=== PATIENT | female | born 1960 | race Caucasian/White ===

== ENCOUNTER → 2020-01-16 14:12 | Outpatient (BNVA) | payer MEDICAID, SELFPAY | PROVIDERS: PCP Internal Medicine; Visit Provider Advanced Practice Midwife | DX: Z20.2 Contact with and (suspected) exposure to infections with a predominantly sexual mode of transmission (principal) | CPT/HCPCS: 99212 ==

== ENCOUNTER 2020-01-23 13:00 | Outpatient (RCR) | payer MEDICAID, SELFPAY ==
--- NOTE | 2020-01-23 15:19 | MHC.PT.DC ---
[facility] [place] Office [place] Office [place] Office [address] Carlos Mcdaniel [address] [phone] F: [phone] F: [phone] F: [phone] F: [phone] Physical Therapy Discharge Report Diagnosis: Date of Surgery: n/A Date of Evaluation: 12/22/19 Date of Discharge: 01/23/20 Treatments to Date: 8 Cancellations to Date: 0 No Shows to Date: 0 Discharge Status: Improved Function Independent with HEP Recommend MD Follow-up Discharge Summary: The patient overall has improved in her functional mobility and balance. She continues to have fluctuating pain that interferes with her daily activities. She reported a statistically significant improvement in her self-reported outcome measure, the Lower Extremity Functional Index. She is being discharged from this physical therapy plan of care to her home exercise program. It is recommended she follow-up with her primary care provider regarding her pain to discuss alternative treatment options. Electronically signed by: Liyah Rosales PT, DPT Please sign and return to therapist. Thank you for your referral.
== END 2020-01-23 15:19 | disposition other institution (70) ==
LOC: HO.PT 13:00
PROVIDERS: PCP Internal Medicine; Visit Provider Internal Medicine
DX: M25.373 Other instability, unspecified ankle (principal)
CPT/HCPCS: 97110; 97112; 97530

== ENCOUNTER 2020-02-19 13:22 | Emergency (ER) | payer MEDICAID, SELFPAY ==
--- NOTE | 2020-02-19 13:31 | XR_ITS ---
EXAMINATION: XR CHEST CLINICAL INFORMATION: Dyspnea COMPARISON: Prior chest April 2019 TECHNIQUE: Frontal view of the chest was obtained. FINDINGS: No significant abnormality is noted involving the heart, lungs, mediastinum, bony thorax or soft tissues. XR/XR chest 1V IMPRESSION: Unremarkable examination.
--- NOTE | 2020-02-19 13:31 | ECG_ITS ---
Test Reason : ASTHMA Blood Pressure : / mmHG Vent. Rate : 065 BPM Atrial Rate : 065 BPM P-R Int : 136 ms QRS Dur : 094 ms QT Int : 410 ms P-R-T Axes : 024 -17 018 degrees QTc Int : 426 ms Normal sinus rhythm Normal ECG No previous ECGs available Referred By: Tangela Jefferson Electronically Signed By:PAM MORIN MD
--- NOTE | 2020-02-19 13:31 | ED_ITS ---
HPI - Asthma General Chief Complaint: Asthma Stated Complaint: DIFF BREATHING Time Seen by Provider: 02/19/20 13:31 Source: patient Mode of arrival: ambulatory Limitations: no limitations History of Present Illness MD complaint: shortness of breath Onset (ago): day(s) (last night) Severity: moderate Context: none known Associated symptoms: dry cough and chest pain Asthma History: childhood onset Treatments Prior to Arrival: inhaled bronchodilator Related Data Home Medications Medication Instructions Recorded Confirmed albuterol sulfate 90 mcg/actuation 2 puff INHALATION Q6H PRN 01/05/20 01/16/20 aerosol inhaler atorvastatin 10 mg tablet 10 mg PO BEDTIME 01/05/20 01/16/20 levothyroxine 25 mcg tablet 25 mcg PO DAILY 01/05/20 01/16/20 metformin 500 mg tablet 500 mg PO BID 01/05/20 01/16/20 montelukast 10 mg tablet 10 mg PO BEDTIME 01/05/20 01/16/20 topiramate 50 mg tablet 50 mg PO ONCE tab 01/05/20 01/16/20 Previous Rx's Medication Instructions Recorded lorazepam [Ativan] 1 mg PO BID PRN #10 tab 02/19/20 Allergies Allergy/AdvReac Type Severity Reaction Status Date / Time gentamicin [From GARAMYCIN] Allergy Intermediate RASH Verified 02/19/20 13:34 Penicillins [PENICILLINS] Allergy Intermediate RASH Verified 02/19/20 13:34 Garamycin Allergy Unknown rash Verified 02/19/20 13:34 penicillin V Allergy Unknown rash Verified 02/19/20 13:34 vancomycin [VANCOMYCIN] Allergy Unknown sweeling/ra Verified 02/19/20 13:34 sh/hives Pt states no allergies to Allergy Unknown Unknown Uncoded 02/19/20 13:34 food Review of Systems Review of Systems: Constitutional : No Fever, No Chills ENT/Mouth : No sore throat, No Rhinorrhea, No Swallowing Difficulty Eyes: No Eye Pain, No Swelling, No Redness Cardiovascular : pos Chest Pain, positive SOB, No Orthopnea, no Edema Respiratory : pos Cough, No Sputum, No Wheezing, positive dyspnea Gastrointestinal : No Nausea, No Vomiting, No Diarrhea, No abdominal Pain, No Hematochezia, No Melena Genitourinary : No Dysuria, No Urinary Frequency, No Hematuria Musculoskeletal : No joint pain, No Myalgias Skin : No Skin Lesions, No rash Neuro : No Weakness, No Numbness, No Dizziness, No Headache Psych : No Anxiety/Panic, No Depression Heme/Lymph: No Bruising, No Lymphadenopathy Endocrine : No Polyuria, No Polydipsia All other systems reviewed and are negative [facility] Past Medical History Attestation statement: The following information was validated with the patient. Medical History Asthma Diabetes type 2, controlled GERD (gastroesophageal reflux disease) Hyperlipidemia Hypothalamic hypothyroidism Insomnia Lower back pain Migraine headache Osteopenia determined by x-ray Surgical History History of cervical cerclage Hx of hysterectomy Hx of left breast biopsy Hx of tubal ligation Family History Family History Father Diabetes Mother HTN (hypertension) Father Colon cancer Mother Colon cancer Skin cancer Mother Breast CA Social History Social History Alcohol intake: never Smoking Status: Never smoker Advance Directives: Yes Advance Directives on File: Yes Advance Directives Date on File: 01/09/20 Gender identity: female Physical Exam Vital Signs: Vital Signs: Last Vital Signs Temp 98.2 F 02/19/20 13:34 Pulse 68 02/19/20 13:34 Resp 18 02/19/20 13:34 BP 126/60 02/19/20 13:34 Pulse Ox 95 02/19/20 13:34 Body Mass Index 32.3 Appearance: Alert. Oriented X3. No acute distress. anxious Eyes: Pupils equal, round and reactive to light. ENT: Pharynx normal. Neck: Normal inspection. Neck supple. CVS: Normal heart rate and rhythm. Pulses normal. Respiratory: No respiratory distress. Breath sounds slightly diminished Abdomen: Soft and nontender. Skin: Skin warm and dry. Normal skin color. Normal skin turgor. Extremities: No lower extremity edema. No calf ttp Neuro: Oriented X 3. No motor deficit. No sensory deficit. Course Course Course Narrative: negative findings at this time, trop negative and ddimer negative > 6 hours of symptoms, stable for DC MDM - Asthma MDM Narrative Medical decision making narrative: 59 yo female with HTN, DM, asthma here with dyspnea x 1 day and substernal CP - states she is very anxious due to family stressors, will need labs, EKG, ddimer, troponin x 1, CXR, neb and ativan for anxiety, dispo per results and findings. Lab Data Result diagrams: 02/19/20 13:48 02/19/20 13:48 Labs: Lab Results 02/19/20 02/19/20 02/19/20 Range/Units 13:48 13:48 13:48 WBC 6.1 (4.8-10.8) X10*3/uL RBC 3.85 L (4.20-5.50) X10*6/uL Hgb 11.5 L (12.0-16.0) g/dl Hct 35.6 L (37-47) % MCV 92.5 (80-98) fL MCH 29.9 (27.0-33.0) pg MCHC 32.3 (31.0-35.0) g/dl RDW 13.1 (11.0-16.0) % Plt Count 251 (160-400) X10*3/uL MPV 11.0 (9.4-12.3) fL Immature Gran % (Auto) 0.2 (0.0-0.4) % Neut % (Auto) 64.1 (45-73) % Lymph % (Auto) 26.7 (20-40) % [place] % (Auto) 6.9 (2-11) % Eos % (Auto) 1.8 (0-4) % Baso % (Auto) 0.3 (0-2) % Lymph # (Auto) 1.6 (1.2-4.9) X10*3/uL [place] # (Auto) 0.4 (0.1-1.2) X10*3/uL Eos # (Auto) 0.1 (0.0-0.4) X10*3/uL Baso # (Auto) 0.0 (0.0-0.2) X10*3/uL Abs Immat Gran (auto) 0.01 (0.00-0.03) X10*3/uL Absolute Neuts (auto) 3.9 (2.0-8.3) X10*3/uL Absolute Nucleated RBC 0.000 (0.0-0.012) X10*3/uL Nucleated RBC % (auto) 0.0 (0.0-0.2) /100WBC D-Dimer < 200 NG/ML Sodium 141 (135-145) mmol/L Potassium 3.8 (3.3-5.1) mmol/l Chloride 104 (96-108) mmol/L Carbon Dioxide 29 (22-29) mmol/L Anion Gap 12 (12-20) BUN 12 (9-16) mg/dL Creatinine 0.80 (0.5-1.4) mg/dL Estim Creat Clear Calc 84.8 Estimated GFR > 60 Random Glucose 126 H (60-115) mg/dL Calcium 9.0 (8.4-10.2) mg/dL Magnesium 2.0 (1.6-2.6) mg/dL Total Bilirubin 0.4 (0.0-1.0) mg/dL Direct Bilirubin < 0.2 (0.0-0.5) mg/dL AST 16 (5-31) U/L ALT 15 (0-31) U/L Alkaline Phosphatase 92 (39-117) U/L Troponin I High Sens (<3.5-17.0) ng/L Total Protein 6.7 (6.5-8.0) g/dL Albumin 4.2 (3.5-5.0) g/dL 02/19/20 Range/Units 13:48 WBC (4.8-10.8) X10*3/uL RBC (4.20-5.50) X10*6/uL Hgb (12.0-16.0) g/dl Hct (37-47) % MCV (80-98) fL MCH (27.0-33.0) pg MCHC (31.0-35.0) g/dl RDW (11.0-16.0) % Plt Count (160-400) X10*3/uL MPV (9.4-12.3) fL Immature Gran % (Auto) (0.0-0.4) % Neut % (Auto) (45-73) % Lymph % (Auto) (20-40) % [place] % (Auto) (2-11) % Eos % (Auto) (0-4) % Baso % (Auto) (0-2) % Lymph # (Auto) (1.2-4.9) X10*3/uL [place] # (Auto) (0.1-1.2) X10*3/uL Eos # (Auto) (0.0-0.4) X10*3/uL Baso # (Auto) (0.0-0.2) X10*3/uL Abs Immat Gran (auto) (0.00-0.03) X10*3/uL Absolute Neuts (auto) (2.0-8.3) X10*3/uL Absolute Nucleated RBC (0.0-0.012) X10*3/uL Nucleated RBC % (auto) (0.0-0.2) /100WBC D-Dimer NG/ML Sodium (135-145) mmol/L Potassium (3.3-5.1) mmol/l Chloride (96-108) mmol/L Carbon Dioxide (22-29) mmol/L Anion Gap (12-20) BUN (9-16) mg/dL Creatinine (0.5-1.4) mg/dL Estim Creat Clear Calc Estimated GFR Random Glucose (60-115) mg/dL Calcium (8.4-10.2) mg/dL Magnesium (1.6-2.6) mg/dL Total Bilirubin (0.0-1.0) mg/dL Direct Bilirubin (0.0-0.5) mg/dL AST (5-31) U/L ALT (0-31) U/L Alkaline Phosphatase (39-117) U/L Troponin I High Sens < 3.5 (<3.5-17.0) ng/L Total Protein (6.5-8.0) g/dL Albumin (3.5-5.0) g/dL ECG Data Attestation: I personally reviewed and interpreted this ECG as follows: ECG interpretation date: 02/19/20 ECG interpretation time: 13:46 Interpretation: Rate: 65 Rhythm: NSR [place]: left Normal P waves. Normal SILVANO. Normal QRS complex. ST T wave :normal qTC: normal prior studies: no acute ischemia The study has been interpreted contemporaneously by me. . Discharge Plan Discharge Clinical Impression: Anxiety, Acute dyspnea Chest pain Qualifiers: Chest pain type: unspecified Qualified Code(s): R07.9 - Chest pain, unspecified Patient Disposition: Home, Self-Care Instructions: Chest Pain (ED), Anxiety (ED) Additional Instructions: return to ED for any worsening symptoms or concerns Prescriptions: New lorazepam [Ativan] 1 mg tablet 1 mg PO BID PRN (Reason: anxiety) Qty: 10 RF: 0 No Action metformin 500 mg tablet 500 mg PO BID RF: 0 albuterol sulfate 90 mcg/actuation HFA aerosol inhaler 2 puff inhalation Q6H PRNRF: 0 atorvastatin [Lipitor] 10 mg tablet 10 mg PO BEDTIME RF: 0 montelukast [Singulair] 10 mg tablet 10 mg PO BEDTIME RF: 0 topiramate 50 mg tablet 50 mg PO ONCE RF: 0 levothyroxine [Synthroid] 25 mcg tablet 25 mcg PO DAILY RF: 0 Referrals: Matilda Yo MD [Primary Care Provider] - 2 days (if not better) Print Language: [place]
[2020-02-19 13:34] VITALS: BP 126/60; PULSE 68; RESP 18; TEMP 36.8; O2SAT 95; BMI 32.3
[2020-02-19] MEDS: LORazepam 1 MG TABLET PO (13:41)
[2020-02-19 13:55] LABS: Basophils Percent Auto 0.3 % (0-2); Eosinophils Absolute Auto 0.1 X10*3/uL (0.0-0.4); Eosinophils Percent Auto 1.8 % (0-4); Hematocrit 35.6 % (37-47); Hemoglobin 11.5 g/dl (12.0-16.0); Imm Gran Abs Auto 0.01 X10*3/uL (0.00-0.03); Imm Gran Pct Auto 0.2 % (0.0-0.4); Lymphocytes Absolute Auto 1.6 X10*3/uL (1.2-4.9); Lymphocytes Percent Auto 26.7 % (20-40); MANUAL DIFF FLAG NO; Mean Corpuscular HGB Conc 32.3 g/dl (31.0-35.0); Mean Corpuscular Hemoglobin 29.9 pg (27.0-33.0); Mean Corpuscular Volume 92.5 fL (80-98); Monocytes Absolute Auto 0.4 X10*3/uL (0.1-1.2); Monocytes Percent Auto 6.9 % (2-11); Neutrophils Absolute Auto 3.9 X10*3/uL (2.0-8.3); Neutrophils Percent Auto 64.1 % (45-73); Platelet Count 251 X10*3/uL (160-400); Red Blood Count 3.85 X10*6/uL (4.20-5.50); Red Cell Distribution Width 13.1 % (11.0-16.0); White Blood Count 6.1 X10*3/uL (4.8-10.8)
--- NOTE | 2020-02-19 14:02 | PC.NURSE ---
SEEN BY PROVIDER. MEDICATED PER ORDERS. AWAITING UD BY RT
[2020-02-19] MEDS: Albuterol Sulfate (0.083%) 2.5 MG/3 ML VIAL.NEB INHALE (14:05)
[2020-02-19 14:07] LABS: D Dimer < 200 NG/ML
[2020-02-19 14:16] LABS: Alanine Aminotransferase 15 U/L (0-31); Albumin Level 4.2 g/dL (3.5-5.0); Alkaline Phosphatase 92 U/L (39-117); Anion Gap 12 (12-20); Aspartate Amino Transferase 16 U/L (5-31); Bilirubin Direct < 0.2 mg/dL (0.0-0.5); Bilirubin Total 0.4 mg/dL (0.0-1.0); Blood Urea Nitrogen 12 mg/dL (9-16); Carbon Dioxide 29 mmol/L (22-29); Chloride 104 mmol/L (96-108); Creatinine Clr Calc Pharmacy 84.8; Estimated Glomerular Filt Rate > 60; Glucose Random 126 mg/dL (60-115); Potassium 3.8 mmol/l (3.3-5.1); Sodium 141 mmol/L (135-145); Total Protein 6.7 g/dL (6.5-8.0)
[2020-02-19 14:23] LABS: Troponin-I High Sensitivity < 3.5 ng/L (<3.5-17.0)
== END 2020-02-19 15:13 | disposition home or self-care (01) ==
PROVIDERS: Emergency Provider Emergency Medicine; PCP Internal Medicine
DX: F41.1 Generalized anxiety disorder (principal); F43.0 Acute stress reaction; R07.9 Chest pain, unspecified; R06.02 Shortness of breath; Z79.899 Other long term (current) drug therapy
CPT/HCPCS: 36415; 71045; 80048; 80076; 83735; 84484; 85025; 85379; 93005; 94640; 99283; 99284

== ENCOUNTER 2020-03-11 09:18 | Outpatient (REF) | payer MEDICAID, SELFPAY ==
[2020-03-11 10:29] LABS: Estimated Average Glucose 131 mg/dL; Hemoglobin A1C 140.5619 umol/L; Hemoglobin A1c % 6.2 %
[2020-03-11 10:41] LABS: Alanine Aminotransferase 19 U/L (0-31); Albumin Level 4.2 g/dL (3.5-5.0); Alkaline Phosphatase 86 U/L (39-117); Anion Gap 10 (12-20); Aspartate Amino Transferase 18 U/L (5-31); Bilirubin Total 0.7 mg/dL (0.0-1.0); Blood Urea Nitrogen 14 mg/dL (9-16); Calcium 8.7 mg/dL (8.4-10.2); Carbon Dioxide 28 mmol/L (22-29); Chloride 107 mmol/L (96-108); Estimated Glomerular Filt Rate > 60; Glucose Random 111 mg/dL (60-115); Potassium 4.5 mmol/l (3.3-5.1); Sodium 140 mmol/L (135-145); Total Protein 6.6 g/dL (6.5-8.0)
== END 2020-03-11 09:19 | disposition home or self-care (01) ==
LOC: HO.LAB 09:18
PROVIDERS: PCP Internal Medicine; Visit Provider Internal Medicine
DX: E03.8 Other specified hypothyroidism (principal); E11.9 Type 2 diabetes mellitus without complications; G43.119 Migraine with aura, intractable, without status migrainosus; J45.31 Mild persistent asthma with (acute) exacerbation
CPT/HCPCS: 80053; 83036

== ENCOUNTER → 2020-04-22 09:52 | Outpatient (BNVA) | payer MEDICAID, SELFPAY | PROVIDERS: PCP Internal Medicine; Visit Provider Physician Assistant | DX: E66.9 Obesity, unspecified (principal); E11.9 Type 2 diabetes mellitus without complications; I10 Essential (primary) hypertension; Z68.35 Body mass index [BMI] 35.0-35.9, adult | CPT/HCPCS: 99202 ==

== ENCOUNTER 2020-04-23 12:33 | Outpatient (REF) | payer MEDICAID, SELFPAY | END 2020-04-23 12:34 | disposition home or self-care (01) | LOC: HO.LAB 12:33 | PROVIDERS: Visit Provider Internal Medicine | DX: Z20.822 Contact with and (suspected) exposure to COVID-19 (principal) | CPT/HCPCS: 36415; C9803; U0003 ==

== ENCOUNTER 2020-06-14 09:38 | Outpatient (REF) | payer MEDICAID, SELFPAY ==
[2020-06-14 10:40] LABS: MANUAL DIFF FLAG NO
[2020-06-14 10:57] LABS: Basophils Percent Auto 0.5 % (0-2); Eosinophils Absolute Auto 0.1 X10*3/uL (0.0-0.4); Eosinophils Percent Auto 2.4 % (0-4); Hematocrit 39.5 % (37-47); Hemoglobin 12.6 g/dl (12.0-16.0); Imm Gran Abs Auto 0.02 X10*3/uL (0.00-0.03); Imm Gran Pct Auto 0.3 % (0.0-0.4); Lymphocytes Absolute Auto 1.8 X10*3/uL (1.2-4.9); Lymphocytes Percent Auto 31.1 % (20-40); Mean Corpuscular HGB Conc 31.9 g/dl (31.0-35.0); Mean Corpuscular Hemoglobin 29.5 pg (27.0-33.0); Mean Corpuscular Volume 92.5 fL (80-98); Mean Platelet Volume 11.2 fL (9.4-12.3); Monocytes Absolute Auto 0.4 X10*3/uL (0.1-1.2); Monocytes Percent Auto 6.1 % (2-11); Neutrophils Absolute Auto 3.4 X10*3/uL (2.0-8.3); Neutrophils Percent Auto 59.6 % (45-73); Platelet Count 281 X10*3/uL (160-400); Red Blood Count 4.27 X10*6/uL (4.20-5.50); Red Cell Distribution Width 12.9 % (11.0-16.0); White Blood Count 5.7 X10*3/uL (4.8-10.8)
[2020-06-14 11:20] LABS: Microalbum/Creatinine Ratio Ur 4.7 ug/mg cr
[2020-06-14 11:22] LABS: Estimated Average Glucose 137 mg/dL; Hemoglobin A1c % 6.4 %
[2020-06-14 12:13] LABS: Alanine Aminotransferase 16 U/L (0-31); Albumin Level 4.4 g/dL (3.5-5.0); Alkaline Phosphatase 90 U/L (39-117); Anion Gap 13 (12-20); Aspartate Amino Transferase 16 U/L (5-31); Bilirubin Total 0.8 mg/dL (0.0-1.0); Blood Urea Nitrogen 12 mg/dL (9-16); Calcium 9.1 mg/dL (8.4-10.2); Carbon Dioxide 28 mmol/L (22-29); Chloride 104 mmol/L (96-108); Cholesterol 210 mg/dL; Estimated Glomerular Filt Rate > 60; Glucose Random 100 mg/dL (60-115); HDL Cholesterol 44 mg/dL; LDL Cholesterol Calculated 125 mg/dl; Potassium 4.4 mmol/L (3.3-5.1); Sodium 141 mmol/L (135-145); Total Protein 6.9 g/dL (6.5-8.0); Triglycerides 206 mg/dL
== END 2020-06-14 09:39 | disposition home or self-care (01) ==
LOC: HO.LAB 09:38
PROVIDERS: PCP Internal Medicine; Visit Provider Internal Medicine
DX: E03.9 Hypothyroidism, unspecified (principal); E11.9 Type 2 diabetes mellitus without complications; E78.00 Pure hypercholesterolemia, unspecified; I10 Essential (primary) hypertension
CPT/HCPCS: 36415; 80053; 80061; 82043; 83036; 85025

== ENCOUNTER 2020-06-28 10:54 | Outpatient (REF) | payer MEDICAID, SELFPAY ==
[2020-06-30 14:16] LABS: H Pylori Breath Test NOT DETECTED (NOT DETECTED)
== END 2020-06-28 10:55 | disposition home or self-care (01) ==
LOC: CF 10:54
PROVIDERS: PCP Internal Medicine; Visit Provider Nurse Practitioner
DX: R13.12 Dysphagia, oropharyngeal phase (principal); K59.04 Chronic idiopathic constipation; K21.9 Gastro-esophageal reflux disease without esophagitis
CPT/HCPCS: 83013; 99212

== ENCOUNTER 2020-07-05 10:48 | Outpatient (REF) | payer MEDICAID, SELFPAY ==
--- NOTE | ~2020-07-05 | MM_ITS ---
EXAMINATION: MM SCREENING DIGITAL BREAST TOMOSYNTHESIS, BILATERAL CLINICAL INFORMATION: Screening. Asymptomatic. The lifetime risk of breast cancer based on the Tyrer-Cuzick Model is 16.7%. COMPARISON: Mammography: April 25, 2019 and studies dating back to April 23, 2014 TECHNIQUE: Digital breast tomosynthesis is performed in both the craniocaudal and mediolateral oblique views along with computer-aided detection (CAD). Synthesized 2D images are generated from the tomosynthesis. FINDINGS: The breasts are heterogeneously dense, which may obscure small masses (ACR BI-RADS breast composition Category c). There are no significant masses, abnormal calcifications, or other abnormalities. 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 MM/MM tomosynthesis screening BI IMPRESSION: There are no significant changes from prior study. ASSESSMENT: BI-RADS 2: Benign RECOMMENDATION: Routine annual mammography screening. This patient's information was entered into a reminder system with a target due date for their next mammogram.
== END 2020-07-05 10:49 | disposition home or self-care (01) ==
LOC: HO.MAMMO 10:48
PROVIDERS: Visit Provider Advanced Practice Midwife
DX: Z12.31 Encounter for screening mammogram for malignant neoplasm of breast (principal)
CPT/HCPCS: 77063; 77067

== ENCOUNTER → 2020-07-06 10:08 | Outpatient (BNVA) | payer MEDICAID, SELFPAY | PROVIDERS: PCP Internal Medicine; Visit Provider Student in an Organized Health Care Education/Training Program | DX: M54.2 Cervicalgia (principal); M54.5 Low back pain | CPT/HCPCS: 99212 ==

== ENCOUNTER 2020-07-16 10:25 | Outpatient (REF) | payer MEDICAID, SELFPAY ==
--- NOTE | ~2020-07-16 | XR_ITS ---
EXAMINATION: XR CERVICAL SPINE CLINICAL INFORMATION: Cervicalgia COMPARISON: None TECHNIQUE: 3 views of the cervical spine were obtained. FINDINGS: There is no fracture or acute subluxation. Slight retrolisthesis of C5 on C6 appears degenerative. There is narrowing of the disc space at this level with endplate sclerosis and small osteophytes. Remaining disc spaces are maintained with small endplate osteophytes. The atlantoaxial joint is well aligned. The dens is intact. The prevertebral soft tissues are unremarkable. The lung apices are clear. XR/XR cervical spine 2V IMPRESSION: Moderate degenerative change of the C5-C6 level.
--- NOTE | ~2020-07-16 | XR_ITS ---
EXAMINATION: XR LUMBOSACRAL SPINE CLINICAL INFORMATION: Lower back pain COMPARISON: None TECHNIQUE: Three views of the lumbosacral spine. FINDINGS: There is no acute fracture or subluxation. Grade 1 anterolisthesis of L4 on L5 appearing degenerative. Mild disc space narrowing at this level with facet arthropathy. Mild disc space narrowing of the L2-L3 level. Vertebral body heights are maintained. The sacroiliac joints are symmetric. The visualized sacrum is intact. The bowel gas pattern is unremarkable. XR/XR lumbar spine 2-3V IMPRESSION: Mild degenerative changes of the spine.
== END 2020-07-16 10:26 | disposition home or self-care (01) ==
LOC: HO.XRAY 10:25
PROVIDERS: PCP Internal Medicine; Visit Provider Student in an Organized Health Care Education/Training Program
DX: M54.5 Low back pain (principal); M54.2 Cervicalgia
CPT/HCPCS: 72040; 72100

== ENCOUNTER 2020-07-16 11:52 | Outpatient (REF) | payer MEDICAID, SELFPAY ==
[2020-07-16 14:50] LABS: Syphilis Screen Nonreactive (Nonreactive)
[2020-07-16 16:35] LABS: CT PCR NOT DETECTED (Not Detect.); NG PCR NOT DETECTED (Not Detect.)
[2020-07-17 09:31] LABS: HIV AB/AG Nonreactive (Nonreactive); HIV Num 1 0.05 S/CO (0.00-0.99); ~HepC Num1 0.05 S/CO (0.00-0.79); ~Hepatitis C Antibody Nonreactive (Nonreactive)
[2020-07-17 09:42] LABS: HBsAGNum1 0.31 S/CO (0.00-0.99); Hepatitis B Surface Antigen Negative (Negative)
[2020-07-17 15:13] LABS: BV Int Neg Control Negative (Negative); BV Int Pos Control Positive (Positive)
[2020-07-21 14:22] LABS: HPV mRNA E6/E7 rflx Not Detected (Not Detected)
== END 2020-07-16 11:53 | disposition home or self-care (01) ==
LOC: HO.LAB 11:52
PROVIDERS: PCP Internal Medicine; Visit Provider Advanced Practice Midwife
DX: Z01.419 Encounter for gynecological examination (general) (routine) without abnormal findings (principal); M54.2 Cervicalgia; M54.5 Low back pain; Z20.2 Contact with and (suspected) exposure to infections with a predominantly sexual mode of transmission
CPT/HCPCS: 36415; 86780; 86803; 87340; 87389; 87480; 87491; 87510; 87591; 87624; 87660; 88142

== ENCOUNTER → 2020-07-20 09:54 | Outpatient (BNVA) | payer MEDICAID, SELFPAY | PROVIDERS: PCP Internal Medicine; Visit Provider Surgery | DX: Z80.3 Family history of malignant neoplasm of breast (principal) | CPT/HCPCS: 99212 ==

== ENCOUNTER → 2020-09-09 14:03 | Outpatient (BNVA) | payer MEDICAID, SELFPAY | PROVIDERS: PCP Internal Medicine; Visit Provider Surgery | DX: Z71.83 Encounter for nonprocreative genetic counseling (principal) | CPT/HCPCS: 99211 ==

== ENCOUNTER 2020-09-14 07:41 | Outpatient (REF) | payer MEDICAID, SELFPAY ==
[2020-09-14 08:33] LABS: Estimated Average Glucose 137 mg/dL; Hemoglobin A1C 151.3523 umol/L; Hemoglobin A1c % 6.4 %
[2020-09-14 08:53] LABS: Alanine Aminotransferase 14 U/L (0-31); Albumin Level 4.4 g/dL (3.5-5.0); Alkaline Phosphatase 93 U/L (39-117); Anion Gap 13 (12-20); Aspartate Amino Transferase 16 U/L (5-31); Bilirubin Total 0.8 mg/dL (0.0-1.0); Blood Urea Nitrogen 14 mg/dL (9-16); Calcium 9.6 mg/dL (8.4-10.2); Carbon Dioxide 27 mmol/L (22-29); Chloride 105 mmol/L (96-108); Cholesterol 209 mg/dL; Estimated Glomerular Filt Rate > 60; Glucose Random 122 mg/dL (60-115); HDL Cholesterol 48 mg/dL; LDL Cholesterol Calculated 131 mg/dl; Potassium 4.7 mmol/L (3.3-5.1); Sodium 140 mmol/L (135-145); Total Protein 6.8 g/dL (6.5-8.0); Triglycerides 154 mg/dL
[2020-09-14 08:57] LABS: Thyroid Stimulating Hormone 2.08 uIU/mL (0.32-4.0)
== END 2020-09-14 07:42 | disposition home or self-care (01) ==
LOC: HO.LAB 07:41
PROVIDERS: PCP Internal Medicine; Visit Provider Internal Medicine
DX: Z00.00 Encounter for general adult medical examination without abnormal findings (principal); E03.9 Hypothyroidism, unspecified; E11.9 Type 2 diabetes mellitus without complications; E78.00 Pure hypercholesterolemia, unspecified; I10 Essential (primary) hypertension
CPT/HCPCS: 36415; 80053; 80061; 83036; 84443

== ENCOUNTER 2020-09-21 13:00 | Outpatient (RCR) | payer MEDICAID, SELFPAY ==
--- NOTE | 2020-08-19 14:48 | MHC.PT.EP ---
[facility] [place] Office [place] Office [place] Office [address] Carlos Mcdaniel [address] [phone] F: [phone] F: [phone] F: [phone] F: [phone] Physical Therapy Plan of Care Date of Evaluation: Date of Surgery: NA Diagnosis: low back and neck pain, leg weakness Assessment: The patient arrived reporting neck and back pain. She felt pain with all functional movements. She has severely limited use of her bilateral UE ( left worse than right). She has reduced shoulder strength as well. Decreased LE strength noted in hips and knees which limits functional mobility. She has poor posture awareness and poor body mechanics awareness. She is a good candidate for skilled Physical Therapy. Frequency and Duration: The patient will be seen 2x/week x 4 Short Term Goals: 1.Pt to able to demonstrate proper sitting posture with the use of a lumbar roll to decrease aggravating factors. 2.Pt to be able to demonstrate proper posture for common leisure activities such as crocheting and phone/tablet use. 3.For the patient to demonstrate proper upright sitting posture with use of the lumbar roll to improve compliance and carryover. Penitentiary Goals: 1.The patient to demonstrate proper lifting mechanics for household chore activities to show improved functional mobility. 2.The patient to report no leg or hip pain in order to show centralization of pain and reduction of lumbar derangement 3. Pt to be able to demonstrate self management of lumbar pain by demonstration of HEP. 4 weeks ? The patient to be able to return to all functional reaching, self care ADL's without any limitation from pain or loss of ROM. Treatment Plan: Modalities to reduce pain, spasms and effusion. Manual therapy to restore motion and function. Therapeutic exercise to improve strength and flexibility. Neuromuscular re-education for posture and balance. Therapeutic activities to return to functional activities of daily living. Electronically signed by: Emelia Rosario PT DPT Please sign and return to therapist. Thank you for your referral.
--- NOTE | 2020-09-21 13:33 | MHC.PT.DC ---
[facility] [place] Office [place] Office [place] Office [address] Carlos Mcdaniel [address] [phone] F: [phone] F: [phone] F: [phone] F: [phone] Physical Therapy Discharge Report Diagnosis: low back and neck pain, leg weakness Date of Surgery: NA Date of Evaluation: 08/19/20 Date of Discharge: 09/21/20 Treatments to Date: 7 Cancellations to Date: No Shows to Date: Discharge Status: Independent with HEP Recommend MD Follow-up Discharge Summary: 09/18/20 cervical rotation 59 on left and 60 on right, shoulder flexion right 118, left 120 with reports of pain at end range. abduction left 140, left 130. MMT shoulder flexion 4+/5, abduction 4+/5, elbow flexion extension 5/5 bilaterally, shoulder IR/ER bilaterally 5/5. She reports N+T in both hands and both feet that is constant and present when first waking. Despite her ROM and strength improving her pain levels subjective report remains high. The patient feels no improvement and thus I feel it is best she returns to her MD for f/u evaluation. The patient has been given a HEP and exercise bands. She was issued a green tb. She has been attending pool classes and she reports this helps. Electronically signed by: Emelia Rosario PT DPT Please sign and return to therapist. Thank you for your referral.
== END 2020-09-22 08:00 | disposition home or self-care (01) ==
LOC: HO.PT 13:00
PROVIDERS: PCP Internal Medicine; Visit Provider Student in an Organized Health Care Education/Training Program
DX: M54.2 Cervicalgia (principal); M54.5 Low back pain
CPT/HCPCS: 97014; 97110; 97112; 97140; 97163

== ENCOUNTER → 2020-09-24 10:41 | Outpatient (BNVA) | payer MEDICAID, SELFPAY | PROVIDERS: PCP Internal Medicine; Visit Provider Nurse Practitioner | DX: R13.12 Dysphagia, oropharyngeal phase (principal); K21.9 Gastro-esophageal reflux disease without esophagitis; K59.04 Chronic idiopathic constipation; Z79.899 Other long term (current) drug therapy | CPT/HCPCS: 99212 ==

== ENCOUNTER 2020-10-08 14:23 | Outpatient (REF) | payer MEDICAID, SELFPAY ==
[2020-10-09 09:22] LABS: CT PCR NOT DETECTED (Not Detect.); NG PCR NOT DETECTED (Not Detect.)
[2020-10-09 12:01] LABS: BV Int Neg Control Negative (Negative); BV Int Pos Control Positive (Positive)
== END 2020-10-08 14:24 | disposition home or self-care (01) ==
LOC: HO.LAB 14:23
PROVIDERS: PCP Internal Medicine; Visit Provider Advanced Practice Midwife
DX: Z11.3 Encounter for screening for infections with a predominantly sexual mode of transmission (principal); N89.8 Other specified noninflammatory disorders of vagina; R19.7 Diarrhea, unspecified; R32 Unspecified urinary incontinence; Z20.2 Contact with and (suspected) exposure to infections with a predominantly sexual mode of transmission
CPT/HCPCS: 81003; 87480; 87491; 87510; 87591; 87660; 99212

== ENCOUNTER → 2020-10-13 13:31 | Outpatient (BNVA) | payer MEDICAID, SELFPAY | PROVIDERS: PCP Internal Medicine; Visit Provider Physician Assistant | DX: E66.9 Obesity, unspecified (principal); E11.9 Type 2 diabetes mellitus without complications; I10 Essential (primary) hypertension; Z68.35 Body mass index [BMI] 35.0-35.9, adult | CPT/HCPCS: 99212 ==

== ENCOUNTER → 2020-11-01 09:27 | Outpatient (REF) | payer MEDICAID, SELFPAY | LOC: HO.SL 09:27 | PROVIDERS: PCP Internal Medicine; Visit Provider Surgery | DX: G47.10 Hypersomnia, unspecified (principal) | CPT/HCPCS: 95806 ==

== ENCOUNTER → 2020-11-02 12:36 | Outpatient (BNVA) | payer MEDICAID, SELFPAY | PROVIDERS: PCP Internal Medicine; Referring Provider Internal Medicine; Visit Provider Surgery | DX: Z80.3 Family history of malignant neoplasm of breast (principal) | CPT/HCPCS: 99212 ==

== ENCOUNTER 2020-11-04 07:50 | Outpatient (REF) | payer MEDICAID, SELFPAY ==
--- NOTE | ~2020-11-04 | XR_ITS ---
EXAMINATION: XR CHEST CLINICAL INFORMATION: Obesity. COMPARISON: 02/19/2020 TECHNIQUE: Two views of the chest were obtained. FINDINGS: There is no evidence of acute parenchymal disease, pneumothorax, or pleural effusion. Heart normal size. No evidence of pulmonary edema. Calcified granuloma seen within the right upper lobe. XR/XR chest 2V IMPRESSION: No acute disease.
--- NOTE | ~2020-11-04 | US_ITS ---
EXAMINATION: US COMPLETE ABDOMEN WITH LIVER ELASTOGRAPHY CLINICAL INFORMATION: Bariatric service evaluation. GERD. COMPARISON: None. TECHNIQUE: Real-time imaging of the abdominal viscera. Noninvasive ultrasound liver fibrosis assessment is performed using Gabriella ElastPQ point quantification shear wave elastography (pSWE) with a C5-2 MHz transducer. Multiple elastography samples are obtained. FINDINGS: PANCREAS: The pancreas is normal in size and contour and echogenicity. No pancreatic ductal distention. ABDOMINAL AORTA: The proximal, middle, and distal aortic segments are normal in caliber. INFERIOR VENA CAVA: Visualized portions are normal. LIVER: The liver is within normal size and smooth in contour. There is mild increased hepatic parenchymal echogenicity suggesting mild hepatic steatosis. There is no focal hepatic parenchymal lesion or intrahepatic ductal dilatation. The right lobe measures 17.2 cm in length. The left lobe measures 8.2 cm in length. Portal flow is towards the liver (hepatopetal). Shear wave liver elastography median stiffness is 1.00 m/s (reference: normal median stiffness is 1.3 m/s or less). IQR/median stiffness to assess sampling precision is 0.54 (reference: good quality data set is IQR/median stiffness of 0.15 or less). GALLBLADDER: Gallbladder has a few small dependent calculi. No gallbladder wall thickening or pericholecystic fluid. COMMON BILE DUCT: Normal in caliber measuring 0.4 cm in diameter. RIGHT KIDNEY: No hydronephrosis. No renal calculi or focal parenchymal lesions. The kidney measures 12.3 cm in maximum dimension. There are 2 small parapelvic cysts lower pole, the larger 1.3 cm. LEFT KIDNEY: No hydronephrosis. No renal calculi or focal parenchymal lesions. The kidney measures 13.0 cm in maximum dimension. There is a parapelvic cyst lower pole approximately 1 cm. SPLEEN: Normal. The spleen measures 9.2 cm in maximum dimension. FREE FLUID: None. US/US abdomen comp w elastography IMPRESSION: 1. Mild hepatic steatosis. Although liver elastography measurements suggest a high probability of normal liver stiffness, there is statistical variability of the sampling which decreases accuracy. 2. Small dependent gallstones. No gallbladder wall thickening or ductal dilatation. 3. Small bilateral a pelvic cyst. No hydronephrosis or visible calculi. REFERENCE: Society of Radiologists in Ultrasound Liver Stiffness Thresholds (2020): LIVER STIFFNESS THRESHOLDS: *Liver Stiffness equal or less than 1.3 m/s: High probability of being normal. *Liver Stiffness less than 1.7 m/s: In the absence of other known clinical signs, rules out compensated advanced chronic liver disease. *Liver Stiffness 1.7-2.1 m/s: Suggestive of compensated advanced chronic liver disease but need further test for confirmation. *Liver Stiffness over 2.1 m/s: Rules in compensated advanced chronic liver disease. *Liver Stiffness over 2.4 m/s: Suggestive of clinically significant portal hypertension. QUALITY OF DATA SET: *IQR/Median value equal or less than 0.15 implies a quality data set. *IQR/Median value over 0.15 implies a poor quality data set. SIGNIFICANT CHANGE FROM PRIOR EXAM: Significant change if liver stiffness measurement is 10% or greater from prior exam. OTHER CONSIDERATIONS: The stage of liver fibrosis may be overestimated in the setting of acute hepatitis, liver inflammation, elevated liver function tests, hepatic vascular congestion, obstructive cholestasis, non-fasting state, and infiltrative diseases such as amyloidosis and lymphoma. In some patients with NAFLD, the liver stiffness thresholds for compensated advanced chronic liver disease may be lower. In causes other than viral hepatitis and NAFLD, liver stiffness thresholds are not well established.
--- NOTE | ~2020-11-04 | FL_ITS ---
EXAMINATION: XR GI SERIES CLINICAL INFORMATION: Snoring. COMPARISON: 05/08/2019 TECHNIQUE: Air-contrast upper GI examination. FINDINGS: There is normal apposition of the vocal cords while saying E. There is normal elevation of the soft palate while saying candy. No nasopharyngeal reflux or tracheal aspiration was identified. Patient was unable to swallow barium tablet, however, no abnormality within the oropharynx was identified. No Zenker's diverticulum. No cricopharyngeal hypertrophy. The esophagus appears unremarkable without evidence of ulceration or persistent narrowing. No hiatal hernia. No gastroesophageal reflux was elicited including with water siphon test. The stomach demonstrates normal distensibility without abnormal mass or ulceration. There was no delay in gastric emptying. The duodenal bulb and sweep appeared unremarkable. FLUOROSCOPY TIME: 2.3 minutes DOSE AREA PRODUCT: 18.746 Gy-cm2 (newton-centimeter squared) FL/FL upper GI series IMPRESSION: Patient unable to swallow barium tablet, however, no abnormality was identified. Normal air-contrast upper GI examination.
== END 2020-11-04 07:51 | disposition home or self-care (01) ==
LOC: HO.US 07:50
PROVIDERS: PCP Internal Medicine; Visit Provider Surgery
DX: Z01.818 Encounter for other preprocedural examination (principal); E66.01 Morbid (severe) obesity due to excess calories; Z68.35 Body mass index [BMI] 35.0-35.9, adult; K21.9 Gastro-esophageal reflux disease without esophagitis; E11.9 Type 2 diabetes mellitus without complications; E78.5 Hyperlipidemia, unspecified; G47.9 Sleep disorder, unspecified; I10 Essential (primary) hypertension; I34.1 Nonrheumatic mitral (valve) prolapse; R06.83 Snoring
CPT/HCPCS: 71046; 74240; 76705; 76981

== ENCOUNTER → 2020-11-09 08:14 | Outpatient (BNVA) | payer MEDICAID, SELFPAY | PROVIDERS: PCP Internal Medicine; Visit Provider Nurse Practitioner ==

== ENCOUNTER → 2020-11-10 08:13 | Outpatient (BNVA) | payer MEDICAID, SELFPAY | PROVIDERS: PCP Internal Medicine; Visit Provider Dietitian, Registered ==

== ENCOUNTER → 2020-12-02 12:19 | Outpatient (BNVA) | payer MEDICAID, SELFPAY | PROVIDERS: PCP Internal Medicine; Visit Provider Internal Medicine | DX: I49.3 Ventricular premature depolarization (principal); R00.2 Palpitations; R07.2 Precordial pain | CPT/HCPCS: 93005; 99202 ==

== ENCOUNTER → 2020-12-10 10:15 | Outpatient (BNVA) | payer MEDICAID, SELFPAY | PROVIDERS: PCP Internal Medicine; Visit Provider Surgery | DX: J45.909 Unspecified asthma, uncomplicated (principal); G47.33 Obstructive sleep apnea (adult) (pediatric) | CPT/HCPCS: 99202 ==

== ENCOUNTER 2020-12-16 10:56 | Outpatient (REF) | payer MEDICAID, SELFPAY ==
[2020-12-16 11:36] LABS: MANUAL DIFF FLAG NO
[2020-12-16 11:42] LABS: Basophils Percent Auto 0.4 % (0-2); Eosinophils Absolute Auto 0.2 X10*3/uL (0.0-0.4); Eosinophils Percent Auto 2.6 % (0-4); Hematocrit 37.6 % (37-47); Hemoglobin 12.3 g/dl (12.0-16.0); Imm Gran Abs Auto 0.02 X10*3/uL (0.00-0.03); Imm Gran Pct Auto 0.3 % (0.0-0.4); Lymphocytes Absolute Auto 1.8 X10*3/uL (1.2-4.9); Lymphocytes Percent Auto 25.7 % (20-40); Mean Corpuscular HGB Conc 32.7 g/dl (31.0-35.0); Mean Corpuscular Hemoglobin 29.8 pg (27.0-33.0); Mean Platelet Volume 11.3 fL (9.4-12.3); Monocytes Absolute Auto 0.5 X10*3/uL (0.1-1.2); Monocytes Percent Auto 6.7 % (2-11); Neutrophils Absolute Auto 4.4 X10*3/uL (2.0-8.3); Neutrophils Percent Auto 64.3 % (45-73); Platelet Count 287 X10*3/uL (160-400); Red Blood Count 4.13 X10*6/uL (4.20-5.50); Red Cell Distribution Width 13.2 % (11.0-16.0); White Blood Count 6.9 X10*3/uL (4.8-10.8)
[2020-12-16 12:24] LABS: Erythrocyte Sedimentation Rate 14 MM/HR (0-20)
[2020-12-20 13:20] LABS: IgA 219 mg/dL (47-310); IgG 861 mg/dL (600-1640); IgM 16 mg/dL (50-300)
== END 2020-12-16 10:57 | disposition home or self-care (01) ==
LOC: HO.LAB 10:56
PROVIDERS: PCP Internal Medicine; Visit Provider Hospitalist
DX: J45.909 Unspecified asthma, uncomplicated (principal); R06.83 Snoring; G47.9 Sleep disorder, unspecified; I34.1 Nonrheumatic mitral (valve) prolapse; I10 Essential (primary) hypertension; E11.9 Type 2 diabetes mellitus without complications; E78.5 Hyperlipidemia, unspecified; Z01.82 Encounter for allergy testing
CPT/HCPCS: 36415; 82784; 82785; 85025; 85652; 86003

== ENCOUNTER → 2021-01-05 08:57 | Outpatient (REF) | payer MEDICAID, SELFPAY ==
--- NOTE | 2021-01-05 09:01 | HM_ITS ---
Conclusion: Patient was monitored for total of 3 days and 17 hours Baseline rhythm is normal sinus rhythm with average heart rate of 80 beats per minute No significant pauses or bradycardia noted Seven supraventricular runs noted with longest SVT episode of 16 beats at 145 beats per minute Total of 2226 PACs noted with a total burden of 0.59% consistent with rare PACs No patient reported symptoms MTDD
--- NOTE | 2021-01-05 09:01 | CA_ITS ---
Transthoracic Echocardiogram Patient (Last, First, Middle): Stefany Huynh, Gender: Female Date of : 1960 Age: 60 Procedure Date: 01/05/2021 Procedure Type: Transthoracic Echocardiogram Location: OP Height: 160.02 cm Weight: 92.53 kg BSA: 1.95 m2 Heart Rate: bpm BP: 120 / 70 mmHg Adjunct Physical Education Instructor: JUDY Referring MD: Yevgeniy Lui MD Symptoms: R07.2 - Precordial pain Study Quality: Fair ECG Rhythm: Sinus Conclusions: - The left ventricular systolic function is normal. The calculated ejection fraction is 57% by biplane method. - No obvious valvular pathology seen on this study. Findings Left Ventricle Normal left ventricular cavity size. There is normal left ventricular wall thickness. The left ventricular systolic function is normal. The calculated ejection fraction is 57% by biplane method. There is no evidence of regional wall motion abnormalities. Diastolic function is normal for age. Right Ventricle Normal right ventricular cavity size and systolic function. Atria Both atria are normal in size. Aortic Valve There is a normal trileaflet aortic valve. There is no aortic valve stenosis. The mean gradient is 4 mmHg. There is no aortic valve regurgitation. Mitral Valve The mitral valve appears normal. There is trace mitral valve regurgitation. There is no mitral valve stenosis. Pulmonic Valve The pulmonic valve was not well visualized. Tricuspid Valve The tricuspid valve was not well visualized. There is trace tricuspid valve regurgitation. The pulmonary artery systolic pressure is normal. Great Vessels The aortic annulus, sinuses of valsalva, asc aorta, and aortic arch are normal in size. Venous The inferior vena cava is normal in size and collapses greater than 50% with inspiration. Pericardium/Pleural There is no evidence of pericardial effusion. Prior Study Comparison No prior study available for comparison. Recommendations, Care & Conclusions No obvious valvular pathology seen on this study. Measurements 2D Linear Measurements IVSd: 0.97 0.6-0.9/0.6-1.0 cm LVIDd: 4.95 3.9-5.3/4.2-5.9 cm LVIDd Index: 2.54 2.4-3.2/2.2-3.1 cm/m2 LVIDs: 3.47 2.0-3.6 cm LVPWd: 1.01 0.7-1.1 cm Ao Root: 2.80 2.1-3.5 cm LA Diam: 3.60 2.7-3.8/3.0-4.0 cm LAIDs Index: 1.85 1.5-2.3 cm/m2 LV Mass: 219.99 67-162/88-224 g LV Mass Index: 112.81 43-95/49-115 g/m2 LVOT Diam: 2.00 3.0+(-)1.3 cm 2D Systolic Function EF 4C: 59.20 >55% EF 2C: 58.70 >55% EF BiP: 57.20 >55% Mitral Valve MV Pk E: 0.57 MV PK A: 0.69 MV Decel Time: 289.00 E/A: 0.80 E'Lateral: 7.07 E'Medial: 5.11 E/E' Med: 11.20 E/E' Lat: 8.10 PHT: 85.00 MVA PHT: 2.59 Decel Bradley: 1.99 Aortic Valve AoV Pk Grabiel: 1.25 AoV Mn Grabiel: 0.93 AoV VTI: 0.29 AoV Pk Grad: 6.00 Aov Mn Grad: 4.00 ISAIAS Cont.VTI: 2.12 LVOT LVOT Pk Grabiel: 0.79 LVOT Mn Grabiel: 0.56 LVOT VTI: 0.20 LVOT Pk Grad: 2.00 LVOT Mn Grad: 1.00 LVOT Diam: 2.00 LVOT Area: 3.14 Diastolic Function MV Pk E: 0.57 MV Pk A: 0.69 E/A: 0.80 E'Medial: 5.11 E/E' Med: 11.20 E' Laterial: 7.07 E/E' Lat: 8.10 Right Ventricle TAPSE (mm): 1.88 TVS' Grabiel: 12.10 Tricuspid Valve TR Pk Grabiel: 2.16 TR Pk Grad: 19.00 RA Press: 3.00 RVSP: 22.00 Great Vessels Aorta Ao Root-2D: 2.80 2.0-3.7 cm Ao Asc: 3.50 2.1-3.4 cm Ao Arch: 2.90 Updated in Other Vendor System with Status of Final Yevgeniy Lui MD electronically signed on 01/05/2021 1:14:00 PM with status of Final
== END ==
LOC: HO.CARD 08:57
PROVIDERS: Visit Provider Internal Medicine
DX: R07.2 Precordial pain (principal); I49.3 Ventricular premature depolarization; R00.2 Palpitations
CPT/HCPCS: 93242; 93306

== ENCOUNTER 2021-01-12 08:30 | Outpatient (REF) | payer MEDICAID, SELFPAY ==
[2021-01-12 09:11] LABS: MANUAL DIFF FLAG NO
[2021-01-12 09:25] LABS: Basophils Percent Auto 0.3 % (0-2); Eosinophils Absolute Auto 0.2 X10*3/uL (0.0-0.4); Eosinophils Percent Auto 2.6 % (0-4); Hematocrit 38.7 % (37-47); Hemoglobin 12.9 g/dl (12.0-16.0); Imm Gran Abs Auto 0.02 X10*3/uL (0.00-0.03); Imm Gran Pct Auto 0.3 % (0.0-0.4); Lymphocytes Absolute Auto 1.8 X10*3/uL (1.2-4.9); Lymphocytes Percent Auto 24.1 % (20-40); Mean Corpuscular HGB Conc 33.3 g/dl (31.0-35.0); Mean Corpuscular Hemoglobin 30.3 pg (27.0-33.0); Mean Corpuscular Volume 90.8 fL (80-98); Mean Platelet Volume 10.9 fL (9.4-12.3); Monocytes Absolute Auto 0.5 X10*3/uL (0.1-1.2); Monocytes Percent Auto 6.5 % (2-11); Neutrophils Absolute Auto 4.8 X10*3/uL (2.0-8.3); Neutrophils Percent Auto 66.2 % (45-73); Platelet Count 277 X10*3/uL (160-400); Red Blood Count 4.26 X10*6/uL (4.20-5.50); Red Cell Distribution Width 13.2 % (11.0-16.0); White Blood Count 7.3 X10*3/uL (4.8-10.8)
[2021-01-12 09:42] LABS: Estimated Average Glucose 134 mg/dL; Hemoglobin A1c % 6.3 %
[2021-01-12 10:20] LABS: Alanine Aminotransferase 21 U/L (0-31); Albumin Level 4.4 g/dL (3.5-5.0); Alkaline Phosphatase 101 U/L (39-117); Anion Gap 12 (12-20); Aspartate Amino Transferase 17 U/L (5-31); Bilirubin Total 0.9 mg/dL (0.0-1.0); Blood Urea Nitrogen 16 mg/dL (9-16); C Reactive Protein 0.76 mg/dL (< or = 0.50); Calcium 9.8 mg/dL (8.4-10.2); Carbon Dioxide 29 mmol/L (22-29); Chloride 105 mmol/L (96-108); Cholesterol 156 mg/dL; Estimated Glomerular Filt Rate > 60; Glucose Fasting 132 mg/dL (60-99); HDL Cholesterol 40 mg/dL; Iron 78 mcg/dL (30-160); LDL Cholesterol Calculated 85 mg/dl; Percent Iron Saturation 25 % (15-50); Potassium 4.5 mmol/L (3.3-5.1); Sodium 141 mmol/L (135-145); Total Iron Binding Capacity 316 mcg/dL (228-428); Triglycerides 159 mg/dL; Unsaturated Iron Binding 238 ug/dL
[2021-01-12 10:42] LABS: Folate 17.7 ng/mL (> or = 4.0); Vitamin B12 370 pg/mL (200-900)
[2021-01-12 10:44] LABS: Ferritin 147 ng/mL (10-250); TSH reflex Free T4 2.55 uIU/mL (0.32-4.0)
[2021-01-14 12:50] LABS: Calcium (PTHI) 9.9 mg/dL (8.6-10.4); PTHI 66 pg/mL (14-64)
[2021-01-16 15:37] LABS: Zinc 83 mcg/dL (60-130)
[2021-01-17 10:42] LABS: Vitamin B1 12 nmol/L (8-30)
[2021-01-19 04:36] LABS: Vitamin A 40 mcg/dL (38-98)
== END 2021-01-12 08:31 | disposition home or self-care (01) ==
LOC: HO.LAB 08:30
PROVIDERS: Physician Assistant; PCP Internal Medicine; Visit Provider Internal Medicine
DX: E78.5 Hyperlipidemia, unspecified (principal); G47.9 Sleep disorder, unspecified; I10 Essential (primary) hypertension; I34.1 Nonrheumatic mitral (valve) prolapse; R06.83 Snoring; E66.01 Morbid (severe) obesity due to excess calories; Z68.35 Body mass index [BMI] 35.0-35.9, adult; E11.9 Type 2 diabetes mellitus without complications
CPT/HCPCS: 36415; 80053; 80061; 82306; 82607; 82728; 82746; 83036; 83540; 83970; 84425; 84443; 84590; 84630; 85025; 86140

== ENCOUNTER → 2021-01-18 10:53 | Outpatient (BNVA) | payer MEDICAID, SELFPAY | PROVIDERS: PCP Internal Medicine; Visit Provider Surgery | DX: Z80.3 Family history of malignant neoplasm of breast (principal) | CPT/HCPCS: 99212 ==

== ENCOUNTER → 2021-01-19 10:02 | Outpatient (REF) | payer MEDICAID, SELFPAY ==
--- NOTE | ~2021-01-19 | NM_ITS ---
Exercise Myocardial perfusion study Indication: Shortness of breath to evaluate for myocardial ischemia Technique: The patient was brought in for an exercise perfusion study on 01/19/2021. Patient performed exercise as per Seb protocol and was injected 30 mCi of sestamibi was given intravenously one target HR was achieved. Images were obtained using the SPECT gamma camera interlaced with the gating device. Images were obtained in supine position. Resting perfusion study was performed on 01/20/2021. Patient was administered 30 mCi of sestamibi intravenously at rest. Images were then obtained in supine position. Images obtained with and without CT attenuation. Total DLP 118 mGy-cm. Images were processed with the software and compared side to side in short axis, horizontal long axis and vertical long axis views. Findings: The stress perfusion study showed both attenuated and not attenuated images show normal uptake of radiotracer in all segments of LV myocardium. The gated study shows normal LV systolic function with calculated LVEF of 67%. LV cavity is normal in size. The gated study shows normal systolic wall thickening and contraction of all segments. There is no transient ischemic dilation. Resting study shows no change in perfusion pattern compared to stress perfusion study was. Gating at rest reveals normal systolic wall motion with ejection fraction at 60%. The findings are consistent with normal myocardial perfusion. NM/NM cardiolite stress test Impression: 1. Normal myocardial perfusion 2. Gated LVEF is 67% 3. Transient ischemic dilatation not present Stress EKG is negative for ischemia
--- NOTE | 2021-01-19 10:05 | CA_ITS ---
Acquisition Time: 2021-01-19 10:18:50 Total Exercise Time: 00:04:24 Test Indications: Dyspnea Medications: Protocol: ALBERTO Max HR: 164 BPM 110% of Pred: 149 BPM Max BP: 122/080 mmHG Max Work Load: 6.0 METS Exercise stress test with exercise 4 min 24 sec of Alberto protocol achieving 110% MPHR, with moderate shortness of breath, no chest discomfort, without arrythmia, with normotensive response to exercise, without EKG changes meeting criteria for ischemia. Nuclear images pending. Test reviewed with Dr Perkins. Referred By: Yevgeniy Lui Overread By: JAYCE ANGULO
== END ==
LOC: HO.CARD 10:02
PROVIDERS: PCP Internal Medicine; Visit Provider Internal Medicine
DX: R07.2 Precordial pain (principal); R06.02 Shortness of breath
CPT/HCPCS: 78452; 93017; A9500

== ENCOUNTER → 2021-01-27 13:26 | Outpatient (BNVA) | payer MEDICAID, SELFPAY | PROVIDERS: PCP Internal Medicine; Visit Provider Internal Medicine | DX: I49.1 Atrial premature depolarization (principal); I47.1 Supraventricular tachycardia; I10 Essential (primary) hypertension; G47.33 Obstructive sleep apnea (adult) (pediatric); E66.01 Morbid (severe) obesity due to excess calories; E78.5 Hyperlipidemia, unspecified; E11.8 Type 2 diabetes mellitus with unspecified complications | CPT/HCPCS: 99212 ==

== ENCOUNTER 2021-02-17 12:52 | Outpatient (REF) | payer MEDICAID, SELFPAY ==
--- NOTE | 2021-02-17 17:37 | PFT_ITS ---
INDICATION: Dyspnea. SPIROMETRY: The FEV1 to FVC 85% with an FEV1 of 2.17 L, which is 89% predicted and an FVC of 2.55 L, which is 82% predicted. No significant response to bronchodilators noted. Maximum voluntary ventilation 105% predicted. LUNG VOLUMES: Total lung capacity 92% predicted with a residual volume of 100% predicted, and an expiratory reserve volume of 14% predicted. DIFFUSION CAPACITY: DLCO 76% predicted. COMPARISONS: None. INTERPRETATION: No obstructive nor restrictive ventilatory defects identified. No significant response to bronchodilators noted. Normal maximum voluntary ventilation. Lung volumes are normal except for decrease in the expiratory reserve volume likely from an elevated BMI. The patient also has a mild diffusion impairment. Need to correct for hemoglobin. Clinical correlation warranted. Stephon Mosley MD MR/MODL / [id number]
== END 2021-02-17 12:53 | disposition home or self-care (01) ==
LOC: HO.RESP 12:52
PROVIDERS: PCP Internal Medicine; Visit Provider Internal Medicine
DX: J45.909 Unspecified asthma, uncomplicated (principal); G47.33 Obstructive sleep apnea (adult) (pediatric)
CPT/HCPCS: 94060; 94727; 94729; 99212

== ENCOUNTER 2021-02-23 09:03 | Day surgery (SDC) | payer MEDICAID, SELFPAY ==
[2021-02-17 13:55] VITALS: BMI 36.3
--- NOTE | 2021-02-22 09:57 | HO.ANESPROP2 ---
Documented by User: Yvette Dinero NP 02/22/21 10:02 HPI - Anesthesia Eval Consult details Narrative: 60yo F for Upper Endoscopy and Colonoscopy Cardiac cleared at low risk FOR[facility], LAT[facility] Active Problems Active Problems: All Active Problems (Updated 01/27/21 @ 14:42 by Yevgeniy Lui MD) Other and unspecified hyperlipidemia (Acute) Essential hypertension (Acute) Type 2 diabetes mellitus with unspecified complications (Acute) Morbid obesity (Acute) Atrial tachycardia (Acute) PAC (premature atrial contraction) (Acute) BMI 35.0-35.9,adult (Acute) Oropharyngeal dysphagia (Acute) GERD (gastroesophageal reflux disease) (Acute) Chronic idiopathic constipation (Acute) Neck pain (Acute) Low back pain (Acute) Well woman exam with routine gynecological exam (Acute) Potential exposure to STD (Acute) Family history of breast cancer (Acute) Cervical cancer screening (Acute) Urinary incontinence (Acute) Heart palpitations (Acute) Precordial chest pain (Acute) HELEN (obstructive sleep apnea) (Acute) Asthma (Acute) PVC (premature ventricular contraction) (Acute) Diabetes type 2, controlled (Acute) Hypertension (Acute) Snoring (Acute) Difficulty sleeping (Acute) Panic attack (Acute) PTSD (post-traumatic stress disorder) (Acute) Obesity (BMI 30-39.9) (Acute) Past Medical History Medical History Asthma Depression Diabetes type 2, controlled Difficulty sleeping GERD (gastroesophageal reflux disease) Hyperlipidemia Hypertension Hypothalamic hypothyroidism Insomnia Lower back pain Migraine headache Mitral valve prolapse Obesity (BMI 30-39.9) HELEN (obstructive sleep apnea) Osteopenia determined by x-ray Panic attack Peripheral neuropathy Potential exposure to STD PTSD (post-traumatic stress disorder) PVC (premature ventricular contraction) Restless leg syndrome Snoring Family History Family History Father Diabetes Paced cardiac rhythm Colon cancer Mother HTN (hypertension) High cholesterol Skin cancer Breast cancer Colon cancer Sister Obese abdomen Brother Infarction of lung due to iatrogenic pulmonary embolism Son HTN (hypertension) High cholesterol Son HTN (hypertension) High cholesterol Son No problems noted. Son No problems noted. Son No problems noted. Sister No problems noted. Sister No problems noted. Surgical History Surgical History History of cervical cerclage Hx of colonoscopy Hx of hysterectomy Hx of left breast biopsy Hx of tubal ligation Social History Social History (Updated 02/17/21 @ 13:58 by Leigh Albright RN) Patient Tobacco Use Status: Never used Tobacco Use of substances other than those prescribed or required for medical reasons: No Are you DNR?: No Advance Directives: No Advance Directives Information Provided: Yes (informational brochure mailed) Advance Directives on File: No Recently lost weight without trying: No Eating poorly because of decreased appetite: No Nutrition Risks: No Nutritional Risk Gender identity: Female Meds Allergies Allergy/AdvReac Type Severity Reaction Status Date / Time gentamicin [From GARAMYCIN] Allergy Intermediate RASH Verified 02/23/21 09:45 Penicillins [PENICILLINS] Allergy Intermediate RASH Verified 02/23/21 09:45 Seasonal Allergies Allergy Intermediate seasonal Verified 02/23/21 09:45 allergies vancomycin [VANCOMYCIN] Allergy Intermediate swelling/ra Verified 02/23/21 09:45 sh/hives Home Medications Medication Instructions Recorded Confirmed Last Taken Type albuterol sulfate 90 mcg/actuation 2 puff INHALATION Q6H PRN 01/05/20 02/17/21 Unknown History aerosol inhaler atorvastatin 10 mg tablet (Lipitor) 10 mg PO BEDTIME 01/05/20 02/17/21 Unknown History levothyroxine 25 mcg tablet 25 mcg PO DAILY 01/05/20 02/17/21 02/23/21 04:00 History (Synthroid) metformin 500 mg tablet 500 mg PO BID 01/05/20 02/17/21 Unknown History montelukast 10 mg tablet 10 mg PO BEDTIME 01/05/20 02/17/21 Unknown History (Singulair) bupropion HCl 150 mg 24 hr tablet, 150 mg PO QAM 04/22/20 02/17/21 Unknown History extended release sertraline 100 mg tablet (Zoloft) 100 mg PO DAILY 04/22/20 02/17/21 Unknown History trazodone 50 mg tablet 25 mg PO DAILY 04/22/20 02/17/21 Unknown History ropinirole 0.25 mg tablet 0.25 mg PO BEDTIME 09/24/20 02/17/21 Unknown History sumatriptan succinate 50 mg tablet 50 mg PO Q2-4H PRN 09/24/20 02/17/21 Unknown History losartan 100 1 tab PO DAILY 01/27/21 02/17/21 Unknown History mg-hydrochlorothiazide 25 mg tablet Exam Exam Date and Time: February 22, 2021 0957 Height,Weight and Vital Signs: Height 5 ft 3 in Weight 92.986 kg Pertinent Lab Results Pertinent Lab Results: Laboratory Tests 01/12/21 01/12/21 09:08 09:08 WBC 7.3 Hgb 12.9 Hct 38.7 Plt Count 277 Sodium 141 Potassium 4.5 Chloride 105 Carbon Dioxide 29 BUN 16 Creatinine 0.81 Narrative Narrative: EKG 11/2020 sinus rhythm, 78/Min; leftward axis; normal TX/QTc NM cardiolite stress test 01/2021 Impression: ? 1.? Normal myocardial perfusion 2.? Gated LVEF is 67% 3. Transient ischemic dilatation not present ? Stress EKG is negative for ischemia ECHO 12/2020 Conclusions: - The left ventricular systolic function is normal.? The ? calculated ejection fraction is 57% by biplane method. ? - No obvious valvular pathology seen on this study. 3 Day Holter 12/2020 Patient was monitored for total of 3 days and 17 hours Baseline rhythm is normal sinus rhythm with average heart rate of 80 beats per minute No significant pauses or bradycardia noted Seven supraventricular runs noted with longest SVT episode of 16 beats at 145 beats per minute Total of 2226 PACs noted with a total burden of 0.59% consistent with rare PACs No patient reported symptoms Assessment and Plan Assessment Anesthesia Assessment: Chart Reviewed Documented by User: Liyah Ramos MD 02/23/21 09:56 [facility] Past Medical History Medical History Asthma Depression Diabetes type 2, controlled Difficulty sleeping GERD (gastroesophageal reflux disease) Hyperlipidemia Hypertension Hypothalamic hypothyroidism Insomnia Lower back pain Migraine headache Mitral valve prolapse Obesity (BMI 30-39.9) HELEN (obstructive sleep apnea) Osteopenia determined by x-ray Panic attack Peripheral neuropathy Potential exposure to STD PTSD (post-traumatic stress disorder) PVC (premature ventricular contraction) Restless leg syndrome Snoring Family History Family History Father Diabetes Paced cardiac rhythm Colon cancer Mother HTN (hypertension) High cholesterol Skin cancer Breast cancer Colon cancer Sister Obese abdomen Brother Infarction of lung due to iatrogenic pulmonary embolism Son HTN (hypertension) High cholesterol Son HTN (hypertension) High cholesterol Son No problems noted. Son No problems noted. Son No problems noted. Sister No problems noted. Sister No problems noted. Family history of problems with anesthesia: No Surgical History Surgical History History of cervical cerclage Hx of colonoscopy Hx of hysterectomy Hx of left breast biopsy Hx of tubal ligation History of Problems with Anesthesia: Yes (Delayed emergence ) Social History Social History (Updated 02/17/21 @ 13:58 by Leigh Albright RN) Patient Tobacco Use Status: Never used Tobacco Use of substances other than those prescribed or required for medical reasons: No Are you DNR?: No Advance Directives: No Advance Directives Information Provided: Yes (informational brochure mailed) Advance Directives on File: No Recently lost weight without trying: No Eating poorly because of decreased appetite: No Nutrition Risks: No Nutritional Risk Gender identity: Female Meds Allergies Allergy/AdvReac Type Severity Reaction Status Date / Time gentamicin [From GARAMYCIN] Allergy Intermediate RASH Verified 02/23/21 09:45 Penicillins [PENICILLINS] Allergy Intermediate RASH Verified 02/23/21 09:45 Seasonal Allergies Allergy Intermediate seasonal Verified 02/23/21 09:45 allergies vancomycin [VANCOMYCIN] Allergy Intermediate swelling/ra Verified 02/23/21 09:45 sh/hives Home Medications Medication Instructions Recorded Confirmed Last Taken Type albuterol sulfate 90 mcg/actuation 2 puff INHALATION Q6H PRN 01/05/20 02/17/21 Unknown History aerosol inhaler atorvastatin 10 mg tablet (Lipitor) 10 mg PO BEDTIME 01/05/20 02/17/21 Unknown History levothyroxine 25 mcg tablet 25 mcg PO DAILY 01/05/20 02/17/21 02/23/21 04:00 History (Synthroid) metformin 500 mg tablet 500 mg PO BID 01/05/20 02/17/21 Unknown History montelukast 10 mg tablet 10 mg PO BEDTIME 01/05/20 02/17/21 Unknown History (Singulair) bupropion HCl 150 mg 24 hr tablet, 150 mg PO QAM 04/22/20 02/17/21 Unknown History extended release sertraline 100 mg tablet (Zoloft) 100 mg PO DAILY 04/22/20 02/17/21 Unknown History trazodone 50 mg tablet 25 mg PO DAILY 04/22/20 02/17/21 Unknown History ropinirole 0.25 mg tablet 0.25 mg PO BEDTIME 09/24/20 02/17/21 Unknown History sumatriptan succinate 50 mg tablet 50 mg PO Q2-4H PRN 09/24/20 02/17/21 Unknown History losartan 100 1 tab PO DAILY 01/27/21 02/17/21 Unknown History mg-hydrochlorothiazide 25 mg tablet Exam Airway Mallampati Class: II TM Dist: >3cm Neck ROM: Limited Loose/Missing/Broken Teeth: Yes Heart: rrr Lungs: bl breath sounds Assessment and Plan Assessment Anesthesia Assessment: Anesthesia Plan Discussed and Chart Reviewed Final Anesthetic Review Family History of Problems with Anesthesia: No History of Problems with Anesthesia: Yes (Delayed emergence ) NPO: Yes ASA Class: II and III Final Preanesthetic Review: Meds/Allgs Chart Reviewed and Anes Risks/Benef Reviewed Patient Risk: Intermediate Procedure Risk: Intermediate Anesthetic Plan Anesthetic Plan: MAC: Disposition: Standard PACU
--- NOTE | 2021-02-23 09:15 | P.HPSUR_ITS ---
Pre-Procedural Eval Section A Date of Service: 02/23/21 Section B Chief Complaint: chronic idiopathic constipation, GERD Relevant Family History (Specify if Yes): Yes Relevant Social History: None Present Medications: see Short Stay Collaborative assessment Medical History: Significant History (Asthma Depression Diabetes type 2, controlled Difficulty sleeping GERD (gastroesophageal reflux disease) Hype rlipidemia Hypertension Hypothalamic hypothyroidism Insomnia Lower back pain Migraine headache Mitral valve prolapse Obesity (BMI 30-39.9) HELEN (obstructive sleep apnea) Osteopenia determined ) History of Previous Operations: Relevant previous surgery/procedure and date(s) (History of cervical cerclage Hx of colonoscopy Hx of hysterectomy Hx of left breast biopsy Hx of tubal ligation) Allergies: Allergies Allergy/AdvReac Type Severity Reaction Status Date / Time gentamicin [From GARAMYCIN] Allergy Intermediate RASH Verified 02/17/21 14:02 Penicillins [PENICILLINS] Allergy Intermediate RASH Verified 02/17/21 14:02 Seasonal Allergies Allergy Intermediate seasonal Verified 02/17/21 14:02 allergies vancomycin [VANCOMYCIN] Allergy Intermediate swelling/ra Verified 02/17/21 14:02 sh/hives Review of Systems Sugical H&P ROS: Negative: Constitution, Cardiovascular, Respiratory, Neurological, Psychiatric, Hem-Onc, Allergic/Immunologic, Gastrointestinal, Genitourinary, Musculoskeletal, Integumentary, Endocrine and Eyes/Ears/Nose/Throat Exam Surgical H&P Exam: Normal: HEENT, Normal: Heart, Normal: Lungs, Normal: Extremities, Normal: Abdomen, Normal: Skin and Normal: Neurological Plan Diagnosis/Plan: Unchanged I have reviewed the history and physical and performed a pertinent physical examination on my patient. No changes have occurred unless specified.
[2021-02-23 09:42] VITALS: BP 125/75; PULSE 95; RESP 16; TEMP 36.3; O2SAT 98
[2021-02-23] MEDS: Lactated Ringers 1,000 ML 100 ML IVCONT (09:43)
[2021-02-23 09:50] LABS: Glucose, Whole Blood 112 mg/dL (60-115)
--- NOTE | 2021-02-23 10:20 | P.OP_ITS ---
Operative Note Operative Note Date of Service: 02/23/21 Narrative: Operative Information Procedure Description: EGD, Colonoscopy FLEXIBLE TRANSORAL UPPER GASTROINTESTINAL ENDOSCOPY AND COLONOSCOPY PROCEDURE NOTE UPPER ENDOSCOPY Consent: Indications for the procedure and potential complications of bleeding, perforation, reaction to medications and missed diagnosis were discussed with the patient and informed consent was obtained. Instrument: Olympus GIF H 190 J mid size upper endoscope Monitoring: Vital signs and clinical assessment, continuous EKG monitoring, Pulse oximetry, Carbon Dioxide monitoring and blood pressure monitoring were done throughout the procedure. Procedure: The patient was placed in the left lateral decubitis position and pre-procedure medications were administered and a bite block was placed. The endoscope was inserted into the mouth and advanced under direct vision to the third part of duodenum. A careful inspection was made as the upper endoscope was withdrawn including a retroflexed examination of the proximal stomach; Findings and interventions are described below. Findings: Larynx:normal Esophagus: GE junction at 40 cm, diaphragm hiatus at 40 cm, GEJ was inflammed with edema and granularity, bx taken, as well as from distal and proximal esophagus in separate jars. Balloon dilation at LES to 19 mm and UES to 20 mm, no tears seen. Stomach: Mild erythema. Biopsies were obtained. Grade 2 flap valve on retroflexed examination of the cardia. There was minimal gastric movement. Duodenum: Normal bulb and descending duodenum, Intervention: Biopsies as noted above COLONOSCOPY Instrument: Olympus variable stiffness pediatric scope 190L Colonoscopy Monitoring: Vital signs and clinical assessment, continuous EKG monitoring, Pulse oximetry, Carbon Dioxide monitoring and blood pressure monitoring were done throughout the procedure. Colon withdrawal time was 9 minutes. Procedure: The patient was placed in the left lateral decubitis position and pre-procedure medications were administered. After a digital rectal examination of the ano-rectum, the video colonoscope was inserted into the rectum and advanced through the colon to the cecum/TI. The colonoscope was slowly withdrawn in a retrograde panoramic fashion and the colon mucosa was carefully examined including a retroflexed view of the rectum. Findings and interventions are described below. Procedure Difficulty:moderate due to looping Findings: Terminal Ileum-normal Cecum:normal Ascending Colon: normal Transverse Colon -normal Descending Colon:normal Sigmoid Colon: normal Rectum: Retroflexion with small internal hemorrhoids, grade I Anorectum - normal Colon preparation: [place] Bowel Preparation Scale Right colon; 2 Transverse colon: 3 Left colon; 3 (0 = Unprepared colon segment with mucosa not seen due to solid stool that cannot be cleared. 1 = Portion of mucosa of the colon segment seen, but other areas of the colon segment not well seen due to staining, residual stool and/or opaque liquid. 2 = Minor amount of residual staining, small fragments of stool and/or opaque liquid, but mucosa of colon segment seen well. 3 = Entire mucosa of colon segment seen well with no residual staining, small fragments of stool or opaque liquid) Impression and Post Procedure Diagnosis: Endoscopy Findings: mild gastritis esophagitis Colonoscopy Findings: internal hemorrhoids Plan: Await Pathology results Repeat Colonoscopy in 5 years due to prior hx of polyps and pos FH or earlier if clinically indicated High fiber diet leaflet avoid straining at stool, epsom salts and sitz bath, anusol supps or cream PO diet as tolerated today, cont with scheduled PPI Above findings were reviewed with the patient and relevant handouts were provided if indicated.
--- NOTE | 2021-02-23 10:20 | P.BOP_ITS ---
Brief Operative Note Date of Service: 02/23/21 Pre-op diagnosis: dysphagia, colon screening Post-op diagnosis: same Procedure: see op note Surgeon: Maco Giron MD Anesthesia: MAC Was an Business Objects Developer used for this Procedure?: No Estimated blood loss (mL): 0 Condition: stable Disposition: PACU
[2021-02-23 10:44] VITALS: BP 90/48; PULSE 67; RESP 16; TEMP 36.2; O2SAT 98
[2021-02-23 11:00] VITALS: BP 108/76; PULSE 71; RESP 18; TEMP 36.2; O2SAT 98
== END 2021-02-23 11:25 | disposition home or self-care (01) ==
PROVIDERS: PCP Internal Medicine; Visit Provider Internal Medicine Gastroenterology
PROC: (CPT 45378; principal; 2021-02-23 10:20)
DX: K59.04 Chronic idiopathic constipation (principal); Z86.010 Personal history of colon polyps; Z80.0 Family history of malignant neoplasm of digestive organs; K64.0 First degree hemorrhoids; R13.12 Dysphagia, oropharyngeal phase; K21.00 Gastro-esophageal reflux disease with esophagitis, without bleeding; K21.9 Gastro-esophageal reflux disease without esophagitis; K22.0 Achalasia of cardia; K29.60 Other gastritis without bleeding; K44.9 Diaphragmatic hernia without obstruction or gangrene; Z88.0 Allergy status to penicillin; Z88.1 Allergy status to other antibiotic agents; J45.909 Unspecified asthma, uncomplicated; E11.9 Type 2 diabetes mellitus without complications; I10 Essential (primary) hypertension; Z79.899 Other long term (current) drug therapy; Z79.84 Long term (current) use of oral hypoglycemic drugs
CPT/HCPCS: 45378; 43249; 43239; 82947; 88305; 88342; C1726

== ENCOUNTER → 2021-03-07 13:15 | Outpatient (BNVA) | payer MEDICAID, SELFPAY | PROVIDERS: PCP Internal Medicine; Visit Provider Nurse Practitioner | DX: K59.04 Chronic idiopathic constipation (principal); K21.9 Gastro-esophageal reflux disease without esophagitis; E78.00 Pure hypercholesterolemia, unspecified; E11.9 Type 2 diabetes mellitus without complications; R13.12 Dysphagia, oropharyngeal phase | CPT/HCPCS: 99212 ==

== ENCOUNTER → 2021-03-11 11:47 | Outpatient (BNVA) | payer MEDICAID, SELFPAY | PROVIDERS: PCP Internal Medicine; Visit Provider Dietitian, Registered | DX: E11.8 Type 2 diabetes mellitus with unspecified complications (principal); E66.9 Obesity, unspecified; Z68.36 Body mass index [BMI] 36.0-36.9, adult | CPT/HCPCS: 97803 ==

== ENCOUNTER → 2021-03-21 13:55 | Outpatient (BNVA) | payer MEDICAID, SELFPAY | PROVIDERS: PCP Internal Medicine; Visit Provider Nurse Practitioner Family | DX: M54.59 Other low back pain (principal); M25.561 Pain in right knee | CPT/HCPCS: 99212 ==

== ENCOUNTER 2021-04-09 09:28 | Emergency (ER) | payer MEDICAID, SELFPAY ==
--- NOTE | ~2021-04-09 | CT_ITS ---
EXAMINATION: CT ANGIOGRAM OF THE CHEST WITH AND WITHOUT CONTRAST CT ABDOMEN PELVIS WITH CONTRAST CLINICAL INFORMATION: V/D, upper abdominal pain. epigastric pain radiates to back, r/o AAA COMPARISON: CT abdomen pelvis dated 06/26/2014 TECHNIQUE: Prior to contrast administration, noncontrast localization images were obtained. Subsequently, multidetector volumetric imaging was performed from the thoracic inlet to the pubic symphysis through the chest, abdomen, and pelvis following the administration of 85 mL Omnipaque 350 intravenous contrast. No contrast reaction reported Sagittal, coronal, and MIP oblique sagittal (through the chest only) reformatted images were obtained on the CT workstation, uploaded to PACS, and reviewed. Total exam dose-length product: 1068 mGy-cm This CT examination was performed using dose optimization techniques as appropriate, variously including the following: *Automated exposure control *Adjustment of mA and/or kV according to patient size (this includes techniques or standardized protocols for targeted exams where dose is matched to indication/reason for exam; i.e. extremities or head) *Use of iterative reconstruction technique FINDINGS: QUALITY OF STUDY/CONTRAST BOLUS: Satisfactory. THORACIC AORTA: No aneurysm or dissection. Descending thoracic aorta measures 3.5 cm in diameter. Descending thoracic aorta measures 2.6 cm in diameter. Normal 3 vessel branching pattern without acute abnormalities identified in the supraaortic arteries. PULMONARY ARTERIES: No central or segmental pulmonary emboli. LUNG: No focal consolidation or masses. There is a calcified pulmonary nodule in the right upper lobe. Multiple smaller solid noncalcified pulmonary nodules are identified, most notably in the perihilar region of the right lower lobe. These include a solid round 7 mm nodule on image 253/496 of series 7 adjacent to the right hilar vasculature. There is an adjacent solid round 4 mm nodule on image 226 of series 7 and a 3 mm nodule on image 239 of series 7. A few additional nodules are identified which measure 2 mm or smaller. Central airways are clear. PLEURA: No pleural effusion or pneumothorax. MEDIASTINUM: Normal heart size. No pericardial effusion. No hilar or mediastinal lymphadenopathy. No evidence of septal bowing or right heart strain. CHEST WALL/AXILLA: No axillary or internal mammary lymphadenopathy. ABDOMEN/PELVIS: LIVER, GALLBLADDER AND BILIARY TREE: The liver is normal in size, shape, and attenuation. No focal hepatic lesion or biliary ductal dilatation is present. The gallbladder is unremarkable with no evidence of radiopaque gallstones, gallbladder wall thickening, or obvious pericholecystic inflammatory changes. PANCREAS: Normal; no mass or surrounding fluid. SPLEEN: Normal size. No focal lesion. ADRENAL GLANDS: Normal; no mass. KIDNEYS AND URETERS: The kidneys are normal in size and attenuation. There is mild renal cortical thinning bilaterally. Numerous bilateral parapelvic cysts are identified. No follow-up imaging is necessary for these cysts. No hydronephrosis, hydroureter, or calculi. GASTROINTESTINAL TRACT: Stomach and small bowel non-dilated. No colonic wall thickening or pericolonic inflammatory changes. Normal appendix. ABDOMINAL WALL: No significant hernia is appreciated. LYMPHOVASCULAR STRUCTURES: Minimal atherosclerotic calcification is present in the abdominal aorta. No aneurysmal dilatation or dissection. Mesenteric vasculature is patent. No appreciable stenoses. BLADDER: No focal mass or wall thickening seen. No bladder calculi. PELVIC VISCERA: Unremarkable. OSSEOUS STRUCTURES: Degenerative spondylosis in the lower lumbar spine is most notable as facet arthropathy at L4-L5. Mild anterolisthesis of L4 on L5. There is mild degenerative arthritis in the hips and SI joints. CT/CT abdomen pelvis w con IMPRESSION: 1. No acute abnormalities are identified in the chest, abdomen, and pelvis. No acute vascular findings such as aortic aneurysm or dissection. 2. Multiple solid pulmonary nodules measuring up to 7 mm in diameter. According to the UPDATED 2017 Fleischner Society recommendations, the advised follow-up imaging for multiple solid nodules, the largest measuring 6 mm or greater, is: LOW RISK PATIENT: CT at 3-6 months, then consider CT at 18-24 months. HIGH RISK PATIENT: CT at 3-6 months, then at 18-24 months.
[2021-04-09 10:39] VITALS: BP 117/72; PULSE 113; RESP 18; TEMP 36.6; O2SAT 98; BMI 36.3
[2021-04-09 11:43] LABS: COVID-19 Test Negative (Negative)
[2021-04-09 12:28] LABS: Appearance Urine CLEAR; Color Urine YELLOW; Glucose Urine UA NEG (NEG); Leukocyte Esterase Urine NEG (NEG); Nitrite Urine NEG (NEG); Specific Gravity - Urine >= 1.030 (1.005-1.025); Urine Blood NEG (NEG); Urine Ketones NEG (NEG); Urine Protein NEG (NEG-TRACE)
--- NOTE | 2021-04-09 13:03 | ED_ITS ---
HPI - General Adult General Chief complaint: Nausea/Vomiting/Diarrhea Stated complaint: VOMITING DIARRHEA Time Seen by Provider: 04/09/21 13:02 Source: patient Mode of arrival: ambulatory Limitations: language barrier History of Present Illness HPI narrative: 60-year-old [place]an-speaking female with multiple comorbidities presents for severe abdominal pain that started in her belly at midnight last night. The pain was in her upper abdomen, and was a 9/10. The pain does radiate to her back. At 5:00 a.m. she started vomiting, states she vomited 8 times. Then later she said she had diarrhea 10 times. She has had chills but no fevers. No bloody stool, no blood in vomit. She also endorses dysuria, no hematuria. And patient did take Pepto-Bismol on it helped a little bit. States her stool has a bad odor and she feels bloated. She was with friends at [place], 1 of them was positive for COVID. She did eat out and had tacos last night. She has had a total hysterectomy, no abdominal surgeries. No alcohol use. She did have a dilatation for an esophageal stricture because she had pain with swallowing, this resolved it. Onset (ago): hour(s) (12) Location: abdomen Radiation: back Severity: severe Quality: aching Pain Consistency: constant Associated symptoms: fever/chills and nausea/vomiting Related Data Home Medications Medication Instructions Recorded Confirmed albuterol sulfate 90 mcg/actuation 2 puff INHALATION Q6H PRN 01/05/20 02/17/21 aerosol inhaler atorvastatin 10 mg tablet (Lipitor) 10 mg PO BEDTIME 01/05/20 02/17/21 levothyroxine 25 mcg tablet 25 mcg PO DAILY 01/05/20 02/17/21 (Synthroid) metformin 500 mg tablet 500 mg PO BID 01/05/20 02/17/21 montelukast 10 mg tablet 10 mg PO BEDTIME 01/05/20 02/17/21 (Singulair) bupropion HCl 150 mg 24 hr tablet, 150 mg PO QAM 04/22/20 02/17/21 extended release sertraline 100 mg tablet (Zoloft) 100 mg PO DAILY 04/22/20 02/17/21 trazodone 50 mg tablet 25 mg PO DAILY 04/22/20 02/17/21 ropinirole 0.25 mg tablet 0.25 mg PO BEDTIME 09/24/20 02/17/21 sumatriptan succinate 50 mg tablet 50 mg PO Q2-4H PRN 09/24/20 02/17/21 losartan 100 1 tab PO DAILY 01/27/21 02/17/21 mg-hydrochlorothiazide 25 mg tablet Previous Rx's Medication Instructions Recorded lorazepam 1 mg tablet (Ativan) 1 mg PO BID PRN #10 tab 02/19/20 budesonide-formoterol HFA 160 2 puff INHALATION BID 30 Days 12/13/20 mcg-4.5 mcg/actuation aerosol #10.2 g inhaler (Symbicort) bisacodyl 5 mg tablet,delayed 10 mg PO ONCE 1 Days #2 tab 12/30/20 release (Dulcolax (bisacodyl)) polyethylene glycol 3350 17 238 g PO ONCE 1 Days #238 g 12/30/20 gram/dose oral powder (Miralax) omeprazole 40 mg capsule,delayed 40 mg PO DAILY 30 Days #30 cap 03/07/21 release acetaminophen 650 mg 650 mg PO Q8H PRN #90 tab 03/21/21 tablet,extended release tizanidine 2 mg tablet 2 mg PO BEDTIME PRN #30 tab 03/21/21 ondansetron 4 mg disintegrating 4 mg PO Q8H PRN #6 tab 04/09/21 tablet Allergies Allergy/AdvReac Type Severity Reaction Status Date / Time gentamicin [From GARAMYCIN] Allergy Intermediate RASH Verified 04/09/21 10:39 Penicillins [PENICILLINS] Allergy Intermediate RASH Verified 04/09/21 10:39 Seasonal Allergies Allergy Intermediate seasonal Verified 04/09/21 10:39 allergies vancomycin [VANCOMYCIN] Allergy Intermediate swelling/ra Verified 04/09/21 10:39 sh/hives Review of Systems Constitutional: Constitutional: Denies body ache(s), Reports chills, Denies fatigue, Denies fever(s), Denies headache(s), Denies malaise and Denies weakness Eyes: Eyes: Denies diplopia ENT: Denies dysphagia, Denies vertigo, Denies dizziness, Denies otalgia, Denies headache(s), Denies mouth pain, Denies post nasal drip, Denies sinus pain, Denies sinus pressure, Denies sore throat and Denies throat swelling Cardiovascular: Cardiovascular: Denies chest pain, Denies syncope, Denies leg edema, Denies lightheadedness, Denies Loss of Consciousness, Denies palpitations and Denies dyspnea Respiratory: Respiratory: Denies chest congestion, Denies cough and Denies dyspnea Gastrointestinal: Gastrointestinal: Reports abdominal pain, Denies melena, Denies hematochezia, Denies coffee ground emesis, Denies constipation, Denies dysphagia, Reports diarrhea, Reports nausea, Reports vomiting and Denies hematemesis Genitourinary: Genitourinary: Denies abnormal vaginal bleeding, Reports dysuria, Denies pelvic pain, Denies urinary hesitancy, Denies urinary urgency, Denies vaginal discharge and Denies vaginal pruritus Musculoskeletal: Musculoskeletal: Reports back pain Integumentary/Breasts: Skin/Breast: Denies rash Neurologic: Denies confusion, Denies vertigo, Denies dizziness, Denies syncope, Denies headache(s) and Denies weakness Psychiatric: Psychiatric: Denies anxiety, Denies confusion and Denies depress ion Endocrine: Endocrine: Denies fatigue and Denies palpitations Allergic/Immunologic: Allergic/Immunologic: Denies throat swelling [facility] Past Medical History Medical History Asthma Depression Diabetes type 2, controlled Difficulty sleeping GERD (gastroesophageal reflux disease) Hyperlipidemia Hypertension Hypothalamic hypothyroidism Insomnia Lower back pain Migraine headache Mitral valve prolapse Obesity (BMI 30-39.9) HELEN (obstructive sleep apnea) Osteopenia determined by x-ray Panic attack Peripheral neuropathy Potential exposure to STD PTSD (post-traumatic stress disorder) PVC (premature ventricular contraction) Restless leg syndrome Snoring Surgical History History of cervical cerclage Hx of colonoscopy Hx of hysterectomy Hx of left breast biopsy Hx of tubal ligation Family History Family History Father Diabetes Paced cardiac rhythm Colon cancer Mother HTN (hypertension) High cholesterol Skin cancer Breast cancer Colon cancer Sister Obese abdomen Brother Infarction of lung due to iatrogenic pulmonary embolism Son HTN (hypertension) High cholesterol Son HTN (hypertension) High cholesterol Son No problems noted. Son No problems noted. Son No problems noted. Sister No problems noted. Sister No problems noted. Social History Social History Alcohol intake: never Patient Tobacco Use Status: Never used Tobacco Advance Directives: No Advance Directives Information Provided: Yes Gender identity: Female Physical Exam Vital Signs: Vital Signs: Last Vital Signs Temp 97.9 F 04/09/21 10:39 Pulse 113 H 04/09/21 10:39 Resp 18 04/09/21 10:39 BP 117/72 04/09/21 10:39 Pulse Ox 98 04/09/21 10:39 BMI result Body Mass Index 36.3 Const: General: no acute distress, alert and awake; No confusion Nutritional Appearance: obese morbidly obese Orientation/consciousness: patient oriented x3 and No confusion Limitations: no limitations HENMT: Head: Yes normal to inspection, Yes normocephalic and Yes atraumatic Ears: hearing grossly normal bilaterally, external ears normal, TM's normal bilaterally and EAC's normal General nose exam: Normal external nose present Face and sinus: Yes normal facial exam and Yes sinuses nontender Mouth: Normal oral and palatal mucosa present Throat: Yes posterior oropharynx normal Eyes: Conjunctivae: conjunctivae normal Pupils: Equal, round and reactive pupils present EOM: EOMs intact bilaterally Neck: Neck: Yes full ROM, Yes no lymphadenopathy and Yes supple Resp: Effort & Inspection: normal respiratory effort and able to speak in complete sentences Auscultation: clear to auscultation bilaterally, no cr ackles, no rales, no rhonchi and no wheezes Cardio: Rate: regular rate Rhythm: regular rhythm Heart sounds: S1 normal heart sound present and S2 normal heart sound present GI: Inspection: Yes distended and Yes obesity Palpation (GI): Soft to palpation, Tenderness to palpation present (GI) (LUQ>RUQ) in the epigastrum, in the LUQ and in the RUQ, Guarding due to palpation present (GI) in the LUQ and in the RUQ and not rigid Percussion: Yes normal to percussion Auscultation: normal bowel sounds : General: Yes no CVA tenderness Back/Spine/Pelvis: Back: no CVA tenderness Skin: General skin exam: no rashes or lesions noted Neuro: General: patient oriented x3 and No confusion Cranial nerves: Yes Equal, round and reactive pupils present Extrem: General: Yes normal to inspection and Yes full ROM Psych: Appearance: grossly normal Affect: normal affect Attitude: cooperative Thought process: Normal thought process present Course Course Course Narrative: 60-year-old female presents with severe abdominal pain radiating to her back that started last night with nausea and vomiting. On exam, patient is tender and guarding in her upper abdomen, no CVA tenderness. Patient's abdomen is mildly distended she is tachycardic in the 110s. We will get labs, urine, stool cultures, EKG, gave Zofran, fluids, morphine. Will get CT of abdomen and CTA to rule out aortic pathology Reevaluation(s) Reevaluation #1: Urine is negative, COVID is negative CBC, CMP, lipase, are all within normal limits. Patient has not produced stool here for any lab investigations yet. EKG shows nothing ischemic CT abdomen pelvis and CTA shows no acute pathology. Pulmonary nodules are seen. On reexamination, patient has had no more vomiting or diarrhea, and her abdominal pain is resolving. Counseled patient to call her primary care provider on Sunday for follow-up appointment and to discuss pulmonary nodules and cataract surgery that she has scheduled for this coming Sunday Patient given return precautions of worsening abdominal pain, vomiting, diarrhea. Discharged with Zofran, counseled Tylenol for pain Medical Decision Making Lab Data Result diagrams: 04/09/21 13:51 04/09/21 13:51 Labs: Lab Results 04/09/21 04/09/21 04/09/21 Range/Units 10:44 12:16 13:51 WBC 8.7 (4.8-10.8) X10*3/uL RBC 4.33 (4.20-5.50) X10*6/uL Hgb 12.9 (12.0-16.0) g/dl Hct 39.6 (37.0-47.0) % MCV 91.5 (80.0-98.0) fL MCH 29.8 (27.0-33.0) pg MCHC 32.6 (31.0-35.0) g/dl RDW 13.2 (11.0-16.0) % Plt Count 263 (160-400) X10*3/uL MPV 10.6 (9.4-12.3) fL Immature Gran % (Auto) 0.2 (0.0-0.4) % Neut % (Auto) 89.8 H (45-73) % Lymph % (Auto) 6.1 L (20-40) % [place] % (Auto) 3.6 (2-11) % Eos % (Auto) 0.1 (0-4) % Baso % (Auto) 0.2 (0-2) % Lymph # (Auto) 0.5 L (1.2-4.9) X10*3/uL [place]rack[place] # (Auto) 0.3 (0.1-1.2) X10*3/uL Eos # (Auto) 0.0 (0.0-0.4) X10*3/uL Baso # (Auto) 0.0 (0.0-0.2) X10*3/uL Abs Immat Gran (auto) 0.02 (0.00-0.03) X10*3/uL Absolute Neuts (auto) 7.8 (2.0-8.3) x10*3/uL Absolute Nucleated RBC 0.000 (0.0-0.012) X10*3/uL Nucleated RBC % (auto) 0.0 (0.0-0.2) /100WBC Sodium (135-145) mmol/L Potassium (3.3-5.1) mmol/L Chloride (96-108) mmol/L Carbon Dioxide (22-29) mmol/L Anion Gap (12-20) BUN (9-16) mg/dL Creatinine (0.5-1.4) mg/dL Estim Creat Clear Calc Estimated GFR Random Glucose (60-115) mg/dL Calcium (8.4-10.2) mg/dL Total Bilirubin (0.0-1.0) mg/dL AST (5-31) U/L ALT (0-31) U/L Alkaline Phosphatase (39-117) U/L Total Protein (6.5-8.0) g/dL Albumin (3.5-5.0) g/dL Lipase (8-78) U/L Urine Color YELLOW Urine Appearance CLEAR Urine pH 6.0 (5.0-8.0) Ur Specific [place] >= 1.030 H (1.005-1.025) Urine Protein NEG (NEG-TRACE) MG/DL Urine Glucose (UA) NEG (NEG) MG/DL Urine Ketones NEG (NEG) MG/DL Urine Blood NEG (NEG) Urine Nitrite NEG (NEG) Ur Leukocyte Esterase NEG (NEG) COVID-19 (EULOGIO) Negative (Negative) COVID-19 Clin Com See Note 04/09/21 Range/Units 13:51 WBC (4.8-10.8) X10*3/uL RBC (4.20-5.50) X10*6/uL Hgb (12.0-16.0) g/dl Hct (37.0-47.0) % MCV (80.0-98.0) fL MCH (27.0-33.0) pg MCHC (31.0-35.0) g/dl RDW (11.0-16.0) % Plt Count (160-400) X10*3/uL MPV (9.4-12.3) fL Immature Gran % (Auto) (0.0-0.4) % Neut % (Auto) (45-73) % Lymph % (Auto) (20-40) % [place]rack[place] % (Auto) (2-11) % Eos % (Auto) (0-4) % Baso % (Auto) (0-2) % Lymph # (Auto) (1.2-4.9) X10*3/uL [place] # (Auto) (0.1-1.2) X10*3/uL Eos # (Auto) (0.0-0.4) X10*3/uL Baso # (Auto) (0.0-0.2) X10*3/uL Abs Immat Gran (auto) (0.00-0.03) X10*3/uL Absolute Neuts (auto) (2.0-8.3) x10*3/uL Absolute Nucleated RBC (0.0-0.012) X10*3/uL Nucleated RBC % (auto) (0.0-0.2) /100WBC Sodium 140 (135-145) mmol/L Potassium 4.0 (3.3-5.1) mmol/L Chloride 104 (96-108) mmol/L Carbon Dioxide 29 (22-29) mmol/L Anion Gap 11 L (12-20) BUN 14 (9-16) mg/dL Creatinine 0.76 (0.5-1.4) mg/dL Estim Creat Clear Calc 84.2 Estimated GFR > 60 Random Glucose 138 H (60-115) mg/dL Calcium 9.3 (8.4-10.2) mg/dL Total Bilirubin 0.9 (0.0-1.0) mg/dL AST 23 (5-31) U/L ALT 30 (0-31) U/L Alkaline Phosphatase 99 (39-117) U/L Total Protein 7.1 (6.5-8.0) g/dL Albumin 4.4 (3.5-5.0) g/dL Lipase 16 (8-78) U/L Urine Color Urine Appearance Urine pH (5.0-8.0) Ur Specific [place] (1.005-1.025) Urine Protein (NEG-TRACE) MG/DL Urine Glucose (UA) (NEG) MG/DL Urine Ketones (NEG) MG/DL Urine Blood (NEG) Urine Nitrite (NEG) Ur Leukocyte Esterase (NEG) COVID-19 (EULOGIO) (Negative) COVID-19 Clin Com Discharge Plan Discharge Clinical Impression: Abdominal pain, vomiting, and diarrhea Patient Disposition: Home, Self-Care Instructions: Acute Nausea and Vomiting (ED), Abdominal Pain (ED) Additional Instructions: Please call your primary care provider on Sunday. The CT scan did show pulmonary nodules in your lungs. And this is something where you should have a repeat CT scan in the next few months that you could arrange as an outpatient. Please fill the prescription for ondansetron, take this for nausea as needed. Please go home, push fluids, take Tylenol. If you have worsening abdominal pain, if you continue to have vomiting or diarrhea, please come back to emergency room [place] proveedor de atenci?n primaria el . La tomograf?a computarizada mostr? n?dulos pulmonares en aleksandar pulmones. Y esto es algo en lo que deber?a tener kavitha tomograf?a computarizada repetida en los pr?ximos meses que podr?a organizar [place] paciente ambulatorio. Surta la receta de ondansetr?n, t?nix para las n?useas seg?n sea necesario. Vaya a casa, empuje l?quidos, tome Tylenol. Si tiene un dolor abdominal que empeora, si contin?a teniendo v?mitos o diarrea, regrese a la carmen de emergencias. Prescriptions: New ondansetron 4 mg tablet,disintegrating 4 mg PO Q8H PRN (Reason: nausea and vomiting) Qty: 6 RF: 0 No Action bisacodyl [Dulcolax (bisacodyl)] 5 mg tablet,delayed release (DR/EC) 10 mg PO ONCE 1 Days Qty: 2 RF: 0 polyethylene glycol 3350 [Miralax] 17 gram/dose powder 238 g PO ONCE 1 Days Qty: 238 RF: 0 lorazepam [Ativan] 1 mg tablet 1 mg PO BID PRN (Reason: anxiety) Qty: 10 RF: 0 metformin 500 mg tablet 500 mg PO BID RF: 0 albuterol sulfate 90 mcg/actuation HFA aerosol inhaler 2 puff inhalation Q6H PRN (Reason: Wheezing) RF: 0 atorvastatin [Lipitor] 10 mg tablet 10 mg PO BEDTIME RF: 0 montelukast [Singulair] 10 mg tablet 10 mg PO BEDTIME RF: 0 levothyroxine [Synthroid] 25 mcg tablet 25 mcg PO DAILY RF: 0 sertraline [Zoloft] 100 mg tablet 100 mg PO DAILY RF: 0 bupropion HCl 150 mg tablet extended release 24 hr 150 mg PO QAM RF: 0 trazodone 50 mg tablet 25 mg PO DAILY RF: 0 sumatriptan succinate 50 mg tablet 50 mg PO Q2-4H PRN (Reason: Migraine Headache) RF: 0 ropinirole 0.25 mg tablet 0.25 mg PO BEDTIME RF: 0 losartan-hydrochlorothiazide 100-25 mg tablet 1 tab PO DAILY RF: 0 tizanidine 2 mg tablet 2 mg PO BEDTIME PRN (Reason: muscle spasticity) Qty: 30 RF: 1 acetaminophen 650 mg tablet extended release 650 mg PO Q8H PRN (Reason: pain) Qty: 90 RF: 2 omeprazole 40 mg capsule,delayed release(DR/EC) 40 mg PO DAILY 30 Days Qty: 30 RF: 6 budesonide-formoterol [Symbicort] 160-4.5 mcg/actuation HFA aerosol inhaler 2 puff inhalation BID 30 Days Qty: 10.2 RF: 11 Print Language: [place]an
--- NOTE | 2021-04-09 13:29 | ECG_ITS ---
Test Reason : general medical Blood Pressure : / mmHG Vent. Rate : 090 BPM Atrial Rate : 090 BPM P-R Int : 150 ms QRS Dur : 092 ms QT Int : 390 ms P-R-T Axes : 005 -30 011 degrees QTc Int : 477 ms Normal sinus rhythm Left axis deviation Pulmonary disease pattern Abnormal ECG When compared with ECG of 19-FEB-2020 13:44, QT has lengthened Referred By: Delia Delgado Electronically Signed By:Rell Najera
[2021-04-09 13:55] LABS: MANUAL DIFF FLAG NO
[2021-04-09 13:56] LABS: Basophils Percent Auto 0.2 % (0-2); Eosinophils Percent Auto 0.1 % (0-4); Hematocrit 39.6 % (37.0-47.0); Hemoglobin 12.9 g/dl (12.0-16.0); Imm Gran Abs Auto 0.02 X10*3/uL (0.00-0.03); Imm Gran Pct Auto 0.2 % (0.0-0.4); Lymphocytes Absolute Auto 0.5 X10*3/uL (1.2-4.9); Lymphocytes Percent Auto 6.1 % (20-40); Mean Corpuscular HGB Conc 32.6 g/dl (31.0-35.0); Mean Corpuscular Hemoglobin 29.8 pg (27.0-33.0); Mean Corpuscular Volume 91.5 fL (80.0-98.0); Mean Platelet Volume 10.6 fL (9.4-12.3); Monocytes Absolute Auto 0.3 X10*3/uL (0.1-1.2); Monocytes Percent Auto 3.6 % (2-11); Neutrophils Absolute Auto 7.8 x10*3/uL (2.0-8.3); Neutrophils Percent Auto 89.8 % (45-73); Platelet Count 263 X10*3/uL (160-400); Red Blood Count 4.33 X10*6/uL (4.20-5.50); Red Cell Distribution Width 13.2 % (11.0-16.0); White Blood Count 8.7 X10*3/uL (4.8-10.8)
[2021-04-09] MEDS: 0.9 % Sodium Chloride 1,000 ML 999 ML IV (13:57)
[2021-04-09] MEDS: ondansetron HCL 4 MG/2 ML VIAL IVPUSH (13:57)
[2021-04-09 14:11] LABS: Alanine Aminotransferase 30 U/L (0-31); Albumin Level 4.4 g/dL (3.5-5.0); Alkaline Phosphatase 99 U/L (39-117); Anion Gap 11 (12-20); Aspartate Amino Transferase 23 U/L (5-31); Bilirubin Total 0.9 mg/dL (0.0-1.0); Blood Urea Nitrogen 14 mg/dL (9-16); Calcium 9.3 mg/dL (8.4-10.2); Carbon Dioxide 29 mmol/L (22-29); Chloride 104 mmol/L (96-108); Creatinine Clr Calc Pharmacy 84.2; Estimated Glomerular Filt Rate > 60; Glucose Random 138 mg/dL (60-115); Lipase 16 U/L (8-78); Sodium 140 mmol/L (135-145); Total Protein 7.1 g/dL (6.5-8.0)
[2021-04-09] MEDS: iohexoL 350 MG/ML 100 ML INFUS..BTL IV (14:45)
[2021-04-09 16:35] VITALS: BP 107/65; PULSE 101; RESP 16; O2SAT 97
== END 2021-04-09 16:37 | disposition home or self-care (01) ==
PROVIDERS: Physician Assistant; Emergency Provider Emergency Medicine; PCP Internal Medicine
DX: R11.2 Nausea with vomiting, unspecified (principal); R19.7 Diarrhea, unspecified; M54.50 Low back pain, unspecified; R50.9 Fever, unspecified; R10.9 Unspecified abdominal pain; Z20.822 Contact with and (suspected) exposure to COVID-19; Z79.899 Other long term (current) drug therapy
CPT/HCPCS: 36415; 71275; 74177; 80053; 81003; 83690; 85025; 87635; 93005; 96361; 96374; 96375; 99283; 99284; J2405; Q9967

== ENCOUNTER → 2021-04-15 10:42 | Outpatient (BNVA) | payer MEDICAID, SELFPAY | PROVIDERS: PCP Internal Medicine; Visit Provider Dietitian, Registered | DX: E11.8 Type 2 diabetes mellitus with unspecified complications (principal); E66.9 Obesity, unspecified | CPT/HCPCS: 97803 ==

== ENCOUNTER 2021-04-26 12:26 | Outpatient (REF) | payer MEDICAID, SELFPAY ==
--- NOTE | ~2021-04-26 | CT_ITS ---
EXAMINATION: CT CHEST WITHOUT CONTRAST CLINICAL INFORMATION: Follow-up lung nodules. COMPARISON: Previous chest CTA 04/09/2021. TECHNIQUE: Multidetector volumetric CT imaging of the chest was done. Axial MIP volume rendering provided. Sagittal and coronal reformatted images were obtained. This CT examination was performed using dose optimization techniques as appropriate, variously including the following: *Automated exposure control *Adjustment of mA and/or kV according to patient size (this includes techniques or standardized protocols for targeted exams where dose is matched to indication/reason for exam; i.e. extremities or head) *Use of iterative reconstruction technique DLP: 287 mGy-cm FINDINGS: LUNGS: Pulmonary nodules are stable compared to April 2021 exam. There is a 3 mm noncalcified right upper lobe nodule axial image 156 series 9. There is a 6 mm calcified right upper lobe nodule axial image 162 series 9. There is a 5 mm noncalcified right lower lobe nodule axial image 230 series 9. There is an adjacent 4 mm right lower lobe nodule axial image 239 series 9, probably representing bronchial soft tissue opacification. There is a 4 mm noncalcified right lower lobe nodule axial image 247 series 9. There is a 5 x 7 mm noncalcified right lower lobe nodule axial image 255 series 9. There is a 2 mm noncalcified right lower lobe nodule axial image 269 series 9. MEDIASTINUM: The mediastinum is normal. PLEURA: There is no pleural effusion. No pleural mass or thickening. AXILLA: There is a small nodular density in the left inferior breast measuring 6 mm axial image 33. Correlation with mammogram recommended. There are small axillary lymph nodes. No enlarged axillary lymph nodes are seen. UPPER ABDOMEN: There are peripelvic cysts. OSSEOUS STRUCTURES: Unremarkable. CT/CT chest wo con IMPRESSION: Stable small calcified and noncalcified pulmonary nodules from April [address] follow-up in one year recommended, particularly if the patient is high risk i.e. smoking history or known history of malignancy. Fleischner guidelines were followed.
== END 2021-04-26 12:27 | disposition home or self-care (01) ==
LOC: HO.CT 12:26
PROVIDERS: PCP Internal Medicine; Visit Provider Internal Medicine
DX: R91.1 Solitary pulmonary nodule (principal)
CPT/HCPCS: 71250

== ENCOUNTER → 2021-06-16 12:38 | Outpatient (BNVA) | payer MEDICAID, SELFPAY | PROVIDERS: PCP Internal Medicine; Visit Provider Hospitalist | DX: G47.33 Obstructive sleep apnea (adult) (pediatric) (principal); J45.909 Unspecified asthma, uncomplicated; R91.8 Other nonspecific abnormal finding of lung field | CPT/HCPCS: 99212 ==

== ENCOUNTER → 2021-06-17 10:12 | Outpatient (BNVA) | payer MEDICAID, SELFPAY | PROVIDERS: PCP Internal Medicine; Visit Provider Dietitian, Registered | DX: E11.8 Type 2 diabetes mellitus with unspecified complications (principal); E66.9 Obesity, unspecified; Z68.37 Body mass index [BMI] 37.0-37.9, adult | CPT/HCPCS: 97803 ==

== ENCOUNTER 2021-06-20 08:17 | Outpatient (REF) | payer MEDICAID, SELFPAY ==
[2021-06-20 09:14] LABS: Estimated Average Glucose 134 mg/dL; Hemoglobin A1c % 6.3 %
[2021-06-20 09:27] LABS: Alanine Aminotransferase 18 U/L (0-31); Albumin Level 4.1 g/dL (3.5-5.0); Alkaline Phosphatase 85 U/L (39-117); Anion Gap 11 (12-20); Aspartate Amino Transferase 17 U/L (5-31); Bilirubin Total 0.5 mg/dL (0.0-1.0); Blood Urea Nitrogen 12 mg/dL (9-16); Calcium 9.4 mg/dL (8.4-10.2); Carbon Dioxide 27 mmol/L (22-29); Chloride 107 mmol/L (96-108); Estimated Glomerular Filt Rate > 60; Glucose Random 119 mg/dL (60-115); Potassium 4.5 mmol/L (3.3-5.1); Sodium 140 mmol/L (135-145); Total Protein 6.9 g/dL (6.5-8.0)
[2021-06-21 14:31] LABS: Calcium (PTHI) 9.5 mg/dL (8.6-10.4); PTHI 93 pg/mL (16-77)
== END 2021-06-20 08:18 | disposition home or self-care (01) ==
LOC: HO.LAB 08:17
PROVIDERS: PCP Internal Medicine; Visit Provider Internal Medicine
DX: E03.9 Hypothyroidism, unspecified (principal); E11.9 Type 2 diabetes mellitus without complications; E78.00 Pure hypercholesterolemia, unspecified; K64.8 Other hemorrhoids
CPT/HCPCS: 36415; 80053; 83036; 83970

== ENCOUNTER 2021-07-07 11:43 | Outpatient (REF) | payer MEDICAID, SELFPAY ==
--- NOTE | ~2021-07-07 | MM_ITS ---
EXAMINATION: MM SCREENING DIGITAL BREAST TOMOSYNTHESIS, BILATERAL CLINICAL INFORMATION: Screening. Asymptomatic. The lifetime risk of breast cancer based on the Tyrer-Cuzick Model is 11.9%. COMPARISON: Mammography: July 05, 2020 and studies dating back to April 23, 2017 TECHNIQUE: Digital breast tomosynthesis is performed in both the craniocaudal and mediolateral oblique views along with computer-aided detection (CAD). Synthesized 2D images are generated from the tomosynthesis. FINDINGS: There are scattered areas of fibroglandular density (ACR BI-RADS breast composition Category b). There are no significant masses, abnormal calcifications, or other abnormalities. MM/MM tomosynthesis screening BI IMPRESSION: There are no significant changes from prior study. ASSESSMENT: BI-RADS 1: Negative RECOMMENDATION: Routine annual mammography screening. This patient's information was entered into a reminder system with a target due date for their next mammogram.
== END 2021-07-07 11:44 | disposition home or self-care (01) ==
LOC: HO.MAMMO 11:43
PROVIDERS: Visit Provider Internal Medicine
DX: Z12.31 Encounter for screening mammogram for malignant neoplasm of breast (principal)
CPT/HCPCS: 77063; 77067

== ENCOUNTER 2021-07-18 11:19 | Outpatient (REF) | payer MEDICAID, SELFPAY ==
[2021-07-19 05:54] LABS: CT PCR NOT DETECTED (Not Detect.); NG PCR NOT DETECTED (Not Detect.)
[2021-07-19 15:28] LABS: BV Int Neg Control Negative (Negative); BV Int Pos Control Positive (Positive)
== END 2021-07-18 11:20 | disposition home or self-care (01) ==
LOC: HO.LAB 11:19
PROVIDERS: PCP Internal Medicine; Visit Provider Advanced Practice Midwife
DX: Z01.419 Encounter for gynecological examination (general) (routine) without abnormal findings (principal); Z11.3 Encounter for screening for infections with a predominantly sexual mode of transmission; Z11.8 Encounter for screening for other infectious and parasitic diseases; N94.9 Unspecified condition associated with female genital organs and menstrual cycle; J30.2 Other seasonal allergic rhinitis; Z88.1 Allergy status to other antibiotic agents; Z88.3 Allergy status to other anti-infective agents; Z88.0 Allergy status to penicillin; Z79.84 Long term (current) use of oral hypoglycemic drugs; Z79.899 Other long term (current) drug therapy
CPT/HCPCS: 87480; 87491; 87510; 87591; 87660

== ENCOUNTER → 2021-08-03 09:45 | Outpatient (BNVA) | payer MEDICAID, SELFPAY | PROVIDERS: PCP Internal Medicine; Visit Provider Dietitian, Registered | DX: E11.9 Type 2 diabetes mellitus without complications (principal); E66.9 Obesity, unspecified; Z68.38 Body mass index [BMI] 38.0-38.9, adult; Z71.3 Dietary counseling and surveillance | CPT/HCPCS: 97803 ==

== ENCOUNTER → 2021-08-12 10:26 | Outpatient (BNVA) | payer MEDICAID, SELFPAY | PROVIDERS: PCP Internal Medicine; Referring Provider Internal Medicine; Visit Provider Surgery | DX: Z80.3 Family history of malignant neoplasm of breast (principal) | CPT/HCPCS: 99212 ==

== ENCOUNTER 2021-08-24 07:23 | Outpatient (REF) | payer MEDICAID, SELFPAY ==
[2021-08-24 08:12] LABS: Estimated Average Glucose 146 mg/dL; Hemoglobin A1c % 6.7 %
[2021-08-24 08:20] LABS: Creatinine Urine 94.49 mg/dL; Microalbumin Urine < 5.0 mg/L
[2021-08-24 08:28] LABS: Alanine Aminotransferase 19 U/L (0-31); Alkaline Phosphatase 95 U/L (39-117); Anion Gap 10 (12-20); Aspartate Amino Transferase 16 U/L (5-31); Bilirubin Total 0.5 mg/dL (0.0-1.0); Blood Urea Nitrogen 14 mg/dL (9-16); Calcium 9.8 mg/dL (8.4-10.2); Carbon Dioxide 27 mmol/L (22-29); Chloride 106 mmol/L (96-108); Cholesterol 202 mg/dL; Estimated Glomerular Filt Rate > 60; Glucose Random 140 mg/dL (60-115); HDL Cholesterol 41 mg/dL; LDL Cholesterol Calculated 116 mg/dl; Potassium 4.2 mmol/L (3.3-5.1); Sodium 139 mmol/L (135-145); Total Protein 6.5 g/dL (6.5-8.0); Triglycerides 229 mg/dL
[2021-08-24 08:53] LABS: Thyroid Stimulating Hormone 3.22 uIU/mL (0.32-4.0)
== END 2021-08-24 07:24 | disposition home or self-care (01) ==
LOC: HO.LAB 07:23
PROVIDERS: PCP Internal Medicine; Visit Provider Internal Medicine
DX: Z00.00 Encounter for general adult medical examination without abnormal findings (principal); E03.8 Other specified hypothyroidism; E11.9 Type 2 diabetes mellitus without complications; E78.00 Pure hypercholesterolemia, unspecified; M51.16 Intervertebral disc disorders with radiculopathy, lumbar region
CPT/HCPCS: 36415; 80053; 80061; 82043; 83036; 84443

== ENCOUNTER → 2021-09-13 07:14 | Outpatient (BNVA) | payer MEDICAID, SELFPAY | PROVIDERS: PCP Internal Medicine; Referring Provider Internal Medicine; Visit Provider Nurse Practitioner | DX: K59.04 Chronic idiopathic constipation (principal); K21.9 Gastro-esophageal reflux disease without esophagitis; R13.12 Dysphagia, oropharyngeal phase; Z79.899 Other long term (current) drug therapy | CPT/HCPCS: 99212 ==

== ENCOUNTER → 2021-09-15 12:42 | Outpatient (BNVA) | payer MEDICAID, SELFPAY | PROVIDERS: PCP Internal Medicine; Visit Provider Hospitalist | DX: G47.33 Obstructive sleep apnea (adult) (pediatric) (principal); J45.909 Unspecified asthma, uncomplicated; R91.8 Other nonspecific abnormal finding of lung field | CPT/HCPCS: 99212 ==

== ENCOUNTER → 2021-10-04 09:43 | Outpatient (BNVA) | payer MEDICAID, SELFPAY | PROVIDERS: PCP Internal Medicine; Visit Provider Dietitian, Registered | DX: E66.9 Obesity, unspecified (principal); Z68.38 Body mass index [BMI] 38.0-38.9, adult; E11.8 Type 2 diabetes mellitus with unspecified complications; Z71.3 Dietary counseling and surveillance | CPT/HCPCS: 97803 ==

== ENCOUNTER → 2021-10-14 09:35 | Outpatient (BNVA) | payer MEDICAID, SELFPAY | PROVIDERS: PCP Internal Medicine; Visit Provider Orthopaedic Surgery | DX: R20.0 Anesthesia of skin (principal); R20.2 Paresthesia of skin | CPT/HCPCS: 99202 ==

== ENCOUNTER 2022-01-04 08:02 | Outpatient (REF) | payer MEDICAID, SELFPAY ==
[2022-01-04 09:45] LABS: Estimated Average Glucose 143 mg/dL; Hemoglobin A1c % 6.6 %
[2022-01-04 09:47] LABS: Alanine Aminotransferase 18 U/L (0-31); Albumin Level 4.4 g/dL (3.5-5.0); Alkaline Phosphatase 92 U/L (39-117); Anion Gap 16 (12-20); Aspartate Amino Transferase 15 U/L (5-31); Bilirubin Total 0.7 mg/dL (0.0-1.0); Blood Urea Nitrogen 17 mg/dL (9-16); Carbon Dioxide 27 mmol/L (22-29); Chloride 103 mmol/L (96-108); Cholesterol 214 mg/dL; Estimated Glomerular Filt Rate > 60; Glucose Random 123 mg/dL (60-115); HDL Cholesterol 43 mg/dL; LDL Cholesterol Calculated 133 mg/dl; Potassium 4.5 mmol/L (3.3-5.1); Sodium 141 mmol/L (135-145); Total Protein 6.9 g/dL (6.5-8.0); Triglycerides 194 mg/dL
[2022-01-04 09:54] LABS: Creatinine Urine 108.47 mg/dL; Microalbumin Urine < 5.0 mg/L
[2022-01-04 09:56] LABS: Thyroid Stimulating Hormone 2.27 uIU/mL (0.32-4.0)
== END 2022-01-04 08:03 | disposition home or self-care (01) ==
LOC: HO.LAB 08:02
PROVIDERS: PCP Internal Medicine; Visit Provider Internal Medicine
DX: Z00.00 Encounter for general adult medical examination without abnormal findings (principal); M51.16 Intervertebral disc disorders with radiculopathy, lumbar region; E78.00 Pure hypercholesterolemia, unspecified; E11.9 Type 2 diabetes mellitus without complications; E03.8 Other specified hypothyroidism
CPT/HCPCS: 36415; 80053; 80061; 82043; 83036; 84443

== ENCOUNTER 2022-02-21 11:04 | Outpatient (REF) | payer MEDICAID, SELFPAY ==
--- NOTE | ~2022-02-21 | CT_ITS ---
EXAMINATION: CT CHEST WITHOUT CONTRAST CLINICAL INFORMATION: Other nonspecific abnormal finding of lung field. COMPARISON: None. TECHNIQUE: Multidetector volumetric CT imaging of the chest was done. Axial MIP volume rendering provided. Sagittal and coronal reformatted images were obtained. This CT examination was performed using dose optimization techniques as appropriate, variously including the following: *Automated exposure control *Adjustment of mA and/or kV according to patient size (this includes techniques or standardized protocols for targeted exams where dose is matched to indication/reason for exam; i.e. extremities or head) *Use of iterative reconstruction technique DLP: 184 mGy-cm. FINDINGS: SCREEN OPERATOR: Unremarkable chest exam. LUNGS: There are bilateral pulmonary nodules. A 3 mm noncalcified nodule axial image 163/7, a calcified 6 mm nodule right upper lobe axial image 165/7, a 2 mm noncalcified nodule right upper lobe axial image 274/7 which is slightly increased since the previous study, a 5 mm nodule right lower lobe axial image 242/7, a 4 mm nodule right lower lobe appears intrabronchial or axial image 255/7, a 4 mm nodule right lower lobe medially axial image 263/7, and a 5 x 7 mm largest nodule right lower lobe axial image 271/7, stable. A 5 mm nodule left lower lobe axial image 206/7 is better visualized on the present exam and unchanged. There are a few scattered micronodules in the left lower lobe which are stable. MEDIASTINUM: The thyroid lobes are symmetric and normal. The central trachea and the bronchi are widely patent. Heart size and the great vessels are normal caliber. No pericardial effusion seen. No abnormal-sized mediastinal or hilar lymph nodes seen. CORONARY ARTERY CALCIFICATION: None visualized on this study. PLEURA: There is no pleural effusion. No pleural mass or thickening. AXILLA: No lymphadenopathy. UPPER ABDOMEN: Visualized liver, spleen, pancreas and bilateral adrenal glands are unremarkable. OSSEOUS STRUCTURES: No lytic or sclerotic process seen. There is mild ventral spondylosis. CT/CT chest wo IV con IMPRESSION: Multiple bilateral pulmonary nodules are stable. One of the nodules may be minimally larger but overall unchanged. Recommend follow-up in 18 months as per Fleischner guidelines. No acute cardiopulmonary process. Fleischner guidelines were followed.
== END 2022-02-21 11:05 | disposition home or self-care (01) ==
LOC: HO.CT 11:04
PROVIDERS: PCP Internal Medicine; Visit Provider Hospitalist
DX: R91.8 Other nonspecific abnormal finding of lung field (principal)
CPT/HCPCS: 71250

== ENCOUNTER → 2022-02-23 09:59 | Outpatient (BNVA) | payer MEDICAID, SELFPAY | PROVIDERS: PCP Internal Medicine; Visit Provider Surgery | DX: Z80.3 Family history of malignant neoplasm of breast (principal) | CPT/HCPCS: 99212 ==

== ENCOUNTER 2022-04-28 08:23 | Outpatient (REF) | payer MEDICAID, SELFPAY ==
[2022-04-28 09:40] LABS: Alanine Aminotransferase 36 U/L (0-31); Albumin Level 4.2 g/dL (3.5-5.0); Alkaline Phosphatase 85 U/L (39-117); Anion Gap 11 (12-20); Aspartate Amino Transferase 21 U/L (5-31); Bilirubin Total 0.5 mg/dL (0.0-1.0); Blood Urea Nitrogen 15 mg/dL (9-16); Calcium 9.6 mg/dL (8.4-10.2); Carbon Dioxide 26 mmol/L (22-29); Chloride 106 mmol/L (96-108); Cholesterol 211 mg/dL; Estimated Glomerular Filt Rate > 60; Glucose Random 140 mg/dL (60-115); HDL Cholesterol 42 mg/dL; LDL Cholesterol Calculated 131 mg/dl; Potassium 4.5 mmol/L (3.3-5.1); Sodium 138 mmol/L (135-145); Total Protein 6.8 g/dL (6.5-8.0); Triglycerides 193 mg/dL
[2022-04-28 09:41] LABS: Estimated Average Glucose 148 mg/dL; Hemoglobin A1c % 6.8 %
== END 2022-04-28 08:24 | disposition home or self-care (01) ==
LOC: HO.LAB 08:23
PROVIDERS: PCP Internal Medicine; Visit Provider Internal Medicine
DX: E11.9 Type 2 diabetes mellitus without complications (principal); E78.00 Pure hypercholesterolemia, unspecified; I10 Essential (primary) hypertension; L81.8 Other specified disorders of pigmentation
CPT/HCPCS: 36415; 80053; 80061; 83036

== ENCOUNTER → 2022-05-02 10:34 | Outpatient (BNVA) | payer MEDICAID, SELFPAY | PROVIDERS: PCP Internal Medicine; Visit Provider Hospitalist | DX: G47.33 Obstructive sleep apnea (adult) (pediatric) (principal); J45.909 Unspecified asthma, uncomplicated; R91.8 Other nonspecific abnormal finding of lung field | CPT/HCPCS: 99212 ==

== ENCOUNTER → 2022-05-03 10:36 | Outpatient (BNVA) | payer MEDICAID, SELFPAY | PROVIDERS: PCP Internal Medicine; Referring Provider Internal Medicine; Visit Provider Nurse Practitioner | DX: K59.04 Chronic idiopathic constipation (principal); K21.9 Gastro-esophageal reflux disease without esophagitis; R13.12 Dysphagia, oropharyngeal phase | CPT/HCPCS: 99212 ==

== ENCOUNTER → 2022-05-09 11:48 | Outpatient (BNVA) | payer MEDICAID, SELFPAY | PROVIDERS: PCP Internal Medicine; Visit Provider Orthopaedic Surgery | DX: M65.4 Radial styloid tenosynovitis [de Quervain] (principal); G56.03 Carpal tunnel syndrome, bilateral upper limbs | CPT/HCPCS: 99202; J1100 ==

== ENCOUNTER → 2022-07-20 10:09 | Outpatient (BNVA) | payer MEDICAID, SELFPAY | PROVIDERS: PCP Internal Medicine Endocrinology, Diabetes & Metabolism; Visit Provider Advanced Practice Midwife ==

== ENCOUNTER 2022-07-26 07:32 | Outpatient (REF) | payer MEDICAID, SELFPAY ==
--- NOTE | ~2022-07-26 | MM_ITS ---
EXAMINATION: BONE DENSITOMETRY CLINICAL INDICATION: Osteopenia. COMPARISON: Baseline BD dated 08/04/2016. TECHNIQUE: Using a [employer] DXA System (software version: 13.1) manufactured by [employer], dual-energy x-ray absorptiometry was performed of the lumbar spine and left hip. The images are of good technical quality. Summary results are attached. FINDINGS: AP SPINE L1-L4: Current: BMD 1.067 g/cm2, Z-score 0.0, T-score -0.9, normal, 7.8% increase from baseline (<5% change is not significant). Baseline: BMD 0.990 g/cm2. LEFT FEMUR, NECK: Current: BMD 0.876 g/cm2, Z-score -0.1, T-score -1.2, osteopenia. Baseline: BMD 0.907 g/cm2. LEFT FEMUR, TOTAL: Current: BMD 1.026 g/cm2, Z-score 0.9, T-score 0.1, normal, 3.6% increase from baseline (<5% change is not significant). Baseline: BMD 0.990 g/cm2. IDENTIFIED RISK FACTORS: Menopause, hysterectomy, bilateral oophorectomy, height loss, low calcium intake, recurrent falls. HISTORY OF FRACTURE: None listed. MEDICATIONS: None listed. MM/XR DEXA axial skeleton IMPRESSION: 1. DIAGNOSIS: Osteopenia based on the lowest T-score value of -1.2 in the femoral neck applying World Health Organization criteria. 2. 10-YEAR FRACTURE RISK PREDICTION, FRAX: Major osteoporotic fracture (clinical spine, forearm, hip or shoulder) 4.2%. Hip fracture 0.3%. 3. Treatment Recommendations: NOF guidelines recommend consideration for treatment in postmenopausal women and men age 50 and older presenting with the following: -A hip or vertebral (clinical or morphometric) fracture. -T-score less than or equal to -2.5 at the femoral neck or spine after appropriate evaluation to exclude secondary causes. -Low bone mass at the hip or spine and a 10-year fracture probability by FRAX of greater than or equal to 3% for hip fracture or greater than or equal to 20% for major osteoporotic fracture based on the [place] adapted WHO algorithm. 4. Other Recommendations: All treatment decisions require clinical judgment and consideration of individual patient factors, including patient preferences, comorbidities, previous drug use, risk factors not captured in the FRAX model (e.g. frailty, falls, vitamin D deficiency, increased bone turnover, interval significant decline in bone density) and possible under or overestimation of fracture risk by FRAX. Additional medical evaluation for secondary cause of low bone mineral density may be appropriate. FUTURE SCAN RECOMMENDATION: People with diagnosed cases of osteoporosis or at high risk for fracture should have regular bone mineral density tests. For patients eligible for Medicare, routine testing is allowed once every 2 years. The testing frequency can be increased to one year for patients who have rapidly progressing disease, those who are receiving or discontinuing medical therapy to restore bone mass, or have additional risk factors.
--- NOTE | ~2022-07-26 | MM_ITS ---
EXAMINATION: MM SCREENING DIGITAL BREAST TOMOSYNTHESIS, BILATERAL CLINICAL INFORMATION: Screening. Asymptomatic. The lifetime risk of breast cancer based on the Tyrer-Cuzick Model is 11.9%. COMPARISON: Mammography: July 07, 2021 and studies dating back to June 09, 2015 TECHNIQUE: Digital breast tomosynthesis is performed in both the craniocaudal and mediolateral oblique views along with computer-aided detection (CAD). Synthesized 2D images are generated from the tomosynthesis. FINDINGS: There are scattered areas of fibroglandular density (ACR BI-RADS breast composition Category b). There are no new significant masses, abnormal calcifications, or other abnormalities. MM/MM tomosynthesis screening BI IMPRESSION: No significant changes from prior exam. ASSESSMENT: BI-RADS 1: Negative RECOMMENDATION: Routine annual mammography screening. This patient's information was entered into a reminder system with a target due date for their next mammogram.
[2022-07-26 08:51] LABS: MANUAL DIFF FLAG NO
[2022-07-26 09:19] LABS: Basophils Absolute Auto 0.1 X10*3/uL (0.0-0.2); Basophils Percent Auto 0.8 % (0-2); Eosinophils Absolute Auto 0.2 X10*3/uL (0.0-0.4); Eosinophils Percent Auto 3.1 % (0-4); Hematocrit 40.7 % (37.0-47.0); Imm Gran Abs Auto 0.01 X10*3/uL (0.00-0.03); Imm Gran Pct Auto 0.2 % (0.0-0.4); Lymphocytes Absolute Auto 1.7 X10*3/uL (1.2-4.9); Lymphocytes Percent Auto 27.3 % (20-40); Mean Corpuscular HGB Conc 31.9 g/dl (31.0-35.0); Mean Corpuscular Hemoglobin 29.3 pg (27.0-33.0); Mean Corpuscular Volume 91.7 fL (80.0-98.0); Mean Platelet Volume 11.1 fL (9.4-12.3); Monocytes Absolute Auto 0.4 X10*3/uL (0.1-1.2); Monocytes Percent Auto 6.3 % (2-11); Neutrophils Absolute Auto 3.8 x10*3/uL (2.0-8.3); Neutrophils Percent Auto 62.3 % (45-73); Platelet Count 279 X10*3/uL (160-400); Red Blood Count 4.44 X10*6/uL (4.20-5.50); Red Cell Distribution Width 13.4 % (11.0-16.0); White Blood Count 6.1 X10*3/uL (4.8-10.8)
[2022-07-26 09:27] LABS: Estimated Average Glucose 157 mg/dL; Hemoglobin A1c % 7.1 %
[2022-07-26 09:54] LABS: Alanine Aminotransferase 27 U/L (0-31); Albumin Level 4.4 g/dL (3.5-5.0); Alkaline Phosphatase 98 U/L (39-117); Anion Gap 12 (12-20); Aspartate Amino Transferase 21 U/L (5-31); Bilirubin Total 0.7 mg/dL (0.0-1.0); Blood Urea Nitrogen 17 mg/dL (9-16); Calcium 9.8 mg/dL (8.4-10.2); Carbon Dioxide 27 mmol/L (22-29); Chloride 105 mmol/L (96-108); Cholesterol 210 mg/dL; Estimated Glomerular Filt Rate > 60; Glucose Random 138 mg/dL (60-115); HDL Cholesterol 40 mg/dL; LDL Cholesterol Calculated 138 mg/dl; Potassium 4.7 mmol/L (3.3-5.1); Sodium 139 mmol/L (135-145); Total Protein 6.8 g/dL (6.5-8.0); Triglycerides 160 mg/dL
[2022-07-26 10:10] LABS: Thyroid Stimulating Hormone 2.69 uIU/mL (0.32-4.0)
[2022-07-26 11:24] LABS: Creatinine Urine 206.88 mg/dL; Microalbum/Creatinine Ratio Ur 6.7 ug/mg cr
== END 2022-07-26 07:33 | disposition home or self-care (01) ==
LOC: HO.MAMMO 07:32
PROVIDERS: PCP Internal Medicine; Visit Provider Internal Medicine
DX: M65.4 Radial styloid tenosynovitis [de Quervain] (principal); G56.03 Carpal tunnel syndrome, bilateral upper limbs; E11.9 Type 2 diabetes mellitus without complications; E78.00 Pure hypercholesterolemia, unspecified; I10 Essential (primary) hypertension; M54.50 Low back pain, unspecified; R20.0 Anesthesia of skin; Z12.31 Encounter for screening mammogram for malignant neoplasm of breast; Z13.820 Encounter for screening for osteoporosis; Z78.0 Asymptomatic menopausal state
CPT/HCPCS: 36415; 77063; 77067; 77080; 80053; 80061; 82043; 83036; 84443; 85025; 99212

== ENCOUNTER → 2022-08-07 09:14 | Outpatient (BNVA) | payer MEDICAID, SELFPAY | PROVIDERS: PCP Internal Medicine; Visit Provider Dietitian, Registered | DX: E11.9 Type 2 diabetes mellitus without complications (principal); E66.9 Obesity, unspecified; Z68.37 Body mass index [BMI] 37.0-37.9, adult; Z71.3 Dietary counseling and surveillance | CPT/HCPCS: 97803 ==

== ENCOUNTER → 2022-09-19 10:33 | Outpatient (BNVA) | payer MEDICAID, SELFPAY | PROVIDERS: PCP Internal Medicine; Visit Provider Surgery | DX: Z80.3 Family history of malignant neoplasm of breast (principal) | CPT/HCPCS: 99212 ==

== ENCOUNTER 2022-09-28 10:45 | Outpatient (REF) | payer MEDICAID, SELFPAY ==
--- NOTE | ~2022-09-28 | US_ITS ---
EXAMINATION: US PELVIS CLINICAL INFORMATION: Question residual cervix following hysterectomy and oophorectomies. COMPARISON: None available. TECHNIQUE: Ultrasound of the pelvis is performed using both transabdominal and transvaginal transducers along with Doppler. Transvaginal imaging is performed due to inadequate visualization transabdominally. FINDINGS: Uterus: Uterus is surgically absent. No residual cervix is noted. Adnexa: Both ovaries are surgically absent. No pelvic free fluid is seen. There is no adnexal mass noted. US/US pelvic and transvaginal IMPRESSION: Unremarkable ultrasound appearance status-post total hysterectomy and bilateral oophorectomies. No residual cervical tissue is noted.
== END 2022-09-28 10:46 | disposition home or self-care (01) ==
LOC: HO.US 10:45
PROVIDERS: PCP Internal Medicine; Visit Provider Advanced Practice Midwife
DX: N81.89 Other female genital prolapse (principal); R32 Unspecified urinary incontinence; Z87.42 Personal history of other diseases of the female genital tract
CPT/HCPCS: 76830; 76856

== ENCOUNTER → 2022-10-02 10:17 | Outpatient (BNVA) | payer MEDICAID, SELFPAY | PROVIDERS: PCP Internal Medicine; Visit Provider Hospitalist | DX: Z23 Encounter for immunization (principal); J45.40 Moderate persistent asthma, uncomplicated; R91.8 Other nonspecific abnormal finding of lung field; G47.33 Obstructive sleep apnea (adult) (pediatric) | CPT/HCPCS: 90471; 90677; 99212 ==

== ENCOUNTER 2022-10-23 08:57 | Outpatient (REF) | payer MEDICAID, SELFPAY ==
[2022-10-23 10:20] LABS: Estimated Average Glucose 140 mg/dL; Hemoglobin A1c % 6.5 %
[2022-10-23 10:45] LABS: Alanine Aminotransferase 19 U/L (0-31); Alkaline Phosphatase 84 U/L (39-117); Anion Gap 11 (12-20); Aspartate Amino Transferase 15 U/L (5-31); Bilirubin Total 0.4 mg/dL (0.0-1.0); Blood Urea Nitrogen 16 mg/dL (9-16); Calcium 9.2 mg/dL (8.4-10.2); Carbon Dioxide 27 mmol/L (22-29); Chloride 107 mmol/L (96-108); Cholesterol 201 mg/dL; Estimated Glomerular Filt Rate > 60; Glucose Random 132 mg/dL (60-115); HDL Cholesterol 40 mg/dL; LDL Cholesterol Calculated 135 mg/dl; Potassium 4.3 mmol/L (3.3-5.1); Sodium 141 mmol/L (135-145); Total Protein 6.8 g/dL (6.5-8.0); Triglycerides 133 mg/dL
[2022-10-23 10:51] LABS: Thyroid Stimulating Hormone 2.09 uIU/mL (0.32-4.0)
== END 2022-10-23 08:58 | disposition home or self-care (01) ==
LOC: HO.LAB 08:57
PROVIDERS: PCP Internal Medicine; Visit Provider Internal Medicine
DX: Z00.00 Encounter for general adult medical examination without abnormal findings (principal); I10 Essential (primary) hypertension; E78.00 Pure hypercholesterolemia, unspecified; E11.9 Type 2 diabetes mellitus without complications; E03.8 Other specified hypothyroidism
CPT/HCPCS: 36415; 80053; 80061; 83036; 84443

== ENCOUNTER 2022-11-01 09:56 | Outpatient (AMB) | payer MEDICAID, SELFPAY ==
--- NOTE | 2022-11-01 10:35 | MHC.OFFVIS ---
Intake Vital Signs 11/01/22 10:42 Height 5 ft 3 in Weight 203 lb BMI 36.0 BP 121/64 Blood Pressure Location Lt brachial Position Sitting Pulse 92 Intake Visit Reasons: 6 month follow up Intake Note: Patient 6 month follow for acid reflex. Patient cc: acid reflex and constipation. Patient denies any other GI issues. Stock Plan Administrator Required: No Accompanied by: Self / Same As Patient Allergies gentamicin [From GARAMYCIN] Allergy (Intermediate, Verified 11/01/22 10:41) RASH Penicillins [PENICILLINS] Allergy (Intermediate, Verified 11/01/22 10:41) RASH Seasonal Allergies Allergy (Intermediate, Verified 11/01/22 10:41) seasonal allergies vancomycin [VANCOMYCIN] Allergy (Intermediate, Verified 11/01/22 10:41) swelling/rash/hives HPI 6 month follow up HPI Details Assessment & Plan (1) Chronic idiopathic constipation: ?Code(s): K59.04 - Chronic idiopathic constipation ?Plan: [place] #Declined She tells me she had a great [place] because she was in [place]! She was visiting with family and she likes to go about 3 times a year because her mother, who is 80 years old, is becoming frail.? Her mother has suffered from colon and breast cancer and frequent pulmonary embolism set of damage her respiratory capacity.? The only problem she has had is that she ran out of her medications because she could not get them filled in [place] she returned home in restarted them however all of her symptoms resolved.? She continues on her omeprazole in the morning and famotidine in the evening with good control of her GERD.? She also uses the bisacodyl with good control of her constipation.? At this point she is quite satisfied with her GI regimen.? Return office visit in 6 months? (2) GERD (gastroesophageal reflux disease): ?Code(s): K21.9 - Gastro-esophageal reflux disease without esophagitis (3) Oropharyngeal dysphagia: ?Code(s): R13.12 - Dysphagia, oropharyngeal phase TODAY'S VISIT [place] #declines She is doing very well! She is losing weight by drinking protein shakes and exercise 1 hour every day! Her sugar is improved and BP is controlled - now she is working on the [employer]. .She continues on her omeprazole in the morning and famotidine in the evening with good control of her GERD.? She also uses the bisacodyl with good control of her constipation.? This despite the fact that she finds her protein shakes somewhat constipating. ROV 6 mos. . [facility] Medical History Asthma Depression Diabetes type 2, controlled Difficulty sleeping GERD (gastroesophageal reflux disease) Hyperlipidemia Hypertension Hypothalamic hypothyroidism Insomnia Lower back pain Migraine headache Mitral valve prolapse Obesity (BMI 30-39.9) HELEN (obstructive sleep apnea) Osteopenia determined by x-ray Panic attack Peripheral neuropathy Potential exposure to STD PTSD (post-traumatic stress disorder) Pulmonary nodules PVC (premature ventricular contraction) Restless leg syndrome Snoring Surgical History History of cervical cerclage Hx of colonoscopy Hx of hysterectomy Hx of left breast biopsy Hx of tubal ligation Family History Father Diabetes Paced cardiac rhythm Colon cancer Mother HTN (hypertension) High cholesterol Skin cancer Breast cancer Colon cancer Sister Obese abdomen Brother Infarction of lung due to iatrogenic pulmonary embolism Son HTN (hypertension) High cholesterol Son HTN (hypertension) High cholesterol Son No problems noted. Son No problems noted. Son No problems noted. Sister No problems noted. Sister No problems noted. 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 Gender identity: Female Female Reproductive History Menstrual Age of Menarche: 10 Date of menopause: 06/20/13 Review of Systems Const Denies fatigue, Denies fever(s), Denies night sweats, Denies poor appetite and Reports weight loss (Intentional dieting) Eyes Details: glasses Reports requires corrective lenses ENT Reports Normal hearing present, Denies dental pain, Denies dysphagia, Denies hearing loss, Denies mouth pain, Denies odynophagia, Denies throat swelling, Denies tongue swelling and Reports other (Dentition adequate) Card Reports no additional complaints Resp Reports no additional complaints GI Denies abdominal pain, Denies melena, Denies bloating, Denies hematochezia, Reports constipation, Denies GI cramping, Denies dysphagia, Denies excessive flatus, Denies early satiety, Reports heartburn, Denies diarrhea, Denies nausea, Denies odynophagia, Denies vomiting and Denies hematemesis Skin/Breast Denies pruritus, Denies lesions, Denies rash and Denies jaundice Neuro Reports Normal hearing present and Denies Abnormal speech present Endo Denies fatigue Aller/Immun Denies throat swelling and Denies tongue swelling Physical Exam Vital Signs: Last Vital Signs Pulse 92 11/01/22 10:42 BP 121/64 11/01/22 10:42 BMI result Body Mass Index 36.0 Const General: cooperative, no acute distress, well developed and well groomed Nutritional Appearance: well nourished and obese Orientation/consciousness: oriented to person, oriented to place and oriented to time Limitations: No language barrier HEENT Head: Yes normocephalic and Yes atraumatic Eyes General: appearance normal, both eyes and all related structures Pupils: Equal, round and reactive pupils present Neck Neck: Yes normal visual inspection and Yes no lymphadenopathy Thyroid: Thyroid normal Resp Effort & Inspection: normal respiratory effort and able to speak in complete sentences Auscultation: clear to auscultation bilaterally Cardio Rate: regular rate Rhythm: regular rhythm Heart sounds: Normal, physiologic split S2 sound present Peripheral pulses: radial pulses present and posterior tibial pulses present GI Inspection: No distended, Yes Abdominal panniculus present and Yes obesity Palpation (GI): Soft to palpation, nontender, no guarding, not rigid and No hepatosplenomegaly present Percussion: Yes normal to percussion Auscultation: normal bowel sounds Rectal Exam - Female: deferred Skin General skin exam: no rashes or lesions noted, turgor normal, skin not dry, no jaundice, No spider nevi and no striae Rashes: no rashes Nails: normal Neuro General: oriented to person, oriented to place and oriented to time Cranial nerves: Yes Equal, round and reactive pupils present and Yes Normal hearing present Speech: No Abnormal speech present Extrem General: Yes normal to inspection, No clubbing, No cyanosis and No edema Psych Appearance: grossly normal and well kempt Mental Status: mental status grossly normal Speech and movement: Normal speech and movement present Affect: normal affect Attitude: cooperative Thought process: Normal thought process present and not confabulating Thought content: Normal thought content present Insight: Limited insight present (Psych) Judgement: Limited judgement present (Psych) Assessment & Plan Assessment & Plan (1) GERD (gastroesophageal reflux disease): Code(s): K21.9 - Gastro-esophageal reflux disease without esophagitis Plan: [place] #declines She is doing very well! She is losing weight by drinking protein shakes and exercise 1 hour every day! Her sugar is improved and BP is controlled - now she is working on the cholesterol. .She continues on her omeprazole in the morning and famotidine in the evening with good control of her GERD.? She also uses the bisacodyl with good control of her constipation.? This despite the fact that she finds her protein shakes somewhat constipating. She has had no further trouble with her swallowing. ROV 6 mos. . (2) Oropharyngeal dysphagia: Code(s): R13.12 - Dysphagia, oropharyngeal phase (3) Chronic idiopathic constipation: Code(s): K59.04 - Chronic idiopathic constipation Medications: Changed From bisacodyl (Dulcolax (bisacodyl)) take orally as directed prior to colonoscopy 10 mg (2 x 5 mg) PO ONCE 30 days 60 tabs 6RF K59.04 - Chronic idiopathic constipation To bisacodyl (Dulcolax (bisacodyl)) take orally as directed prior to colonoscopy 10 mg (2 x 5 mg) PO BEDTIME 30 days 60 tabs 6RF K59.04 - Chronic idiopathic constipation Refilled famotidine (Pepcid) 20 mg PO BEDTIME 30 tabs 6RF K21.9 - Gastro-esophageal reflux disease without esophagitis omeprazole 40 mg PO DAILY 30 days 30 caps 6RF K21.9 - Gastro-esophageal reflux disease without esophagitis Coding Level of Care Code Est Pt Level 3 (14213) Diagnoses GERD (gastroesophageal reflux disease) K21.9 Oropharyngeal dysphagia R13.12 Chronic idiopathic constipation K59.04
[2022-11-01 10:42] VITALS: BP 121/64; PULSE 92; BMI 36.0
== END 2022-11-01 10:49 | disposition home or self-care (01) ==
PROVIDERS: Visit Provider Nurse Practitioner
DX: K21.9 Gastro-esophageal reflux disease without esophagitis (principal); R13.12 Dysphagia, oropharyngeal phase; K59.04 Chronic idiopathic constipation
CPT/HCPCS: 99213

== ENCOUNTER → 2022-11-01 09:56 | Outpatient (BNVA) | payer MEDICAID, SELFPAY | PROVIDERS: Visit Provider Nurse Practitioner | DX: K21.9 Gastro-esophageal reflux disease without esophagitis (principal); K59.04 Chronic idiopathic constipation; R13.12 Dysphagia, oropharyngeal phase | CPT/HCPCS: 99213 ==

== ENCOUNTER 2023-01-10 09:38 | Outpatient (AMB) | payer MEDICAID, SELFPAY ==
--- NOTE | 2023-01-10 09:59 | A.OFFVIS_ITS ---
Intake Vital Signs 01/10/23 10:00 Height 5 ft 3 in BP 114/66 Blood Pressure Location Lt brachial Intake Visit Reasons: Ultrasound follow up Allergies gentamicin [From GARAMYCIN] Allergy (Intermediate, Verified 11/01/22 10:41) RASH Penicillins [PENICILLINS] Allergy (Intermediate, Verified 11/01/22 10:41) RASH Seasonal Allergies Allergy (Intermediate, Verified 11/01/22 10:41) seasonal allergies vancomycin [VANCOMYCIN] Allergy (Intermediate, Verified 11/01/22 10:41) swelling/rash/hives HPI Ultrasound follow up HPI Details Patient is here to review her ultrasound that was done to ensure that her hysterectomy that she had done in 2013 was in fact complete. The question arose because her vaginal cuff had the appearance of being very much like a cervix when I did her annual exam this past spring. She never went through any med menopausal symptoms when she had the hysterectomy nor before either she was still getting her periods when she had the hysterectomy hysterectomy was done because she had prolapse. [facility] Medical History Pulmonary nodules HELEN (obstructive sleep apnea) Asthma Snoring Difficulty sleeping Panic attack PTSD (post-traumatic stress disorder) Depression Restless leg syndrome Peripheral neuropathy PVC (premature ventricular contraction) Mitral valve prolapse Hypertension Obesity (BMI 30-39.9) Potential exposure to STD Diabetes type 2, controlled Osteopenia determined by x-ray Hyperlipidemia Lower back pain Hypothalamic hypothyroidism Insomnia GERD (gastroesophageal reflux disease) Migraine headache Surgical History Hx of colonoscopy Hx of left breast biopsy History of cervical cerclage Hx of hysterectomy Hx of tubal ligation Family History Father Diabetes Paced cardiac rhythm Colon cancer Mother HTN (hypertension) High cholesterol Skin cancer Breast cancer Colon cancer Sister Obese abdomen Brother Infarction of lung due to iatrogenic pulmonary embolism Son HTN (hypertension) High cholesterol Son HTN (hypertension) High cholesterol Son No problems noted. Son No problems noted. Son No problems noted. Sister No problems noted. Sister No problems noted. 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 Gender identity: Female Female Reproductive History Menstrual Age of Menarche: 10 Date of menopause: 06/20/13 Date of Mammogram: 07/26/22 Date of last Bone Density Screenin07/26/22 Physical Exam Vital Signs: Last Vital Signs BP 114/66 01/10/23 10:00 Results Reviewed Results Reviewed: Patient: Stefany Huynh MR#: [id number] : 1960 Acct:[id number] Age/Sex: 61 / F ADM Date: 09/28/22 Loc: .US Attending Dr: Alicia Jeffery CNM Ordering Physician: Alicia Jeffery CNM Date of Service: 09/28/22 Procedure(s): US pelvic and transvaginal Accession Number(s): [id number] cc: Alicia Jeffery CNM~ EXAMINATION: US PELVIS CLINICAL INFORMATION: Question residual cervix following hysterectomy and oophorectomies. COMPARISON: None available. TECHNIQUE: Ultrasound of the pelvis is performed using both transabdominal and transvaginal transducers along with Doppler. Transvaginal imaging is performed due to inadequate visualization transabdominally. FINDINGS: Uterus: Uterus is surgically absent. No residual cervix is noted. Adnexa: Both ovaries are surgically absent. No pelvic free fluid is seen. There is no adnexal mass noted. US/US pelvic and transvaginal IMPRESSION: Unremarkable ultrasound appearance status-post total hysterectomy and bilateral oophorectomies. No residual cervical tissue is noted. Dictated By: Dereje Kirby MD Signed By: <Electronically signed by Dereje Kirby MD in OV> 10/03/22 1525 DD/ 1123 TD/TT: Manager Critical Care Unit: [facility] Assessment & Plan Assessment & Plan (1) Hx of abnormal cervical Pap smear: Comment: class 2 pap 2011, cells removed, had hysterectomy 2014 2' prolapse AND abnormal cells( new history 07/29) pap 07/28= neg, neg hpv. rec repeat pap 3 yrs at age 63. Code(s): Z87.42 - Personal history of other diseases of the female genital tract (2) Yeast infection: Comment: Well-controlled diabetes with metformin occasionally has yeast infection and requests p.r.n. Diflucan and miconazole. Code(s): B37.9 - Candidiasis, unspecified Plan Reviewed patient's mammogram and her ultrasound which showed that she indeed had had a complete hysterectomy and oophorectomy as well there was no residual cervical tissue noted. This was in keeping with what the patient remembered herself. 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 She also has had her bone density checked and it is normal and her mammogram was normal as well. She also had the bracket testing because of her family history of breast cancer and everything is fine and she has been checked and there was no cancer anywhere. She is dealing with some stresses and difficulties in that her daughter lives in [place] with her grand children and her son is moving to [place] tomorrow and she will be alone for a period of time and she is making efforts to plan for a moved back to [place] herself so that she can be with family. In the meantime she has her scientology nat which sustained her. She also requested a p.r.n. prescription to be renewed for Diflucan and miconazole in case she needs it for yeast. Prescription sent to her [facility] on [facility] [address] with a recommendation that she fill it before she goes to [place]. If she still here next year we will see her for her annual. Medications: Refilled fluconazole may repeat second dose 72 hrs after first dose if symptoms persist 150 mg PO Q3D 2 doses 2 tabs 2RF miconazole nitrate 2% (Miconazole-7) 1 appful vaginal BEDTIME 7 days 45 grams 3RF Coding Level of Care Code Est Pt Level 3 (69670) Diagnoses Hx of abnormal cervical Pap smear Z87.42 Yeast infection B37.9
[2023-01-10 10:00] VITALS: BP 114/66
== END 2023-01-10 10:53 | disposition home or self-care (01) ==
LOC: HO.HWS 09:38
PROVIDERS: PCP Internal Medicine; Visit Provider Advanced Practice Midwife
DX: Z87.42 Personal history of other diseases of the female genital tract (principal); B37.9 Candidiasis, unspecified
CPT/HCPCS: 99213

== ENCOUNTER → 2023-01-10 09:38 | Outpatient (BNVA) | payer MEDICAID, SELFPAY | PROVIDERS: PCP Internal Medicine; Visit Provider Advanced Practice Midwife | DX: B37.9 Candidiasis, unspecified (principal); Z90.710 Acquired absence of both cervix and uterus; Z90.722 Acquired absence of ovaries, bilateral | CPT/HCPCS: 99212 ==

== ENCOUNTER 2023-01-11 10:01 | Outpatient (AMB) | payer MEDICAID, SELFPAY ==
[2023-01-11 10:20] VITALS: BMI 35.0
--- NOTE | 2023-01-11 10:20 | A.OFFVIS_ITS ---
Intake VS Expanded 01/11/23 10:20 01/22/23 10:32 Height 5 ft 3 in 5 ft 3 in Weight 197 lb 12.074 oz 198 lb BMI 35.0 35.1 Intake Visit Reasons: DM-CONFIRMED Allergies gentamicin [From GARAMYCIN] Allergy (Intermediate, Verified 11/01/22 10:41) RASH Penicillins [PENICILLINS] Allergy (Intermediate, Verified 11/01/22 10:41) RASH Seasonal Allergies Allergy (Intermediate, Verified 11/01/22 10:41) seasonal allergies vancomycin [VANCOMYCIN] Allergy (Intermediate, Verified 11/01/22 10:41) swelling/rash/hives HPI Nutrition Presentation Details Pt presents for MNT for T2DM Pt reports most recent A1c at 6.5% (10/2022) Typical meal coffee breakfast : eggs scrambled with mixed vegetables, tea or water or no sugar beverages or yogurt 2 good Alternates lunch protein shake ( alternates 1 scoop of whey protein with almond milk or 1% milk or water and adds fruits 1 cup of 1 cup of vegetables or sometimes plain) dinner: 4 oz chicken and vegetables or tuna with mixed vegetable and 1 cup rice , water snack : fruit Reports drinking 64 oz of fluids fruits per day 1-2 vegetables : 4 serving/d dairy: 3 serving/d fish: including twice/day protein 60-90 g /d reports preparing meals in airfryer physical activity:daily life activities NOC-Gfhrkhr-Xk.Jeor Equation Height 5 ft 3 in Weight 198 lb Resting Metabolic Rate 1426.38 Calculated Activity Level Sedentary Calories Needed to Maintain Weight 1711.66 Most Recent Diabetes Results: Cholesterol 201 mg/dL 10/23/22 HDL Cholesterol 40 mg/dL 10/23/22 Triglycerides 133 mg/dL 10/23/22 Creatinine 0.75 mg/dL (0.5-1.4) 10/23/22 Blood Urea Nitrogen 16 mg/dL (9-16) 10/23/22 Sodium 141 mmol/L (135-145) 10/23/22 Potassium 4.3 mmol/L (3.3-5.1) 10/23/22 Chloride 107 mmol/L (96-108) 10/23/22 Carbon Dioxide 27 mmol/L (22-29) 10/23/22 Calcium 9.2 mg/dL (8.4-10.2) 10/23/22 AST 15 U/L (5-31) 10/23/22 ALT 19 U/L (0-31) 10/23/22 Total Protein 6.8 g/dL (6.5-8.0) 10/23/22 Albumin 4.0 g/dL (3.5-5.0) 10/23/22 [facility] Medical History Pulmonary nodules HELEN (obstructive sleep apnea) Asthma Snoring Difficulty sleeping Panic attack PTSD (post-traumatic stress disorder) Depression Restless leg syndrome Peripheral neuropathy PVC (premature ventricular contraction) Mitral valve prolapse Hypertension Obesity (BMI 30-39.9) Potential exposure to STD Diabetes type 2, controlled Osteopenia determined by x-ray Hyperlipidemia Lower back pain Hypothalamic hypothyroidism Insomnia GERD (gastroesophageal reflux disease) Migraine headache Surgical History Hx of colonoscopy Hx of left breast biopsy History of cervical cerclage Hx of hysterectomy Hx of tubal ligation Family History Father Diabetes Paced cardiac rhythm Colon cancer Mother HTN (hypertension) High cholesterol Skin cancer Breast cancer Colon cancer Sister Obese abdomen Brother Infarction of lung due to iatrogenic pulmonary embolism Son HTN (hypertension) High cholesterol Son HTN (hypertension) High cholesterol Son No problems noted. Son No problems noted. Son No problems noted. Sister No problems noted. Sister No problems noted. 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 Used wt : 90 kg (01/2023) Est kcal as per MSJ: 1711 (40% carb, 30% fat/prot) Est fluid needs: 9852-3048 ml/d (25-30 ml/kg bw) Rec fiber: increase to 8-10 g per day and gradually increase to 25 g/d or as tolerated Rec Na: < 2000 mg /d Educate patient on: (R= Reviewed, V = verbalizes understanding N/R= Needs review N/A= not applicable) * Food sources of carbohydrates and serving adequate serving sizes : R V * Difference between complex carbohydrates and simple carbohydrates, role of fiber: R V * Differences between fats (MUFA/PUFA/saturated fats, trans fats) and food sources of various fats: R * Food sources of sodium and salt and healthy modifications for heart health and kidney health: R,V * Vitamins and minerals: R * How to interpret food labels: R * Healthy Plate method concept: R V * Physical activity: benefits and precaution: R V Patient Instructions: Work on having 3 meals per day Include fiber in your breakfast and lunch meal aim at adding fiber gradually increase to 4-6 g of fiber per day , goal 10-12 g fiber as tolerated ( add vegetables, flaxseed, oats,) Engagein physical activity goal 150 min per week or as tolerated Coding Level of Care Code Nutr Indiv Subseq (14271) Diagnoses Type 2 diabetes mellitus with unspecified complications E11.8 Time Spent (min) 20
[2023-01-22 10:32] VITALS: BMI 35.1
== END 2023-01-11 10:58 | disposition home or self-care (01) ==
PROVIDERS: PCP Internal Medicine; Visit Provider Dietitian, Registered
DX: E11.8 Type 2 diabetes mellitus with unspecified complications (principal)

== ENCOUNTER → 2023-01-11 10:01 | Outpatient (BNVA) | payer MEDICAID, SELFPAY | PROVIDERS: Visit Provider Dietitian, Registered | DX: E11.8 Type 2 diabetes mellitus with unspecified complications (principal); Z71.3 Dietary counseling and surveillance | CPT/HCPCS: 97803 ==

== ENCOUNTER 2023-01-23 08:50 | Outpatient (REF) | payer MEDICAID, SELFPAY ==
[2023-01-23 11:06] LABS: MANUAL DIFF FLAG NO
[2023-01-23 11:10] LABS: Appearance Urine Clear; Color Urine Yellow; Glucose Urine UA Negative (Negative); Leukocyte Esterase Urine Negative (Negative); Nitrite Urine Negative (Negative); PH 5.5 (5.0-9.0); Specific Gravity - Urine 1.025 (1.005-1.025); Urine Blood Negative (Negative); Urine Ketones Negative (Negative); Urine Protein Negative (Neg-Trace)
[2023-01-23 11:14] LABS: Basophils Percent Auto 0.6 % (0-2); Eosinophils Absolute Auto 0.1 X10*3/uL (0.0-0.4); Eosinophils Percent Auto 1.6 % (0-4); Hematocrit 39.9 % (37.0-47.0); Hemoglobin 12.7 g/dl (12.0-16.0); Imm Gran Abs Auto 0.02 X10*3/uL (0.00-0.03); Imm Gran Pct Auto 0.3 % (0.0-0.4); Lymphocytes Absolute Auto 1.6 X10*3/uL (1.2-4.9); Lymphocytes Percent Auto 23.1 % (20-40); Mean Corpuscular HGB Conc 31.8 g/dl (31.0-35.0); Mean Corpuscular Hemoglobin 29.3 pg (27.0-33.0); Mean Corpuscular Volume 91.9 fL (80.0-98.0); Mean Platelet Volume 11.2 fL (9.4-12.3); Monocytes Absolute Auto 0.4 X10*3/uL (0.1-1.2); Monocytes Percent Auto 5.6 % (2-11); Neutrophils Absolute Auto 4.8 x10*3/uL (2.0-8.3); Neutrophils Percent Auto 68.8 % (45-73); Platelet Count 288 X10*3/uL (160-400); Red Blood Count 4.34 X10*6/uL (4.20-5.50); Red Cell Distribution Width 13.2 % (11.0-16.0)
[2023-01-23 11:17] LABS: Estimated Average Glucose 134 mg/dL; Hemoglobin A1c % 6.3 % (<6.0)
[2023-01-23 11:25] LABS: Alanine Aminotransferase 21 U/L (0-31); Albumin Level 4.4 g/dL (3.5-5.0); Alkaline Phosphatase 104 U/L (39-117); Anion Gap 14 (12-20); Aspartate Amino Transferase 18 U/L (5-31); Bilirubin Total 0.9 mg/dL (0.0-1.0); Blood Urea Nitrogen 16 mg/dL (9-16); Calcium 9.9 mg/dL (8.4-10.2); Carbon Dioxide 25 mmol/L (22-29); Chloride 106 mmol/L (96-108); Cholesterol 104 mg/dL (<200); Estimated Glomerular Filt Rate > 60; Glucose Random 136 mg/dL (60-115); HDL Cholesterol 31 mg/dL (>40); LDL Cholesterol Calculated 55 mg/dL (<100); Potassium 4.3 mmol/L (3.3-5.1); Sodium 141 mmol/L (135-145); Total Protein 7.3 g/dL (6.5-8.0); Triglycerides 93 mg/dL (<150)
[2023-01-23 11:41] LABS: Thyroid Stimulating Hormone 1.91 uIU/mL (0.32-4.0)
== END 2023-01-23 08:51 | disposition home or self-care (01) ==
LOC: HO.10HDL 08:50
PROVIDERS: Visit Provider Internal Medicine
DX: E03.8 Other specified hypothyroidism (principal); E11.9 Type 2 diabetes mellitus without complications; E78.00 Pure hypercholesterolemia, unspecified; R13.10 Dysphagia, unspecified
CPT/HCPCS: 36415; 80053; 80061; 81003; 83036; 84443; 85025; 87086

== ENCOUNTER 2023-01-31 13:00 | Outpatient (REF) | payer MEDICAID, SELFPAY ==
[2023-02-01 13:39] LABS: BV Int Neg Control Negative (Negative); BV Int Pos Control Positive (Positive)
[2023-02-01 16:36] LABS: CT PCR NOT DETECTED (Not Detect.); NG PCR NOT DETECTED (Not Detect.)
== END 2023-01-31 13:01 | disposition home or self-care (01) ==
LOC: HO.LNP 13:00
PROVIDERS: PCP Internal Medicine; Visit Provider Advanced Practice Midwife
DX: B37.9 Candidiasis, unspecified (principal); N81.89 Other female genital prolapse; Z20.2 Contact with and (suspected) exposure to infections with a predominantly sexual mode of transmission
CPT/HCPCS: 0353U; 87480; 87510; 87660; 99212

== ENCOUNTER 2023-01-31 13:00 | Outpatient (AMB) | payer MEDICAID, SELFPAY ==
--- NOTE | 2023-01-31 13:06 | A.OFFVIS_ITS ---
Intake Vital Signs 01/31/23 13:16 Height 5 ft 3 in Weight 196 lb 3.382 oz BMI 34.8 BP 118/74 Intake Visit Reasons: vaginal irritation Intake Note: c/o of vaginal burning x 3 weeks . Finished diflucan treatment ,still bother her . Optical Engineer Required: Yes Optical Engineer Language: Crm Marketing Analyst Name: Gi BERNAL Information Interpreted: non-clinical & clinical Blintze Roller: Blintze Roller Present (Gi BERNAL) Accompanied by: Self / Same As Patient Allergies gentamicin [From GARAMYCIN] Allergy (Intermediate, Verified 01/31/23 13:18) RASH Penicillins [PENICILLINS] Allergy (Intermediate, Verified 01/31/23 13:18) RASH Seasonal Allergies Allergy (Intermediate, Verified 01/31/23 13:18) seasonal allergies vancomycin [VANCOMYCIN] Allergy (Intermediate, Verified 01/31/23 13:18) swelling/rash/hives Medication List - Last Reconciled 01/31/23 by Alicia Jeffery CNM acetaminophen ER 650 mg PO Q8H PRN albuterol sulfate 90 mcg/actuation 2 puffs inhalation Q6H PRN 30 days albuterol sulfate 2.5 mg (3 mL) inhalation Q6H PRN 30 days bisacodyl (Dulcolax (bisacodyl)) 10 mg (2 x 5 mg) PO BEDTIME 30 days blood sugar diagnostic (FreeStyle Lite Strips) As directed budesonide-formoterol 160-4.5 mcg/actuation (Symbicort) 2 puffs inhalation BID 30 days bupropion HCl 150 mg PO QAM famotidine (Pepcid) 20 mg PO BEDTIME fluticasone propionate 50 mcg/actuation 2 sprays intranasal DAILY 30 days lancets (FreeStyle Lancets) As directed levothyroxine (Synthroid) 25 mcg PO DAILY loratadine (Claritin) 10 mg PO DAILY 30 days lorazepam 0.5 mg PO DAILY PRN losartan-hydrochlorothiazide 100-25 mg 1 tab PO DAILY melatonin 10 mg PO BEDTIME metformin 500 mg PO BID miconazole nitrate 2% (Miconazole-7) 1 appful vaginal BEDTIME 7 days montelukast (Singulair) 10 mg PO BEDTIME 90 days omeprazole 40 mg PO DAILY 30 days polyethylene glycol 3350 (Miralax) 238 grams PO ONCE 1 day ropinirole 0.25 mg PO BEDTIME rosuvastatin 40 mg PO DAILY sertraline (Zoloft) 100 mg PO DAILY tizanidine 2 mg PO BEDTIME PRN trazodone 50 mg PO DAILY Post menopausal: Yes HPI vaginal irritation HPI Details Patient is here because she has some vaginal irritation and she wants to get checked. She used Diflucan for the 2 doses and did not notice a difference she feels some burning but it is mostly between the vagina and the rectum. She does have some stress incontinence after having her 7 babies so she does wear panty liners. At previous visits I have discussed Todd's with her. In her previous relationship she used to go dancing and she misses that but she broke up with that partner of 12 years because he was not faithful so she does want to get checked. Her children are all now in [place] and she is going it [place] and she will be deciding whether to stay here or go after that [facility], [facility] Medical History Pulmonary nodules HELEN (obstructive sleep apnea) Asthma Snoring Difficulty sleeping Panic attack PTSD (post-traumatic stress disorder) Depression Restless leg syndrome Peripheral neuropathy PVC (premature ventricular contraction) Mitral valve prolapse Hypertension Obesity (BMI 30-39.9) Potential exposure to STD Diabetes type 2, controlled Osteopenia determined by x-ray Hyperlipidemia Lower back pain Hypothalamic hypothyroidism Insomnia GERD (gastroesophageal reflux disease) Migraine headache Surgical History Hx of colonoscopy Hx of left breast biopsy History of cervical cerclage Hx of hysterectomy Hx of tubal ligation Family History Father Diabetes Paced cardiac rhythm Colon cancer Mother HTN (hypertension) High cholesterol Skin cancer Breast cancer Colon cancer Sister Obese abdomen Brother Infarction of lung due to iatrogenic pulmonary embolism Son HTN (hypertension) High cholesterol Son HTN (hypertension) High cholesterol Son No problems noted. Son No problems noted. Son No problems noted. Sister No problems noted. Sister No problems noted. 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 There is some vaginal wall descensus though no up right prolapse as there is no cervix it is surgically absent. Patient was able to sustain a Kegel and she was encouraged to do many more of these at home as previously discussed and instructed I strongly encourage stopping use of the panty liners though I understand why she needs to use them at times but limiting them as much as possible is necessary she says her sugars are under good control stable at 130 which is good for her and her hemoglobin A1c is 6.3. I am not seeing anything to treat today though we did testing for gonorrhea chlamydia trichomoniasis Gardnerella and Siria. If anything does show up she will be offered more prescriptions as appropriate. For now she has refills on the Diflucan and miconazole and since she has experience and a lot of self knowledge she may use either as she sees fit but I do not believe she needs either right now I do believe that stopping the panty liner use or minimize it a s much as possible is the best way to go. External Female Exam: normal external appearance Speculum Exam - Vagina: normal appearance of the vagina and normal vaginal discharge Assessment & Plan Assessment & Plan (1) Pelvic floor weakness: Code(s): N81.89 - Other female genital prolapse (2) Potential exposure to STD: Code(s): Z20.2 - Contact with and (suspected) exposure to infections with a predominantly sexual mode of transmission (3) Yeast infection: Comment: Well-controlled diabetes with metformin occasionally has yeast infection and requests p.r.n. Diflucan and miconazole. Code(s): B37.9 - Candidiasis, unspecified Plan Perineal skin and mucosa and labial mucosa and vaginal mucosa all very healthy appearing and within normal limits with no redness or irritation and there is suitable moisture. There is some vaginal wall descensus though no up right prol apse as there is no cervix it is surgically absent. Patient was able to sustain a Kegel and she was encouraged to do many more of these at home as previously discussed and instructed I strongly encourage stopping use of the panty liners though I understand why she needs to use them at times but limiting them as much as possible is necessary she says her sugars are under good control stable at 130 which is good for her and her hemoglobin A1c is 6.3. I am not seeing anything to treat today though we did testing for gonorrhea chlamydia trichomoniasis Gardnerella and Siria. If anything does show up she will be offered more prescriptions as appropriate. For now she has refills on the Diflucan and miconazole and since she has experience and a lot of self knowledge she may use either as she sees fit but I do not believe she needs either right now I do believe that stopping the panty liner use or minimize it as much as possible is the best way to go. Coding Level of Care Code Est Pt Level 3 (41389) Diagnoses Pelvic floor weakness N81.89 Potential exposure to STD Z20.2 Yeast infection B37.9
[2023-01-31 13:16] VITALS: BP 118/74; BMI 34.8
== END 2023-01-31 14:01 | disposition home or self-care (01) ==
PROVIDERS: PCP Internal Medicine; Visit Provider Advanced Practice Midwife
DX: N81.89 Other female genital prolapse (principal); Z20.2 Contact with and (suspected) exposure to infections with a predominantly sexual mode of transmission; B37.9 Candidiasis, unspecified
CPT/HCPCS: 99213

== ENCOUNTER 2023-02-27 10:55 | Outpatient (REF) | payer MEDICAID, SELFPAY ==
[2023-02-28 13:20] LABS: BV Int Neg Control Negative (Negative); BV Int Pos Control Positive (Positive)
== END 2023-02-27 10:56 | disposition home or self-care (01) ==
LOC: HO.LNP 10:55
PROVIDERS: PCP Internal Medicine; Visit Provider Advanced Practice Midwife
DX: N94.9 Unspecified condition associated with female genital organs and menstrual cycle (principal); N89.8 Other specified noninflammatory disorders of vagina; B37.9 Candidiasis, unspecified; Z20.2 Contact with and (suspected) exposure to infections with a predominantly sexual mode of transmission; Z87.42 Personal history of other diseases of the female genital tract; Z79.899 Other long term (current) drug therapy; Z80.3 Family history of malignant neoplasm of breast
CPT/HCPCS: 0353U; 86780; 86803; 87340; 87389; 87480; 87510; 87660; 99212

== ENCOUNTER 2023-02-27 10:55 | Outpatient (AMB) | payer MEDICAID, SELFPAY ==
[2023-02-27 10:58] VITALS: BP 120/70; BMI 33.8
--- NOTE | 2023-02-27 10:58 | MHC.OFFVIS ---
Intake Vital Signs 02/27/23 10:58 Height 5 ft 3 in Weight 191 lb BMI 33.8 BP 120/70 Intake Visit Reasons: recurrent BV Intake Note: has been feeling burning sensation and has been having discharge, Mixer Whipped Topping Required: Yes Mixer Whipped Topping Language: Swazi Information Interpreted: non-clinical & clinical Waiter/Waitress Room Service: Waiter/Waitress Room Service Present (Chloeyn) Allergies gentamicin [From GARAMYCIN] Allergy (Intermediate, Verified 02/27/23 11:01) RASH Penicillins [PENICILLINS] Allergy (Intermediate, Verified 02/27/23 11:01) RASH Seasonal Allergies Allergy (Intermediate, Verified 02/27/23 11:01) seasonal allergies vancomycin [VANCOMYCIN] Allergy (Intermediate, Verified 02/27/23 11:01) swelling/rash/hives Medication List - Last Reconciled 02/27/23 by Alicia Jeffery CNM acetaminophen ER 650 mg PO Q8H PRN albuterol sulfate 90 mcg/actuation 2 puffs inhalation Q6H PRN 30 days albuterol sulfate 2.5 mg (3 mL) inhalation Q6H PRN 30 days bisacodyl (Dulcolax (bisacodyl)) 10 mg (2 x 5 mg) PO BEDTIME 30 days blood sugar diagnostic (FreeStyle Lite Strips) As directed budesonide-formoterol 160-4.5 mcg/actuation (Symbicort) 2 puffs inhalation BID 30 days bupropion HCl 150 mg PO QAM famotidine (Pepcid) 20 mg PO BEDTIME fluticasone propionate 50 mcg/actuation 2 sprays intranasal DAILY 30 days lancets (FreeStyle Lancets) As directed levothyroxine (Synthroid) 25 mcg PO DAILY loratadine (Claritin) 10 mg PO DAILY 30 days lorazepam 0.5 mg PO DAILY PRN losartan-hydrochlorothiazide 100-25 mg 1 tab PO DAILY melatonin 10 mg PO BEDTIME metformin 500 mg PO BID metronidazole 500 mg PO BID 7 days miconazole nitrate 2% (Miconazole-7) 1 appful vaginal BEDTIME 7 days montelukast (Singulair) 10 mg PO BEDTIME 90 days omeprazole 40 mg PO DAILY 30 days polyethylene glycol 3350 (Miralax) 238 grams PO ONCE 1 day ropinirole 0.25 mg PO BEDTIME rosuvastatin 40 mg PO DAILY sertraline (Zoloft) 100 mg PO DAILY tizanidine 2 mg PO BEDTIME PRN trazodone 50 mg PO DAILY Is last menstrual period known: No Post menopausal: Yes Patient : No HPI recurrent BV HPI Details Patient is here because she still has recurrent burning. She also has a little discharge she is not using panty liners anymore she use the metronidazole it tasted terrible she is not l, and looking for another prescription but she is concerned and worried and in addition she is very concerned about STDs that she could have contracted from her previous partner of 12 years who cheated on her. The last time she had sex was last spring. She says she has not yet been tested for HIV and hepatitis B and C and syphilis and wants to be tested for everything today. She wants re testing for STIs as she is worried and still getting over the betrayal. She will be going to [place] to visit her family week march and staying for as long she wants to. She will be rescheduling her visit with Dr. Escalona she says that the only cancer question was that of her mother who had breast cancer and she has personally been very diligent in checking for health but she has no personal history of cancer and all of her checking and scans and genetic testing has proven to be negative. She still has this vaginal burning which is uncomfortable she says her blood sugars are good and she says the fasting blood sugar in the morning is about 130 and she does not always check the post prandials but they are not too high she is on metformin. She says her primary doctor just checked her urine today because of urinary urgency and frequency and is sending an antibiotic to the pharmacy to treat a UTI that she will be starting today as well. She says as far she knows she did not have any cancer as part of the reason for her hysterectomy and oophorectomy she said that when she had her tubal ligation 1 of her ovaries was damaged and when she had her hysterectomy she is not sure why the doctor took out the other ovary but said that the ovary that was damaged from the tubal was just tissue, though she is not sure why he took out the good 1 as well as the 1. She says she did not have any cancer. [facility] Medical History Pulmonary nodules HELEN (obstructive sleep apnea) Asthma Snoring Difficulty sleeping Panic attack PTSD (post-traumatic stress disorder) Depression Restless leg syndrome Peripheral neuropathy PVC (premature ventricular contraction) Mitral valve prolapse Hypertension Obesity (BMI 30-39.9) Potential exposure to STD Diabetes type 2, controlled Osteopenia determined by x-ray Hyperlipidemia Lower back pain Hypothalamic hypothyroidism Insomnia GERD (gastroesophageal reflux disease) Migraine headache Surgical History Hx of colonoscopy Hx of left breast biopsy History of cervical cerclage Hx of hysterectomy Hx of tubal ligation Family History Father Diabetes Paced cardiac rhythm Colon cancer Mother HTN (hypertension) High cholesterol Skin cancer Breast cancer Colon cancer Sister Obese abdomen Brother Infarction of lung due to iatrogenic pulmonary embolism Son HTN (hypertension) High cholesterol Son HTN (hypertension) High cholesterol Son No problems noted. Son No problems noted. Son No problems noted. Sister No problems noted. Sister No problems noted. 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 Escalona; currently getting Q 6 month breast exams with him Code(s): Z80.3 - Family history of malignant neoplasm of breast (3) Hx of abnormal cervical Pap smear: Comment: class 2 pap 2011, cells removed, had hysterectomy 2013 2' prolapse AND abnormal cells( new history 07/29) pap 07/28= neg, neg hpv. rec repeat pap 3 yrs at age 63. Code(s): Z87.42 - Personal history of other diseases of the female genital tract (4) Yeast infection: Comment: Well-controlled diabetes with metformin occasionally has yeast infection and requests p.r.n. Diflucan and miconazole. Code(s): B37.9 - Candidiasis, unspecified (5) Vaginal burning: Code(s): N94.9 - Unspecified condition associated with female genital organs and menstrual cycle Plan Patient is here because she still has recurrent burning. She also has a little discharge she is not using panty liners anymore she use the metronidazole it tasted terrible she is not l, and looking for another prescription but she is concerned and worried and in addition she is very concerned about STDs that she could have contracted from her previous partner of 12 years who cheated on her. The last time she had sex was last spring. She says she has not yet been tested for HIV and hepatitis B and C and syphilis and wants to be tested for everything today. She wants re testing for STIs as she is worried and still getting over the betrayal. She will be going to [place] to visit her family March and staying for as long she wants to. She will be rescheduling her visit with Dr. Escalona she says that the only cancer question was that of her mother who had breast cancer and she has personally been very diligent in checking for health but she has no personal history of cancer and all of her checking and scans and genetic testing has proven to be negative. She still has this vaginal burning which is uncomfortable she says her blood sugars are good and she says the fasting blood sugar in the morning is about 130 and she does not always check the post prandials but they are not too high she is on metformin. She says her primary doctor just checked her urine today because of urinary urgency and frequency and is sending an antibiotic to the pharmacy to treat a UTI that she will be starting today as well. She says as far she knows she did not have any cancer as part of the reason for her hysterectomy and oophorectomy she said that when she had her tubal ligation 1 of her ovaries was damaged and when she had her hysterectomy she is not sure why the doctor took out the other ovary but said that the ovary that was damaged from the tubal was just tissue, though she is not sure why he took out the good 1 as well as the 1. She says she did not have any cancer.. In light of all this discussed the following 1 reviewed again that Gardnerella and Siria are normal variants in the vaginal naty and they thrive under certain conditions, and the only need to be treated when they are symptomatic and causing problems. Elevated blood sugars can provide a breeding ground for yeast to flourish, and so per her request IM sending refills for the Diflucan and Monistat 7 cream that she can use when she feels she has yeast. In addition Gardnerella can be a common bacteria in our vagina as and only needs to be treated if it is symptomatic there of the things that can contribute to vaginal burning. She did not particularly notice an improvement after taking the metronidazole. This is not necessarily surprising. In addition to this since she will be starting a none known antibiotic today for urinary tract infection this will be bound to change the naty of her vagina going forward and she may end up with of over growth of yeast with more profound yeast symptoms. Additionally I discussed the option of consideration of a small amount of vaginal Estrace cream to be used since she is certain that she does not have and has not had any cancer . She would be interested in trying this but I recommend that she do not is start it until she is through dealing with what ever is the antibiotic and its side effects so that there is no mix up and confusion about effects and side effects. she may bring it to [place] with her. She also has not had any appointments with pelvic floor therapy yet but I recommend she try to do the Kegel's which she it does tell me she has not been doing. Next appointment is in July for her annual exam and Pap smear. Orders: Orders Hepatitis B Surface Antigen Today Z20.2 - Contact with and (suspected) exposure to infections with a predominantly sexual mode of transmission, Z80.3 - Family history of malignant neoplasm of breast, Z87.42 - Personal history of other diseases of the female genital tract Hepatitis C Antibody Today Z20.2 - Contact with and (suspected) exposure to infections with a predominantly sexual mode of transmission, Z80.3 - Family history of malignant neoplasm of breast, Z87.42 - Personal history of other diseases of the female genital tract HIV Ab/Ag Today Z20.2 - Contact with and (suspected) exposure to infections with a predominantly sexual mode of transmission, Z80.3 - Family history of malignant neoplasm of breast, Z87.42 - Personal history of other diseases of the female genital tract Syphilis Screen Today Z20.2 - Contact with and (suspected) exposure to infections with a predominantly sexual mode of transmission, Z80.3 - Family history of malignant neoplasm of breast, Z87.42 - Personal history of other diseases of the female genital tract Bacterial Vaginosis Panel Today N94.9 - Unspecified condition associated with female genital organs and menstrual cycle CT NG by PCR Today N94.9 - Unspecified condition associated with female genital organs and menstrual cycle Medications: New fluconazole may repeat second dose 72 hrs after first dose if symptoms persist 150 mg PO Q3D 2 doses 2 tabs 3RF estradiol 0.01%(0.1mg/gram) (Estrace) 1 g vaginal 2XW 42.5 grams 0RF Refilled miconazole nitrate 2% (Miconazole-7) 1 appful vaginal BEDTIME 7 days 45 grams 3RF Coding Level of Care Code Est Pt Level 3 (79563) Diagnoses Potential exposure to STD Z20.2 Family history of breast cancer Z80.3 Hx of abnormal cervical Pap smear Z87.42 Yeast infection B37.9 Vaginal burning N94.9
== END 2023-02-27 11:36 | disposition home or self-care (01) ==
LOC: HO.HWS 10:55
PROVIDERS: PCP Internal Medicine; Visit Provider Advanced Practice Midwife
DX: Z20.2 Contact with and (suspected) exposure to infections with a predominantly sexual mode of transmission (principal); Z80.3 Family history of malignant neoplasm of breast; Z87.42 Personal history of other diseases of the female genital tract; B37.9 Candidiasis, unspecified; N94.9 Unspecified condition associated with female genital organs and menstrual cycle
CPT/HCPCS: 99213

== ENCOUNTER 2023-02-27 11:42 | Outpatient (REF) | payer MEDICAID, SELFPAY ==
[2023-02-27 13:00] LABS: Syphilis Screen Nonreactive (Nonreactive)
[2023-02-27 15:45] LABS: CT PCR NOT DETECTED (Not Detect.); NG PCR NOT DETECTED (Not Detect.)
[2023-02-28 04:30] LABS: HBsAGNum1 0.44 S/CO (0.00-0.99); HIV AB/AG Nonreactive (Nonreactive); HIV Num 1 0.06 S/CO (0.00-0.99); Hepatitis B Surface Antigen Negative (Negative); ~HepC Num1 0.11 S/CO (0.00-0.79); ~Hepatitis C Antibody Nonreactive (Nonreactive)
== END 2023-02-27 11:43 | disposition home or self-care (01) ==
LOC: HO.LAB 11:42
PROVIDERS: PCP Internal Medicine; Visit Provider Advanced Practice Midwife
DX: N94.9 Unspecified condition associated with female genital organs and menstrual cycle (principal); Z20.2 Contact with and (suspected) exposure to infections with a predominantly sexual mode of transmission; Z80.3 Family history of malignant neoplasm of breast; Z87.42 Personal history of other diseases of the female genital tract
CPT/HCPCS: 0353U; 86780; 86803; 87340; 87389

== ENCOUNTER 2023-03-06 09:34 | Outpatient (AMB) | payer MEDICAID, SELFPAY ==
[2023-03-06 09:55] VITALS: BP 126/78; PULSE 96; RESP 12; O2SAT 97; BMI 33.1
--- NOTE | 2023-03-06 09:55 | MHC.OFFVIS ---
Intake Vital Signs 03/06/23 09:55 Height 5 ft 3 in Weight 187 lb BMI 33.1 BP 126/78 Blood Pressure Location Lt brachial Position Sitting Respiration 12 Pulse 96 Pulse Source Pulse Oximeter Pulse Oximetry (%) 97 Oxygen Delivery Method Room Air Intake Visit Reasons: helen Allergies gentamicin [From GARAMYCIN] Allergy (Intermediate, Verified 03/06/23 09:57) RASH Penicillins [PENICILLINS] Allergy (Intermediate, Verified 03/06/23 09:57) RASH Seasonal Allergies Allergy (Intermediate, Verified 03/06/23 09:57) seasonal allergies vancomycin [VANCOMYCIN] Allergy (Intermediate, Verified 03/06/23 09:57) swelling/rash/hives Medication List - Last Reconciled 03/06/23 by Marylu Anderson LPN acetaminophen ER 650 mg PO Q8H PRN albuterol sulfate 90 mcg/actuation 2 puffs inhalation Q6H PRN 30 days albuterol sulfate 2.5 mg (3 mL) inhalation Q6H PRN 30 days bisacodyl (Dulcolax (bisacodyl)) 10 mg (2 x 5 mg) PO BEDTIME 30 days blood sugar diagnostic (FreeStyle Lite Strips) As directed budesonide-formoterol 160-4.5 mcg/actuation (Symbicort) 2 puffs inhalation BID 30 days bupropion HCl 150 mg PO QAM estradiol 0.01%(0.1mg/gram) (Estrace) 1 g vaginal 2XW famotidine 20 mg PO BEDTIME fluconazole 150 mg PO Q3D 2 doses fluticasone propionate 50 mcg/actuation 2 sprays intranasal DAILY 30 days lancets (FreeStyle Lancets) As directed levothyroxine (Synthroid) 25 mcg PO DAILY loratadine (Claritin) 10 mg PO DAILY 30 days lorazepam 0.5 mg PO DAILY PRN losartan-hydrochlorothiazide 100-25 mg 1 tab PO DAILY melatonin 10 mg PO BEDTIME metformin 500 mg PO BID metronidazole 500 mg PO BID 7 days miconazole nitrate 2% (Miconazole-7) 1 appful vaginal BEDTIME 7 days montelukast (Singulair) 10 mg PO BEDTIME 90 days omeprazole 40 mg PO DAILY 30 days polyethylene glycol 3350 (Miralax) 238 grams PO ONCE 1 day ropinirole 0.25 mg PO BEDTIME rosuvastatin 40 mg PO DAILY sertraline (Zoloft) 100 mg PO DAILY tizanidine 2 mg PO BEDTIME PRN trazodone 50 mg PO DAILY HPI HPI Comments History of Present Illness Details In The patient is a 62year-old woman with a known history of asthma in addition to allergic rhinitis. The patient has been having increasing shortness of breath symptoms and chest tightness. she noticed that her symptoms were worse specially when she was living in [place] in an apartment that she felt had significant allergens and does. Once she left that environment her symptoms have been improving somewhat. She continues to have chest tightness. She also has shortness of breath and cough. She tends to use her rescue inhaler but a couple times a week. She is also inhaled budesonide. The patient was started to be evaluated at the bariatric program. There she did complaint of daytime drowsiness with an elevated Beaver score of 10/24. The patient underwent a home sleep study demonstrating positive sleep apnea. Patient does benefit from starting PAP therapy in view of her increased cardiovascular risk factors And her ongoing daytime drowsiness. The patient is agreeable to start CPAP therapy at this time. I will make arrangements with local [employer] company for her to do so. In the meantime will optimize her respiratory therapy switching her from budesonide to Symbicort twice a day. The patient also will undergo allergy testing. 05/02/2022 the patient is here for a pulmonary follow-up visit. The patient has been doing better from a respiratory status. Unfortunately she still has elevated dyspnea with activity. She also has an elevated Beaver score because of daytime drowsiness. Her Beaver score is still 10/24. She did get her CPAP machine. She has had at home now for several months and she has not started using it as of yet. She has been having difficulty sitting up. I did covid the initial set up in the machine so therefore she can start using at home once she is able to started. The patient is aware that if he does not use the machine the [employer] company will take it away. As far as her asthma symptoms she continues with respiratory therapy. She has not had to use her rescue inhaler. She has not had to use any prednisone for any flare-ups. Otherwise the patient is in good control. We did review her last CT scan of the chest back in February 2022 demonstrating stable pulmonary nodules which is reassuring. Will plan to repeat the CT scan in a year's time. 10/02/2022 the patient is here for a pulmonary follow-up visit. The patient having hard time with the CPAP. She did not tolerate the nasal pillows. The wrong comfortable for her. She had restart to the office and we did send a new prescription to the [employer] for fullface mask. However, she has not gotten 1 as of yet. Therefore she has been able to use the machine. I did have an F20 available in the office size medium and hopefully now she can start using it more regularly. When she starts using it the patient will be able to bring the machine and we can download the machine in order to see the efficacy of the machine. Right now he does not have any data to review. The patient also has been using her inhalers. No significant wheezing or chest tightness. She seems to be well controlled on current regimen. Regarding her CT scan the last CT scan was back in February 2022 and was recommended getting a CT scan in 18 months after so therefore will plan to follow-up sometime in the spring with a CT scan of the chest. For now although will follow-up sooner if just to make sure that she is compliant with her CPAP and she is tolerating the therapy. 03/06/2023 the patient is here for a pulmonary follow-up visit. She is doing well from an asthma standpoint. She has been using the Symbicort and also has a rescue inhaler which she has not required. She continues on the singular at nighttime that is also helping. She denies any recent exacerbations. The patient did return the CPAP as she could not tolerated. She is doing well without it. She will continue with positional therapy. If her symptoms were to worsen or she develops any increased cardiovascular risk factors then will consider repeating the sleep study at that point. We also following pulmonary nodules. Her last CT scan was back in February 2022. She is scheduled for the CT scan although she is going to go on a trip and she is going to have to postpone that to the winter time. Therefore I will change the date to May to make sure she has enough time to be able to get that done. At which point she will follow-up with me and will review the CT scan together. [facility] Medical History Pulmonary nodules HELEN (obstructive sleep apnea) Asthma Snoring Difficulty sleeping Panic attack PTSD (post-traumatic stress disorder) Depression Restless leg syndrome Peripheral neuropathy PVC (premature ventricular contraction) Mitral valve prolapse Hypertension Obesity (BMI 30-39.9) Potential exposure to STD Diabetes type 2, controlled Osteopenia determined by x-ray Hyperlipidemia Lower back pain Hypothalamic hypothyroidism Insomnia GERD (gastroesophageal reflux disease) Migraine headache Surgical History Hx of colonoscopy Hx of left breast biopsy History of cervical cerclage Hx of hysterectomy Hx of tubal ligation Family History Father Diabetes Paced cardiac rhythm Colon cancer Mother HTN (hypertension) High cholesterol Skin cancer Breast cancer Colon cancer Sister Obese abdomen Brother Infarction of lung due to iatrogenic pulmonary embolism Son HTN (hypertension) High cholesterol Son HTN (hypertension) High cholesterol Son No problems noted. Son No problems noted. Son No problems noted. Sister No problems noted. Sister No problems noted. 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 Gender identity: Female Female Reproductive History Menstrual Age of Menarche: 10 Date of menopause: 06/20/13 Review of Systems Const Reports daytime sleepiness, Reports difficulty sleeping, Denies night sweats and Reports snoring ENT Denies change in voice, Denies lip swelling, Denies mouth pain, Reports nasal congestion, Reports nasal discharge and Denies tongue swelling Card Denies chest pain Resp Reports cough, Reports snoring and Denies wheezing GI Denies abdominal pain Musc Denies no additional complaints Neuro Denies Neuro-related abnormal movements Psych Denies no additional complaints Sundar/Lymph Denies easy bleeding and Denies lymphadenopathy Aller/Immun Denies lip swelling, Denies tongue swelling and Denies wheezing Physical Exam Vital Signs: Last Vital Signs Pulse 96 03/06/23 09:55 Resp 12 03/06/23 09:55 BP 126/78 03/06/23 09:55 Pulse Ox 97 03/06/23 09:55 Oxygen Delivery Method Room Air 03/06/23 09:55 BMI result Body Mass Index 33.1 Const General: alert Eyes General: appearance normal, both eyes and all related structures Neck Neck: Yes normal visual inspection, Yes full ROM and Yes no lymphadenopathy Chest Chest palpation & inspection: normal inspection of the chest Resp Auscultation: clear to auscultation bilaterally, no rales, no rhonchi and no wheezes Cardio Rate: regular rate Rhythm: regular rhythm Heart sounds: S1 normal heart sound present and S2 normal heart sound present GI Palpation (GI): Soft to palpation and nontender Auscultation: normal bowel sounds Skin General skin exam: rashes and/or lesions noted Assessment & Plan Assessment & Plan (1) Asthma: Code(s): J45.909 - Unspecified asthma, uncomplicated Qualifiers: Asthma complication type: uncomplicated Asthma persistence: persistent Asthma severity: moderate Qualified Code(s): J45.40 - Moderate persistent asthma, uncomplicated (2) HELEN (obstructive sleep apnea): Code(s): G47.33 - Obstructive sleep apnea (adult) (pediatric) (3) Pulmonary nodules: Code(s): R91.8 - Other nonspecific abnormal finding of lung field Plan conitnue Symbicort short-acting beta agonist as needed Continue Singulair and claritin Fluticasone stopped APAP continue positional sleep therapy Repeat CT chest May 2023 follow-up in May [address] chest Medications: Changed From albuterol sulfate 90 mcg/actuation 2 puffs inhalation Q6H 30 days PRN 8.5 grams 12RF Wheezing To albuterol sulfate 90 mcg/actuation 2 puffs inhalation Q6H 90 days PRN 3 ea 3RF Wheezing From budesonide-formoterol 160-4.5 mcg/actuation (Symbicort) 2 puffs inhalation BID 30 days 10.2 grams 11RF J44.9 - Chronic obstructive pulmonary disease, unspecified To budesonide-formoterol 160-4.5 mcg/actuation (Symbicort) 2 puffs inhalation BID 90 days 3 ea 3RF J44.9 - Chronic obstructive pulmonary disease, unspecified From loratadine (Claritin) 10 mg PO DAILY 30 days 30 tabs 11RF J30.2 - Other seasonal allergic rhinitis, J45.909 - Unspecified asthma, uncomplicated To loratadine (Claritin) 10 mg PO DAILY 90 days 90 tabs 3RF J30.2 - Other seasonal allergic rhinitis, J45.909 - Unspecified asthma, uncomplicated Refilled montelukast (Singulair) 10 mg PO BEDTIME 90 days 90 tabs 3RF Coding Level of Care Code Est Pt Level 4 (01446) Diagnoses Moderate persistent asthma without complication J45.40 Asthma complication type: uncomplicated Asthma persistence: persistent Asthma severity: moderate HELEN (obstructive sleep apnea) G47.33 Pulmonary nodules R91.8 Time Spent (min) 16
== END 2023-03-06 10:09 | disposition home or self-care (01) ==
PROVIDERS: PCP Internal Medicine; Visit Provider Hospitalist
DX: J45.40 Moderate persistent asthma, uncomplicated (principal); G47.33 Obstructive sleep apnea (adult) (pediatric); R91.8 Other nonspecific abnormal finding of lung field
CPT/HCPCS: 99214

== ENCOUNTER → 2023-03-06 09:34 | Outpatient (BNVA) | payer MEDICAID, SELFPAY | PROVIDERS: PCP Internal Medicine; Visit Provider Hospitalist | DX: J45.40 Moderate persistent asthma, uncomplicated (principal); G47.33 Obstructive sleep apnea (adult) (pediatric); R91.8 Other nonspecific abnormal finding of lung field | CPT/HCPCS: 99212 ==

== ENCOUNTER 2023-05-14 08:27 | Outpatient (REF) | payer MEDICAID, SELFPAY ==
[2023-05-14 09:27] LABS: Estimated Average Glucose 134 mg/dL; Hemoglobin A1c % 6.3 % (<6.0)
[2023-05-14 09:52] LABS: Alanine Aminotransferase 14 U/L (0-31); Albumin Level 4.2 g/dL (3.5-5.0); Alkaline Phosphatase 77 U/L (39-117); Anion Gap 11 (12-20); Aspartate Amino Transferase 14 U/L (5-31); Bilirubin Total 0.7 mg/dL (0.0-1.0); Blood Urea Nitrogen 13 mg/dL (9-16); Calcium 9.2 mg/dL (8.4-10.2); Carbon Dioxide 29 mmol/L (22-29); Chloride 107 mmol/L (96-108); Estimated Glomerular Filt Rate > 60; Glucose Random 109 mg/dL (60-115); Sodium 143 mmol/L (135-145); Total Protein 6.7 g/dL (6.5-8.0)
[2023-05-14 10:07] LABS: Thyroid Stimulating Hormone 1.36 uIU/mL (0.32-4.0)
== END 2023-05-14 08:28 | disposition home or self-care (01) ==
LOC: HO.LAB 08:27
PROVIDERS: PCP Internal Medicine; Visit Provider Internal Medicine
DX: E03.8 Other specified hypothyroidism (principal); E11.9 Type 2 diabetes mellitus without complications; I10 Essential (primary) hypertension
CPT/HCPCS: 36415; 80053; 83036; 84443

== ENCOUNTER 2023-05-21 14:41 | Outpatient (AMB) | payer MEDICAID, SELFPAY ==
--- NOTE | 2023-05-21 15:15 | A.OFFVIS_ITS ---
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 The patient has been having increasing shortness of breath symptoms and chest tightness. she noticed that her symptoms were worse specially when she was living in [place] in an apartment that she felt had significant allergens and does. Once she left that environment her symptoms have been improving somewhat. She continues to have chest tightness. She also has shortness of breath and cough. She tends to use her rescue inhaler but a couple times a week. She is also inhaled budesonide. The patient was started to be evaluated at the bariatric program. There she did complaint of daytime drowsiness with an elevated Longview score of 10/24. The patient underwent a home sleep study demonstrating positive sleep apnea. Patient does benefit from starting PAP therapy in view of her increased cardiovascular risk factors And her ongoing daytime drowsiness. The patient is agreeable to start CPAP therapy at this time. I will make arrangements with local [employer] for her to do so. In the meantime will optimize her respiratory therapy switching her from budesonide to Symbicort twice a day. The patient also will undergo allergy testing. 05/02/2022 the patient is here for a pulm onary follow-up visit. The patient has been doing better from a respiratory status. Unfortunately she still has elevated dyspnea with activity. She also has an elevated Longview score because of daytime drowsiness. Her Longview score is still 10/24. She did get her CPAP machine. She has had at home now for several months and she has not started using it as of yet. She has been having difficulty sitting up. I did covid the initial set up in the machine so therefore she can start using at home once she is able to started. The patient is aware that if he does not use the machine the [employer] company will take it away. As far as her asthma symptoms she continues with respiratory therapy. She has not had to use her rescue inhaler. She has not had to use any prednisone for any flare-ups. Otherwise the patient is in good control. We did review her last CT scan of the chest back in February 2022 demonstrating stable pulmonary nodules which is reassuring. Will plan to repeat the CT scan in a year's time. 10/02/2022 the patient is here for a pul onary follow-up visit. The patient having hard time with the CPAP. She did not tolerate the nasal pillows. The wrong comfortable for her. She had restart to the office and we did send a new prescription to the [employer] for fullface mask. However, she has not gotten 1 as of yet. Therefore she has been able to use the machine. I did have an F20 available in the office size medium and hopefully now she can start using it more regularly. When she starts using it the patient will be able to bring the machine and we can download the machine in order to see the efficacy of the machine. Right now he does not have any data to review. The patient also has been using her inhalers. No significant wheezing or chest tightness. She seems to be well controlled on current regimen. Regarding her CT scan the last CT scan was back in February 2022 and was recommended getting a CT scan in 18 months after so therefore will plan to follow-up sometime in the spring with a CT scan of the chest. For now although will follow-up sooner if just to make sure that she is compliant with her CPAP and she is tolerating the therapy. 03/06/2023 [facility] She is doing well from an asthma standpoint. She has been using the Symbicort and also has a rescue inhaler which she has not required. She continues on the singular at nighttime that is also helping. She denies any recent exacerbations. The patient did return the CPAP as she could not tolerated. She is doing well without it. She will continue with positional therapy. If her symptoms were to worsen or she develops any increased cardiovascular risk factors then will consider repeating the sleep study at that point. We also following pulmonary nodules. Her last CT scan was back in February 2022. She is scheduled for the CT scan although she is going to go on a trip and she is going to have to postpone that to the winter time. Therefore I will change the date to May to make sure she has enough time to be able to get that done. At which point she will follow-up with me and will review the CT scan together. 05/21/2023 the patient is here for a pulm onary follow-up visit. She is got back from [place]. While she was there the patient underwent evaluation in the ER because of severe right-sided abdominal discomfort. She also had significant nausea and felt that she was having a gallbladder attack. She does have an appointment with GI coming up. The meantime she will need an abdominal ultrasound to further address the possibility of cholecystitis. If her symptoms worsen she needs to go to the ER for further evaluation. She does continue to use respiratory inhalers with good effect. As far as sleep the patient is no longer using the CPAP. She is trying positional therapy. She would like not to go back on CPAP at this time. The patient also has underlying pulmonary nodules. The last time she had a CT scan was back in 2021. She does have a scheduled CT scan coming up that I will review once available. Otherwise patient is doing well she will follow-up in 6 months. [facility] Medical History (Updated 05/21/23 @ 21:40 by Stephon Mosley MD) Abdominal pain Pulmonary nodules HELEN (obstructive sleep apnea) Snoring Difficulty sleeping Panic attack PTSD (post-traumatic stress disorder) Depression Restless leg syndrome Peripheral neuropathy PVC (premature ventricular contraction) Mitral valve prolapse Hypertension Obesity (BMI 30-39.9) Potential exposure to STD Diabetes type 2, controlled Osteopenia determined by x-ray Hyperlipidemia Lower back pain Hypothalamic hypothyroidism Insomnia GERD (gastroesophageal reflux disease) Migraine headache Surgical History (Updated 03/06/23 @ 09:59 by Stephon Mosley MD) Asthma Hx of colonoscopy Hx of left breast biopsy History of cervical cerclage Hx of hysterectomy Hx of tubal ligation Family History Father Diabetes Paced cardiac rhythm Colon cancer Mother HTN (hypertension) High cholesterol Skin cancer Breast cancer Colon cancer Sister Obese abdomen Brother Infarction of lung due to iatrogenic pulmonary embolism Son HTN (hypertension) High cholesterol Son HTN (hypertension) High cholesterol Son No problems noted. Son No problems noted. Son No problems noted. Sister No problems noted. Sister No problems noted. 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 Gender identity: Female Female Reproductive History Menstrual Age of Menarche: 10 Date of menopause: 06/20/13 Review of Systems Const Reports daytime sleepiness, Reports difficulty sleeping, Denies night sweats and Reports snoring ENT Denies change in voice, Denies lip swelling, Denies mouth pain, Reports nasal congestion, Reports nasal discharge and Denies tongue swelling Card Denies chest pain Resp Reports cough, Reports snoring and Denies wheezing GI Reports abdominal pain Musc Denies no additional complaints Neuro Denies Neuro-related abnormal movements Psych Denies no additional complaints Sundar/Lymph Denies easy bleeding and Denies lymphadenopathy Aller/Immun Denies lip swelling, Denies tongue swelling and Denies wheezing Physical Exam Vital Signs: Last Vital Signs Pulse 89 05/21/23 15:17 Pulse Ox 96 05/21/23 15:17 Oxygen Delivery Method Room Air 05/21/23 15:17 BMI result Body Mass Index 31.9 Const General: alert Eyes General: appearance normal, both eyes and all related structures Neck Neck: Yes normal visual inspection, Yes full ROM and Yes no lymphadenopathy Chest Chest palpation & inspection: normal inspection of the chest Resp Effort & Inspection: normal respiratory effort Auscultation: clear to auscultation bilaterally, no rales, no rhonchi and no wheezes Cardio Rate: regular rate Rhythm: regular rhythm Heart sounds: S1 normal heart sound present and S2 normal heart sound present GI Palpation (GI): Soft to palpation and nontender Auscultation: normal bowel sounds Skin General skin exam: rashes and/or lesions noted Assessment & Plan Assessment & Plan (1) Asthma: Code(s): J45.909 - Unspecified asthma, uncomplicated Qualifiers: Asthma complication type: uncomplicated Asthma persistence: persistent Asthma severity: moderate Qualified Code(s): J45.40 - Moderate persistent asthma, uncomplicated (2) HELEN (obstructive sleep apnea): Code(s): G47.33 - Obstructive sleep apnea (adult) (pediatric) (3) Pulmonary nodules: Code(s): R91.8 - Other nonspecific abnormal finding of lung field (4) Abdominal pain: Code(s): R10.9 - Unspecified abdominal pain Qualifiers: Abdominal location: right upper quadrant Qualified Code(s): R10.11 - Right upper quadrant pain Plan conitnue Symbicort short-acting beta agonist as needed Continue Singulair and claritin Fluticasone stopped APAP continue positional sleep therapy Repeat CT chest May 2023 ABD US to assess RUQ ?cholecystitis with gallstones noted on previous CT abd from [facility] follow-up in 6 months Orders: Orders US abdomen complete Today R10.9 - Unspecified abdominal pain Medications: Changed From fluticasone propionate 50 mcg/actuation 2 sprays intranasal DAILY 30 days 16 grams 11RF J31.0 - Chronic rhinitis To fluticasone propionate 50 mcg/actuation 2 sprays intranasal DAILY 90 days 3 ea 3RF J31.0 - Chronic rhinitis Refilled albuterol sulfate 2.5 mg (3 mL) inhalation Q6H 30 days PRN 180 mL 11RF shortness of breath or wheezing budesonide-formoterol 160-4.5 mcg/actuation (Symbicort) 2 puffs inhalation BID 90 days 3 ea 3RF J44.9 - Chronic obstructive pulmonary disease, unspecified albuterol sulfate 90 mcg/actuation 2 puffs inhalation Q6H 90 days PRN 3 ea 3RF Wheezing loratadine (Claritin) 10 mg PO DAILY 90 days 90 tabs 3RF J30.2 - Other seasonal allergic rhinitis, J45.909 - Unspecified asthma, uncomplicated montelukast (Singulair) 10 mg PO BEDTIME 90 days 90 tabs 3RF Coding Level of Care Code Est Pt Level 4 (06083) Diagnoses Moderate persistent asthma without complication J45.40 Asthma complication type: uncomplicated Asthma persistence: persistent Asthma severity: moderate HELEN (obstructive sleep apnea) G47.33 Pulmonary nodules R91.8 Right upper quadrant abdominal pain R10.11 Abdominal location: right upper quadrant Time Spent (min) 17
[2023-05-21 15:17] VITALS: PULSE 89; O2SAT 96; BMI 31.9
== END 2023-05-21 15:46 | disposition home or self-care (01) ==
PROVIDERS: PCP Internal Medicine; Referring Provider Internal Medicine; Visit Provider Hospitalist
DX: J45.40 Moderate persistent asthma, uncomplicated (principal); G47.33 Obstructive sleep apnea (adult) (pediatric); R91.8 Other nonspecific abnormal finding of lung field; R10.11 Right upper quadrant pain
CPT/HCPCS: 99214

== ENCOUNTER → 2023-05-21 14:41 | Outpatient (BNVA) | payer MEDICAID, SELFPAY | PROVIDERS: PCP Internal Medicine; Visit Provider Hospitalist | DX: J45.40 Moderate persistent asthma, uncomplicated (principal); G47.33 Obstructive sleep apnea (adult) (pediatric); R91.8 Other nonspecific abnormal finding of lung field; R10.11 Right upper quadrant pain | CPT/HCPCS: 99212 ==

== ENCOUNTER 2023-05-24 14:27 | Outpatient (REF) | payer MEDICAID, SELFPAY ==
--- NOTE | ~2023-05-24 | CT_ITS ---
EXAMINATION: CT CHEST WITHOUT CONTRAST CLINICAL INFORMATION: Pulmonary nodules. COMPARISON: CT chest 02/21/2022: Multiple bilateral pulmonary nodules are stable. Ultrasound abdomen 11/04/2020. TECHNIQUE: Multidetector volumetric CT imaging of the chest was done. Axial MIP volume rendering provided. Sagittal and coronal reformatted images were obtained. This CT examination was performed using dose optimization techniques as appropriate, variously including the following: *Automated exposure control *Adjustment of mA and/or kV according to patient size (this includes techniques or standardized protocols for targeted exams where dose is matched to indication/reason for exam; i.e. extremities or head) *Use of iterative reconstruction technique DLP: 169.41 mGy-cm FINDINGS: LUNGS: Multiple small pulmonary micronodules are seen the largest in the right lower lobe measuring 6 mm (5:261 compare prior 7:241). [place] images of all have been saved. All are without significant change when compared to the prior exam The lungs are clear with no evidence of inflammation or new/worrisome nodules. MEDIASTINUM: The mediastinum is normal. CORONARY ARTERY CALCIFICATION: None visualized on this study. PLEURA: There is no pleural effusion. No pleural mass or thickening. AXILLA: No lymphadenopathy. UPPER ABDOMEN: Some small layering gallstones are present in the gallbladder also seen on prior gallbladder ultrasound studies. OSSEOUS STRUCTURES: Unremarkable. CT/CT chest wo IV con IMPRESSION: 1. Multiple small pulmonary nodules are seen the largest measuring 6 mm. These are unchanged when compared to the prior exam. 2. Incidental note made of cholelithiasis. Fleischner guidelines were followed.
== END 2023-05-24 14:28 | disposition home or self-care (01) ==
LOC: HO.CT 14:27
PROVIDERS: PCP Internal Medicine; Visit Provider Hospitalist
DX: R91.8 Other nonspecific abnormal finding of lung field (principal)
CPT/HCPCS: 71250

== ENCOUNTER 2023-05-25 10:34 | Outpatient (AMB) | payer MEDICAID, SELFPAY ==
[2023-05-25 10:57] VITALS: BP 122/67; PULSE 67; BMI 32.4
--- NOTE | 2023-05-25 10:57 | A.OFFVIS_ITS ---
Intake Vital Signs 05/25/23 10:57 Height 5 ft 3 in Weight 183 lb BMI 32.4 BP 122/67 Blood Pressure Location Lt brachial Position Sitting Pulse 67 Intake Visit Reasons: 6 month follow up Intake Note: Patient returns to office today in 6 months follow up of GERD. CC: Patient states that the 1st week of May she was vomiting a green liquid, soft stools, headache, nausea, epigastric pain, RUQ extremity, and right chest pain. Patient states that she had a CT scan done and it showed gallstones. She states that she continues to have an upset stomach, right arm pain, and epigastric pain but symptoms are milder now. After the first week of May she reports stools were very pale and light color , this happens twice. 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 Accompanied by: Self / Same As Patient Allergies gentamicin [From GARAMYCIN] Allergy (Intermediate, Verified 05/31/23 08:41) RASH Penicillins [PENICILLINS] Allergy (Intermediate, Verified 05/31/23 08:41) RASH Seasonal Allergies Allergy (Intermediate, Verified 05/31/23 08:41) seasonal allergies vancomycin [VANCOMYCIN] Allergy (Intermediate, Verified 05/31/23 08:41) swelling/rash/hives HPI 6 month follow up HPI Details Assessment & Plan (1) GERD (gastroesophageal reflux diseas e): Code(s): K21.9 - Gastro-esophageal reflux disease without esophagitis Plan: [place] #declines She is doing very well! She is losing weight by drinking protein shakes and exercise 1 hour every day! Her sugar is improved and BP is controlled - now she is working on the cholesterol. .She continues on her omeprazole in the morning and famotidine in the evening with good control of her GERD.? She also uses the bisacodyl with good control of her constipation.? This despite the fact that she finds her protein shakes somewhat constipating. She has had no further trouble with her swallowing. ROV 6 mos. . (2) Oropharyngeal dysphagia: Code(s): R13.12 - Dysphagia, oropharyngeal phase (3) Chronic idiopathic constipation: Code(s): K59.04 - Chronic idiopathic constipation Medications: Changed From bisacodyl (Dulcola x (bisacodyl)) take orally as dir ected prior to col onoscopy 10 mg (2 x 5 mg) P O ONCE 30 days 60 tabs 6RF K59.04 - Chronic i diopathic constipa tion To bisacodyl (Dulcola x (bisacodyl)) take orally as dir ected prior to col onoscopy 10 mg (2 x 5 mg) P O BEDTIME 30 days 60 tabs 6RF K59.04 - Chronic i diopathic constipa tion Refilled famotidine (Pepcid ) 20 mg PO BEDTIME 30 tabs 6RF K21.9 - Gastro-eso phageal reflux dis ease without esoph agitis omeprazole 40 mg PO DAILY 30 days 30 caps 6RF K21.9 - Gastro-eso phageal reflux dis ease without esoph agitis TODAYS VISIT She was doing well but then she traveled to [place] and had sudden onset of abdominal pain that started in the right upper quadrant but spread across the top accompanied by 1 episode of nausea and vomiting and 3 soft stools. After that she felt ill for the entire week but did not have any more stooling or vomiting. The pain is less than it was before now but she still experiences it. Because she was sick she stopped her bisacodyl which was appropriate but has not moved her bowels all week. I think she needs to restart it. With review of her diet she does a lot of protein shakes. This can be quite constipating so I encouraged her to either by a fiber pill, or add she or flaxseed to her protein shakes to help increase her fiber. She says she will do this as she has both of these at home. She continues on her omeprazole for her GERD along with famotidine. Return office visit in 3 weeks to see how she is progressing and if it has not improving then will consider if additional studies are needed, but I think she either had a GI virus or some food-borne illness causing some lingering bowel irritability superimposed on her constipation. [facility] Medical History Abdominal pain Pulmonary nodules HELEN (obstructive sleep apnea) Snoring Difficulty sleeping Panic attack PTSD (post-traumatic stress disorder) Depression Restless leg syndrome Peripheral neuropathy PVC (premature ventricular contraction) Mitral valve prolapse Hypertension Obesity (BMI 30-39.9) Potential exposure to STD Diabetes type 2, controlled Osteopenia determined by x-ray Hyperlipidemia Lower back pain Hypothalamic hypothyroidism Insomnia GERD (gastroesophageal reflux disease) Migraine headache Surgical History Asthma Hx of colonoscopy Hx of left breast biopsy History of cervical cerclage Hx of hysterectomy Hx of tubal ligation Family History Father Diabetes Paced cardiac rhythm Colon cancer Mother HTN (hypertension) High cholesterol Skin cancer Breast cancer Colon cancer Sister Obese abdomen Brother Infarction of lung due to iatrogenic pulmonary embolism Son HTN (hypertension) High cholesterol Son HTN (hypertension) High cholesterol Son No problems noted. Son No problems noted. Son No problems noted. Sister No problems noted. Sister No problems noted. 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 Gender identity: Female Female Reproductive History Menstrual Age of Menarche: 10 Date of menopause: 06/20/13 Review of Systems Const Denies fatigue, Denies fever(s), Denies night sweats, Denies poor appetite and Denies weight loss Eyes Details: glasses Reports requires corrective lenses ENT Reports Normal hearing present, Denies dental pain, Denies dysphagia, Denies hearing loss, Denies mouth pain, Denies odynophagia, Denies throat swelling, Denies tongue swelling and Reports other (Dentition adequate) Card Reports no additional complaints Resp Reports no additional complaints GI Details: Reports abdominal pain, Denies melena, Reports bloating, Denies hematochezia, Reports constipation, Reports GI cramping, Denies dysphagia, Denies excessive flatus, Denies early satiety, Reports heartburn, Denies diarrhea, Reports nausea, Denies odynophagia, Reports vomiting and Denies hematemesis Skin/Breast Denies pruritus, Denies lesions, Denies rash and Denies jaundice Neuro Reports Normal hearing present and Denies Abnormal speech present Endo Denies fatigue Aller/Immun Denies throat swelling and Denies tongue swelling Physical Exam Vital Signs: Last Vital Signs Pulse 67 05/25/23 10:57 BP 122/67 05/25/23 10:57 BMI result Body Mass Index 32.4 Const General: cooperative, no acute distress, well developed and well groomed Nutritional Appearance: well nourished and overweight Orientation/consciousness: oriented to person, oriented to place and oriented to time Limitations: language barrier HEENT Head: Yes normocephalic and Yes atraumatic Eyes General: appearance normal, both eyes and all related structures Pupils: Equal, round and reactive pupils present Neck Neck: Yes normal visual inspection and Yes no lymphadenopathy Thyroid: Thyroid normal Resp Effort & Inspection: normal respiratory effort and able to speak in complete sentences Auscultation: clear to auscultation bilaterally Cardio Rate: regular rate Rhythm: regular rhythm Heart sounds: Normal, physiologic split S2 sound present Peripheral pulses: radial pulses present and posterior tibial pulses present GI Inspection: No distended, No Abdominal panniculus present and Yes obesity Palpation (GI): Soft to palpation, Tenderness to palpation present (GI), no guarding, not rigid and No hepatosplenomegaly present Percussion: Yes normal to percussion Auscultation: normal bowel sounds Rectal Exam - Female: deferred Skin General skin exam: no rashes or lesions noted, turgor normal, skin not dry, no jaundice, No spider nevi and no striae Rashes: no rashes Nails: normal Neuro General: oriented to person, oriented to place and oriented to time Cranial nerves: Yes Equal, round and reactive pupils present and Yes Normal hearing present Speech: No Abnormal speech present Extrem General: Yes normal to inspection, No clubbing, No cyanosis and No edema Psych Appearance: grossly normal and well kempt Mental Status: mental status grossly normal Speech and movement: Normal speech and movement present Affect: normal affect Attitude: cooperative Thought process: Normal thought process present and not confabulating Thought content: Normal thought content present Insight: Fair insight present (Psych) and Limited insight present (Psych) Judgement: Fair judgement present (Psych) and Limited judgement present (Psych) Assessment & Plan Assessment & Plan (1) Abdominal pain: Code(s): R10.9 - Unspecified abdominal pain Qualifiers: Abdominal location: right upper quadrant Qualified Code(s): R10.11 - Right upper quadrant pain (2) GERD (gastroesophageal reflux disease): Code(s): K21.9 - Gastro-esophageal reflux disease without esophagitis (3) Chronic idiopathic constipation: Code(s): K59.04 - Chronic idiopathic constipation Plan She was doing well but then she traveled to [place] and had sudden onset of abdominal pain that started in the right upper quadrant but spread across the top accompanied by 1 episode of nausea and vomiting and 3 soft stools. After that she felt ill for the entire week but did not have any more stooling or vomiting. The pain is less than it was before now but she still experiences it. Because she was sick she stopped her bisacodyl which was appropriate but has not moved her bowels all week. I think she needs to restart it. With review of her diet she does a lot of protein shakes. This can be quite constipating so I encouraged her to either by a fiber pill, or add she or flaxseed to her protein shakes to help increase her fiber. She says she will do this as she has both of these at home. She continues on her omeprazole for her GERD along with famotidine. Return office visit in 3 weeks to see how she is progressing and if it has not improving then will consider if additional studies are needed, but I think she either had a GI virus or some food-borne illness causing some lingering bowel irritability superimposed on her constipation. Coding Level of Care Code Est Pt Level 3 (17601) Diagnoses Right upper quadrant abdominal pain R10.11 Abdominal location: right upper quadrant GERD (gastroesophageal reflux disease) K21.9 Chronic idiopathic constipation K59.04
== END 2023-05-25 11:43 | disposition home or self-care (01) ==
PROVIDERS: PCP Internal Medicine; Visit Provider Nurse Practitioner
DX: R10.11 Right upper quadrant pain (principal); K21.9 Gastro-esophageal reflux disease without esophagitis; K59.04 Chronic idiopathic constipation
CPT/HCPCS: 99213

== ENCOUNTER → 2023-05-25 10:34 | Outpatient (BNVA) | payer MEDICAID, SELFPAY | PROVIDERS: PCP Internal Medicine; Visit Provider Nurse Practitioner | DX: K21.9 Gastro-esophageal reflux disease without esophagitis (principal); K59.04 Chronic idiopathic constipation; R10.11 Right upper quadrant pain | CPT/HCPCS: 99212 ==

== ENCOUNTER 2023-05-31 08:32 | Outpatient (AMB) | payer MEDICAID, SELFPAY ==
--- NOTE | 2023-05-31 08:39 | A.OFFVIS_ITS ---
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 Certified medical staff assistant present. The patient states that she had symptoms of burning with urination. She states that she was treated with antibiotics Which improved her symptoms. Review of chart the patient had a urine culture in January, which came back no growth She states she had imaging, CAT scan done I have discussed follow up cystoscopy [facility] Medical History Abdominal pain Pulmonary nodules HELEN (obstructive sleep apnea) Snoring Difficulty sleeping Panic attack PTSD (post-traumatic stress disorder) Depression Restless leg syndrome Peripheral neuropathy PVC (premature ventricular contraction) Mitral valve prolapse Hypertension Obesity (BMI 30-39.9) Potential exposure to STD Diabetes type 2, controlled Osteopenia determined by x-ray Hyperlipidemia Lower back pain Hypothalamic hypothyroidism Insomnia GERD (gastroesophageal reflux disease) Migraine headache Surgical History Asthma Hx of colonoscopy Hx of left breast biopsy History of cervical cerclage Hx of hysterectomy Hx of tubal ligation Family History Father Diabetes Paced cardiac rhythm Colon cancer Mother HTN (hypertension) High cholesterol Skin cancer Breast cancer Colon cancer Sister Obese abdomen Brother Infarction of lung due to iatrogenic pulmonary embolism Son HTN (hypertension) High cholesterol Son HTN (hypertension) High cholesterol Son No problems noted. Son No problems noted. Son No problems noted. Sister No problems noted. Sister No problems noted. 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 Gender identity: Female Female Reproductive History Menstrual Age of Menarche: 10 Date of menopause: 06/20/13 Review of Systems Const All systems reviewed & are unremarkable except as noted in HPI and below Reports no additional complaints Eyes Reports no additional complaints ENT Reports no additional complaints Card Denies dyspnea Resp Denies cough and Denies dyspnea GI Reports no additional complaints Reports no additional complaints Musc Reports no additional complaints Skin/Breast Denies rash and Denies unusual bruising Neuro Reports no additional complaints Psych Reports no additional complaints Endo Reports no additional complaints Sundar/Lymph Reports no additional complaints Aller/Immun Reports no additional complaints Physical Exam Const General: cooperative, healthy appearing and no acute distress Orientation/consciousness: patient oriented x3 HEENT Head: Yes normal to inspection, Yes normocephalic and Yes atraumatic Eyes Conjunctivae: conjunctivae normal Neck Neck: Yes normal visual inspection and Yes trachea midline Chest Chest palpation & inspection: normal inspection of the chest Resp Effort & Inspection: normal respiratory effort Cardio Rate: regular rate GI Inspection: Yes normal to inspection Skin General skin exam: no rashes or lesions noted Neuro General: patient oriented x3 Extrem General: No edema Psych Appearance: grossly normal Results AMB Urinalysis, Automated UA Leukoctes 0 Shama/uL Last Edit by GABE Adams on 05/31/23 09:07 UA Nitrite Negative Last Edit by GABE Adams on 05/31/23 09:07 UA Urobilinogen 0.2 mg/dL Last Edit by GBAE Adams on 05/31/23 09:0 7 UA Protein 15 mg/dL Last Edit by GABE Adams on 05/31/23 09:07 UA pH 6.0 Last Edit by GABE Adams on 05/31/23 09:07 UA Blood 0 Mauri/uL Last Edit by GABE Adams on 05/31/23 09:07 UA Specific Orla 1.025 Last Edit by Oleksandr Barrios RMA on 05/31/23 09: 07 UA Ketone Negative Last Edit by Oleksandr Barrios RMA on 05/31/23 09:07 UA Bilirubin 0 mg/dL Last Edit by Oleksandr Barrios RMA on 05/31/23 09:07 UA Glucose 0 mg/dL Last Edit by GABE Adams on 05/31/23 09:07 Results Reviewed Results Reviewed: Laboratory Last Values Urine pH (Auto) 6.0 05/31/23 09:06 Specific Orla (Auto) 1.025 05/31/23 09:06 Urine Protein (Auto) 15 mg/dL 05/31/23 09:06 Glucose (UA)(Auto) 0 mg/dL 05/31/23 09:06 Urine Ketones (Auto) Negative 05/31/23 09:06 Urine Blood (Auto) 0 Mauri/uL 05/31/23 09:06 Urine Nitrite (Auto) Negative 05/31/23 09:06 Urine Bilirubin (Auto) 0 mg/dL 05/31/23 09:06 Urine Urobilinogen (Auto) 0.2 mg/dL 05/31/23 09:06 Leukocyte Esterase (Auto) 0 Shama/uL 05/31/23 09:06 Collected: 01/23/23 Status: COMP Req#: [id number] Received: 01/23/23 Source: [facility] Sp Desc: Clean Cat Subm Dr: Matilda Yo MD Ordered: Urine Culture Procedure Result Verified Urine Culture Final 01/24/23 No growth. Assessment & Plan Assessment & Plan (1) Dysuria: Code(s): R30.0 - Dysuria Plan fu OFFICE CYSTOSCOPY Orders: Orders AMB Urinalysis Automated 05/31/23 Z13.9 - Encounter for screening, unspecified Coding Level of Care Code New Pt Level 3 (80498) Diagnoses Dysuria R30.0
== END 2023-05-31 09:34 | disposition home or self-care (01) ==
PROVIDERS: PCP Internal Medicine; Visit Provider Urology
DX: R30.0 Dysuria (principal)
CPT/HCPCS: 99203

== ENCOUNTER → 2023-05-31 08:32 | Outpatient (BNVA) | payer MEDICAID, SELFPAY | PROVIDERS: PCP Internal Medicine; Visit Provider Urology | DX: R30.0 Dysuria (principal) | CPT/HCPCS: 81003; 99202 ==

== ENCOUNTER 2023-06-04 09:49 | Outpatient (REF) | payer MEDICAID, SELFPAY ==
--- NOTE | ~2023-06-04 | US_ITS ---
EXAMINATION: US ABDOMEN COMPLETE CLINICAL INFORMATION: Unspecified abdominal pain. COMPARISON: CT abdomen and pelvis 04/09/2021. Ultrasound abdomen complete 11/04/2020. TECHNIQUE: Real-time imaging of the abdominal viscera. Technically limited study secondary to bowel gas and body habitus. FINDINGS: PANCREAS: Limited visualization of pancreatic tail and head. Imaged portion of pancreatic body is unremarkable. ABDOMINAL AORTA: Atherosclerosis. INFERIOR VENA CAVA: Visualized portions are normal. LIVER: Increased hepatic parenchymal heterogeneity and echogenicity could be associated with hepatocellular disease/hepatic steatosis and substantially limits visualization. Correlation with liver function tests and clinical exam recommended to determine further management. GALLBLADDER: Multiple small gallstones. No gallbladder wall thickening. COMMON BILE DUCT: Normal in caliber measuring 0.59 cm in diameter. RIGHT KIDNEY: No hydronephrosis. No renal calculi. Limited visualization. Diffuse renal cortical thinning. Anechoic peripelvic structures, largest measured mid pole 1.[address] scan demonstrated multiple peripelvic cysts on April 09, 2021. There is no specific indication for follow-up imaging at this time. The kidney measures 12.2 cm in maximum dimension. LEFT KIDNEY: Diffuse renal cortical thinning. Multiple peripelvic cysts, largest lower pole 1.[address] scan demonstrated multiple peripelvic cysts. There is no specific indication for follow-up imaging at this time. No hydronephrosis. No renal calculi. Limited visualization. The kidney measures 13.0 cm in maximum dimension. SPLEEN: Normal. The spleen measures 9.0 cm in maximum dimension. FREE FLUID: None. US/US abdomen complete IMPRESSION: 1. Increased hepatic parenchymal heterogeneity and echogenicity could be associated with hepatocellular disease/hepatic steatosis and substantially limits visualization. Correlation with liver function tests and clinical exam recommended to determine further management. 2. Cholelithiasis. 3. Bilateral renal cortical thinning. 4. Atherosclerosis in the abdominal aorta.
== END 2023-06-04 09:50 | disposition home or self-care (01) ==
LOC: HO.HMGCX 09:49
PROVIDERS: PCP Internal Medicine; Visit Provider Hospitalist
DX: R10.9 Unspecified abdominal pain (principal); K80.20 Calculus of gallbladder without cholecystitis without obstruction; I70.0 Atherosclerosis of aorta
CPT/HCPCS: 76700

== ENCOUNTER 2023-06-12 10:47 | Outpatient (AMB) | payer MEDICAID, SELFPAY ==
[2023-06-12 10:50] VITALS: BMI 32.9
--- NOTE | 2023-06-12 10:50 | MHC.AMNUTRGE ---
Intake VS Expanded 06/12/23 10:50 Height 5 ft 3 in Weight 185 lb 13.595 oz BMI 32.9 Intake Visit Reasons: t2dm Allergies gentamicin [From GARAMYCIN] Allergy (Intermediate, Verified 05/31/23 08:41) RASH Penicillins [PENICILLINS] Allergy (Intermediate, Verified 05/31/23 08:41) RASH Seasonal Allergies Allergy (Intermediate, Verified 05/31/23 08:41) seasonal allergies vancomycin [VANCOMYCIN] Allergy (Intermediate, Verified 05/31/23 08:41) swelling/rash/hives HPI Nutrition Presentation Details Pt presents for MNT f/u for T2DM, hypercholesterolemia Pt reports feeling well, motivated Participate in [facility] from 8:30-12:30, tries to keep active, walks 10-30 minutes 3 times /wk meal replacements : stopped but has at home fish includes 3 x/wk (non breaded/fried) red meats: once a week (in soups with veg sodas: denies fruits: 2 servings/d at least Most Recent Diabetes Results: Creatinine 0.82 mg/dL (0.5-1.4) 05/14/23 Blood Urea Nitrogen 13 mg/dL (9-16) 05/14/23 Sodium 143 mmol/L (135-145) 05/14/23 Potassium 4.0 mmol/L (3.3-5.1) 05/14/23 Chloride 107 mmol/L (96-108) 05/14/23 Carbon Dioxide 29 mmol/L (22-29) 05/14/23 Calcium 9.2 mg/dL (8.4-10.2) 05/14/23 AST 14 U/L (5-31) 05/14/23 ALT 14 U/L (0-31) 05/14/23 Total Protein 6.7 g/dL (6.5-8.0) 05/14/23 Albumin 4.2 g/dL (3.5-5.0) 05/14/23 [facility] Medical History Abdominal pain Pulmonary nodules HELEN (obstructive sleep apnea) Snoring Difficulty sleeping Panic attack PTSD (post-traumatic stress disorder) Depression Restless leg syndrome Peripheral neuropathy PVC (premature ventricular contraction) Mitral valve prolapse Hypertension Obesity (BMI 30-39.9) Potential exposure to STD Diabetes type 2, controlled Osteopenia determined by x-ray Hyperlipidemia Lower back pain Hypothalamic hypothyroidism Insomnia GERD (gastroesophageal reflux disease) Migraine headache Surgical History Asthma Hx of colonoscopy Hx of left breast biopsy History of cervical cerclage Hx of hysterectomy Hx of tubal ligation Family History Father Diabetes Paced cardiac rhythm Colon cancer Mother HTN (hypertension) High cholesterol Skin cancer Breast cancer Colon cancer Sister Obese abdomen Brother Infarction of lung due to iatrogenic pulmonary embolism Son HTN (hypertension) High cholesterol Son HTN (hypertension) High cholesterol Son No problems noted. Son No problems noted. Son No problems noted. Sister No problems noted. Sister No problems noted. 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 Used wt : 90 kg (01/2023), 84.5 kg (06/2023) Est kcal as per MSJ: < 1711 (40% carb, 30% fat/prot) Est fluid needs: 2742-9623 ml/d (25-30 ml/kg bw) Rec fiber: increase to 8-10 g per day and gradually increase to 25 g/d or as tolerated Rec Na: < 2000 mg /d Educate patient on: (R= Reviewed, V = verbalizes understanding N/R= Needs review N/A= not applicable) Food sources of carbohydrates and serving adequate serving sizes : R V Difference between complex carbohydrates and simple carbohydrates, role of fiber: R V Differences between fats (MUFA/PUFA/saturated fats, trans fats) and food sources of various fats: R Food sources of sodium and salt and healthy modifications for heart health and kidney health: R,V Vitamins and minerals: R How to interpret food labels: R Healthy Plate method concept: R V Physical activity: benefits and precaution: R V Patient Instructions: Reduce sat'd fats (sausages/salami, cheese) Include MUFA source sof foods : fish/nuts/seeds Choose low fat vegetarian meals keep physically active, goal 150 minutes per week or as tolerated keep hydrated by having water with meals/snack s Coding Level of Care Code Nutr Indiv Subseq (32928) Diagnoses Type 2 diabetes mellitus with unspecified complications E11.8 Time Spent (min) 20
== END 2023-06-12 11:12 | disposition home or self-care (01) ==
PROVIDERS: PCP Internal Medicine; Visit Provider Dietitian, Registered
DX: E11.8 Type 2 diabetes mellitus with unspecified complications (principal)

== ENCOUNTER → 2023-06-12 10:47 | Outpatient (BNVA) | payer MEDICAID, SELFPAY | PROVIDERS: PCP Internal Medicine; Visit Provider Dietitian, Registered | DX: E11.8 Type 2 diabetes mellitus with unspecified complications (principal) | CPT/HCPCS: 97803 ==

== ENCOUNTER 2023-06-15 11:13 | Outpatient (AMB) | payer MEDICAID, SELFPAY ==
--- NOTE | 2023-06-15 11:28 | A.OFFVIS_ITS ---
Intake Vital Signs 06/15/23 11:34 Height 5 ft 3 in Weight 186 lb 1.122 oz BMI 33.0 Intake Visit Reasons: 3 week follow up Intake Note: Patient returns to office today in 6 months follow up of GERD. CC: Patient c/o very strong constant epigastric pain and back pain. She also c/o, a lot of gas, nausea, and dysphagia. Patient states she underwent EGD with dilation in the past. Patient also reports having palpitations. Sound Recordist Required: No Accompanied by: Self / Same As Patient Allergies gentamicin [From GARAMYCIN] Allergy (Intermediate, Verified 06/15/23 11:43) RASH Penicillins [PENICILLINS] Allergy (Intermediate, Verified 06/15/23 11:43) RASH Seasonal Allergies Allergy (Intermediate, Verified 06/15/23 11:43) seasonal allergies vancomycin [VANCOMYCIN] Allergy (Intermediate, Verified 06/15/23 11:43) swelling/rash/hives HPI 3 week follow up HPI Details Assessment & Plan (1) Abdominal pain: Code(s): R10.9 - Unspecified abdominal pain Qualifiers: Abdominal location: right upper quadrant Qualified Code(s): R10.11 - Right upper quadrant pain (2) GERD (gastroesophageal reflux diseas e): Code(s): K21.9 - Gastro-esophageal reflux disease without esophagitis (3) Chronic idiopathic constipation: Code(s): K59.04 - Chronic idiopathic constipation Plan She was doing well but then she traveled to [place] and had sudden onset of abdominal pain that started in the right upper quadrant but spread across the top accompanied by 1 episode of nausea and vomiting and 3 soft stools. After that she felt ill for the entire week but did not have any more stooling or vomiting. The pain is less than it was before now but she still experiences it. Because she was sick she stopped her bisacodyl which was appropriate but has not moved her bowels all week. I think she needs to restart it. With review of her diet she does a lot of protein shakes. This can be quite constipating so I encouraged her to either by a fiber pill, or add she or flaxseed to her protein shakes to help increase her fiber. She says she will do this as she has both of these at home. She continues on her omeprazole for her GERD along with famotidine. Return office visit in 3 weeks to see how she is progressing and if it has not improving then will consider if additional studies are needed, but I think she either had a GI virus or some food-borne illness causing some lingering bowel irritability superimposed on her constipation. US OF ABD 06/12/23 FINDINGS: PANCREAS: Limited visualization of pancreatic tail and head. Imaged portion of pancreatic body is unremarkable. ABDOMINAL AORTA: Atherosclerosis. INFERIOR VENA CAVA: Visualized portions are normal. LIVER: Increased hepatic parenchymal heterogeneity and echogenicity could be associated with hepatocellular disease/hepatic steatosis and substantially limits visualization. Correlation with liver function tests and clinical exam recommended to determine further management. GALLBLADDER: Multiple small gallstones. No gallbladder wall thickening. COMMON BILE DUCT: Normal in caliber measuring 0.59 cm in diameter. RIGHT KIDNEY: No hydronephrosis. No renal calculi. Limited visualization. Diffuse renal cortical thinning. Anechoic peripelvic structures, largest measured mid pole 1.[address] scan demonstrated multiple peripelvic cysts on April 09, 2021. There is no specific indication for follow-up imaging at this time. The kidney measures 12.2 cm in maximum dimension. LEFT KIDNEY: Diffuse renal cortical thinning. Multiple peripelvic cysts, largest lower pole 1.[address] scan demonstrated multiple peripelvic cysts. There is no specific indication for follow-up imaging at this time. No hydronephrosis. No renal calculi. Limited visualization. The kidney measures 13.0 cm in maximum dimension. SPLEEN: Normal. The spleen measures 9.0 cm in maximum dimension. FREE FLUID: None. US/US abdomen complete IMPRESSION: 1. Increased hepatic parenchymal heterog eneity and echogenicity could be associated with hepatocellular disease/hepatic steatosis and substantially limits visualization. Correlation with liver function tests and clinical exam recommended to determine further management. 2. Cholelithiasis. 3. Bilateral renal cortical thinning. 4. Atherosclerosis in the abdominal aort a. TODAY'S VISIT Serbian #declines She still has epigastric pain and it is keeping her up at night. She has been taking the o2o and the famotidine. The pain radiates to her back now as well and she describes it as pushing. The pain is 7/10 and is all day w/o any ex acerbating or remitting factors and it is not effected by eating or BM's. She also has associated nausea. She is also having dysphagia. In 2020 she had the same problem that resolved with dilation. We likely need to repeat this. Her Pulm discovered gallstones on chest CT, and then an US. It is possible that eating a fattier diet while on vacation in [place] set this off, but we also needs to exclude her past erosive esophagitis, pancreatic or even colon pathology in the ddx. Will start her on carafate to see how thie effects the sx. Getting HIDA scan and EGD for dilation. She had not been taking adam bisacodyl every night, but I encourage her to do this so that we can offset the carafate. ROV 2 weeks. [facility] Medical History (Updated 06/15/23 @ 12:02 by LEANDER Bedolla) Yeast infection Left hand pain Numbness and tingling in both hands Vaginal burning Well woman exam with routine gynecological exam Other and unspecified hyperlipidemia Essential hypertension Heart palpitations Snoring Difficulty sleeping Cervical cancer screening Family history of breast cancer Potential exposure to STD Well woman exam with routine gynecological exam Obesity (BMI 30-39.9) Diabetes type 2, controlled Abdominal pain Pulmonary nodules HELEN (obstructive sleep apnea) Panic attack PTSD (post-traumatic stress disorder) Depression Restless leg syndrome Peripheral neuropathy PVC (premature ventricular contraction) Mitral valve prolapse Hypertension Potential exposure to STD Osteopenia determined by x-ray Hyperlipidemia Lower back pain Hypothalamic hypothyroidism Insomnia GERD (gastroesophageal reflux disease) Migraine headache Surgical History Asthma Hx of colonoscopy Hx of left breast biopsy History of cervical cerclage Hx of hysterectomy Hx of tubal ligation Family History Father Diabetes Paced cardiac rhythm Colon cancer Mother HTN (hypertension) High cholesterol Skin cancer Breast cancer Colon cancer Sister Obese abdomen Brother Infarction of lung due to iatrogenic pulmonary embolism Son HTN (hypertension) High cholesterol Son HTN (hypertension) High cholesterol Son No problems noted. Son No problems noted. Son No problems noted. Sister No problems noted. Sister No problems noted. 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 Gender identity: Female Female Reproductive History Menstrual Age of Menarche: 10 Date of menopause: 06/20/13 Review of Systems Const Denies fatigue, Denies fever(s), Denies night sweats, Denies poor appetite and Denies weight loss Eyes Details: glasses Reports requires corrective lenses ENT Reports Normal hearing present, Denies dental pain, Reports dysphagia, Denies hearing loss, Denies mouth pain, Denies odynophagia, Denies throat swelling, Denies tongue swelling and Reports other (Dentition adequate) Card Reports no additional complaints Resp Reports no additional complaints GI Details: Reports abdominal pain, Denies melena, Denies bloating, Denies hematochezia, Denies constipation, Denies GI cramping, Reports dysphagia, Denies excessive flatus, Denies early satiety, Reports heartburn, Denies diarrhea, Denies nausea, Denies odynophagia, Denies vomiting and Denies hematemesis Skin/Breast Denies pruritus, Denies lesions, Denies rash and Denies jaundice Neuro Reports Normal hearing present and Denies Abnormal speech present Endo Denies fatigue Aller/Immun Denies throat swelling and Denies tongue swelling Physical Exam Vital Signs: BMI result Body Mass Index 33.0 Const General: cooperative, no acute distress, well developed and well groomed Nutritional Appearance: well nourished and obese Orientation/consciousness: oriented to person, oriented to place and oriented to time Limitations: No language barrier HEENT Head: Yes normocephalic and Yes atraumatic Eyes General: appearance normal, both eyes and all related structures Pupils: Equal, round and reactive pupils present Neck Neck: Yes normal visual inspection and Yes no lymphadenopathy Thyroid: Thyroid normal Resp Effort & Inspection: normal respiratory effort and able to speak in complete sentences Auscultation: clear to auscultation bilaterally Cardio Rate: regular rate Rhythm: regular rhythm Heart sounds: Normal, physiologic split S2 sound present Peripheral pulses: radial pulses present and posterior tibial pulses present GI Inspection: No distended, No Abdominal panniculus present and Yes obesity Palpation (GI): Soft to palpation, nontender, no guarding, not rigid and No hepatosplenomegaly present Percussion: Yes normal to percussion Auscultation: normal bowel sounds Rectal Exam - Female: deferred Skin General skin exam: no rashes or lesions noted, turgor normal, skin not dry, no jaundice, No spider nevi and no striae Rashes: no rashes Nails: normal Neuro General: oriented to person, oriented to place and oriented to time Cranial nerves: Yes Equal, round and reactive pupils present and Yes Normal hearing present Speech: No Abnormal speech present Extrem General: Yes normal to inspection, No clubbing, No cyanosis and No edema Psych Appearance: grossly normal and well kempt Mental Status: mental status grossly normal Speech and movement: Normal speech and movement present Affect: normal affect Attitude: cooperative Thought process: Normal thought process present and not confabulating Thought content: Normal thought content present Insight: Fair insight present (Psych) Judgement: Fair judgement present (Psych) Results Reviewed Results Reviewed: US OF ABD 06/12/23 FINDINGS: PANCREAS: Limited visualization of pancreatic tail and head. Imaged portion of pancreatic body is unremarkable. ABDOMINAL AORTA: Atherosclerosis. INFERIOR VENA CAVA: Visualized portions are normal. LIVER: Increased hepatic parenchymal heterogeneity and echogenicity could be associated with hepatocellular disease/hepatic steatosis and substantially limits visualization. Correlation with liver function tests and clinical exam recommended to determine further management. GALLBLADDER: Multiple small gallstones. No gallbladder wall thickening. COMMON BILE DUCT: Normal in caliber measuring 0.59 cm in diameter. RIGHT KIDNEY: No hydronephrosis. No renal calculi. Limited visualization. Diffuse renal cortical thinning. Anechoic peripelvic structures, largest measured mid pole 1.[address] scan demonstrated multiple peripelvic cysts on April 09, 2021. There is no specific indication for follow-up imaging at this time. The kidney measures 12.2 cm in maximum dimension. LEFT KIDNEY: Diffuse renal cortical thinning. Multiple peripelvic cysts, largest lower pole 1.[address] scan demonstrated multiple peripelvic cysts. There is no specific indication for follow-up imaging at this time. No hydronephrosis. No renal calculi. Limited visualization. The kidney measures 13.0 cm in maximum dimension. SPLEEN: Normal. The spleen measures 9.0 cm in maximum dimension. FREE FLUID: None. US/US abdomen complete IMPRESSION: 1. Increased hepatic parenchymal heterogeneity and echogenicity could be associated with hepatocellular disease/hepatic steatosis and substantially limits visualization. Correlation with liver function tests and clinical exam recommended to determine further management. 2. Cholelithiasis. 3. Bilateral renal cortical thinning. 4. Atherosclerosis in the abdominal aorta. Assessment & Plan Assessment & Plan (1) Abdominal pain: Code(s): R10.9 - Unspecified abdominal pain Qualifiers: Abdominal location: right upper quadrant Qualified Code(s): R10.11 - Right upper quadrant pain (2) GERD (gastroesophageal reflux disease): Code(s): K21.9 - Gastro-esophageal reflux disease without esophagitis (3) Chronic idiopathic constipation: Code(s): K59.04 - Chronic idiopathic constipation (4) Gallstones: Code(s): K80.20 - Calculus of gallbladder without cholecystitis without obstruction Plan Serbian #declines She still has epigastric pain and it is keeping her up at night. She has been taking the o2o and the famotidine. The pain radiates to her back now as well and she describes it as pushing. The pain is 7/10 and is all day w/o any exacerbating or remitting factors and it is not effected by eating or BM's. She also has associated nausea. She is also having dysphagia. In 2020 she had the same problem that resolved with dilation. We likely need to repeat this. Her Pulm discovered gallstones on chest CT, and then an US. It is possible that eating a fattier diet while on vacation in [place] set this off, but we also needs to exclude her past erosive esophagitis, pancreatic or even colon pathology in the ddx. Will start her on carafate to see how thie effects the sx. Getting HIDA scan and EGD for dilation. She had not been taking adam bisacodyl every night, but I encourage her to do this so that we can offset the carafate. ROV 2 weeks. Orders: Orders NM hepatobiliary w pharm 06/15/23 K80.20 - Calculus of gallbladder without cholecystitis without obstruction EGD with Anand - GI Use Only 06/15/23 K80.20 - Calculus of gallbladder without cholecystitis without obstruction Comprehensive Met. Panel 06/18/23 K80.20 - Calculus of gallbladder without cholecystitis without obstruction, R10.9 - Unspecified abdominal pain Amylase 06/18/23 K80.20 - Calculus of gallbladder without cholecystitis without obstruction, R10.9 - Unspecified abdominal pain Lipase 06/18/23 K80.20 - Calculus of gallbladder without cholecystitis without obstruction, R10.9 - Unspecified abdominal pain Medications: New sucralfate (Carafate) 20 mL PO QNOON 1,000 mL 3RF K80.20 - Calculus of gallbladder without cholecystitis without obstruction, R10.9 - Unspecified abdominal pain Changed From bisacodyl (Dulcolax (bisacodyl)) take orally as directed prior to colonoscopy 10 mg (2 x 5 mg) PO BEDTIME 30 days 60 tabs 6RF K59.04 - Chronic idiopathic constipation To bisacodyl (Dulcolax (bisacodyl)) take orally as directed prior to colonoscopy 15 mg (3 x 5 mg) PO BEDTIME 30 days 90 tabs 6RF K59.04 - Chronic idiopathic constipation Refilled omeprazole 40 mg PO DAILY 30 days 30 caps 6RF K21.9 - Gastro-esophageal reflux disease without esophagitis Coding Level of Care Code Est Pt Level 4 (56013) Diagnoses Right upper quadrant abdominal pain R10.11 Abdominal location: right upper quadrant GERD (gastroesophageal reflux disease) K21.9 Chronic idiopathic constipation K59.04 Gallstones K80.20
[2023-06-15 11:34] VITALS: BMI 33.0
== END 2023-06-15 12:41 | disposition home or self-care (01) ==
PROVIDERS: PCP Internal Medicine; Visit Provider Nurse Practitioner
DX: R10.11 Right upper quadrant pain (principal); K21.9 Gastro-esophageal reflux disease without esophagitis; K59.04 Chronic idiopathic constipation; K80.20 Calculus of gallbladder without cholecystitis without obstruction
CPT/HCPCS: 99214

== ENCOUNTER → 2023-06-15 11:13 | Outpatient (BNVA) | payer MEDICAID, SELFPAY | PROVIDERS: PCP Internal Medicine; Visit Provider Nurse Practitioner | DX: K21.9 Gastro-esophageal reflux disease without esophagitis (principal); K59.04 Chronic idiopathic constipation; K80.20 Calculus of gallbladder without cholecystitis without obstruction; R10.11 Right upper quadrant pain | CPT/HCPCS: 99212 ==

== ENCOUNTER 2023-06-18 10:51 | Outpatient (REF) | payer MEDICAID, SELFPAY ==
[2023-06-18 12:48] LABS: Alanine Aminotransferase 17 U/L (0-31); Albumin Level 4.3 g/dL (3.5-5.0); Alkaline Phosphatase 88 U/L (39-117); Anion Gap 11 (12-20); Aspartate Amino Transferase 14 U/L (5-31); Bilirubin Total 0.5 mg/dL (0.0-1.0); Blood Urea Nitrogen 15 mg/dL (9-16); Calcium 9.5 mg/dL (8.4-10.2); Carbon Dioxide 30 mmol/L (22-29); Chloride 107 mmol/L (96-108); Estimated Glomerular Filt Rate > 60; Glucose Random 111 mg/dL (60-115); Lipase 17 U/L (8-78); Potassium 4.1 mmol/L (3.3-5.1); Sodium 144 mmol/L (135-145); Total Protein 7.1 g/dL (6.5-8.0)
[2023-06-18 13:06] LABS: Amylase 44 U/L (28-100)
== END 2023-06-18 10:52 | disposition home or self-care (01) ==
LOC: HO.LAB 10:51
PROVIDERS: PCP Internal Medicine; Visit Provider Nurse Practitioner
DX: K80.20 Calculus of gallbladder without cholecystitis without obstruction (principal); R10.9 Unspecified abdominal pain
CPT/HCPCS: 36415; 80053; 82150; 83690

== ENCOUNTER 2023-07-05 13:06 | Outpatient (REF) | payer MEDICAID, SELFPAY ==
[2023-07-05 19:19] LABS: Urine Cytology See Pathology rpt
== END 2023-07-05 13:07 | disposition home or self-care (01) ==
LOC: HO.LAB 13:06
PROVIDERS: PCP Internal Medicine; Visit Provider Urology
DX: Z13.9 Encounter for screening, unspecified (principal); R30.0 Dysuria; R32 Unspecified urinary incontinence; N95.2 Postmenopausal atrophic vaginitis
CPT/HCPCS: 52000; 81003; 88112

== ENCOUNTER 2023-07-05 13:06 | Outpatient (AMB) | payer MEDICAID, SELFPAY ==
--- NOTE | 2023-07-05 13:10 | MHC.OFFVIS ---
Intake Intake Visit Reasons: cysto Intake Note: Patient presents today for a CYSTOSCOPY Procedure: Meds: Estrace Allergies to Antibiotic: Gentamicin, Penicillin, & Vancomycin Blood Thinner: None Urinalysis test clear for Cysto? 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: No Wind Farm Operations Manager Name: Oleksandr Barrios, GABE/JERALD SPANDiana Information Interpreted: non-clinical & clinical Accompanied by: Self / Same As Patient Allergies gentamicin [From GARAMYCIN] Allergy (Intermediate, Verified 07/05/23 13:11) RASH Penicillins [PENICILLINS] Allergy (Intermediate, Verified 07/05/23 13:11) RASH Seasonal Allergies Allergy (Intermediate, Verified 07/05/23 13:11) seasonal allergies vancomycin [VANCOMYCIN] Allergy (Intermediate, Verified 07/05/23 13:11) swelling/rash/hives Medication List - Last Reconciled 07/05/23 by Lavelle Verde MD acetaminophen ER 650 mg PO Q8H PRN albuterol sulfate 2.5 mg (3 mL) inhalation Q6H PRN 30 days albuterol sulfate 90 mcg/actuation 2 puffs inhalation Q6H PRN 90 days bisacodyl (Dulcolax (bisacodyl)) 15 mg (3 x 5 mg) PO BEDTIME 30 days blood sugar diagnostic (FreeStyle Lite Strips) As directed budesonide-formoterol 160-4.5 mcg/actuation (Symbicort) 2 puffs inhalation BID 90 days bupropion HCl 150 mg PO QAM divalproex ER 250 mg PO BEDTIME estradiol 0.01%(0.1mg/gram) (Estrace) 1 g vaginal 2XW ezetimibe 10 mg PO DAILY famotidine 20 mg PO BEDTIME fluticasone propionate 50 mcg/actuation 2 sprays intranasal DAILY PRN lancets (FreeStyle Lancets) As directed levothyroxine (Synthroid) 25 mcg PO DAILY loratadine (Claritin) 10 mg PO DAILY PRN lorazepam 0.5 mg PO DAILY PRN losartan-hydrochlorothiazide 100-25 mg 1 tab PO DAILY melatonin 10 mg PO BEDTIME metformin 1,000 mg PO BID montelukast (Singulair) 10 mg PO BEDTIME 90 days omeprazole 40 mg PO DAILY 30 days ropinirole 0.25 mg PO BEDTIME rosuvastatin 40 mg PO DAILY sertraline 50 mg PO DAILY sucralfate (Carafate) 20 mL PO QNOON sumatriptan succinate 50 mg PO trazodone 50 mg PO DAILY HPI HPI Comments History of Present Illness Details 07/05/2023--Stefany is here in follow-up due to irritative voiding symptoms, dysuria. She is here for office cystoscopy. I reviewed abdominal ultrasound performed 06/04/2023 kidneys mild cortical thinning no masses or stones noted. Pelvic exam [id number] cystocele and rectocele. The patient is prescribed vaginal estradiol by another healthcare provider. Cystoscopy findings: Bladder mucosa mild trabeculations, no suspicious bladder lesions visualized. Plan discussed will send urine for cytology and have her follow-up in 4 months to re-evaluate symptoms and check urinalysis. 05/31/23--Stefany is a 62-year-old female who is Iraqi-speaking. 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 The patient states that she had symptoms of burning with urination. She states that she was treated with antibiotics Which improved her symptoms. Review of chart the patient had a urine culture in January, which came back no growth She states she had imaging, CAT scan done. I have discussed follow up cystoscopy 07/05/2023--PLAN: Plan discussed will send urine for cytology and have her follow-up in 4 months to re-evaluate symptoms and check urinalysis. [facility] Medical History Yeast infection Left hand pain Numbness and tingling in both hands Vaginal burning Well woman exam with routine gynecological exam Other and unspecified hyperlipidemia Essential hypertension Heart palpitations Snoring Difficulty sleeping Cervical cancer screening Family history of breast cancer Potential exposure to STD Well woman exam with routine gynecological exam Obesity (BMI 30-39.9) Diabetes type 2, controlled Abdominal pain Pulmonary nodules HELEN (obstructive sleep apnea) Panic attack PTSD (post-traumatic stress disorder) Depression Restless leg syndrome Peripheral neuropathy PVC (premature ventricular contraction) Mitral valve prolapse Hypertension Potential exposure to STD Osteopenia determined by x-ray Hyperlipidemia Lower back pain Hypothalamic hypothyroidism Insomnia GERD (gastroesophageal reflux disease) Migraine headache Surgical History Asthma Hx of colonoscopy Hx of left breast biopsy History of cervical cerclage Hx of hysterectomy Hx of tubal ligation Family History Father Diabetes Paced cardiac rhythm Colon cancer Mother HTN (hypertension) High cholesterol Skin cancer Breast cancer Colon cancer Sister Obese abdomen Brother Infarction of lung due to iatrogenic pulmonary embolism Son HTN (hypertension) High cholesterol Son HTN (hypertension) High cholesterol Son No problems noted. Son No problems noted. Son No problems noted. Sister No problems noted. Sister No problems noted. 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 Gender identity: Female Female Reproductive History Menstrual Age of Menarche: 10 Date of menopause: 06/20/13 Review of Systems Const All systems reviewed & are unremarkable except as noted in HPI and below Reports no additional complaints Eyes Reports no additional complaints ENT Reports no additional complaints Card Reports no additional complaints Resp Reports no additional complaints GI Reports no additional complaints Reports as per HPI Musc Reports no additional complaints Skin/Breast Reports system reviewed and no additional complaints, except as documented Neuro Reports no additional complaints Psych Reports no additional complaints Endo Reports no additional complaints Sundar/Lymph Reports no additional complaints Aller/Immun Reports no additional complaints Office Procedures Cystoscopy Consent Discussed risk and benefit or proposed procedure with the patient. Information consent for procedure given to the patient. Discussed technical aspects, risks, benefits and alternatives in full. Addressed all of the patient's questions and concerns regarding the procedure. The patient demonstrated knowledge and understanding. They wish to proceed with this procedure. Preparation The patient was prepped in the usual manner. A pulp maker was present and in the room. Genitalia was prepped with betadine solution in a sterile manner. Lidocaine Jelly 2% was placed into the urethra and 16Fr flexible Olympus cystoscope was inserted into the meatus after adequate lubrication. Procedure Time out per protocol performed. Bladder Inspection Bladder Inspection: The bladder was inspected in its entirety with utilization retroflexion displaying: Tumor(s): Nonvisualized Trabeculation: Present-mild Mucosal Erthema: Not applicable Orifices: normal shape and position Urethra: normal Cystoscopy findings: no suspicious bladder lesions visualized [id number] DISPOSABLE SCOPE URO-G FLEXIBLE SCOPE Procedure code (CPT) selection complete Office Meds lidocaine HCl 2 % mucosal jelly in applicator Performing Provider: Lavelle Verde MD [place] [facility] [facility] Administered by: Oscar Franco LPN on 07/05/23 13:30 Dose Route Admin Location Dispensed Lot Number Expiration Date ND Acid Conditioning Worker 10 mL intra-urethral 20 mL naproxen 500 mg tablet Performing Provider: Lavelle Verde MD [place] [facility] [place] [facility] Administered by: Oscar Franco LPN on 07/05/23 13:30 Dose Route Admin Location Dispensed Lot Number Expiration Date NDC Acid Conditioning Worker 500 mg PO 1 tab ciprofloxacin HCl 500 mg tablet Performing Provider: Lavelle Verde MD [place] [facility] [place] [facility] Administered by: Oscar Franco LPN on 07/05/23 13:30 Dose Route Admin Location Dispensed Lot Number Expiration Date NDC Acid Conditioning Worker 500 mg PO 1 tab Results AMB Urinalysis, Automated UA Leukoctes 0 Shama/uL Last Edit by GABE Adams on 07/05/23 13:21 UA Nitrite Negative Last Edit by GABE Adams on 07/05/23 13:21 UA Urobilinogen 0.2 mg/dL Last Edit by GABE Adams on 07/05/23 13:21 UA Protein 0 mg/dL Last Edit by GABE Adams on 07/05/23 13:21 UA pH 6.0 Last Edit by GABE Adams on 07/05/23 13:21 UA Blood 0 Mauri/uL Last Edit by GABE Adams on 07/05/23 13:21 UA Specific [place] 1.010 Last Edit by GABE Adams on 07/05/23 13:21 UA Ketone Negative Last Edit by GABE Adams on 07/05/23 13:21 UA Bilirubin 0 mg/dL Last Edit by GABE Adams on 07/05/23 13:21 UA Glucose 0 mg/dL Last Edit by GABE Adams on 07/05/23 13:21 Results Reviewed Results Reviewed: Laboratory Last Values Urine pH (Auto) 6.0 07/05/23 13:14 Specific [place] (Auto) 1.010 07/05/23 13:14 Urine Protein (Auto) 0 mg/dL 07/05/23 13:14 Glucose (UA)(Auto) 0 mg/dL 07/05/23 13:14 Urine Ketones (Auto) Negative 07/05/23 13:14 Urine Blood (Auto) 0 Mauri/uL 07/05/23 13:14 Urine Nitrite (Auto) Negative 07/05/23 13:14 Urine Bilirubin (Auto) 0 mg/dL 07/05/23 13:14 Urine Urobilinogen (Auto) 0.2 mg/dL 07/05/23 13:14 Leukocyte Esterase (Auto) 0 Shama/uL 07/05/23 13:14 Date of Service: 06/04/23 EXAMINATION: US ABDOMEN COMPLETE CLINICAL INFORMATION: Unspecified abdominal pain. COMPARISON: CT abdomen and pelvis 04/09/2021. Ultrasound abdomen complete 11/04/2020. TECHNIQUE: Real-time imaging of the abdominal viscera. Technically limited study secondary to bowel gas and body habitus. FINDINGS: PANCREAS: Limited visualization of pancreatic tail and head. Imaged portion of pancreatic body is unremarkable. ABDOMINAL AORTA: Atherosclerosis. INFERIOR VENA CAVA: Visualized portions are normal. LIVER: Increased hepatic parenchymal heterogeneity and echogenicity could be associated with hepatocellular disease/hepatic steatosis and substantially limits visualization. Correlation with liver function tests and clinical exam recommended to determine further management. GALLBLADDER: Multiple small gallstones. No gallbladder wall thickening. COMMON BILE DUCT: Normal in caliber measuring 0.59 cm in diameter. RIGHT KIDNEY: No hydronephrosis. No renal calculi. Limited visualization. Diffuse renal cortical thinning. Anechoic peripelvic structures, largest measured mid pole 1.[address] scan demonstrated multiple peripelvic cysts on April 09, 2021. There is no specific indication for follow-up imaging at this time. The kidney measures 12.2 cm in maximum dimension. LEFT KIDNEY: Diffuse renal cortical thinning. Multiple peripelvic cysts, largest lower pole 1.[address] scan demonstrated multiple peripelvic cysts. There is no specific indication for follow-up imaging at this time. No hydronephrosis. No renal calculi. Limited visualization. The kidney measures 13.0 cm in maximum dimension. SPLEEN: Normal. The spleen measures 9.0 cm in maximum dimension. FREE FLUID: None. IMPRESSION: 1. Increased hepatic parenchymal heterogeneity and echogenicity could be associated with hepatocellular disease/hepatic steatosis and substantially limits visualization. Correlation with liver function tests and clinical exam recommended to determine further management. 2. Cholelithiasis. 3. Bilateral renal cortical thinning. 4. Atherosclerosis in the abdominal aorta. Assessment & Plan Assessment & Plan (1) Dysuria: Code(s): R30.0 - Dysuria (2) Vaginal atrophy: Code(s): N95.2 - Postmenopausal atrophic vaginitis Plan urine for cytology and have her follow-up in 4 months to re-evaluate symptoms and check urinalysis. Orders: Orders AMB Urinalysis Automated Today Z13.9 - Encounter for screening, unspecified AMB Cystoscopy Today R30.0 - Dysuria, R32 - Unspecified urinary incontinence Patient Instructions: The patient had an opportunity to ask questions regarding treatment plan. All questions were answered. Imaging, Laboratory studies and physical exam results were discussed and reviewed in detail. No major barriers to understanding were identified. The patient expressed understanding and agreement with the above treatment plan. The patient is aware they should contact our office by phone for worsening of their current condition or the appearance of new symptoms. Compliance is encouraged with any medications and followup testing that is ordered. It is a privilege to be allowed the opportunity to participate in the urologic care of your patient. If you have any questions or concerns regarding treatment for the above conditions please do not hesitate to contact me. The office telephone contact is [phone]. This note is constructed in part using voice recognition software. While every effort has been made to ensure accuracy exhibit display representative errors may have been included. Yours sincerely, Lavelle Verde MD Coding Level of Care Code Procedure Only Diagnoses Dysuria R30.0 Vaginal atrophy N95.2 CPT Codes Cystoscopy - CPT: 02974-[id number] ([id number])
== END 2023-07-05 13:59 | disposition home or self-care (01) ==
PROVIDERS: PCP Internal Medicine; Referring Provider Internal Medicine; Visit Provider Urology
DX: R30.0 Dysuria (principal); R32 Unspecified urinary incontinence; N95.2 Postmenopausal atrophic vaginitis; Z13.9 Encounter for screening, unspecified
CPT/HCPCS: 52000

== ENCOUNTER → 2023-07-16 10:25 | Outpatient (REF) | payer MEDICAID, SELFPAY | LOC: HO.NUCMED 10:25 | PROVIDERS: PCP Internal Medicine; Visit Provider Nurse Practitioner | DX: Z13.89 Encounter for screening for other disorder (principal) ==

== ENCOUNTER 2023-07-31 07:42 | Outpatient (REF) | payer MEDICAID, SELFPAY ==
--- NOTE | ~2023-07-31 | MM_ITS ---
EXAMINATION: MM SCREENING DIGITAL BREAST TOMOSYNTHESIS, BILATERAL CLINICAL INFORMATION: Screening. Asymptomatic. COMPARISON: Mammography: 07/26/2022, 07/07/2021, 07/05/2020, 04/25/2019, and dating back to 2014. TECHNIQUE: Digital breast tomosynthesis is performed in both the craniocaudal and mediolateral oblique views along with computer-aided detection (CAD). Synthesized 2D images are generated from the tomosynthesis. FINDINGS: There are scattered areas of fibroglandular density (ACR BI-RADS breast composition Category b). Fibronodular parenchymal pattern similar to prior studies. A few parenchymal asymmetries are unchanged bilaterally. There are no suspicious masses, suspicious grouped calcifications, or areas of architectural distortion in either breast. There are no skin or axillary abnormalities. MM/MM tomosynthesis screening BI IMPRESSION: No mammographic evidence of malignancy. No interval change. ASSESSMENT: BI-RADS BI-RADS 2 - Benign Findings RECOMMENDATION: Routine annual mammography screening. 1 year F/U This examination should not preclude the clinical evaluation of a suspicious palpable abnormality. This patient's information was entered into a reminder system with a target due date for their next mammogram.
== END 2023-07-31 07:43 | disposition home or self-care (01) ==
LOC: HO.MAMMO 07:42
PROVIDERS: PCP Internal Medicine; Visit Provider Internal Medicine
DX: Z12.31 Encounter for screening mammogram for malignant neoplasm of breast (principal)
CPT/HCPCS: 77063; 77067

== ENCOUNTER → 2023-07-31 08:00 | Outpatient (BNV) | payer MEDICAID, SELFPAY | PROVIDERS: PCP Internal Medicine; Visit Provider Radiology Diagnostic Radiology | DX: Z12.31 Encounter for screening mammogram for malignant neoplasm of breast (principal) | CPT/HCPCS: 77063; 77067 ==

== ENCOUNTER → 2023-08-10 07:38 | Outpatient (REF) | payer MEDICAID, SELFPAY ==
--- NOTE | ~2023-08-10 | NM_ITS ---
EXAMINATION: BILIARY TRACT IMAGING STUDY WITH CCK CLINICAL INFORMATION: Epigastric pain and nausea. Calculus of gallbladder without cholecystitis.. COMPARISON: Abdominal ultrasound done on 06/04/2023.. TECHNIQUE: Serial gamma scintillation camera images were obtained over the abdomen for a total observation period of 60 minutes following the intravenous administration of 5.0 mCi Tc-99m mebrofenin. FINDINGS: There is good concentration of activity in the liver by 5 minutes post injection. Biliary activity is visualized by 10 minutes. The gallbladder is well visualized by 30 minutes. Small bowel is well visualized by 25 minutes. At 60 minutes post radiopharmaceutical injection, a 30-minute infusion of 1.6 micrograms Sincalide was then begun and an additional 40 minutes of images were obtained. There is rapid emptying of the gallbladder. By the end of the study there is good clearance of activity from the liver and visualization of diffuse small bowel activity. The calculated gallbladder ejection fraction is 83% (Normal range of gallbladder ejection fraction is between 35-80%; GBEF <35% is considered biliary hypokinesia and >80% is considered biliary hyperkinesia; Ref. #1-Clinical Journal of Gastroenterology (2020) 14:1308?1317; Ref.#2-[email or web address]). NM/NM hepatobiliary w pharm IMPRESSION: Visualization of the gallbladder is evidence of a patent cystic duct and strong evidence against the diagnosis of acute cholecystitis. The common bile duct is patent. Gallbladder emptying and ejection fraction are abnormal. Liver function appears normal.
== END ==
LOC: HO.NUCMED 07:38
PROVIDERS: PCP Internal Medicine; Visit Provider Nurse Practitioner
DX: K80.20 Calculus of gallbladder without cholecystitis without obstruction (principal)
CPT/HCPCS: 78227; A9537; J2805

== ENCOUNTER 2023-10-23 07:25 | Outpatient (REF) | payer MEDICAID, SELFPAY ==
[2023-10-23 07:35] LABS: MANUAL DIFF FLAG NO
[2023-10-23 07:58] LABS: Basophils Percent Auto 0.6 % (0-2); Eosinophils Absolute Auto 0.1 X10*3/uL (0.0-0.4); Eosinophils Percent Auto 2.2 % (0-4); Hematocrit 39.1 % (37.0-47.0); Hemoglobin 12.9 g/dl (12.0-16.0); Imm Gran Abs Auto 0.01 X10*3/uL (0.00-0.03); Imm Gran Pct Auto 0.2 % (0.0-0.4); Lymphocytes Absolute Auto 1.9 X10*3/uL (1.2-4.9); Lymphocytes Percent Auto 34.5 % (20-40); Mean Corpuscular Hemoglobin 30.3 pg (27.0-33.0); Mean Corpuscular Volume 91.8 fL (80.0-98.0); Mean Platelet Volume 11.2 fL (9.4-12.3); Monocytes Absolute Auto 0.4 X10*3/uL (0.1-1.2); Monocytes Percent Auto 7.8 % (2-11); Neutrophils Absolute Auto 2.9 x10*3/uL (2.0-8.3); Neutrophils Percent Auto 54.7 % (45-73); Platelet Count 262 X10*3/uL (160-400); Red Blood Count 4.26 X10*6/uL (4.20-5.50); Red Cell Distribution Width 13.1 % (11.0-16.0); White Blood Count 5.4 X10*3/uL (4.8-10.8)
[2023-10-23 08:10] LABS: Estimated Average Glucose 128 mg/dL; Hemoglobin A1c % 6.1 % (<6.0)
[2023-10-23 08:26] LABS: Creatinine Urine 118.86 mg/dL; Microalbum/Creatinine Ratio Ur 5.8 ug/mg cr (<30)
[2023-10-23 08:30] LABS: Alanine Aminotransferase 16 U/L (0-31); Albumin Level 4.4 g/dL (3.5-5.0); Alkaline Phosphatase 85 U/L (39-117); Anion Gap 11 (12-20); Aspartate Amino Transferase 15 U/L (5-31); Bilirubin Total 0.6 mg/dL (0.0-1.0); Blood Urea Nitrogen 19 mg/dL (9-16); Calcium 9.7 mg/dL (8.4-10.2); Carbon Dioxide 27 mmol/L (22-29); Chloride 107 mmol/L (96-108); Cholesterol 223 mg/dL (<200); Estimated Glomerular Filt Rate > 60; Glucose Random 126 mg/dL (60-115); HDL Cholesterol 52 mg/dL (>40); LDL Cholesterol Calculated 144 mg/dL (<100); Potassium 4.3 mmol/L (3.3-5.1); Sodium 141 mmol/L (135-145); Triglycerides 138 mg/dL (<150)
== END 2023-10-23 07:26 | disposition home or self-care (01) ==
LOC: HO.LAB 07:25
PROVIDERS: PCP Internal Medicine; Visit Provider Internal Medicine
DX: E03.9 Hypothyroidism, unspecified (principal); E11.9 Type 2 diabetes mellitus without complications; J45.909 Unspecified asthma, uncomplicated; R10.9 Unspecified abdominal pain
CPT/HCPCS: 36415; 80053; 80061; 82043; 82570; 83036; 85025

== ENCOUNTER 2023-10-26 10:42 | Outpatient (AMB) | payer MEDICAID, SELFPAY ==
--- NOTE | 2023-10-26 10:44 | A.OFFVIS_ITS ---
Vital Signs 10/26/23 10:45 Height 5 ft 3 in Weight 188 lb 11.451 oz BMI 33.4 BP 125/72 Blood Pressure Location Lt brachial Position Sitting Pulse 67 Intake Visit Reasons: Labs and HIDA scan follow up Intake Note: Stefany returns to in office visit today in follow up of labs and HIDA scan. CC: Open Tenter Operator Required: No Accompanied by: Self / Same As Patient Allergies gentamicin [From GARAMYCIN] Allergy (Intermediate, Verified 11/06/23 10:56) RASH Penicillins [PENICILLINS] Allergy (Intermediate, Verified 11/06/23 10:56) RASH Seasonal Allergies Allergy (Intermediate, Verified 11/06/23 10:56) seasonal allergies vancomycin [VANCOMYCIN] Allergy (Intermediate, Verified 11/06/23 10:56) swelling/rash/hives HPI HPI Labs and HIDA scan follow up: Details: Assessment & Plan (1) Abdominal pain: Code(s): R10.9 - Unspecified abdominal pain Qualifiers: Abdominal location: right upper quadrant Qualified Code(s): R10.11 - Right upper quadrant pain (2) GERD (gastroesophageal reflux disease): Code(s): K21.9 - Gastro-esophageal reflux disease without esophagitis (3) Chronic idiopathic constipation: Code(s): K59.04 - Chronic idiopathic constipation (4) Gallstones: Code(s): K80.20 - Calculus of gallbladder without cholecystitis without obstruction Plan Mauritian #declines She still has epigastric pain and it is keeping her up at night. She has been taking the o2o and the famotidine. The pain radiates to her back now as well and she describes it as pushing. The pain is 7/10 and is all day w/o any exacerbating or remitting factors and it is not effected by eating or BM's. She also has associated nausea. She is also having dysphagia. In 2020 she had the same problem that resolved with dilation. We likely need to repeat this. Her Pulm discovered gallstones on chest CT, and then an US. It is possible that eating a fattier diet while on vacation in [place] set this off, but we also needs to exclude her past erosive esophagitis, pancreatic or even colon pathology in the ddx. Will start her on carafate to see how thie effects the sx. Getting HIDA scan and EGD for dilation. She had not been taking adam bisacodyl every night, but I encourage her to do this so that we can offset the carafate. ROV 2 weeks. Orders: Orders NM hepatobiliary w pharm 06/15/23 K80.20 - Calculus of gallbladder without cholecystitis without obstruction EGD with Anand - GI Use Only 06/15/23 K80.20 - Calculus of gallbladder without cholecystitis without obstruction Comprehensive Met. Panel 06/18/23 K80.20 - Calculus of gallbladder without ch olecystitis without obstruction, R10.9 - Unspecified abdominal pain Amylase 06/18/23 K80.20 - Calculus of gallbladder without cholecystitis without obstruction, R10.9 - Unspecified abdominal pain Lipase 06/18/23 K80.20 - Calculus of gallbladder without cholecystitis without obstruction, R10.9 - Unspecified abdominal pain Medications: New sucralfate (Carafate) 20 mL PO QNOON 1,000 mL 3RF K80.20 - Calculus of gallbladder without cholecystitis without obstruction, R10.9 - Unspecified abdominal pain Changed From bisacodyl (Dulcolax (bisacodyl)) take orally as directed prior to colonoscopy 10 mg (2 x 5 mg) PO BEDTIME 30 days 60 tabs 6RF K59.04 - Chronic idiopathic constipation To bisacodyl (Dulcolax (bisacodyl)) take orally as directed prior to colonoscopy 15 mg (3 x 5 mg) PO BEDTIME 30 days 90 tabs 6RF K59.04 - Chronic idiopathic constipation Refilled omeprazole 40 mg PO DAILY 30 days 30 caps 6RF K21.9 - Gastro-esophageal reflux disease without esophagitis LABS: Laboratory Tests 06/18/23 10/23/23 11:09 07:34 Estimated GFR > 60 Hemoglobin A1c % 6.1 H Total Bilirubin 0.6 AST 15 ALT 16 Alkaline Phosphatase 85 Amylase 44 Lipase 17 HIDA SCAN 08/10/23 IMPRESSION: Visualization of the gallbladder is evidence of a patent cystic duct and strong evidence against the diagnosis of acute cholecystitis. The common bile duct is patent. Gallbladder emptying and ejection fraction are abnormal. Liver function appears normal. EGD 11/01/2023 BIOPSY TODAY'S VISIT Mauritian #declines She is aware of the upcoming EGD. So far, labs and HIDA do not uncover a reason for her pain. (She still has epigastric pain and it is keeping her up at night. She has been taking the o2o and the famotidine. The pain radiates to her back now as well and she describes it as pushing. The pain is 7/10 and is all day w/o any e xacerbating or remitting factors and it is not effected by eating or BM's. She also has associated nausea. She is also having dysphagia. In 2020 she had the same problem that resolved with dilation.) She never received the carafate, calling pharmacy. ROV after EGD 10/31 [facility] Medical History BMI 35.0-35.9,adult Morbid obesity PVC (premature ventricular contraction) Precordial chest pain Low back pain Neck pain Right knee pain Potential exposure to STD Yeast infection Left hand pain Numbness and tingling in both hands Vaginal burning Well woman exam with routine gynecological exam Other and unspecified hyperlipidemia Essential hypertension Heart palpitations Snoring Difficulty sleeping Cervical cancer screening Family history of breast cancer Potential exposure to STD Well woman exam with routine gynecological exam Obesity (BMI 30-39.9) Diabetes type 2, controlled Abdominal pain Pulmonary nodules HELEN (obstructive sleep apnea) Panic attack PTSD (post-traumatic stress disorder) Depression Restless leg syndrome Peripheral neuropathy Mitral valve prolapse Hypertension Potential exposure to STD Osteopenia determined by x-ray Hyperlipidemia Lower back pain Hypothalamic hypothyroidism Insomnia GERD (gastroesophageal reflux disease) Migraine headache Surgical History Asthma Hx of colonoscopy Hx of left breast biopsy History of cervical cerclage Hx of hysterectomy Hx of tubal ligation Family History Father Diabetes Paced cardiac rhythm Colon cancer Mother HTN (hypertension) High cholesterol Skin cancer Breast cancer Colon cancer Sister Obese abdomen Brother Infarction of lung due to iatrogenic pulmonary embolism Son HTN (hypertension) High cholesterol Son HTN (hypertension) High cholesterol Son No problems noted. Son No problems noted. Son No problems noted. Sister No problems noted. Sister No problems noted. 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 Gender identity: Female Female Reproductive History Menstrual Age of Menarche: 10 Date of menopause: 06/20/13 Review of Systems Const Denies fatigue, Denies fever(s), Denies night sweats, Denies poor appetite and Denies weight loss Eyes Details: glasses Reports requires corrective lenses ENT Reports Normal hearing present, Denies dental pain, Denies dysphagia, Denies hearing loss, Denies mouth pain, Denies odynophagia, Denies throat swelling, Denies tongue swelling and Reports other (Dentition adequate) Card Reports no additional complaints Resp Reports no additional complaints GI Details: Reports abdominal pain, Denies melena, Denies bloating, Denies hematochezia, Denies constipation, Denies GI cramping, Denies dysphagia, Denies excessive flatus, Denies early satiety, Reports heartburn, Denies diarrhea, Denies nausea, Denies odynophagia, Denies vomiting and Denies hematemesis Skin/Breast Denies pruritus, Denies lesions, Denies rash and Denies jaundice Neuro Reports Normal hearing present and Denies Abnormal speech present Endo Denies fatigue Aller/Immun Denies throat swelling and Denies tongue swelling Physical Exam Vital Signs: Last Vital Signs Pulse 67 10/26/23 10:45 BP 125/72 10/26/23 10:45 BMI result Body Mass Index 33.4 Const General: cooperative, no acute distress, well developed and well groomed Nutritional Appearance: well nourished and obese Orientation/consciousness: oriented to person, oriented to place and oriented to time Limitations: No language barrier HEENT Head: Yes normocephalic and Yes atraumatic Eyes General: appearance normal, both eyes and all related structures Pupils: Equal, round and reactive pupils present Neck Neck: Yes normal visual inspection and Yes no lymphadenopathy Thyroid: Thyroid normal Resp Effort & Inspection: normal respiratory effort and able to speak in complete sentences Auscultation: clear to auscultation bilaterally Cardio Rate: regular rate Rhythm: regular rhythm Heart sounds: Normal, physiologic split S2 sound present Peripheral pulses: radial pulses present and posterior tibial pulses present GI Inspection: No distended, Yes Abdominal panniculus present and Yes obesity Palpation (GI): Soft to palpation, Tenderness to palpation present (GI) periumbilically, no guarding, not rigid and No hepatosplenomegaly present Percussion: Yes normal to percussion Auscultation: normal bowel sounds Rectal Exam - Female: deferred Skin General skin exam: no rashes or lesions noted, turgor normal, skin not dry, no jaundice, No spider nevi and no striae Rashes: no rashes Nails: normal Neuro General: oriented to person, oriented to place and oriented to time Cranial nerves: Yes Equal, round and reactive pupils present and Yes Normal hearing present Speech: No Abnormal speech present Extrem General: Yes normal to inspection, No clubbing, No cyanosis and No edema Psych Appearance: grossly normal and well kempt Mental Status: mental status grossly normal Speech and movement: Normal speech and movement present Affect: normal affect Attitude: cooperative Thought process: Normal thought process present and not confabulating Thought content: Normal thought content present Insight: Limited insight present (Psych) Judgement: Limited judgement present (Psych) Results Reviewed Results Reviewed: Laboratory Tests 06/18/23 10/23/23 11:09 07:34 Estimated GFR > 60 Hemoglobin A1c % 6.1 H Total Bilirubin 0.6 AST 15 ALT 16 Alkaline Phosphatase 85 Amylase 44 Lipase 17 HIDA SCAN 08/10/23 IMPRESSION: Visualization of the gallbladder is evidence of a patent cystic duct and strong evidence against the diagnosis of acute cholecystitis. The common bile duct is patent. Gallbladder emptying and ejection fraction are abnormal. Liver function appears normal. Assessment & Plan Assessment & Plan (1) Gallstones: Comment: 10/2019 3-HIDA scan Code(s): K80.20 - Calculus of gallbladder without cholecystitis without obstruction Category: Medical (2) Abdominal pain: Code(s): R10.9 - Unspecified abdominal pain Category: Medical Qualifiers: Abdominal location: right upper quadrant Qualified Code(s): R10.11 - Right upper quadrant pain (3) GERD (gastroesophageal reflux disease): Code(s): K21.9 - Gastro-esophageal reflux disease without esophagitis Category: Medical (4) Chronic idiopathic constipation: Code(s): K59.04 - Chronic idiopathic constipation Category: Medical (5) Oropharyngeal dysphagia: Code(s): R13.12 - Dysphagia, oropharyngeal phase Category: Medical (6) Obesity (BMI 30.0-34.9): Code(s): E66.9 - Obesity, unspecified Category: Medical Plan Mauritian #declines She is aware of the upcoming EGD. So far, labs and HIDA do not uncover a reason for her pain. (She still has epigastric pain and it is keeping her up at night. She has been taking the o2o and the famotidine. The pain radiates to her back now as well and she describes it as pushing. The pain is 7/10 and is all day w/o any exacerbating or remitting factors and it is not effected by eating or BM's. She also has associated nausea. She is also having dysphagia. In 2020 she had the same problem that resolved with dilation.) She never received the carafate, calling pharmacy. ROV after EGD 10/31 Medications: Refilled sucralfate (Carafate) 20 mL PO QNOON 1,000 mL 3RF R10.9 - Unspecified abdominal pain, K80.20 - Calculus of gallbladder without cholecystitis without obstruction Coding Level of Care Code Est Pt Level 3 (56807) Diagnoses Gallstones K80.20 Right upper quadrant abdominal pain R10.11 Abdominal location: right upper quadrant GERD (gastroesophageal reflux disease) K21.9 Chronic idiopathic constipation K59.04 Oropharyngeal dysphagia R13.12 Obesity (BMI 30.0-34.9) E66.9
[2023-10-26 10:45] VITALS: BP 125/72; PULSE 67; BMI 33.4
== END 2023-10-26 11:13 | disposition home or self-care (01) ==
PROVIDERS: PCP Internal Medicine; Visit Provider Nurse Practitioner
DX: K80.20 Calculus of gallbladder without cholecystitis without obstruction (principal); R10.11 Right upper quadrant pain; K21.9 Gastro-esophageal reflux disease without esophagitis; K59.04 Chronic idiopathic constipation; R13.12 Dysphagia, oropharyngeal phase; E66.9 Obesity, unspecified
CPT/HCPCS: 99213

== ENCOUNTER → 2023-10-26 10:42 | Outpatient (BNVA) | payer MEDICAID, SELFPAY | PROVIDERS: PCP Internal Medicine; Visit Provider Nurse Practitioner | DX: R10.11 Right upper quadrant pain (principal); K21.9 Gastro-esophageal reflux disease without esophagitis; K59.04 Chronic idiopathic constipation; K80.20 Calculus of gallbladder without cholecystitis without obstruction; R13.12 Dysphagia, oropharyngeal phase; E66.9 Obesity, unspecified; Z68.33 Body mass index [BMI] 33.0-33.9, adult | CPT/HCPCS: 99212 ==

== ENCOUNTER 2023-11-05 09:08 | Outpatient (AMB) | payer MEDICAID, SELFPAY ==
--- NOTE | 2023-11-05 09:05 | A.OFFVIS_ITS ---
Intake Visit Reasons: 4 month follow up Intake Note: Patient presents today for 4m f/u Meds:none Allergies to Antibiotic: Gentamicin, Penicillin, & Vancomycin Blood Thinner: None Rehabilitation Liaison Required: No Rehabilitation Liaison Name: GABE Adams/JERALD PENNINGTON Information Interpreted: non-clinical & clinical Accompanied by: Self / Same As Patient Allergies gentamicin [From GARAMYCIN] Allergy (Intermediate, Verified 11/05/23 09:06) RASH Penicillins [PENICILLINS] Allergy (Intermediate, Verified 11/05/23 09:06) RASH Seasonal Allergies Allergy (Intermediate, Verified 11/05/23 09:06) seasonal allergies vancomycin [VANCOMYCIN] Allergy (Intermediate, Verified 11/05/23 09:06) swelling/rash/hives Medication List - Last Reconciled 11/05/23 by Lavelle Verde MD acetaminophen ER 650 mg PO Q8H PRN albuterol sulfate 2.5 mg (3 mL) inhalation Q6H PRN 30 days albuterol sulfate 90 mcg/actuation 2 puffs inhalation Q6H PRN 90 days azithromycin 500 mg PO DAILY 5 days bisacodyl (Dulcolax (bisacodyl)) 15 mg (3 x 5 mg) PO BEDTIME 30 days blood sugar diagnostic (FreeStyle Lite Strips) As directed budesonide-formoterol 160-4.5 mcg/actuation (Symbicort) 2 puffs inhalation BID 90 days bupropion HCl XL 150 mg PO QAM divalproex ER 250 mg PO BEDTIME estradiol 0.01%(0.1mg/gram) (Estrace) 1 g vaginal 2XW ezetimibe 10 mg PO DAILY famotidine 20 mg PO BEDTIME fluticasone propionate 50 mcg/actuation 2 sprays intranasal DAILY PRN lancets (FreeStyle Lancets) As directed levothyroxine (Synthroid) 25 mcg PO DAILY loratadine (Claritin) 10 mg PO DAILY PRN lorazepam 0.5 mg PO DAILY PRN losartan-hydrochlorothiazide 100-25 mg 1 tab PO DAILY melatonin 10 mg PO BEDTIME metformin 1,000 mg PO BID montelukast (Singulair) 10 mg PO BEDTIME 90 days omeprazole 40 mg PO DAILY 30 days prednisone PO daily; Take 2 tabs daily x 5 days, then 1 tablet daily x 5 days 10 days ropinirole 0.25 mg PO BEDTIME rosuvastatin 40 mg PO DAILY sertraline 50 mg PO DAILY sucralfate (Carafate) 20 mL PO QNOON sumatriptan succinate 50 mg PO trazodone 50 mg PO DAILY HPI Comments Details: 11/05/23--Stefany is a 62-year-old female who has been followed due to irritative voiding symptoms. Past medical history significant for diabetes and asthma. She was last seen on 07/05/2023. The patient had office cystoscopy and urine sent for cytology at that time I have discussed results came back negative for malignant cells. The patient was prescribed vaginal estradiol by another healthcare provider which she states she has not using. She states that her asthma has been bothersome over the last several weeks and she is leaking a lot with coughing. I have discussed referring her to pelvic floor physical therapy as well as further evaluation of her bladder symptoms with urodynamics. The patient is agreeable to plan. Review of chart: 07/05/2023--Stefany is here in follow-up due to irritative voiding symptoms, dysuria. She is here for office cystoscopy. I reviewed abdominal ultrasound performed 06/04/2023 kidneys mild cortical thinning no masses or stones noted. Pelvic exam [id number] cystocele and rectocele. The patient is prescribed vaginal estradiol by another healthcare provider. Cystoscopy findings: Bladder mucosa mild trabeculations, no suspicious bladder lesions visualized. Plan discussed will send urine for cytology and have her follow-up in 4 months to re-evaluate symptoms and check urinalysis. 05/31/23-The patient states that she had symptoms of burning with urination. She states that she was treated with antibiotics Which improved her symptoms. Review of chart the patient had a urine culture in January, which came back no growth She states she had imaging, CAT scan done. I have discussed follow up cystoscopy [facility] Medical History BMI 35.0-35.9,adult Morbid obesity PVC (premature ventricular contraction) Precordial chest pain Low back pain Neck pain Right knee pain Potential exposure to STD Yeast infection Left hand pain Numbness and tingling in both hands Vaginal burning Well woman exam with routine gynecological exam Other and unspecified hyperlipidemia Essential hypertension Heart palpitations Snoring Difficulty sleeping Cervical cancer screening Family history of breast cancer Potential exposure to STD Well woman exam with routine gynecological exam Obesity (BMI 30-39.9) Diabetes type 2, controlled Abdominal pain Pulmonary nodules HELEN (obstructive sleep apnea) Panic attack PTSD (post-traumatic stress disorder) Depression Restless leg syndrome Peripheral neuropathy Mitral valve prolapse Hypertension Potential exposure to STD Osteopenia determined by x-ray Hyperlipidemia Lower back pain Hypothalamic hypothyroidism Insomnia GERD (gastroesophageal reflux disease) Migraine headache Surgical History Asthma Hx of colonoscopy Hx of left breast biopsy History of cervical cerclage Hx of hysterectomy Hx of tubal ligation Family History Father Diabetes Paced cardiac rhythm Colon cancer Mother HTN (hypertension) High cholesterol Skin cancer Breast cancer Colon cancer Sister Obese abdomen Brother Infarction of lung due to iatrogenic pulmonary embolism Son HTN (hypertension) High cholesterol Son HTN (hypertension) High cholesterol Son No problems noted. Son No problems noted. Son No problems noted. Sister No problems noted. Sister No problems noted. 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 Gender identity: Female Female Reproductive History Menstrual Age of Menarche: 10 Date of menopause: 06/20/13 Review of Systems Const All systems reviewed & are unremarkable except as noted in HPI and below Reports no additional complaints Eyes Reports no additional complaints ENT Reports no additional complaints Card Reports no additional complaints Resp Reports no additional complaints GI Reports no additional complaints Reports as per HPI Musc Reports no additional complaints Skin/Breast Reports system reviewed and no additional complaints, except as documented Neuro Reports no additional complaints Psych Reports no additional complaints Endo Reports no additional complaints Sundar/Lymph Reports no additional complaints Aller/Immun Reports no additional complaints Telehealth Telehealth Telehealth Platform: Dubb Location of provider rendering services: practice address Location of patient: address on file Patient Identification confirmed using: Name, : Yes Telehealth method: voice only Patient verbally consented to treatment: Yes Patient verbally consented to billing insurance company: Yes Patient informed of any privacy concerns related to visit: Yes Minutes spent on Phone/Video with Pt.: 15 Results Reviewed Results Reviewed: Collected: 07/05/23 Location: .LAB Received: 07/06/23 Diagnosis Urine: Negative for high-grade urothelial carcinoma. COMMENT: Examination of a monolayer preparation slide shows many benign squamous cells, occasional benign urothelial cells, and few inflammatory cells. Clinical History Encounter for screening Material Received Urine Gross Description Received are 30 cc of clear yellow fluid from which a ThinPrep slide is prepared. Date of Service: 06/04/23 EXAMINATION: US ABDOMEN COMPLETE CLINICAL INFORMATION: Unspecified abdominal pain. COMPARISON: CT abdomen and pelvis 04/09/2021. Ultrasound abdomen complete 11/04/2020. TECHNIQUE: Real-time imaging of the abdominal viscera. Technically limited study secondary to bowel gas and body habitus. FINDINGS: PANCREAS: Limited visualization of pancreatic tail and head. Imaged portion of pancreatic body is unremarkable. ABDOMINAL AORTA: Atherosclerosis. INFERIOR VENA CAVA: Visualized portions are normal. LIVER: Increased hepatic parenchymal heterogeneity and echogenicity could be associated with hepatocellular disease/hepatic steatosis and substantially limits visualization. Correlation with liver function tests and clinical exam recommended to determine further management. GALLBLADDER: Multiple small gallstones. No gallbladder wall thickening. COMMON BILE DUCT: Normal in caliber measuring 0.59 cm in diameter. RIGHT KIDNEY: No hydronephrosis. No renal calculi. Limited visualization. Diffuse renal cortical thinning. Anechoic peripelvic structures, largest measured mid pole 1.[address] scan demonstrated multiple peripelvic cysts on April 09, 2021. There is no specific indication for follow-up imaging at this time. The kidney measures 12.2 cm in maximum dimension. LEFT KIDNEY: Diffuse renal cortical thinning. Multiple peripelvic cysts, largest lower pole 1.[address] scan demonstrated multiple peripelvic cysts. There is no specific indication for follow-up imaging at this time. No hydronephrosis. No renal calculi. Limited visualization. The kidney measures 13.0 cm in maximum dimension. SPLEEN: Normal. The spleen measures 9.0 cm in maximum dimension. FREE FLUID: None. IMPRESSION: 1. Increased hepatic parenchymal heterogeneity and echogenicity could be associated with hepatocellular disease/hepatic steatosis and substantially limits visualization. Correlation with liver function tests and clinical exam recommended to determine further management. 2. Cholelithiasis. 3. Bilateral renal cortical thinning. 4. Atherosclerosis in the abdominal aorta. Assessment & Plan Assessment & Plan (1) Dysuria: Code(s): R30.0 - Dysuria Category: Medical (2) Vaginal atrophy: Code(s): N95.2 - Postmenopausal atrophic vaginitis Category: Medical (3) Pelvic floor weakness: Code(s): N81.89 - Other female genital prolapse Category: Medical (4) Urinary incontinence: Code(s): R32 - Unspecified urinary incontinence Category: Medical Plan I have discussed referring her to pelvic floor physical therapy as well as further evaluation of her bladder symptoms with urodynamics. Orders: Referrals Pelvic Gas Turbine Mechanic Referral N39.3 - Stress incontinence (female) (male), N81.89 - Other female genital prolapse Patient Instructions: The patient had an opportunity to ask questions regarding treatment plan. The patient expressed understanding and agreement with the above treatment plan. The patient is aware they should contact our office by phone for worsening of their current condition or the appearance of new symptoms. Compliance is encouraged with any medications and followup testing that is ordered. It is a privilege to be allowed the opportunity to participate in the urologic care of your patient. If you have any questions or concerns regarding treatment for the above conditions please do not hesitate to contact me. The office telephone contact is [phone]. This note is constructed in part using voice recognition software. While every effort has been made to ensure accuracy keg header errors may have been included. Yours sincerely, Lavelle Verde MD Coding Level of Care Code Tele Est Pt Level 3 (98018) Diagnoses Dysuria R30.0 Vaginal atrophy N95.2 Pelvic floor weakness N81.89 Urinary incontinence R32
== END 2023-11-05 11:48 | disposition home or self-care (01) ==
LOC: HO.HUSH 09:08
PROVIDERS: PCP Internal Medicine; Visit Provider Urology
DX: R30.0 Dysuria (principal); N95.2 Postmenopausal atrophic vaginitis; N81.89 Other female genital prolapse; R32 Unspecified urinary incontinence
CPT/HCPCS: 99213

== ENCOUNTER → 2023-11-05 09:08 | Outpatient (BNVA) | payer MEDICAID, SELFPAY | PROVIDERS: PCP Internal Medicine; Visit Provider Urology ==

== ENCOUNTER 2023-11-06 10:33 | Outpatient (AMB) | payer MEDICAID, SELFPAY ==
--- NOTE | 2023-11-06 10:55 | MHC.OFFVIS ---
Vital Signs 11/06/23 11:01 Height 5 ft 3 in Weight 192 lb 4 oz BMI 34.1 BP 115/57 L Blood Pressure Location Lt brachial Position Sitting Pulse 80 Intake Visit Reasons: 6m br exam Intake Note: Patient is seen in office for 6 month follow up visit, breast exam. Pt c/o: notice this morning under the left breast some redness, rash its itchy, denies any prior concerns mm:07/31/23 Car Body Designer Required: Yes Car Body Designer Language: Credit Administration Specialist Services: Car Body Designer Present Car Body Designer Name: Nazia BERNAL Information Interpreted: non-clinical & clinical Lens Grinder Rough: Lens Grinder Rough Present Accompanied by: Self / Same As Patient Allergies gentamicin [From GARAMYCIN] Allergy (Intermediate, Verified 11/06/23 10:56) RASH Penicillins [PENICILLINS] Allergy (Intermediate, Verified 11/06/23 10:56) RASH Seasonal Allergies Allergy (Intermediate, Verified 11/06/23 10:56) seasonal allergies vancomycin [VANCOMYCIN] Allergy (Intermediate, Verified 11/06/23 10:56) swelling/rash/hives Medication List - Last Reconciled 11/06/23 by Dereje Escalona MD acetaminophen ER 650 mg PO Q8H PRN albuterol sulfate 2.5 mg (3 mL) inhalation Q6H PRN 30 days albuterol sulfate 90 mcg/actuation 2 puffs inhalation Q6H PRN 90 days azithromycin 500 mg PO DAILY 5 days bisacodyl (Dulcolax (bisacodyl)) 15 mg (3 x 5 mg) PO BEDTIME 30 days blood sugar diagnostic (FreeStyle Lite Strips) As directed budesonide-formoterol 160-4.5 mcg/actuation (Symbicort) 2 puffs inhalation BID 90 days bupropion HCl XL 150 mg PO QAM divalproex ER 250 mg PO BEDTIME estradiol 0.01%(0.1mg/gram) (Estrace) 1 g vaginal 2XW ezetimibe 10 mg PO DAILY famotidine 20 mg PO BEDTIME fluticasone propionate 50 mcg/actuation 2 sprays intranasal DAILY PRN lancets (FreeStyle Lancets) As directed levothyroxine (Synthroid) 25 mcg PO DAILY loratadine (Claritin) 10 mg PO DAILY PRN lorazepam 0.5 mg PO DAILY PRN losartan-hydrochlorothiazide 100-25 mg 1 tab PO DAILY melatonin 10 mg PO BEDTIME metformin 1,000 mg PO BID montelukast (Singulair) 10 mg PO BEDTIME 90 days nystatin 1 appl topical BID omeprazole 40 mg PO DAILY 30 days prednisone PO daily; Take 2 tabs daily x 5 days, then 1 tablet daily x 5 days 10 days ropinirole 0.25 mg PO BEDTIME rosuvastatin 40 mg PO DAILY sertraline 50 mg PO DAILY sucralfate (Carafate) 20 mL PO QNOON sumatriptan succinate 50 mg PO trazodone 50 mg PO DAILY HPI Comments Details: Stefany Bourgeois is a 62-year-old female patient presenting for a follow-up breast examination.? She has a previous patient of Dr. Sage evaluated due to her increased risk for breast cancer.? She denies any palpable mass, skin change, nipple discharge, but does report tenderness in the right breast especially in the upper outer quadrant. Her mother was diagnosed with breast cancer at the age of 65 as well as colon cancer in both the mother and father.? She was evaluated by Dr. Sage on 11/04/2019 at which time no dominant mass or suspicious changes were noted on breast examination.? Her last mammogram of 07/05/2020 revealed no suspicious changes (BI-RADS 2).? She is 8 para 7 with 1 spontaneous .? Her children are between the ages of 25 and 42. She reports a previous cyst excision in 2009 while in [place] which was benign. Genetic testing by blood on 09/09/2020 revealed no clinically significant mutations and no variance of uncertain significance identified. Her lifetime breast cancer risk was determined to be 15.4%. Based on her family history of colon cancer colonoscopy was recommended every 5 years beginning at the age of 40 or 10 years started than the earliest colorectal cancer diagnosis in the family. She is already undergoing colonoscopy read 5 years. Mammogram dated 07/31/2023 revealed benign findings (BI-RADS 2). The [facility] remaining lifetime risk of breast cancer was calculated 11.9%. Routine annual screening mammography recommended. She denies any new breast symptoms. [facility] Medical History BMI 35.0-35.9,adult Morbid obesity PVC (premature ventricular contraction) Precordial chest pain Low back pain Neck pain Right knee pain Potential exposure to STD Yeast infection Left hand pain Numbness and tingling in both hands Vaginal burning Well woman exam with routine gynecological exam Other and unspecified hyperlipidemia Essential hypertension Heart palpitations Snoring Difficulty sleeping Cervical cancer screening Family history of breast cancer Potential exposure to STD Well woman exam with routine gynecological exam Obesity (BMI 30-39.9) Diabetes type 2, controlled Abdominal pain Pulmonary nodules HELEN (obstructive sleep apnea) Panic attack PTSD (post-traumatic stress disorder) Depression Restless leg syndrome Peripheral neuropathy Mitral valve prolapse Hypertension Potential exposure to STD Osteopenia determined by x-ray Hyperlipidemia Lower back pain Hypothalamic hypothyroidism Insomnia GERD (gastroesophageal reflux disease) Migraine headache Surgical History Asthma Hx of colonoscopy Hx of left breast biopsy History of cervical cerclage Hx of hysterectomy Hx of tubal ligation Family History Father Diabetes Paced cardiac rhythm Colon cancer Mother HTN (hypertension) High cholesterol Skin cancer Breast cancer Colon cancer Sister Obese abdomen Brother Infarction of lung due to iatrogenic pulmonary embolism Son HTN (hypertension) High cholesterol Son HTN (hypertension) High cholesterol Son No problems noted. Son No problems noted. Son No problems noted. Sister No problems noted. Sister No problems noted. 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 Gender identity: Female Female Reproductive History Menstrual Age of Menarche: 10 Date of menopause: 06/20/13 Review of Systems Const Denies chills, Denies fever(s), Denies headache(s) and Denies poor appetite ENT Denies dizziness and Denies headache(s) Card Denies chest pain, Denies rapid heart rate, Denies palpitations and Denies slow heart rate Resp Denies chest congestion, Denies cough, Denies pain on inspiration and Denies wheezing GI Denies abdominal pain, Denies bloating, Denies change in stool character, Denies constipation, Denies diarrhea, Denies nausea, Denies vomiting and Denies hematemesis Denies nipple discharge Musc Denies back pain, Denies arthralgias, Denies joint swelling and Denies numbness Skin/Breast Denies breast swelling, Denies breast skin changes, Denies breast pain, Denies breast mass, Denies change in breast shape, Denies change in pigmentation, Denies nipple discharge, Denies erythema and Denies rash Neuro Denies dizziness, Denies headache(s) and Denies numbness Psych Denies anxiety and Denies depression Endo Denies palpitations Sundar/Lymph Denies easy bleeding, Denies easy bruising and Denies lymphadenopathy Aller/Immun Denies wheezing Physical Exam Vital Signs: Last Vital Signs Pulse 80 11/06/23 11:01 BP 115/57 L 11/06/23 11:01 BMI result Body Mass Index 34.1 Const General: cooperative, comfortable and well developed Nutritional Appearance: well nourished Orientation/consciousness: patient oriented x3 Eyes Sclerae: sclerae normal EOM: EOMs intact bilaterally Neck Neck: Yes normal visual inspection Chest Other: Left breast: No skin change, no nipple retraction, no nipple discharge, no palpable mass, no enlarged lymph nodes. Right breast: No skin change, no nipple retraction, no nipple discharge, no palpable mass, no enlarged lymph nodes. Resp Effort & Inspection: normal respiratory effort, no cough, no respiratory distress and no stridor Cardio Jugular venous distension: no JVD GI Inspection: Yes normal to inspection Palpation (GI): Soft to palpation, nontender, no guarding and not rigid Skin General skin exam: dry skin Rashes: no rashes Neuro General: patient oriented x3 and no focal motor deficits Extrem General: Yes full ROM and Yes no clubbing, cyanosis or edema Psych Appearance: grossly normal Assessment & Plan Assessment & Plan (1) Fungal skin infection: Code(s): B36.9 - Superficial mycosis, unspecified Category: Medical (2) Family history of breast cancer: Comment: See detailed notes from Dr. Escalona; currently getting Q 6 month breast exams with him Code(s): Z80.3 - Family history of malignant neoplasm of breast Category: Medical Plan 62-year-old female patient with a known family history of breast and colon cancer, underwent genetic testing which revealed no clinically significant mutation identified and no variance of uncertain significance were identified. Based on her family history however every 5 year colonoscopy was recommended. Examination today revealed no suspicious findings in either breast and her most recent mammogram of 07/31/2023 revealed no significant changes from the prior study (BI-RADS 2). She did have a cutaneous yeast infection below the left breast and I have therefore prescribed nystatin cream as needed. She will follow up in 6 months for a routine breast evaluation. She should call sooner for any concerns. Medications: New nystatin 1 appl topical BID 15 grams 0RF B36.9 - Superficial mycosis, unspecified Coding Level of Care Code Est Pt Level 3 (86971) Diagnoses Fungal skin infection B36.9 Family history of breast cancer Z80.3
[2023-11-06 11:01] VITALS: BP 115/57; PULSE 80; BMI 34.1
== END 2023-11-06 11:03 | disposition home or self-care (01) ==
PROVIDERS: PCP Internal Medicine; Visit Provider Surgery
DX: B36.9 Superficial mycosis, unspecified (principal); Z80.3 Family history of malignant neoplasm of breast; Z80.0 Family history of malignant neoplasm of digestive organs
CPT/HCPCS: 99214

== ENCOUNTER → 2023-11-06 10:33 | Outpatient (BNVA) | payer MEDICAID, SELFPAY | PROVIDERS: PCP Internal Medicine; Visit Provider Surgery | DX: Z91.89 Other specified personal risk factors, not elsewhere classified (principal); B36.9 Superficial mycosis, unspecified; Z80.3 Family history of malignant neoplasm of breast; Z80.0 Family history of malignant neoplasm of digestive organs | CPT/HCPCS: 99212 ==

== ENCOUNTER 2023-11-12 09:46 | Outpatient (AMB) | payer MEDICAID, SELFPAY ==
--- NOTE | 2023-11-12 10:15 | A.OFFVIS_ITS ---
VS Expanded 11/12/23 10:16 Height 5 ft 3 in Weight 194 lb 3.636 oz BMI 34.4 Intake Visit Reasons: [id number] Allergies gentamicin [From GARAMYCIN] Allergy (Intermediate, Verified 11/06/23 10:56) RASH Penicillins [PENICILLINS] Allergy (Intermediate, Verified 11/06/23 10:56) RASH Seasonal Allergies Allergy (Intermediate, Verified 11/06/23 10:56) seasonal allergies vancomycin [VANCOMYCIN] Allergy (Intermediate, Verified 11/06/23 10:56) swelling/rash/hives Nutrition Presentation Details: Pt presents for MNT f/u for T2DM Pt reports dietary indiscretion during the last months. Wants to resume working on meal planning, low cholesterol diet physical activity: daily life BS Monitoring Most Recent Diabetes Results: Microalb/Creat Ratio 5.8 ug/mg cr (<30) 10/23/23 Cholesterol 223 mg/dL (<200) H 10/23/23 HDL Cholesterol 52 mg/dL (>40) 10/23/23 Triglycerides 138 mg/dL (<150) 10/23/23 Creatinine 0.76 mg/dL (0.5-1.4) 10/23/23 Blood Urea Nitrogen 19 mg/dL (9-16) H 10/23/23 Sodium 141 mmol/L (135-145) 10/23/23 Potassium 4.3 mmol/L (3.3-5.1) 10/23/23 Chloride 107 mmol/L (96-108) 10/23/23 Carbon Dioxide 27 mmol/L (22-29) 10/23/23 Calcium 9.7 mg/dL (8.4-10.2) 10/23/23 AST 15 U/L (5-31) 10/23/23 ALT 16 U/L (0-31) 10/23/23 Total Protein 7.0 g/dL (6.5-8.0) 10/23/23 Albumin 4.4 g/dL (3.5-5.0) 10/23/23 [facility] Medical History BMI 35.0-35.9,adult Morbid obesity PVC (premature ventricular contraction) Precordial chest pain Low back pain Neck pain Right knee pain Potential exposure to STD Yeast infection Left hand pain Numbness and tingling in both hands Vaginal burning Well woman exam with routine gynecological exam Other and unspecified hyperlipidemia Essential hypertension Heart palpitations Snoring Difficulty sleeping Cervical cancer screening Family history of breast cancer Potential exposure to STD Well woman exam with routine gynecological exam Obesity (BMI 30-39.9) Diabetes type 2, controlled Abdominal pain Pulmonary nodules HELEN (obstructive sleep apnea) Panic attack PTSD (post-traumatic stress disorder) Depression Restless leg syndrome Peripheral neuropathy Mitral valve prolapse Hypertension Potential exposure to STD Osteopenia determined by x-ray Hyperlipidemia Lower back pain Hypothalamic hypothyroidism Insomnia GERD (gastroesophageal reflux disease) Migraine headache Surgical History Asthma Hx of colonoscopy Hx of left breast biopsy History of cervical cerclage Hx of hysterectomy Hx of tubal ligation Family History Father Diabetes Paced cardiac rhythm Colon cancer Mother HTN (hypertension) High cholesterol Skin cancer Breast cancer Colon cancer Sister Obese abdomen Brother Infarction of lung due to iatrogenic pulmonary embolism Son HTN (hypertension) High cholesterol Son HTN (hypertension) High cholesterol Son No problems noted. Son No problems noted. Son No problems noted. Sister No problems noted. Sister No problems noted. 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 Used wt : 90 kg (01/2023), 84.5 kg (06/2023), 88kg (11/2023) Est kcal as per MSJ: < 1711 (40% carb, 30% fat/prot) Est fluid needs: 6818-5877 ml/d (25-30 ml/kg bw) Rec fiber: increase to 8-10 g per day and gradually increase to 25 g/d or as tolerated Rec Na: < 2000 mg /d Educate patient on: (R= Reviewed, V = verbalizes understanding N/R= Needs review N/A= not applicable) * Food sources of carbohydrates and serving adequate serving sizes : R V * Difference between complex carbohydrates and simple carbohydrates, role of fiber: R V * Differences between fats (MUFA/PUFA/saturated fats, trans fats) and food sources of various fats: R * Food sources of sodium and salt and healthy modifications for heart health and kidney health: R,V * Vitamins and minerals: R * How to interpret food labels: R * Healthy Plate method concept: R V * Physical activity: benefits and precaution: R V Patient Instructions: Resume working on following healthy plate method, choosing baked foods vs fried Consider a meal replacement once a day Keep hydrated by having water with meals, snacks Coding Level of Care Code Nutr Indiv Subseq (43487) Diagnoses Type 2 diabetes mellitus with unspecified complications E11.8 Time Spent (min) 25
[2023-11-12 10:16] VITALS: BMI 34.4
== END 2023-11-12 10:39 | disposition home or self-care (01) ==
PROVIDERS: PCP Internal Medicine; Visit Provider Dietitian, Registered
DX: E11.8 Type 2 diabetes mellitus with unspecified complications (principal)

== ENCOUNTER → 2023-11-12 09:46 | Outpatient (BNVA) | payer MEDICAID, SELFPAY | PROVIDERS: PCP Internal Medicine; Visit Provider Dietitian, Registered | DX: E11.8 Type 2 diabetes mellitus with unspecified complications (principal); E66.9 Obesity, unspecified; Z71.3 Dietary counseling and surveillance; Z68.34 Body mass index [BMI] 34.0-34.9, adult | CPT/HCPCS: 97803 ==

== ENCOUNTER 2023-11-26 14:13 | Outpatient (AMB) | payer MEDICAID, SELFPAY ==
[2023-11-26 14:18] VITALS: PULSE 68; O2SAT 96; BMI 32.6
--- NOTE | 2023-11-26 14:18 | A.OFFVIS_ITS ---
Vital Signs 11/26/23 14:18 Height 5 ft 4 in Weight 190 lb BMI 32.6 Pulse 68 Pulse Source Pulse Oximeter Pulse Oximetry (%) 96 Oxygen Delivery Method Room Air Intake Visit Reasons: helen Market Risk Analyst Required: No Allergies gentamicin [From GARAMYCIN] Allergy (Intermediate, Verified 11/26/23 14:20) RASH Penicillins [PENICILLINS] Allergy (Intermediate, Verified 11/26/23 14:20) RASH Seasonal Allergies Allergy (Intermediate, Verified 11/26/23 14:20) seasonal allergies vancomycin [VANCOMYCIN] Allergy (Intermediate, Verified 11/26/23 14:20) swelling/rash/hives HPI Comments Details: In The patient is a 62year-old woman with a known history of asthma in addition to allergic rhinitis. The patient has been having increasing shortness of breath symptoms and chest tightness. she noticed that her symptoms were worse specially when she was living in [place] in an apartment that she felt had significant allergens and does. Once she left that environment her symptoms have been improving somewhat. She continues to have chest tightness. She also has shortness of breath and cough. She tends to use her rescue inhaler but a couple times a week. She is also inhaled budesonide. The patient was started to be evaluated at the bariatric program. There she did complaint of daytime drowsiness with an elevated [place] score of 10/24. The patient underwent a home sleep study demonstrating positive sleep apnea. Patient does benefit from starting PAP therapy in view of her increased cardiovascular risk factors And her ongoing daytime drowsiness. The patient is agreeable to start CPAP therapy at this time. I will make arrangements with local [employer] company for her to do so. In the meantime will optimize her respiratory therapy switching her from budesonide to Symbicort twice a day. The patient also will undergo allergy testing. 05/02/2022 the patient is here for a pulmonary follow-up visit. The patient has been doing better from a respiratory status. Unfortunately she still has elevated dyspnea with activity. She also has an elevated [place] score because of daytime drowsiness. Her [place] score is still 10/24. She did get her CPAP machine. She has had at home now for several months and she has not started using it as of yet. She has been having difficulty sitting up. I did covid the initial set up in the machine so therefore she can start using at home once she is able to started. The patient is aware that if he does not use the machine the [employer] company will take it away. As far as her asthma symptoms she continues with respiratory therapy. She has not had to use her rescue inhaler. She has not had to use any prednisone for any flare-ups. Otherwise the patient is in good control. We did review her last CT scan of the chest back in February 2022 demonstrating stable pulmonary nodules which is reassuring. Will plan to repeat the CT scan in a year's time. 10/02/2022 the patient is here for a pulmonary follow-up visit. The patient having hard time with the CPAP. She did not tolerate the nasal pillows. The wrong comfortable for her. She had restart to the office and we did send a new prescription to the [employer] for fullface mask. However, she has not gotten 1 as of yet. Therefore she has been able to use the machine. I did have an F20 available in the office size medium and hopefully now she can start using it m ore regularly. When she starts using it the patient will be able to bring the machine and we can download the machine in order to see the efficacy of the machine. Right now he does not have any data to review. The patient also has been using her inhalers. No significant wheezing or chest tightness. She seems to be well controlled on current regimen. Regarding her CT scan the last CT scan was back in February 2022 and was recommended getting a CT scan in 18 months after so therefore will plan to follow-up sometime in the spring with a CT scan of the chest. For now although will follow-up sooner if just to make sure that she is compliant with her CPAP and she is tolerating the therapy. 03/06/2023 the patient is here for a pulmonary follow-up visit. She is doing well from an asthma standpoint. She has been using the Symbicort and also has a rescue inhaler which she has not required. She continues on the singular at nighttime that is also helping. She denies any recent exacerbations. The patient did return the CPAP as she could not tolerated. She is doing well without it. She will continue with positional therapy. If her symptoms were to worsen or she develops any increased cardiovascular risk factors then will consider repeating the sleep study at that point. We also following pulmonary nodules. Her last CT scan was back in February 2022. She is scheduled for the CT scan although she is going to go on a trip and she is going to have to postpone that to the winter time. Therefore I will change the date to May to make sure she has enough time to be able to get that done. At which point she will follow-up with me and will review the CT scan together. 05/21/2023 the patient is here for a pulmonary follow-up visit. She is got back from [place]. While she was there the patient underwent evaluation in the ER because of severe right-sided abdominal discomfort. She also had significant nausea and felt that she was having a gallbladder attack. She does have an appointment with GI coming up. The meantime she will need an abdominal ultrasound to further address the possibility of cholecystitis. If her symptoms worsen she needs to go to the ER for further evaluation. She does continue to use respiratory inhalers with good effect. As far as sleep the patient is no longer using the CPAP. She is trying positional therapy. She would like not to go back on CPAP at this time. The patient also has underlying pulmonary nodules. The last time she had a CT scan was back in 2021. She does have a scheduled CT scan coming up that I will review once available. Otherwise patient is doing well she will follow-up in 6 months. 11/26/2023 the patient is here for a pulmonary follow-up visit. Overall the patient has been doing well from a respiratory status. She is having issues with her she I system. She was scheduled to undergo a endoscopy and that was on hold because of her ongoing respiratory issues. At this point she is doing a lot better and she is able to proceed with anesthesia endoscopy at this time. In addition to that we did review her last CT scan of the chest was back in 06/27/2023 demonstrating pulmonary nodules. The patient at this point will need a repeat CT scan 06/26/2024. She does continue to use her respiratory therapy as prescribed. Seems to be affecting beneficial no additional changes at this t sarbjit. [facility] Medical History BMI 35.0-35.9,adult Morbid obesity PVC (premature ventricular contraction) Precordial chest pain Low back pain Neck pain Right knee pain Potential exposure to STD Yeast infection Left hand pain Numbness and tingling in both hands Vaginal burning Well woman exam with routine gynecological exam Other and unspecified hyperlipidemia Essential hypertension Heart palpitations Snoring Difficulty sleeping Cervical cancer screening Family history of breast cancer Potential exposure to STD Well woman exam with routine gynecological exam Obesity (BMI 30-39.9) Diabetes type 2, controlled Abdominal pain Pulmonary nodules HELEN (obstructive sleep apnea) Panic attack PTSD (post-traumatic stress disorder) Depression Restless leg syndrome Peripheral neuropathy Mitral valve prolapse Hypertension Potential exposure to STD Osteopenia determined by x-ray Hyperlipidemia Lower back pain Hypothalamic hypothyroidism Insomnia GERD (gastroesophageal reflux disease) Migraine headache Surgical History Asthma Hx of colonoscopy Hx of left breast biopsy History of cervical cerclage Hx of hysterectomy Hx of tubal ligation Family History Father Diabetes Paced cardiac rhythm Colon cancer Mother HTN (hypertension) High cholesterol Skin cancer Breast cancer Colon cancer Sister Obese abdomen Brother Infarction of lung due to iatrogenic pulmonary embolism Son HTN (hypertension) High cholesterol Son HTN (hypertension) High cholesterol Son No problems noted. Son No problems noted. Son No problems noted. Sister No problems noted. Sister No problems noted. 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 Gender identity: Female Female Reproductive History Menstrual Age of Menarche: 10 Date of menopause: 06/20/13 Review of Systems Const Reports daytime sleepiness, Reports difficulty sleeping, Denies night sweats and Reports snoring ENT Denies change in voice, Denies lip swelling, Denies mouth pain, Reports nasal congestion, Reports nasal discharge and Denies tongue swelling Card Denies chest pain Resp Reports cough, Reports snoring and Denies wheezing GI Reports abdominal pain Musc Denies no additional complaints Neuro Denies Neuro-related abnormal movements Psych Denies no additional complaints Sundar/Lymph Denies easy bleeding and Denies lymphadenopathy Aller/Immun Denies lip swelling, Denies tongue swelling and Denies wheezing Physical Exam Vital Signs: Last Vital Signs Pulse 68 11/26/23 14:18 Pulse Ox 96 11/26/23 14:18 Oxygen Delivery Method Room Air 11/26/23 14:18 BMI result Body Mass Index 32.6 Const General: alert Eyes General: appearance normal, both eyes and all related structures Neck Neck: Yes normal visual inspection, Yes full ROM and Yes no lymphadenopathy Chest Chest palpation & inspection: normal inspection of the chest Resp Effort & Inspection: normal respiratory effort Auscultation: clear to auscultation bilaterally, no rales, no rhonchi and no wheezes Cardio Rate: regular rate Rhythm: regular rhythm Heart sounds: S1 normal heart sound present and S2 normal heart sound present GI Palpation (GI): Soft to palpation and nontender Auscultation: normal bowel sounds Skin General skin exam: rashes and/or lesions noted Assessment & Plan Assessment & Plan (1) Asthma: Code(s): J45.909 - Unspecified asthma, uncomplicated Category: Surgical Qualifiers: Asthma complication type: uncomplicated Asthma persistence: persistent Asthma severity: moderate Qualified Code(s): J45.40 - Moderate persistent asthma, uncomplicated (2) HELEN (obstructive sleep apnea): Code(s): G47.33 - Obstructive sleep apnea (adult) (pediatric) Category: Medical (3) Pulmonary nodules: Code(s): R91.8 - Other nonspecific abnormal finding of lung field Category: Medical (4) Abdominal pain: Code(s): R10.9 - Unspecified abdominal pain Category: Medical Qualifiers: Abdominal location: right upper quadrant Qualified Code(s): R10.11 - Right upper quadrant pain (5) Pre-op chest exam: Code(s): Z01.811 - Encounter for preprocedural respiratory examination Category: Medical Plan proceeed with anesthesia and EGD conitnue Symbicort short-acting beta agonist as needed Continue Singulair and claritin Fluticasone continue positional sleep therapy Repeat CT chest May 2024 follow-up in 6 months Orders: Orders CT chest wo IV con 05/12/24 R91.8 - Other nonspecific abnormal finding of lung field Medications: New RSVPreF3 antigen-AS01E (PF) 120 mcg/0.5 mL (Arexvy (PF)) 0.5 mL IM ONCE 1 ea 0RF Coding Level of Care Code Est Pt Level 4 (43450) Diagnoses Moderate persistent asthma without complication J45.40 Asthma complication type: uncomplicated Asthma persistence: persistent Asthma severity: moderate HELEN (obstructive sleep apnea) G47.33 Pulmonary nodules R91.8 Right upper quadrant abdominal pain R10.11 Abdominal location: right upper quadrant Pre-op chest exam Z01.811 Time Spent (min) 16
== END 2023-11-26 14:40 | disposition home or self-care (01) ==
PROVIDERS: PCP Internal Medicine; Visit Provider Hospitalist
DX: J45.40 Moderate persistent asthma, uncomplicated (principal); G47.33 Obstructive sleep apnea (adult) (pediatric); R91.8 Other nonspecific abnormal finding of lung field; R10.11 Right upper quadrant pain; Z01.811 Encounter for preprocedural respiratory examination
CPT/HCPCS: 99214

== ENCOUNTER → 2023-11-26 14:13 | Outpatient (BNVA) | payer MEDICAID, SELFPAY | PROVIDERS: PCP Internal Medicine; Visit Provider Hospitalist | DX: Z01.811 Encounter for preprocedural respiratory examination (principal); G47.33 Obstructive sleep apnea (adult) (pediatric); J45.40 Moderate persistent asthma, uncomplicated; R91.8 Other nonspecific abnormal finding of lung field; R10.11 Right upper quadrant pain | CPT/HCPCS: 99212 ==

== ENCOUNTER 2024-01-01 13:06 | Outpatient (AMB) | payer MEDICAID, SELFPAY ==
[2024-01-01 13:44] VITALS: BP 136/70; BMI 33.3
--- NOTE | 2024-01-01 13:44 | MHC.OFFVIS ---
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 Present Information Interpreted: clinical only Trucker: Trucker Present Allergies gentamicin [From GARAMYCIN] Allergy (Intermediate, Verified 01/01/24 13:44) RASH Penicillins [PENICILLINS] Allergy (Intermediate, Verified 01/01/24 13:44) RASH Seasonal Allergies Allergy (Intermediate, Verified 01/01/24 13:44) seasonal allergies vancomycin [VANCOMYCIN] Allergy (Intermediate, Verified 01/01/24 13:44) swelling/rash/hives Medication List - Last Reconciled 01/01/24 by Alicia Jeffery CNM acetaminophen ER 650 mg PO Q8H PRN albuterol sulfate 2.5 mg (3 mL) inhalation Q6H PRN 30 days albuterol sulfate 90 mcg/actuation 2 puffs inhalation Q6H PRN 90 days bisacodyl (Dulcolax (bisacodyl)) 15 mg (3 x 5 mg) PO BEDTIME 30 days blood sugar diagnostic (FreeStyle Lite Strips) As directed budesonide-formoterol 160-4.5 mcg/actuation (Symbicort) 2 puffs inhalation BID 90 days bupropion HCl XL 150 mg PO QAM divalproex ER 250 mg PO BEDTIME estradiol 0.01%(0.1mg/gram) (Estrace) 1 g vaginal 2XW ezetimibe 10 mg PO DAILY famotidine 20 mg PO BEDTIME fluticasone propionate 50 mcg/actuation 2 sprays intranasal DAILY PRN lancets (FreeStyle Lancets) As directed levothyroxine (Synthroid) 25 mcg PO DAILY loratadine (Claritin) 10 mg PO DAILY PRN lorazepam 0.5 mg PO DAILY PRN losartan-hydrochlorothiazide 100-25 mg 1 tab PO DAILY melatonin 10 mg PO BEDTIME metformin 1,000 mg PO BID montelukast (Singulair) 10 mg PO BEDTIME 90 days nebulizers As directed nystatin 1 appl topical BID omeprazole 40 mg PO DAILY 30 days ropinirole 0.25 mg PO BEDTIME rosuvastatin 40 mg PO DAILY RSVPreF3 antigen-AS01E (PF) 120 mcg/0.5 mL (Arexvy (PF)) 0.5 mL IM ONCE sertraline 50 mg PO DAILY sucralfate (Carafate) 20 mL PO QNOON sumatriptan succinate 50 mg PO trazodone 50 mg PO DAILY Post menopausal: Yes HPI HPI 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 She has a history of having had a hysterectomy 2013 she said she had a class 2 Pap and that is why the hysterectomy was done. The last Pap we have on record is from 2020 it was negative with negative HPV. She was sexually active some years ago but her partner cheated on her she has diabetes she did have a period where she had frequent yeast infections etc. but her diabetes is under good control now and she has not tending add any recent issues. Today she desires full screening for STIs. She went to [place] and her mother who had metastatic breast cancer . She spent the last month of her life, in the hospital with her. She returned here and a friend that she has known for 3 years and she started to see each other in a different light and they are planning to get at [facility] in [place] with all the family present she is very happy she wants full screening so he can feel ease. She says she does not have records of the last abnormal Pap or hysterectomy records from [place] but she may try to get them when she goes. On the strength of this decision made to do a Pap smear vaginal cuff today to be sure we do not miss anything as well as the testing for STIs. In addition discussed the challenges resuming sexual activity post menopause and vaginal dryness and thin mucosa. Recommend water-based lubricants. Also we recommended that she do the Kegel's. FORMERLY [facility], 1928–1983 Medical History BMI 35.0-35.9,adult Morbid obesity PVC (premature ventricular contraction) Precordial chest pain Low back pain Neck pain Right knee pain Potential exposure to STD Yeast infection Left hand pain Numbness and tingling in both hands Vaginal burning Well woman exam with routine gynecological exam Other and unspecified hyperlipidemia Essential hypertension Heart palpitations Snoring Difficulty sleeping Cervical cancer screening Family history of breast cancer Potential exposure to STD Well woman exam with routine gynecological exam Obesity (BMI 30-39.9) Diabetes type 2, controlled Abdominal pain Pulmonary nodules HELEN (obstructive sleep apnea) Panic attack PTSD (post-traumatic stress disorder) Depression Restless leg syndrome Peripheral neuropathy Mitral valve prolapse Hypertension Potential exposure to STD Osteopenia determined by x-ray Hyperlipidemia Lower back pain Hypothalamic hypothyroidism Insomnia GERD (gastroesophageal reflux disease) Migraine headache Surgical History Asthma Hx of colonoscopy Hx of left breast biopsy History of cervical cerclage Hx of hysterectomy Hx of tubal ligation Family History Father Diabetes Paced cardiac rhythm Colon cancer Mother HTN (hypertension) High cholesterol Skin cancer Breast cancer Colon cancer Sister Obese abdomen Brother Infarction of lung due to iatrogenic pulmonary embolism Son HTN (hypertension) High cholesterol Son HTN (hypertension) High cholesterol Son No problems noted. Son No problems noted. Son No problems noted. Sister No problems noted. Sister No problems noted. 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 Gender identity: Female Female Reproductive History Menstrual Age of Menarche: 10 control method: permanent sterilization Date of menopause: 06/20/13 Total pregnancies: 8 Full term: 7 Date of last pap smear: 07/19/20 (negative) Date of Mammogram: 07/31/23 (negative) Physical Exam Vital Signs: Last Vital Signs BP 136/70 01/01/24 13:44 BMI result Body Mass Index 33.3 Const General: healthy appearing, comfortable, no acute distress, well developed and alert Nutritional Appearance: average body habitus Orientation/consciousness: patient oriented x3 Limitations: no limitations HEENT Head: Yes normocephalic Neck Neck: Yes normal visual inspection Chest Chest palpation & inspection: normal inspection of the chest Breast/axilla inspection: normal inspection of the breasts and normal inspection of the axillae Breast/axilla palpation: normal palpation of the breasts and normal palpation of the axillae Resp Effort & Inspection: normal respiratory effort GI Inspection: Yes normal to inspection, No Abdominal wall edema and No distended Palpation (GI): Soft to palpation and nontender General: Yes bladder normal to palpation External Female Exam: normal external appearance and normal appearance of the urethra Speculum Exam - Vagina: normal appearance of the vagina, normal palpation and normal vaginal discharge Speculum Exam - Cervix: normal appearance of the cervix, normal palpation and nontender Bimanual exam- vagina & uterus: normal bimanual exam, normal palpation, uterine size normal, bladder normal to palpation, consistency normal, normal palpation, uterine mobility normal, uterine shape normal, No Cervical tenderness present, non-tender and no cervical motion tenderness Bimanual Exam- Adnexa, other: normal adnexae, no masses, normal and No adnexal tenderness Neuro General: patient oriented x3 Results Reviewed Results Reviewed: Name: Stefany Huynh Age/Sex: 59/F Attending: Alicia Jeffery CNM : 1960 Submitted by: Alicia Jeffery CNM Copies to: NOLAN GAITAN MD MR #: [id number] Status: DEP REF Collected: 07/16/20 Location: .LAB Received: 07/19/20 Interpretation Satisfactory for evaluation. No endocervical cells seen. Negative for intraepithelial lesion or malignancy. HPV mRNA E6/E7: NOT DETECTED This assay detects E6/E7 viral messenger RNA (mRNA) from 14 high-risk HPV types (16, 18, 31, 33, 35, 39, 45, 51, 52, 56, 58, 59, 66, 68) HPV testing performed by [facility], [place], [place]. See reference laboratory portion of the EMR for entire report. Clinical Information LMP: 2013 Previous PAP test: 2013, abnormal Material Received ThinPrep Cervical Copies To NOLAN GAITAN MD [address] [facility] [address] [id number] [phone] Alicia Jeffery CNM [address] [place], [place] [address]Claudia Horton [address] [id number] Electronically Signed By: Savannah Otero 07/30/20 1800 The Pap Test is a screening procedure with the inherent possibility of both false negative and false positive results. Results should be interpreted in the context of historic and current clinical findings. Reliability of the Pap Test is enhanced by performing the test on a regular repetitive basis. Patient: Cristina Page 1 of 1 Assessment & Plan Assessment & Plan (1) Family history of breast cancer: Comment: See detailed notes from Dr. Escalona; currently getting Q 6 month breast exams with him Code(s): Z80.3 - Family history of malignant neoplasm of breast Category: Medical (2) Type 2 diabetes mellitus with unspecified complications: Code(s): E11.8 - Type 2 diabetes mellitus with unspecified complications Category: Medical (3) Well woman exam with routine gynecological exam: Code(s): Z01.419 - Encounter for gynecological examination (general) (routine) without abnormal findings Category: Medical (4) Hx of abnormal cervical Pap smear: Comment: class 2 pap 2011, cells removed, had hysterectomy 2013 2' prolapse AND abnormal cells( new history 07/29) pap 07/28= neg, neg hpv. rec repeat pap 3 yrs at age 63. ; Pap done 01/01/2024, patient will try to get her pathology and hyste[place] records from [place] when she goes again. (getting new partner [facility] of 2023) Code(s): Z87.42 - Personal history of other diseases of the female genital tract Category: Medical (5) Potential exposure to STD: Code(s): Z20.2 - Contact with and (suspected) exposure to infections with a predominantly sexual mode of transmission Category: Medical (6) Asymptomatic postsurgical menopause: Code(s): E89.40 - Asymptomatic postprocedural ovarian failure Category: Medical (7) Perimenopause: Comment: Discussed the potential challenges in thinning vaginal mucosa in water-based lubricants for when she resumes been sexually active.... 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 She has a history of having had a hysterectomy 2013 she said she had a class 2 Pap and that is why the hysterectomy was done. The last Pap we have on record is from 2020 it was negative with negative HPV. She was sexually active some years ago but her partner cheated on her she has diabetes she did have a period where she had frequent yeast infections etc. but her diabetes is under good control now and she has not tending add any recent issues. Today she desires full screening for STIs. She went to [place] and her mother who had metastatic breast cancer . She spent the last month of her life, in the hospital with her. She returned here and a friend that she has known for 3 years and she started to see each other in a different light and they are planning to get at [facility] in [place] with all the family present she is very happy she wants full screening so he can feel ease. She says she does not have records of the last abnormal Pap or hysterectomy records from [place] but she may try to get them when she goes. On the strength of this decision made to do a Pap smear vaginal cuff today to be sure we do not miss anything as well as the testing for STIs. In addition discussed the challenges resuming sexual activity post menopause and vaginal dryness and thin mucosa. Recommend water-based lubricants. Also we recommended that she do the Kegel's. She gets followed by Dr. Escalona for her strong family history of breast cancer and she says she is up-to-date and she says her diabetes under good control. Orders: Orders Hepatitis C Antibody Today E11.8 - Type 2 diabetes mellitus with unspecified complications, E89.40 - Asymptomatic postprocedural ovarian failure, Z01.419 - Encounter for gynecological examination (general) (routine) without abnormal findings, Z20.2 - Contact with and (suspected) exposure to infections with a predominantly sexual mode of transmission, Z80.3 - Family history of malignant neoplasm of breast, Z87.42 - Personal history of other diseases of the female genital tract Hepatitis B Surface Antigen Today E11.8 - Type 2 diabetes mellitus with unspecified complications, E89.40 - Asymptomatic postprocedural ovarian failure, Z01.419 - Encounter for gynecological examination (general) (routine) without abnormal findings, Z20.2 - Contact with and (suspected) exposure to infections with a predominantly sexual mode of transmission, Z80.3 - Family history of malignant neoplasm of breast, Z87.42 - Personal history of other diseases of the female genital tract HIV Ab/Ag Today E11.8 - Type 2 diabetes mellitus with unspecified complications, E89.40 - Asymptomatic postprocedural ovarian failure, Z01.419 - Encounter for gynecological examination (general) (routine) without abnormal findings, Z20.2 - Contact with and (suspected) exposure to infections with a predominantly sexual mode of transmission, Z80.3 - Family history of malignant neoplasm of breast, Z87.42 - Personal history of other diseases of the female genital tract Syphilis Screen Today E11.8 - Type 2 diabetes mellitus with unspecified complications, E89.40 - Asymptomatic postprocedural ovarian failure, Z01.419 - Encounter for gynecological examination (general) (routine) without abnormal findings, Z20.2 - Contact with and (suspected) exposure to infections with a predominantly sexual mode of transmission, Z80.3 - Family history of malignant neoplasm of breast, Z87.42 - Personal history of other diseases of the female genital tract Coding Level of Care Code Est Pt Prev Care 40-64y(21861) Diagnoses Family history of breast cancer Z80.3 Type 2 diabetes mellitus with unspecified complications E11.8 Well woman exam with routine gynecological exam Z01.419 Hx of abnormal cervical Pap smear Z87.42 Potential exposure to STD Z20.2 Asymptomatic postsurgical menopause E89.40 Perimenopause N95.1
== END 2024-01-01 15:30 | disposition home or self-care (01) ==
PROVIDERS: PCP Internal Medicine; Visit Provider Advanced Practice Midwife
DX: Z80.3 Family history of malignant neoplasm of breast (principal); E11.8 Type 2 diabetes mellitus with unspecified complications; Z01.419 Encounter for gynecological examination (general) (routine) without abnormal findings; Z87.42 Personal history of other diseases of the female genital tract; Z20.2 Contact with and (suspected) exposure to infections with a predominantly sexual mode of transmission; E89.40 Asymptomatic postprocedural ovarian failure; N95.1 Menopausal and female climacteric states
CPT/HCPCS: 99396

== ENCOUNTER 2024-01-01 13:06 | Outpatient (REF) | payer MEDICAID, SELFPAY ==
[2024-01-02 11:54] LABS: CT PCR NOT DETECTED (Not Detect.); NG PCR NOT DETECTED (Not Detect.)
[2024-01-02 13:30] LABS: Bacterial Vaginosis PCR NEGATIVE (Negative); Candida Group PCR NOT DETECTED (Not Detect); Candida glab krusei PCR NOT DETECTED (Not Detect); Trichomonas vaginalis PCR NOT DETECTED (Not Detect)
[2024-01-04 07:37] LABS: HPV mRNA E6/E7 Not Detected (Not Detected)
== END 2024-01-01 13:07 | disposition home or self-care (01) ==
LOC: HO.LAB 13:06
PROVIDERS: PCP Internal Medicine; Visit Provider Advanced Practice Midwife
DX: Z01.419 Encounter for gynecological examination (general) (routine) without abnormal findings (principal); N89.8 Other specified noninflammatory disorders of vagina; Z80.3 Family history of malignant neoplasm of breast; E11.8 Type 2 diabetes mellitus with unspecified complications; E89.40 Asymptomatic postprocedural ovarian failure; Z20.2 Contact with and (suspected) exposure to infections with a predominantly sexual mode of transmission
CPT/HCPCS: 0352U; 36415; 87491; 87591; 87624; 88175; 99396

== ENCOUNTER 2024-01-24 07:37 | Outpatient (REF) | payer MEDICAID, SELFPAY ==
[2024-01-24 08:10] LABS: Estimated Average Glucose 137 mg/dL; Hemoglobin A1c % 6.4 % (<6.0); Total Hemoglobin (HGBA1C) 3495.0687 umol/L
[2024-01-24 08:50] LABS: Alanine Aminotransferase 25 U/L (0-31); Albumin Level 4.4 g/dL (3.5-5.0); Alkaline Phosphatase 78 U/L (39-117); Anion Gap 13 (12-20); Aspartate Amino Transferase 21 U/L (5-31); Bilirubin Total 0.8 mg/dL (0.0-1.0); Blood Urea Nitrogen 18 mg/dL (9-16); Calcium 10.6 mg/dL (8.4-10.2); Carbon Dioxide 29 mmol/L (22-29); Chloride 107 mmol/L (96-108); Cholesterol 139 mg/dL (<200); Estimated Glomerular Filt Rate > 60; Glucose Random 126 mg/dL (60-115); HDL Cholesterol 45 mg/dL (>40); LDL Cholesterol Calculated 66 mg/dL (<100); Potassium 4.5 mmol/L (3.3-5.1); Sodium 144 mmol/L (135-145); Total Protein 7.2 g/dL (6.5-8.0); Triglycerides 143 mg/dL (<150)
[2024-01-24 09:09] LABS: Thyroid Stimulating Hormone 2.07 uIU/mL (0.32-4.0)
== END 2024-01-24 07:38 | disposition home or self-care (01) ==
LOC: HO.LAB 07:37
PROVIDERS: Absent Provider Internal Medicine; PCP Internal Medicine; Visit Provider Advanced Practice Midwife
DX: Z00.00 Encounter for general adult medical examination without abnormal findings (principal); E03.8 Other specified hypothyroidism; E11.9 Type 2 diabetes mellitus without complications; E78.00 Pure hypercholesterolemia, unspecified; F32.5 Major depressive disorder, single episode, in full remission; Z90.710 Acquired absence of both cervix and uterus
CPT/HCPCS: 36415; 80053; 80061; 83036; 84443

== ENCOUNTER 2024-02-05 08:51 | Outpatient (AMB) | payer MEDICAID, SELFPAY ==
--- NOTE | 2024-02-05 09:07 | A.OFFVIS_ITS ---
VS Expanded 02/05/24 09:09 Height 5 ft 4 in Weight 194 lb 7.163 oz BMI 33.4 Intake Visit Reasons: T2DM/Unable to reach Allergies gentamicin [From GARAMYCIN] Allergy (Intermediate, Verified 01/01/24 13:44) RASH Penicillins [PENICILLINS] Allergy (Intermediate, Verified 01/01/24 13:44) RASH Seasonal Allergies Allergy (Intermediate, Verified 01/01/24 13:44) seasonal allergies vancomycin [VANCOMYCIN] Allergy (Intermediate, Verified 01/01/24 13:44) swelling/rash/hives Nutrition Presentation Details: Pt presents for MNT f/u for T2DM Pt reports doing well, eating 2-3 meals per day , using meal replacements 0-2 x/day instead of skipping meals and to include protein in the diet Has questions regarding calcium in the diet physical activity: daily 15-30 minutes/day Participates in in the day program - [employer] 3 times a week Fluid intake 48 oz/day vegetables : 1-2 serving/day fruits 0- /1/day dairy: meal replacements, cheese 2-3 x/day, yogurt /milk in cereals (4-5 serving/day) BS Monitoring Most Recent Diabetes Results: Cholesterol 139 mg/dL (<200) 01/24/24 HDL Cholesterol 45 mg/dL (>40) 01/24/24 Triglycerides 143 mg/dL (<150) 01/24/24 Creatinine 0.79 mg/dL (0.5-1.4) 01/24/24 Blood Urea Nitrogen 18 mg/dL (9-16) H 01/24/24 Sodium 144 mmol/L (135-145) 01/24/24 Potassium 4.5 mmol/L (3.3-5.1) 01/24/24 Chloride 107 mmol/L (96-108) 01/24/24 Carbon Dioxide 29 mmol/L (22-29) 01/24/24 Calcium 10.6 mg/dL (8.4-10.2) H 01/24/24 AST 21 U/L (5-31) 01/24/24 ALT 25 U/L (0-31) 01/24/24 Total Protein 7.2 g/dL (6.5-8.0) 01/24/24 Albumin 4.4 g/dL (3.5-5.0) 01/24/24 ON LICENSE OF [facility] Medical History (Updated 01/11/24 @ 12:03 by Alicia Jeffery CNM) Potential exposure to STD Well woman exam with routine gynecological exam Family history of breast cancer BMI 35.0-35.9,adult Morbid obesity PVC (premature ventricular contraction) Precordial chest pain Low back pain Neck pain Right knee pain Yeast infection Left hand pain Numbness and tingling in both hands Vaginal burning Other and unspecified hyperlipidemia Essential hypertension Heart palpitations Snoring Difficulty sleeping Cervical cancer screening Potential exposure to STD Well woman exam with routine gynecological exam Obesity (BMI 30-39.9) Diabetes type 2, controlled Abdominal pain Pulmonary nodules HELEN (obstructive sleep apnea) Panic attack PTSD (post-traumatic stress disorder) Depression Restless leg syndrome Peripheral neuropathy Mitral valve prolapse Hypertension Potential exposure to STD Osteopenia determined by x-ray Hyperlipidemia Lower back pain Hypothalamic hypothyroidism Insomnia GERD (gastroesophageal reflux disease) Migraine headache Surgical History Asthma Hx of colonoscopy Hx of left breast biopsy History of cervical cerclage Hx of hysterectomy Hx of tubal ligation Family History Father Diabetes Paced cardiac rhythm Colon cancer Mother HTN (hypertension) High cholesterol Skin cancer Breast cancer Colon cancer Sister Obese abdomen Brother Infarction of lung due to iatrogenic pulmonary embolism Son HTN (hypertension) High cholesterol Son HTN (hypertension) High cholesterol Son No problems noted. Son No problems noted. Son No problems noted. Sister No problems noted. Sister No problems noted. 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 Used wt : 90 kg (01/2023), 84.5 kg (06/2023), 88kg (11/2023), 01/30 Est kcal as per MSJ: < 1711 (40% carb, 30% fat/prot) Est fluid needs: 3988-6462 ml/d (25-30 ml/kg bw) Rec fiber: increase to 8-10 g per day and gradually increase to 25 g/d or as tolerated Rec Na: < 2000 mg /d Educate patient on: (R= Reviewed, V = verbalizes understanding N/R= Needs review N/A= not applicable) * Food sources of carbohydrates and serving adequate serving sizes : R V * Difference between complex carbohydrates and simple carbohydrates, role of fiber: R V * Differences between fats (MUFA/PUFA/saturated fats, trans fats) and food sources of various fats: R * Food sources of sodium and salt and healthy modifications for heart health and kidney health: R,V * Vitamins and minerals: R, discussed calcium intake via foods 1200 mg/day * How to interpret food labels: R * Healthy Plate method concept: R V * Physical activity: benefits and precaution: R V Patient Instructions: Recommended daily calcium intake via foods is 1200 mg/d keep hydrated by having water, diluted juices, fruits , vegetables continue monitoring blood glucose as prescribed by your doctor, goal fasting blood sugar 80-130 and 2 hours after a meal 80-140 for tight glucose control Coding Level of Care Code Nutr Indiv Subseq ([id number]) Diagnoses Type 2 diabetes mellitus with unspecified complications E11.8 Time Spent (min) 30
[2024-02-05 09:09] VITALS: BMI 33.4
== END 2024-02-05 09:21 | disposition home or self-care (01) ==
LOC: HO.ENCR 08:51
PROVIDERS: PCP Internal Medicine; Visit Provider Dietitian, Registered
DX: E11.8 Type 2 diabetes mellitus with unspecified complications (principal)

== ENCOUNTER → 2024-02-05 08:51 | Outpatient (BNVA) | payer MEDICAID, SELFPAY | PROVIDERS: PCP Internal Medicine; Visit Provider Dietitian, Registered | DX: E11.8 Type 2 diabetes mellitus with unspecified complications (principal) | CPT/HCPCS: 97803 ==

== ENCOUNTER 2024-03-10 11:38 | Outpatient (REF) | payer MEDICAID, SELFPAY ==
[2024-03-11 03:59] LABS: Syphilis Screen Nonreactive (Nonreactive)
[2024-03-11 04:11] LABS: HBsAGNum1 0.42 S/CO (0.00-0.99); HIV AB/AG Nonreactive (Nonreactive); HIV Num 1 0.06 S/CO (0.00-0.99); Hepatitis B Surface Antigen Negative (Negative); ~HepC Num1 0.08 S/CO (0.00-0.79); ~Hepatitis C Antibody Nonreactive (Nonreactive)
== END 2024-03-10 11:39 | disposition home or self-care (01) ==
LOC: HO.HHCL 11:38
PROVIDERS: Visit Provider Advanced Practice Midwife
DX: Z01.419 Encounter for gynecological examination (general) (routine) without abnormal findings (principal); Z11.4 Encounter for screening for human immunodeficiency virus [HIV]; E11.8 Type 2 diabetes mellitus with unspecified complications; Z20.2 Contact with and (suspected) exposure to infections with a predominantly sexual mode of transmission; E89.40 Asymptomatic postprocedural ovarian failure; Z87.42 Personal history of other diseases of the female genital tract; Z80.3 Family history of malignant neoplasm of breast
CPT/HCPCS: 36415; 86780; 86803; 87340; 87389

== ENCOUNTER 2024-03-20 09:46 | Day surgery (SDC) | payer MEDICAID, SELFPAY ==
[2023-10-30 12:48] VITALS: BMI 33.3
[2024-03-20 10:11] VITALS: BP 142/84; PULSE 87; RESP 16; TEMP 36.1; O2SAT 95; BMI 34.2
--- NOTE | 2024-03-20 10:17 | P.HPSUR_ITS ---
Pre-Procedural Eval Section A - 24 Hr Update-Section A only Date of Service: 03/20/24 Section B - Complete if H&P > 30 days Chief Complaint: Right upper quadrant pain Relevant Family History (Specify if Yes): No Relevant Social History: None Present Medications: see Short Stay Collaborative assessment Medical History: Significant History (Asthma Abdominal pain Yeast infection Left hand pain Numbness and tingling in both hands Vaginal burning Potential exposure to STD Well woman exam with routine gynecological exam Pulmonary nodules Right knee pain Other and unspecified hyperlipidemia Essential hypertension Morbid obesity HELEN (obstruc) History of Previous Operations: Relevant previous surgery/procedure and date(s) (H/O eye surgery Hx of endoscopy Hx of colonoscopy Hx of left breast biopsy History of cervical cerclage Hx of hysterectomy Hx of tubal ligation) Allergies: Allergies Allergy/AdvReac Type Severity Reaction Status Date / Time gentamicin [From GARAMYCIN] Allergy Intermediate RASH Verified 03/20/24 10:03 Penicillins [PENICILLINS] Allergy Intermediate RASH Verified 03/20/24 10:03 Seasonal Allergies Allergy Intermediate seasonal Verified 03/20/24 10:03 allergies vancomycin [VANCOMYCIN] Allergy Intermediate swelling/ra Verified 03/20/24 10:03 sh/hives Review of Systems Sugical H&P ROS: Negative: Constitution, Cardiovascular, Respiratory, Neurological, Psychiatric, Hem-Onc, Allergic/Immunologic, Gastrointestinal, G enitourinary, Musculoskeletal, Integumentary, Endocrine and Eyes/Ears/Nose/Throat Exam Surgical H&P Exam: Normal: HEENT, Normal: Heart, Normal: Lungs, Normal: Extremities, Normal: Abdomen, Normal: Skin and Normal: Neurological Plan Diagnosis/Plan: Unchanged I have reviewed the history and physical and performed a pertinent physical examination on my patient. No changes have occurred unless specified. also has dysphagia Time Spent With Patient Time: Total time managing care of this patient today ____ minutes.
[2024-03-20 10:22] LABS: Glucose, Whole Blood 116 mg/dL (60-115)
[2024-03-20] MEDS: Lactated Ringers 1,000 ML 100 ML IVCONT (10:31)
--- NOTE | 2024-03-20 10:33 | P.CONAN_ITS ---
Documented by User: Yvette Dinero NP 03/19/24 09:30 HPI - Anesthesia Eval Consult details Narrative: 63yo F for Upper Endoscopy with Dilitation PMFSH Active Problems Active Problems: All Active Problems Perimenopause (Acute) Family history of breast cancer (Acute) Asymptomatic postsurgical menopause (Acute) Well woman exam with routine gynecological exam (Acute) Potential exposure to STD (Acute) Pre-op chest exam (Acute) Fungal skin infection (Acute) JONHY (stress urinary incontinence, female) (Acute) Obesity (BMI 30.0-34.9) (Acute) Vaginal atrophy (Acute) Gallstones (Acute) Dysuria (Acute) Abdominal pain (Acute) Pelvic floor weakness (Acute) Carpal tunnel syndrome of right wrist (Acute) Carpal tunnel syndrome of left wrist (Acute) De Quervain's tenosynovitis, left (Acute) Hx of abnormal cervical Pap smear (Acute) Pulmonary nodules (Acute) High cholesterol (Acute) Type 2 diabetes mellitus with unspecified complications (Acute) Atrial tachycardia (Acute) PAC (premature atrial contraction) (Acute) Oropharyngeal dysphagia (Acute) GERD (gastroesophageal reflux disease) (Acute) Chronic idiopathic constipation (Acute) Urinary incontinence (Acute) HELEN (obstructive sleep apnea) (Acute) Asthma (Acute) Hypertension (Acute) Panic attack (Acute) PTSD (post-traumatic stress disorder) (Acute) Past Medical History Medical History (Updated 03/20/24 @ 09:57 by Madie Dong RN) Asthma Abdominal pain Yeast infection Left hand pain Numbness and tingling in both hands Vaginal burning Potential exposure to STD Well woman exam with routine gynecological exam Pulmonary nodules Right knee pain Other and unspecified hyperlipidemia Essential hypertension Morbid obesity HELEN (obstructive sleep apnea) Precordial chest pain Heart palpitations Snoring Difficulty sleeping Panic attack PTSD (post-traumatic stress disorder) Cervical cancer screening Family history of breast cancer Potential exposure to STD Well woman exam with routine gynecological exam Low back pain Neck pain Depression Restless leg syndrome Peripheral neuropathy BMI 35.0-35.9,adult PVC (premature ventricular contraction) Mitral valve prolapse Hypertension Obesity (BMI 30-39.9) Potential exposure to STD Diabetes type 2, controlled Osteopenia determined by x-ray Hyperlipidemia Lower back pain Hypothalamic hypothyroidism Insomnia GERD (gastroesophageal reflux disease) Migraine headache Family History Family History Father Diabetes Paced cardiac rhythm Colon cancer Mother HTN (hypertension) High cholesterol Skin cancer Breast cancer Colon cancer Sister Obese abdomen Brother Infarction of lung due to iatrogenic pulmonary embolism Son HTN (hypertension) High cholesterol Son HTN (hypertension) High cholesterol Son No problems noted. Son No problems noted. Son No problems noted. Sister No problems noted. Sister No problems noted. Family history of problems with anesthesia: No Surgical History Surgical History (Updated 03/20/24 @ 10:21 by Madie Dong RN) H/O eye surgery Hx of endoscopy Hx of colonoscopy Hx of left breast biopsy History of cervical cerclage Hx of hysterectomy Hx of tubal ligation History of Problems with Anesthesia: Yes Social History Social History Are you a primary medicare sales executive to a significant other at home: No Do you presently have visiting nurse or other home services: No Alcohol intake: never Patient Tobacco Use Status: Never used Tobacco Use of substances other than those prescribed or required for medical reasons: No Have you been hit, kicked, punched, or otherwise hurt by someone within the past year? 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 Gender identity: Female Meds Allergies Allergy/AdvReac Type Severity Reaction Status Date / Time gentamicin [From GARAMYCIN] Allergy Intermediate RASH Verified 03/20/24 10:03 Penicillins [PENICILLINS] Allergy Intermediate RASH Verified 03/20/24 10:03 Seasonal Allergies Allergy Intermediate seasonal Verified 03/20/24 10:03 allergies vancomycin [VANCOMYCIN] Allergy Intermediate swelling/ra Verified 03/20/24 10:03 sh/hives Home Medications ?Medication ?Instructions ?Recorded ?Confirmed ?Last Taken ?Type levothyroxine 25 mcg tablet 25 mcg PO DAILY 01/05/20 03/20/24 03/20/24 History (Synthroid) bupropion HCl 150 mg 24 hr tablet, 150 mg PO QAM 04/22/20 03/20/24 Unknown History extended release losartan 100 1 tab PO DAILY 01/27/21 03/20/24 01/19/24 History mg-hydrochlorothiazide 25 mg tablet blood sugar diagnostic (FreeStyle #10 ea 05/03/22 01/01/24 Unknown History Lite Strips) lancets 28 gauge (FreeStyle #100 ea 05/03/22 01/01/24 Unknown History Lancets) lorazepam 0.5 mg tablet 0.5 mg PO DAILY PRN anxiety 05/03/22 03/20/24 03/20/24 History melatonin 5 mg disintegrating 10 mg PO BEDTIME 05/03/22 03/20/24 Unknown History tablet rosuvastatin 40 mg tablet 40 mg PO DAILY 05/03/22 03/20/24 Unknown History trazodone 50 mg tablet 50 mg PO DAILY 05/03/22 03/20/24 Unknown History ezetimibe 10 mg tablet 10 mg PO DAILY 05/25/23 03/20/24 Unknown History metformin 1,000 mg tablet 1,000 mg PO BID 05/25/23 03/20/24 03/19/24 History divalproex 250 mg tablet,extended 250 mg PO BEDTIME 06/15/23 03/20/24 Unknown History release 24 hr fluticasone propionate 50 2 spray intranasal DAILY PRN 06/15/23 03/20/24 Unknown History mcg/actuation nasal allergies spray,suspension loratadine 10 mg tablet (Claritin) 10 mg PO DAILY PRN allergies 06/15/23 03/20/24 Unknown History ropinirole 0.25 mg tablet 0.25 mg PO BEDTIME 06/15/23 03/20/24 Unknown History sertraline 50 mg tablet 50 mg PO DAILY 06/15/23 03/20/24 Unknown History sumatriptan succinate 50 mg tablet 50 mg PO DAILY 06/15/23 03/20/24 Unknown History nebulizers 11/26/23 01/01/24 Unknown History Exam Height,Weight and Vital Signs: Height 5 ft 3 in Weight 85.275 kg Assessment and Plan Assessment Anesthesia Assessment: Chart Reviewed Final Anesthetic Review Family History of Problems with Anesthesia: No History of Problems with Anesthesia: Yes Documented by User: Rachel Diggs DO 03/20/24 10:33 [facility] Past Medical History Medical History (Updated 03/20/24 @ 09:57 by Madie Dong, RN) Asthma Abdominal pain Yeast infection Left hand pain Numbness and tingling in both hands Vaginal burning Potential exposure to STD Well woman exam with routine gynecological exam Pulmonary nodules Right knee pain Other and unspecified hyperlipidemia Essential hypertension Morbid obesity HELEN (obstructive sleep apnea) Precordial chest pain Heart palpitations Snoring Difficulty sleeping Panic attack PTSD (post-traumatic stress disorder) Cervical cancer screening Family history of breast cancer Potential exposure to STD Well woman exam with routine gynecological exam Low back pain Neck pain Depression Restless leg syndrome Peripheral neuropathy BMI 35.0-35.9,adult PVC (premature ventricular contraction) Mitral valve prolapse Hypertension Obesity (BMI 30-39.9) Potential exposure to STD Diabetes type 2, controlled Osteopenia determined by x-ray Hyperlipidemia Lower back pain Hypothalamic hypothyroidism Insomnia GERD (gastroesophageal reflux disease) Migraine headache Family History Family History Father Diabetes Paced cardiac rhythm Colon cancer Mother HTN (hypertension) High cholesterol Skin cancer Breast cancer Colon cancer Sister Obese abdomen Brother Infarction of lung due to iatrogenic pulmonary embolism Son HTN (hypertension) High cholesterol Son HTN (hypertension) High cholesterol Son No problems noted. Son No problems noted. Son No problems noted. Sister No problems noted. Sister No problems noted. Family history of problems with anesthesia: No Surgical History Surgical History (Updated 03/20/24 @ 10:21 by Madie Dong, RN) H/O eye surgery Hx of endoscopy Hx of colonoscopy Hx of left breast biopsy History of cervical cerclage Hx of hysterectomy Hx of tubal ligation History of Problems with Anesthesia: Yes (takes days to wake up from [place] (about 40 years ago)) Social History Social History Are you a primary medicare sales executive to a significant other at home: No Do you presently have visiting nurse or other home services: No Alcohol intake: never Patient Tobacco Use Status: Never used Tobacco Use of substances other than those prescribed or required for medical reasons: No Have you been hit, kicked, punched, or otherwise hurt by someone within the past year? 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 Gender identity: Female Meds Allergies Allergy/AdvReac Type Severity Reaction Status Date / Time gentamicin [From GARAMYCIN] Allergy Intermediate RASH Verified 03/20/24 10:03 Penicillins [PENICILLINS] Allergy Intermediate RASH Verified 03/20/24 10:03 Seasonal Allergies Allergy Intermediate seasonal Verified 03/20/24 10:03 allergies vancomycin [VANCOMYCIN] Allergy Intermediate swelling/ra Verified 03/20/24 10:03 sh/hives Home Medications ?Medication ?Instructions ?Recorded ?Confirmed ?Last Taken ?Type levothyroxine 25 mcg tablet 25 mcg PO DAILY 01/05/20 03/20/24 03/20/24 History (Synthroid) bupropion HCl 150 mg 24 hr tablet, 150 mg PO QAM 04/22/20 03/20/24 Unknown History extended release losartan 100 1 tab PO DAILY 01/27/21 03/20/24 01/19/24 History mg-hydrochlorothiazide 25 mg tablet blood sugar diagnostic (FreeStyle #10 ea 05/03/22 01/01/24 Unknown History Lite Strips) lancets 28 gauge (FreeStyle #100 ea 05/03/22 01/01/24 Unknown History Lancets) lorazepam 0.5 mg tablet 0.5 mg PO DAILY PRN anxiety 05/03/22 03/20/24 03/20/24 History melatonin 5 mg disintegrating 10 mg PO BEDTIME 05/03/22 03/20/24 Unknown History tablet rosuvastatin 40 mg tablet 40 mg PO DAILY 05/03/22 03/20/24 Unknown History trazodone 50 mg tablet 50 mg PO DAILY 05/03/22 03/20/24 Unknown History ezetimibe 10 mg tablet 10 mg PO DAILY 05/25/23 03/20/24 Unknown History metformin 1,000 mg tablet 1,000 mg PO BID 05/25/23 03/20/24 03/19/24 History divalproex 250 mg tablet,extended 250 mg PO BEDTIME 06/15/23 03/20/24 Unknown History release 24 hr fluticasone propionate 50 2 spray intranasal DAILY PRN 06/15/23 03/20/24 Unknown History mcg/actuation nasal allergies spray,suspension loratadine 10 mg tablet (Claritin) 10 mg PO DAILY PRN allergies 06/15/23 03/20/24 Unknown History ropinirole 0.25 mg tablet 0.25 mg PO BEDTIME 06/15/23 03/20/24 Unknown History sertraline 50 mg tablet 50 mg PO DAILY 06/15/23 03/20/24 Unknown History sumatriptan succinate 50 mg tablet 50 mg PO DAILY 06/15/23 03/20/24 Unknown History nebulizers 11/26/23 01/01/24 Unknown History Exam Exam Date and Time: 03/20/24 1025 Height,Weight and Vital Signs: Height 5 ft 3 in Weight 85.275 kg Vital Signs Temperature 97.0 F 03/20/24 10:11 Pulse Rate 87 03/20/24 10:11 Respiratory Rate 16 03/20/24 10:11 Blood Pressure 142/84 H 03/20/24 10:11 Pulse Oximetry 95 03/20/24 10:11 Oxygen Delivery Method Room Air 03/20/24 10:11 Temperature 97.0 F 03/20/24 10:11 Pulse Rate 87 03/20/24 10:11 Respiratory Rate 16 03/20/24 10:11 Blood Pressure 142/84 H 03/20/24 10:11 Pulse Oximetry 95 03/20/24 10:11 Oxygen Delivery Method Room Air 03/20/24 10:11 Airway Mallampati Class: II TM Dist: >3cm Neck ROM: Full Loose/Missing/Broken Teeth: No (patient denies any loose or broken teeth) Heart: S1S2 Lungs: CTAB Assessment and Plan Assessment Anesthesia Assessment: Anesthesia Plan Discussed and Chart Reviewed Final Anesthetic Review Family History of Problems with Anesthesia: No History of Problems with Anesthesia: Yes (takes days to wake up from GA (about 40 years ago)) NPO: Yes ASA Class: III Final Preanesthetic Review: No Changes in Pt Med Stat, Meds/Allgs Chart Reviewed, Consent Obtained/Reviewed and Anes Risks/Benef Reviewed Patient Risk: Intermediate Procedure Risk: Low Anesthetic Plan Anesthetic Plan: MAC: and Agree w/ Assess. and Plan Disposition: Standard PACU
--- NOTE | 2024-03-20 11:16 | W.PM.OPN ---
Operative Note Operative Note Date of Service: 03/20/24 Narrative: Procedure Description: EGD Indication: dysphagia, and abdo pain Anesthesia: MAC FLEXIBLE TRANSORAL UPPER GASTROINTESTINAL ENDOSCOPY UPPER ENDOSCOPY Consent: Indications for the procedure and potential complications of bleeding, perforation, reaction to medications and missed diagnosis were discussed with the patient and informed consent was obtained. Instrument: Olympus GIF H 190 J mid size upper endoscope Monitoring: Vital signs and clinical assessment, continuous EKG monitoring, Pulse oximetry, Carbon Dioxide monitoring and blood pressure monitoring were done throughout the procedure. Procedure: The patient was placed in the left lateral decubitis position and pre-procedure medications were administered and a bite block was placed. The endoscope was inserted into the mouth and advanced under direct vision to the third part of duodenum. A careful inspection was made as the upper endoscope was withdrawn including a retroflexed examination of the proximal stomach; Findings and interventions are described below. Findings: Larynx:normal Esophagus: GE junction at 36 cm, diaphragm hiatus at 38 cm, consistent with 2 cm hiatal hernia, schatzki ring noted. Balloon dialtion to 20 mm at UES, mid esophagus and LES, superficial tear noted at UES. Bx also taken from GEJ, distal and proximal areas. LES slightly patulous Stomach: mild erythema . Biopsies were obtained. Grade 2 flap valve on retroflexed examination of the cardia. Pylorus was tight and stretched with baloon to 20 mm with heme noted Duodenum: Normal bulb and descending duodenum, bx taken Intervention: Biopsies as noted above, balloon dilation Impression/Findings: gastritis schatzki ring hiatal hernia tight pylorus patulous GEJ PLAN: await Bx result, cont with PPI GERD precautions
[2024-03-20 11:23] VITALS: BP 103/65; PULSE 83; RESP 16; TEMP 36.3; O2SAT 95
[2024-03-20 11:43] VITALS: BP 131/95; PULSE 87; RESP 18; TEMP 36.1; O2SAT 98
== END 2024-03-20 12:21 | disposition home or self-care (01) ==
PROVIDERS: PCP Internal Medicine; Visit Provider Internal Medicine Gastroenterology
PROC: (CPT 43245; principal; 2024-03-20 10:10)
DX: R10.13 Epigastric pain (principal); R13.10 Dysphagia, unspecified; K21.9 Gastro-esophageal reflux disease without esophagitis; K22.2 Esophageal obstruction; K31.1 Adult hypertrophic pyloric stenosis; K22.4 Dyskinesia of esophagus; K29.50 Unspecified chronic gastritis without bleeding; K44.9 Diaphragmatic hernia without obstruction or gangrene; K80.20 Calculus of gallbladder without cholecystitis without obstruction; I10 Essential (primary) hypertension; E78.5 Hyperlipidemia, unspecified; E11.9 Type 2 diabetes mellitus without complications; R91.8 Other nonspecific abnormal finding of lung field; J45.909 Unspecified asthma, uncomplicated; K59.04 Chronic idiopathic constipation; E66.9 Obesity, unspecified; Z68.33 Body mass index [BMI] 33.0-33.9, adult; G47.33 Obstructive sleep apnea (adult) (pediatric); Z79.899 Other long term (current) drug therapy; Z88.0 Allergy status to penicillin; Z88.1 Allergy status to other antibiotic agents; Z88.8 Allergy status to other drugs, medicaments and biological substances
CPT/HCPCS: 43245; 43249; 43239; 82947; 88305; 88313; 88342; C1726; J1100; J1596; J2003; J2704

== ENCOUNTER → 2024-03-20 09:46 | Outpatient (BNV) | payer MEDICAID, SELFPAY | PROVIDERS: PCP Internal Medicine; Visit Provider Internal Medicine Gastroenterology | DX: K22.2 Esophageal obstruction (principal); K29.70 Gastritis, unspecified, without bleeding; K31.1 Adult hypertrophic pyloric stenosis; K22.89 Other specified disease of esophagus | CPT/HCPCS: 43239; 43245; 43249 ==

== ENCOUNTER 2024-05-06 11:20 | Outpatient (REF) | payer MEDICAID, SELFPAY | END 2024-05-06 11:21 | disposition home or self-care (01) | LOC: HO.LAB 11:20 | PROVIDERS: PCP Internal Medicine; Visit Provider Nurse Practitioner | DX: R10.11 Right upper quadrant pain (principal); K21.9 Gastro-esophageal reflux disease without esophagitis | CPT/HCPCS: 99211 ==

== ENCOUNTER 2024-05-12 07:52 | Outpatient (AMB) | payer MEDICAID, SELFPAY ==
[2024-05-12 07:53] VITALS: BP 122/76; PULSE 94; BMI 34.2
--- NOTE | 2024-05-12 07:53 | A.OFFVIS_ITS ---
Vital Signs 05/12/24 07:53 Height 5 ft 4 in Weight 199 lb 4.766 oz BMI 34.2 BP 122/76 Blood Pressure Location Lt brachial Position Sitting Pulse 94 Pulse Source Pulse Oximeter Intake Visit Reasons: Hyperparathyroidism Intake Note: New patient present today for Hyperparathyroidism office visit. 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 Accompanied by: Self / Same As Patient Allergies gentamicin [From GARAMYCIN] Allergy (Intermediate, Verified 05/12/24 07:58) RASH Penicillins [PENICILLINS] Allergy (Intermediate, Verified 05/12/24 07:58) RASH Seasonal Allergies Allergy (Intermediate, Verified 05/12/24 07:58) seasonal allergies vancomycin [VANCOMYCIN] Allergy (Intermediate, Verified 05/12/24 07:58) swelling/rash/hives Medication List - Last Reconciled 05/12/24 by Olga Palacios MD albuterol sulfate 2.5 mg (3 mL) inhalation Q6H PRN 30 days albuterol sulfate 90 mcg/actuation 2 puffs inhalation Q6H PRN 90 days bisacodyl (Dulcolax (bisacodyl)) 15 mg (3 x 5 mg) PO BEDTIME 30 days blood sugar diagnostic (FreeStyle Lite Strips) As directed budesonide-formoterol 160-4.5 mcg/actuation (Symbicort) 2 puffs inhalation BID 90 days bupropion HCl XL 150 mg PO QAM divalproex ER 250 mg PO BEDTIME ezetimibe 10 mg PO DAILY famotidine 20 mg PO BEDTIME fluticasone propionate 50 mcg/actuation 2 sprays intranasal DAILY PRN lancets (FreeStyle Lancets) As directed levothyroxine (Synthroid) 25 mcg PO DAILY loratadine (Claritin) 10 mg PO DAILY PRN lorazepam 0.5 mg PO DAILY PRN melatonin 10 mg PO BEDTIME metformin 1,000 mg PO BID montelukast (Singulair) 10 mg PO BEDTIME 90 days nebulizers As directed omeprazole 40 mg PO DAILY 30 days ropinirole 0.25 mg PO BEDTIME rosuvastatin 40 mg PO DAILY sertraline 50 mg PO DAILY sucralfate 10 mL PO QID sumatriptan succinate 50 mg PO DAILY trazodone 50 mg PO DAILY HPI Comments Details: 63-year-old female here for initial evaluation of elevated PTH levels. Most recent labs from 04/24/2024 show PTH level of 95.6, calcium of 9.7 with albumin of 4.3, corrected calcium would be 9.4, phosphorus normal at 3.7, GFR greater than 60, vitamin-D level of 29.7. Chart review also shows elevated PTH levels back from June 2021 when PTH was 93, no calcium from that time, another elevated PTH level from January 2021 at 66 with vitamin-D of 29, again no calcium level. Chart review also shows mostly normal calcium levels apart from once in January 2024 when calcium was noted to be elevated at 10.6 with an albumin of 4.4, corrected calcium would be 10.2. This is high normal. Reports muscle aches, constipation, abd pain due to gastritis, reports memory issues. No fractures Bone density scan 07/26/2022 showed osteopenia with lowest T-score in the femoral neck of-1.2, FRAX not meeting criteria for treatment. No kidney stones CT abdomen April 2021 did not show any kidney stones. Vitamin D: no supplements Biotin yes No calcium supplements Calcium : 3 cups of milk, 1 cup of yogurt, 2-3 cheeses , and sometimes icecream daily No exercise, walks in summer Family history : son has kidney stones No history of bariatric surgery Not on HCTZ anymore, used it for a month due to elevated BP , now well controlled without meds Physical exam General: sitting comfortably in no acute distress HEENT: normocephalic/atraumatic, moist oral mucosa Neck: supple, symmetrical, no thyromegaly Cardiac: normal heart sounds Pulm: normal breath sounds B/L, no added breath sounds Abd: not distended, no tenderness Extremities: no edema, no signs of myxedema Neuro: AAO x3, Speech: normal, no facial droop, moving all 4 extremities Laboratory Tests 03/11/20 06/14/20 09/14/20 09:35 10:00 07:56 Creatinine Estimated GFR Calcium Phosphorus Albumin 4.2 4.4 4.4 25-OH Vitamin D Total TSH PTH Intact 01/12/21 04/09/21 06/20/21 09:08 13:51 08:39 Creatinine Estimated GFR Calcium Phosphorus Albumin 4.4 4.4 4.1 25-OH Vitamin D Total 29.0 TSH PTH Intact 66 H 93 H 08/24/21 01/04/22 04/28/22 07:38 08:31 08:38 Creatinine Estimated GFR Calcium 9.6 Phosphorus Albumin 4.0 4.4 4.2 25-OH Vitamin D Total TSH PTH Intact 07/26/22 10/23/22 01/23/23 08:50 09:08 09:00 Creatinine Estimated GFR Calcium 9.8 9.2 D 9.9 D Phosphorus Albumin 4.4 4.0 4.4 25-OH Vitamin D Total TSH PTH Intact 05/14/23 06/18/23 10/23/23 08:52 11:09 07:34 Creatinine Estimated GFR Calcium 9.2 D 9.5 9.7 Phosphorus Albumin 4.2 4.3 4.4 25-OH Vitamin D Total TSH PTH Intact 01/24/24 04/24/24 07:49 08:40 Creatinine 0.73 Estimated GFR > 60 Calcium 10.6 H D 9.7 D Phosphorus 3.7 Albumin 4.4 4.3 25-OH Vitamin D Total 29.7 L TSH 2.10 PTH Intact 95.6 H BONE DENSITOMETRY 07/26/22 CLINICAL INDICATION: Osteopenia. COMPARISON: Baseline BD dated 08/04/2016. TECHNIQUE: Using a [employer] DXA System (software version: 13.1) manufactured by [employer], dual-energy x-ray absorptiometry was performed of the lumbar spine and left hip. The images are of good technical quality. Summary results are attached. FINDINGS: AP SPINE L1-L4: Current: BMD 1.067 g/cm2, Z-score 0.0, T-score -0.9, normal, 7.8% increase from baseline (<5% change is not significant). Baseline: BMD 0.990 g/cm2. LEFT FEMUR, NECK: Current: BMD 0.876 g/cm2, Z-score -0.1, T-score -1.2, osteopenia. Baseline: BMD 0.907 g/cm2. LEFT FEMUR, TOTAL: Current: BMD 1.026 g/cm2, Z-score 0.9, T-score 0.1, normal, 3.6% increase from baseline (<5% change is not significant). Baseline: BMD 0.990 g/cm2. IDENTIFIED RISK FACTORS: Menopause, hysterectomy, bilateral oophorectomy, height loss, low calcium intake, recurrent falls. HISTORY OF FRACTURE: None listed. MEDICATIONS: None listed. MM/XR DEXA axial skeleton IMPRESSION: 1. DIAGNOSIS: Osteopenia based on the lowest T-score value of -1.2 in the femoral neck applying World Health Organization criteria. 2. 10-YEAR FRACTURE RISK PREDICTION, FRAX: Major osteoporotic fracture (clinical spine, forearm, hip or shoulder) 4.2%. Hip fracture 0.3%. [facility] Medical History (Updated 05/12/24 @ 08:31 by Olga Palacios MD) Vitamin D deficiency Elevated parathyroid hormone Asthma Abdominal pain Yeast infection Left hand pain Numbness and tingling in both hands Vaginal burning Potential exposure to STD Well woman exam with routine gynecological exam Pulmonary nodules Right knee pain Other and unspecified hyperlipidemia Essential hypertension Morbid obesity HELEN (obstructive sleep apnea) Precordial chest pain Heart palpitations Snoring Difficulty sleeping Panic attack PTSD (post-traumatic stress disorder) Cervical cancer screening Family history of breast cancer Potential exposure to STD Well woman exam with routine gynecological exam Low back pain Neck pain Depression Restless leg syndrome Peripheral neuropathy BMI 35.0-35.9,adult PVC (premature ventricular contraction) Mitral valve prolapse Hypertension Obesity (BMI 30-39.9) Potential exposure to STD Diabetes type 2, controlled Osteopenia determined by x-ray Hyperlipidemia Lower back pain Hypothalamic hypothyroidism Insomnia GERD (gastroesophageal reflux disease) Migraine headache Surgical History H/O eye surgery Hx of endoscopy Hx of colonoscopy Hx of left breast biopsy History of cervical cerclage Hx of hysterectomy Hx of tubal ligation Family History Father Diabetes Paced cardiac rhythm Colon cancer Mother HTN (hypertension) High cholesterol Skin cancer Breast cancer Colon cancer Sister Obese abdomen Brother Infarction of lung due to iatrogenic pulmonary embolism Son HTN (hypertension) High cholesterol Son HTN (hypertension) High cholesterol Son No problems noted. Son No problems noted. Son No problems noted. Sister No problems noted. Sister No problems noted. 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 Most recent labs from 04/24/2024 show PTH level of 95.6, calcium of 9.7 with al bumin of 4.3, corrected calcium would be 9.4, phosphorus normal at 3.7, GFR greater than 60, vitamin-D level of 29.7. Chart review also shows elevated PTH levels back from June 2021 when PTH was 93, no calcium from that time, another elevated PTH level from January 2021 at 66 with vitamin-D of 29, again no calcium level. Chart review also shows mostly normal calcium levels apart from once in January 2024 when calcium was noted to be elevated at 10.6 with an albumin of 4.4, corrected calcium would be 10.2. This is high normal. Differentials could be secondary hyperparathyroidism in the setting of vitamin-D deficiency as vitamin-D is mildly on the lower side. She is also on divalproex that can lower the levels of vitamin-D. She also takes biotin supplements and those can falsely elevate PTH levels, I have asked her to stop the supplements 4 days prior to doing repeat blood work for me. Other differentials could be primary hyperparathyroidism though calcium was only elevated once back in January 2024 otherwise she has had normal calcium levels, could possibly have normocalcemic hyperparathyroidism.. At this time I will start her on vitamin-D supplements with 1000 units daily and repeat labs in 9 weeks prior to her follow up in 10 weeks. We will repeat vitamin-D and PTH levels as well as calcium. We will also obtain ionized calcium. She will stop biotin at least 4 days b efore obtaining this blood work. We will also check her 24 hour urine calcium levels at this time. She has osteopenia on bone density done in July 2022, FRAX does not meet criteria for treatment, lowest T-score of-1.2 at the left femoral neck. And a history of kidney stones, CT of the abdomen from April 2021 did not show any kidney stones either. Her son has kidney stones, we should keep this in mind if we start thinking about [facility]. Plan: -start vitamin-D 1000 units daily -no calcium supplements, but continue 1000 mg of calcium intake through diet, she is on adequate amounts of calcium in her diet -after 9 weeks, do 24 hour urine collection with for 24 hour urine calcium and creatinine evaluation plus blood work with repeat PTH, vitamin-D, calcium, albumin, ionized calcium, magnesium, phosphorus, BMP -follow up in 10 weeks to discuss results (2) Vitamin D deficiency: Code(s): E55.9 - Vitamin D deficiency, unspecified Category: Medical Plan: See above Plan I spent 45 minutes in reviewing the record, seeing the patient and documenting in the medical record. Orders: Orders Calcium, 24 Hr Ur 9 Weeks R7. - Other specified abnormal findings of blood chemistry Phosphorus 9 Weeks R7. - Other specified abnormal findings of blood chemis try Magnesium 9 Weeks R7. - Other specified abnormal findings of blood chemistry Albumin Level 9 Weeks R7. - Other specified abnormal findings of blood chemistry Calcium 9 Weeks R7.89 - Other specified abnormal findings of blood chemistry Calcium, Ionized 9 Weeks R7. - Other specified abnormal findings of blood chemistry Creatinine, 24 Hr Group 9 Weeks R7. - Other specified abnormal findings of blood chemistry Parathyroid Hormone Intact 9 Weeks R7. - Other specified abnormal findings of blood chemistry Vitamin D 25-OH Total 9 Weeks R7.89 - Other specified abnormal findings of blood chemistry TSH reflex Free T4 9 Weeks R7. - Other specified abnormal findings of blood chemistry Basic Metabolic Panel 9 Weeks E55.9 - Vitamin D deficiency, unspecified, R7.89 - Other specified abnormal findings of blood chemistry Medications: New cholecalciferol (vitamin D3) 25 mcg PO DAILY 3 months 90 caps 3RF Patient Instructions: Start vitamin D 1000 units daily Continue maintaining good intake of calcium through diet by drinking milk, eating yogurt and cheese ( most people need 1000 mg in their diet daily, you can calculate how much you are eating ) After 9 weeks , do 24 hour urine collection plus do blood work the same morning that you hand in the urine 24 hr urine collection instructions You have been asked to collect your urine for 24 hours to assess for calcium exc retion. You must choose a 24 hour period of time when you will be home. The morning of the first day, DISCARD the FIRST morning void and then note the time. You will collect every single void from then on for 24 hours. For example, if you wake up at 6am and urinate, flush down that void. You will then collect every drop of urine all day and all night through 6am the following day. You will urinate one last time at 6am for the collection. The jug of urine must be kept in the refrigerator until you bring it to the lab. Follow up in 10 weeks to discuss results Maintain good hydration Coding Level of Care Code New Pt Level 4 (66740) Diagnoses Elevated parathyroid hormone R79.89 Vitamin D deficiency E55.9 Time Spent (min) 45
--- OUTSIDE RECORDS SUMMARY | 2024-05-12 07:54 | XMS_ITS | Clinical Summary ---
Author Organization [employer] [facility] Address [address] [place] [address] Care Team Providers Care Care Companion Name Role Phone Matilda Yo MD Primary Care Provider [phone] Surgical History Surgery Date Site/Laterality Comments TUBAL LIGATION PROCEDURE: HISTORICAL TUBAL LIGATION HYSTERECTOMY PROCEDURE: HISTORICAL HYSTERECTOMY OTHER SURGICAL HISTORY PROCEDURE: HISTORICAL CERCLAGE SURGERY; COMMENT: x 4, she has 7 children Medical History Medical History Date Comments Hypothyroidism DX:Hypothyroidis m Hypertension DX:Hypertension Type 2 diabetes mellitus wit hout complications (CMS/HCC) DX:Type 2 diabetes mellitus without complications (HCC) Mild intermittent asthma, uncomplicated DX:Mild intermittent asthma, uncomplicated Migraines DX:Migraines GERD (gastroesophageal reflux disease) DX:GERD (gastroesophageal reflux disease) Social History Tobacco Use Types Packs/Day Years Used Date Smoking Tobacco: Never Smokeless Tobacco: Never Sex and Gender Information Value Date Recorded Sex Assigned at Not on file Gender Identity Not on file Sexual Orientation Not on file Obstetrics History Last Filed Vital Signs Vital Sign Reading Time Taken Comments Blood Pressure - - Pulse - - Temperature - - Respiratory Rate - - Oxygen Saturation - - Inhaled Oxygen Concentration - - Weight 97.1 kg (214 lb) 08/03/2021 2:27 PM EDT Height 162.6 cm (5' 4 ) 08/03/2021 2:27 PM EDT Body Mass Index 36.73 08/03/2021 2:27 PM EDT Plan of Treatment Health Maintenance Due Date Last Done Comments Breast Cancer Screening 1960 DTaP,Tdap,and Td Vaccines (1 - Tdap) 12/25/1978 Cervical Cancer Screening: P ap Smear 12/25/1980 Zoster Vaccines (1 of 2) 12/25/2009 Colorectal Cancer Screening: Colonoscopy 03/07/2022 Depression Screening 03/07/2022 HIV Screening 03/07/2022 Hepatitis C Screening 03/07/2022 Social Influencers of Health Screening 03/07/2022 COVID-19 Vaccine (1 - 2023-2 5 season) 2023 Influenza Vaccine (#1) 2023 03/17/2020 RSV Immunization Patients 60 + Years Old (1 - 1-dose 75+ series) 12/25/2034 HIB Vaccines Aged Out No longer eligi ble based on patient's age to complete this topic HPV Vaccines Aged Out No longer eligi ble based on patient's age to complete this topic Hepatitis A Vaccines Aged Out No long er eligible based on patient's age to complete this topic Hepatitis B Vaccines Aged Out No long er eligible based on patient's age to complete this topic IPV Vaccines Aged Out No longer eligi ble based on patient's age to complete this topic MMR Vaccines Aged Out No longer eligi ble based on patient's age to complete this topic Meningococcal ACWY Vaccine Aged Out N o longer eligible based on patient's age to complete this topic Pneumococcal Vaccine: Pediat rics (0 to 5 Years) and At-Risk Patients (6 to 64 Years) Aged Out No longer eligi ble based on patient's age to complete this topic RSV Immunization Patients Un eduardo 20 months Aged Out No longer eligible b ased on patient's age to complete this topic Varicella Vaccines Aged Out No longer eligible based on patient's age to complete this topic Care Teams Care Companion Relationship Specialty Start Date End Date Matilda Yo MD [address] [place] [address] PCP - General Internal Medicine 09/25/19
== END 2024-05-12 08:30 | disposition home or self-care (01) ==
PROVIDERS: PCP Internal Medicine; Visit Provider Student in an Organized Health Care Education/Training Program
DX: R79.89 Other specified abnormal findings of blood chemistry (principal); E55.9 Vitamin D deficiency, unspecified
CPT/HCPCS: 99204

== ENCOUNTER → 2024-05-12 07:52 | Outpatient (BNVA) | payer MEDICAID, SELFPAY | PROVIDERS: PCP Internal Medicine; Visit Provider Student in an Organized Health Care Education/Training Program | DX: R79.89 Other specified abnormal findings of blood chemistry (principal); E55.9 Vitamin D deficiency, unspecified | CPT/HCPCS: 99202 ==

== ENCOUNTER 2024-05-27 10:32 | Outpatient (REF) | payer MEDICAID, SELFPAY ==
--- NOTE | ~2024-05-27 | CT_ITS ---
CLINICAL HISTORY: R91.8 - Other nonspecific abnormal finding of lung field CT chest without contrast Comparison: No prior studies of any type for comparison Findings: Lung gleason are clear without acute infiltrates. Lateral right upper lobe calcified granuloma. No significant mediastinal adenopathy. No significant free pleural fluid. No significant focal bony abnormalities. Cholelithiasis partially visualized. Impression: No acute processes This document has been electronically signed by: Shawn Ni MD on 05/27/2024 19:33:41
--- OUTSIDE RECORDS SUMMARY | 2024-05-27 11:30 | XMS_ITS | Clinical Summary ---
Author Organization [id number] [facility] Address [address] [place] [address] Care Team Providers Care Land Economist Name Role Phone Matilda Yo MD Primary Care Provider [phone] Surgical History Surgery Date Site/Laterality Comments TUBAL [...] Date Smoking Tobacco: Never Smokeless Tobacco: Never Comments Unknown Sex and Gender Information Value Date Recorded Sex Assigned at Not on file Legal Sex Female 1:34 PM EST Gender Identity Not on file Sexual Orientation [...] Cervical Cancer Screening: P ap Smear 12/25/1980 Pneumococcal Vaccine: 50+ Ye ars (1 of 1 - PCV) 12/25/2009 Zoster Vaccines (1 of 2) 12/25/2009 Colorectal [...] patient's age to complete this topic Meningococcal B Vacine Aged Out No lo nger eligible based on patient's age to complete [...] age to complete this topic Care Teams Land Economist Relationship Specialty Start Date End Date Matilda Yo MD [address] PCP - General Internal Medicine 09/25/19
[2024-05-27 14:27] LABS: H Pylori Breath Test Negative (Negative)
== END 2024-05-27 10:33 | disposition home or self-care (01) ==
LOC: HO.CT 10:32
PROVIDERS: Nurse Practitioner; PCP Internal Medicine; Visit Provider Hospitalist
DX: R91.8 Other nonspecific abnormal finding of lung field (principal); R10.11 Right upper quadrant pain; K21.9 Gastro-esophageal reflux disease without esophagitis; K59.04 Chronic idiopathic constipation
CPT/HCPCS: 71250; 83013

== ENCOUNTER → 2024-05-27 10:33 | Outpatient (BNV) | payer MEDICAID, SELFPAY | PROVIDERS: PCP Internal Medicine; Visit Provider Radiology Diagnostic Radiology | DX: R91.8 Other nonspecific abnormal finding of lung field (principal) | CPT/HCPCS: 71250 ==

== ENCOUNTER 2024-05-30 10:15 | Outpatient (AMB) | payer MEDICAID, SELFPAY ==
[2024-05-30 10:27] VITALS: BP 124/82; PULSE 61; O2SAT 97; BMI 34.8
--- NOTE | 2024-05-30 10:27 | MHC.OFFVIS ---
Vital Signs 05/30/24 10:27 Height 5 ft 4 in Weight 202 lb 13.204 oz BMI 34.8 BP 124/82 Blood Pressure Location Lt brachial Position Sitting Pulse 61 Pulse Source Pulse Oximeter Pulse Oximetry (%) 97 Oxygen Delivery Method Room Air Intake Visit Reasons: Obstructive sleep apnea Allergies gentamicin [From GARAMYCIN] Allergy (Intermediate, Verified 05/30/24 10:30) RASH Penicillins [PENICILLINS] Allergy (Intermediate, Verified 05/30/24 10:30) RASH Seasonal Allergies Allergy (Intermediate, Verified 05/30/24 10:30) seasonal allergies vancomycin [VANCOMYCIN] Allergy (Intermediate, Verified 05/30/24 10:30) swelling/rash/hives HPI Comments Details: In The patient is a 63year-old woman with a known history of asthma in addition to allergic rhinitis. The patient has been having increasing shortness of breath symptoms and chest tightness. she noticed that her symptoms were worse specially when she was living in [place] in an apartment that she felt had significant allergens and does. Once she left that environment her symptoms have been improving somewhat. She continues to have chest tightness. She also has shortness of breath and cough. She tends to use her rescue inhaler but a couple times a week. She is also inhaled budesonide. The patient was started to be evaluated at the bariatric program. There she did complaint of daytime drowsiness with an elevated [place] score of 10/24. The patient underwent a home sleep study demonstrating positive sleep apnea. Patient does benefit from starting PAP therapy in view of her increased cardiovascular risk factors And her ongoing daytime drowsiness. The patient is agreeable to start CPAP therapy at this time. I will make arrangements with local [employer] company for her to do so. In the meantime will optimize her respiratory therapy switching her from budesonide to Symbicort twice a day. The patient also will undergo allergy testing. 05/02/2022 the patient is here for a pulmonary follow-up visit. The patient has been doing better from a respiratory status. Unfortunately she still has elevated dyspnea with activity. She also has an elevated [place] score because of daytime drowsiness. Her [place] score is still 10/24. She did get her CPAP machine. She has had at home now for several months and she has not started using it as of yet. She has been having difficulty sitting up. I did covid the initial set up in the machine so therefore she can start using at home once she is able to started. The patient is aware that if he does not use the machine the [employer] company will take it away. As far as her asthma symptoms she continues with respiratory therapy. She has not had to use her rescue inhaler. She has not had to use any prednisone for any flare-ups. Otherwise the patient is in good control. We did review her last CT scan of the chest back in February 2022 demonstrating stable pulmonary nodules which is reassuring. Will plan to repeat the CT scan in a year's time. 10/02/2022 the patient is here for a pulmonary follow-up visit. The patient having hard time with the CPAP. She did not tolerate the nasal pillows. The wrong comfortable for her. She had restart to the office and we did send a new prescription to the [facility] [employer] for fullface mask. However, she has not gotten 1 as of yet. Therefore she has been able to use the machine. I did have an F20 available in the office size medium and hopefully now she can start using it more regularly. When she starts using it the patient will be able to bring the machine and we can download the machine in order to see the efficacy of the machine. Right now he does not have any data to review. The patient also has been using her inhalers. No significant wheezing or chest tightness. She seems to be well controlled on current regimen. Regarding her CT scan the last CT scan was back in February 2022 and was recommended getting a CT scan in 18 months after so therefore will plan to follow-up sometime in the spring with a CT scan of the chest. For now although will follow-up sooner if just to make sure that she is compliant with her CPAP and she is tolerating the therapy. 03/06/2023 the patient is here for a pulmonary follow-up visit. She is doing well from an asthma standpoint. She has been using the Symbicort and also has a rescue inhaler which she has not required. She continues on the singular at nighttime that is also helping. She denies any recent exacerbations. The patient did return the CPAP as she could not tolerated. She is doing well without it. She will continue with positional therapy. If her symptoms were to worsen or she develops any increased cardiovascular risk factors then will consider repeating the sleep study at that point. We also following pulmonary nodules. Her last CT scan was back in February 2022. She is scheduled for the CT scan although she is going to go on a trip and she is going to have to postpone that to the winter time. Therefore I will change the date to May to make sure she has enough time to be able to get that done. At which point she will follow-up with me and will review the CT scan together. 05/21/2023 the patient is here for a pulmonary follow-up visit. She is got back from [place]. While she was there the patient underwent evaluation in the ER because of severe right-sided abdominal discomfort. She also had significant nausea and felt that she was having a gallbladder attack. She does have an appointment with GI coming up. The meantime she will need an abdominal ultrasound to further address the possibility of cholecystitis. If her symptoms worsen she needs to go to the ER for further evaluation. She does continue to use respiratory inhalers with good effect. As far as sleep the patient is no longer using the CPAP. She is trying positional therapy. She would like not to go back on CPAP at this time. The patient also has underlying pulmonary nodules. The last time she had a CT scan was back in 2021. She does have a scheduled CT scan coming up that I will review once available. Otherwise patient is doing well she will follow-up in 6 months. 11/26/2023 the patient is here for a pulmonary follow-up visit. Overall the patient has been doing well from a respiratory status. She is having issues with her she I system. She was scheduled to undergo a endoscopy and that was on hold because of her ongoing respiratory issues. At this point she is doing a lot better and she is able to proceed with anesthesia endoscopy at this time. In addition to that we did review her last CT scan of the chest was back in 06/27/2023 demonstrating pulmonary nodules. The patient at this point will need a repeat CT scan 06/26/2024. She does continue to use her respiratory therapy as prescribed. Seems to be affecting beneficial no additional changes at this time. 05/30/2024 the patient is here for a pulmonary follow-up visit. Overall the patient has been doing okay. She has had flu-like symptoms now for more than a month. She has had a cough that has been bothersome moderate severity. Not always productive. Has had some chest tightness. Her chills and fevers have subsided but she still does not feel well. Has been noticing some bleeding from the nose. [id number] severity. She did have a recent CT scan of the chest that we did as far as her pulmonary nodule follow-up. No evidence of any worsening nodules and no evidence of any airspace disease. Her exam is also consistent with bilateral breath sounds with no evidence of any rhonchi wheezing or crackles. Therefore, appears to be more of a sinusitis issue. Will go ahead and treated for sinusitis at this time also complaining of some pharyngitis. [facility] Medical History (Updated 06/01/24 @ 10:10 by Stephon Mosley MD) Vitamin D deficiency Elevated parathyroid hormone Asthma Abdominal pain Yeast infection Left hand pain Numbness and tingling in both hands Vaginal burning Potential exposure to STD Well woman exam with routine gynecological exam Pulmonary nodules Right knee pain Other and unspecified hyperlipidemia Essential hypertension Morbid obesity HELEN (obstructive sleep apnea) Precordial chest pain Heart palpitations Snoring Difficulty sleeping Panic attack PTSD (post-traumatic stress disorder) Cervical cancer screening Family history of breast cancer Potential exposure to STD Well woman exam with routine gynecological exam Low back pain Neck pain Depression Restless leg syndrome Peripheral neuropathy BMI 35.0-35.9,adult PVC (premature ventricular contraction) Mitral valve prolapse Hypertension Obesity (BMI 30-39.9) Potential exposure to STD Diabetes type 2, controlled Osteopenia determined by x-ray Hyperlipidemia Lower back pain Hypothalamic hypothyroidism Insomnia GERD (gastroesophageal reflux disease) Migraine headache Surgical History H/O eye surgery Hx of endoscopy Hx of colonoscopy Hx of left breast biopsy History of cervical cerclage Hx of hysterectomy Hx of tubal ligation Family History Father Diabetes Paced cardiac rhythm Colon cancer Mother HTN (hypertension) High cholesterol Skin cancer Breast cancer Colon cancer Sister Obese abdomen Brother Infarction of lung due to iatrogenic pulmonary embolism Son HTN (hypertension) High cholesterol Son HTN (hypertension) High cholesterol Son No problems noted. Son No problems noted. Son No problems noted. Sister No problems noted. Sister No problems noted. 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 Gender identity: Female Female Reproductive History Menstrual Age of Menarche: 10 Date of menopause: 06/20/13 Review of Systems Const Reports daytime sleepiness, Reports difficulty sleeping, Denies night sweats and Reports snoring ENT Denies change in voice, Denies lip swelling, Denies mouth pain, Reports nasal congestion, Reports nasal discharge and Denies tongue swelling Card Denies chest pain Resp Reports cough, Reports snoring and Denies wheezing GI Reports abdominal pain Musc Denies no additional complaints Neuro Denies Neuro-related abnormal movements Psych Denies no additional complaints Sundar/Lymph Denies easy bleeding and Denies lymphadenopathy Aller/Immun Denies lip swelling, Denies tongue swelling and Denies wheezing Physical Exam Vital Signs: Last Vital Signs Pulse 61 05/30/24 10:27 BP 124/82 05/30/24 10:27 Pulse Ox 97 05/30/24 10:27 Oxygen Delivery Method Room Air 05/30/24 10:27 BMI result Body Mass Index 34.8 Const General: alert Eyes General: appearance normal, both eyes and all related structures Neck Neck: Yes normal visual inspection, Yes full ROM and Yes no lymphadenopathy Chest Chest palpation & inspection: normal inspection of the chest Resp Effort & Inspection: normal respiratory effort Auscultation: clear to auscultation bilaterally, no rales, no rhonchi and no wheezes Cardio Rate: regular rate Rhythm: regular rhythm Heart sounds: S1 normal heart sound present and S2 normal heart sound present GI Palpation (GI): Soft to palpation and nontender Auscultation: normal bowel sounds Skin General skin exam: rashes and/or lesions noted Assessment & Plan Assessment & Plan (1) Asthma: Code(s): J45.909 - Unspecified asthma, uncomplicated Category: Surgical Qualifiers: Asthma complication type: uncomplicated Asthma persistence: persistent Asthma severity: moderate Qualified Code(s): J45.40 - Moderate persistent asthma, uncomplicated (2) HELEN (obstructive sleep apnea): Code(s): G47.33 - Obstructive sleep apnea (adult) (pediatric) Category: Medical (3) Pulmonary nodules: Code(s): R91.8 - Other nonspecific abnormal finding of lung field Category: Medical (4) Abdominal pain: Code(s): R10.9 - Unspecified abdominal pain Category: Medical Qualifiers: Abdominal location: right upper quadrant Qualified Code(s): R10.11 - Right upper quadrant pain (5) Sinusitis: Code(s): J32.9 - Chronic sinusitis, unspecified Category: Medical Qualifiers: Sinusitis location: unspecified location Chronicity: subacute Qualified Code(s): J01.90 - Acute sinusitis, unspecified Plan start doxycycline medrol pk Tessalon pearls conitnue Symbicort short-acting beta agonist as needed Continue Singulair and claritin Fluticasone continue positional sleep therapy Repeat CT chest: stable follow-up in 6 months Medications: New methylprednisolone (Medrol (Ej)) PO PER PKG DIR 6 days 21 ea 0RF benzonatate 200 mg PO BID 30 days PRN 60 caps 0RF cough doxycycline monohydrate 100 mg PO BID 14 days 28 tabs 0RF Coding Level of Care Code Est Pt Level 4 (25102) Diagnoses Moderate persistent asthma without complication J45.40 Asthma complication type: uncomplicated Asthma persistence: persistent Asthma severity: moderate HELEN (obstructive sleep apnea) G47.33 Pulmonary nodules R91.8 Right upper quadrant abdominal pain R10.11 Abdominal location: right upper quadrant Subacute sinusitis, unspecified location J01.90 Sinusitis location: unspecified location Chronicity: subacute Time Spent (min) 16
--- OUTSIDE RECORDS SUMMARY | 2024-05-30 10:57 | XMS_ITS | Clinical Summary ---
Author Organization [facility] Address [address] [place] [address] Care Team Providers Care Cigar Packing Examiner Name Role Phone Matilda Yo MD Primary Care Provider [phone] Surgical History Surgery Date Site/Laterality Comments TUBAL [...] age to complete this topic Care Teams Cigar Packing Examiner Relationship Specialty Start Date End Date Matilda Yo MD [address] PCP - General Internal Medicine 09/25/19
== END 2024-05-30 11:00 | disposition home or self-care (01) ==
PROVIDERS: PCP Internal Medicine; Visit Provider Hospitalist
DX: J45.40 Moderate persistent asthma, uncomplicated (principal); G47.33 Obstructive sleep apnea (adult) (pediatric); R91.8 Other nonspecific abnormal finding of lung field; R10.11 Right upper quadrant pain; J01.90 Acute sinusitis, unspecified
CPT/HCPCS: 99214

== ENCOUNTER → 2024-05-30 10:15 | Outpatient (BNVA) | payer MEDICAID, SELFPAY | PROVIDERS: PCP Internal Medicine; Visit Provider Hospitalist | DX: J45.40 Moderate persistent asthma, uncomplicated (principal); G47.33 Obstructive sleep apnea (adult) (pediatric); R91.8 Other nonspecific abnormal finding of lung field; R10.11 Right upper quadrant pain; J01.90 Acute sinusitis, unspecified | CPT/HCPCS: 99212 ==

== ENCOUNTER → 2024-06-05 07:42 | Outpatient (REF) | payer MEDICAID, SELFPAY ==
--- NOTE | ~2024-06-05 | NM_ITS ---
EXAMINATION: Nuclear medicine parathyroid SPECT study. CLINICAL INDICATION: Hyperparathyroidism. COMPARISON: CT chest 05/24/2023 TECHNIQUE: Following intravenous administration of 29.0 mCi of Cardiolite, planar imaging over the neck was obtained at 20 minutes. At 2 hours planar and SPECT images were obtained. FINDINGS: On 20 minutes later imaging there is normal activity seen in bilateral thyroid lobes with a slight bulbous appearance of the lower pole left thyroid lobe. At 20 minutes planar and SPECT imaging there is good washout of activity through the thyroid gland with no residual activity seen in the thyroid bed or in the upper and lower poles of thyroid lobe to suspect parathyroid adenoma. NM/NM parathyroid SPECT IMPRESSION: There is no suspicion for parathyroid adenoma. The thyroid lobes are symmetrical and normal. Electronically signed by: Vikram Moreira MD 06/05/2024 04:17 PM [facility]
--- OUTSIDE RECORDS SUMMARY | 2024-06-05 07:45 | XMS_ITS | Clinical Summary ---
Author Organization [facility] Address [address] [place] [address] Care Team Providers Care Veterans Service Representative Name Role Phone Matilda Yo MD Primary Care Provider [phone] Surgical History Surgery Date Site/Laterality Comments TUBAL [...] age to complete this topic Care Teams Veterans Service Representative Relationship Specialty Start Date End Date Matilda Yo MD [address] PCP - General Internal Medicine 09/25/19
== END ==
LOC: HO.NUCMED 07:42
PROVIDERS: PCP Internal Medicine; Visit Provider Internal Medicine
DX: E21.0 Primary hyperparathyroidism (principal)
CPT/HCPCS: 78071; A9500

== ENCOUNTER → 2024-06-05 08:00 | Outpatient (BNV) | payer MEDICAID, SELFPAY | PROVIDERS: PCP Internal Medicine; Visit Provider Radiology Diagnostic Radiology | DX: E21.3 Hyperparathyroidism, unspecified (principal) | CPT/HCPCS: 78071 ==

== ENCOUNTER 2024-06-10 10:10 | Outpatient (AMB) | payer MEDICAID, SELFPAY ==
--- NOTE | 2024-06-10 10:40 | MHC.AMNUTRGE ---
VS Expanded 06/10/24 10:42 Height 5 ft 4 in Weight 198 lb 13.711 oz BMI 34.1 Intake Visit Reasons: T2DM Allergies gentamicin [From GARAMYCIN] Allergy (Intermediate, Verified 06/10/24 12:38) RASH Penicillins [PENICILLINS] Allergy (Intermediate, Verified 06/10/24 12:38) RASH Seasonal Allergies Allergy (Intermediate, Verified 06/10/24 12:38) seasonal allergies vancomycin [VANCOMYCIN] Allergy (Intermediate, Verified 06/10/24 12:38) swelling/rash/hives Nutrition Presentation Details: Pt presents for MNT for T2DM Pt on metformin 1000 mg twice day Pt reports BG ranging in 130 s at random Pt reports having meal replacement once a day instead of skipping meals working on following healthy plate method BS Monitoring Most Recent Diabetes Results: No Data to Display [facility] Medical History Vitamin D deficiency Elevated parathyroid hormone Asthma Abdominal pain Yeast infection Left hand pain Numbness and tingling in both hands Vaginal burning Potential exposure to STD Well woman exam with routine gynecological exam Pulmonary nodules Right knee pain Other and unspecified hyperlipidemia Essential hypertension Morbid obesity HELEN (obstructive sleep apnea) Precordial chest pain Heart palpitations Snoring Difficulty sleeping Panic attack PTSD (post-traumatic stress disorder) Cervical cancer screening Family history of breast cancer Potential exposure to STD Well woman exam with routine gynecological exam Low back pain Neck pain Depression Restless leg syndrome Peripheral neuropathy BMI 35.0-35.9,adult PVC (premature ventricular contraction) Mitral valve prolapse Hypertension Obesity (BMI 30-39.9) Potential exposure to STD Diabetes type 2, controlled Osteopenia determined by x-ray Hyperlipidemia Lower back pain Hypothalamic hypothyroidism Insomnia GERD (gastroesophageal reflux disease) Migraine headache Surgical History H/O eye surgery Hx of endoscopy Hx of colonoscopy Hx of left breast biopsy History of cervical cerclage Hx of hysterectomy Hx of tubal ligation Family History Father Diabetes Paced cardiac rhythm Colon cancer Mother HTN (hypertension) High cholesterol Skin cancer Breast cancer Colon cancer Sister Obese abdomen Brother Infarction of lung due to iatrogenic pulmonary embolism Son HTN (hypertension) High cholesterol Son HTN (hypertension) High cholesterol Son No problems noted. Son No problems noted. Son No problems noted. Sister No problems noted. Sister No problems noted. 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 Used wt : 90 kg (01/2023), 84.5 kg (06/2023), 88kg (11/2023), 01/30, 90 kg (06/30), 07/01 Est kcal as per MSJ: < 1711 (40% carb, 30% fat/prot) Est fluid needs: 7081-6929 ml/d (25-30 ml/kg bw) Rec fiber: increase to 8-10 g per day and gradually increase to 25 g/d or as tolerated Rec Na: < 2000 mg /d Educate patient on: (R= Reviewed, V = verbalizes understanding N/R= Needs review N/A= not applicable) Food sources of carbohydrates and serving adequate serving sizes : R V Difference between complex carbohydrates and simple carbohydrates, role of fiber: R V Differences between fats (MUFA/PUFA/saturated fats, trans fats) and food sources of various fats: R Food sources of sodium and salt and healthy modifications for heart health and kidney health: R,V Vitamins and minerals: R, Vdiscussed calcium intake via foods 1200 mg/day How to interpret food labels: R Healthy Plate method concept: R V Physical activity: benefits and precaution: R V Patient Instructions: Choose fiber rich foods (seeds, nuts, fruits, whole grain cereals gradually increase fiber by 4 g per day up to 18 g or as tolerated continue to increase water as you increase fiber to prevent constipation Coding Level of Care Code Nutr Indiv Subseq (99931) Diagnoses Type 2 diabetes mellitus with unspecified complications E11.8 Time Spent (min) 30
[2024-06-10 10:42] VITALS: BMI 34.1
--- OUTSIDE RECORDS SUMMARY | 2024-06-10 12:03 | XMS_ITS | Clinical Summary ---
Author Organization [facility] Address [address] [place] [address] Care Team Providers Care Grief Counselor Name Role Phone Matilda Yo MD Primary Care Provider [phone] Surgical History Surgery Date Site/Laterality Comments TUBAL [...] age to complete this topic Care Teams Grief Counselor Relationship Specialty Start Date End Date Matilda Yo MD [address] PCP - General Internal Medicine 09/25/19
== END 2024-06-10 10:56 | disposition home or self-care (01) ==
PROVIDERS: PCP Internal Medicine; Visit Provider Dietitian, Registered
DX: E11.8 Type 2 diabetes mellitus with unspecified complications (principal)

== ENCOUNTER → 2024-06-10 10:10 | Outpatient (BNVA) | payer MEDICAID, SELFPAY | PROVIDERS: PCP Internal Medicine; Visit Provider Dietitian, Registered | DX: Z80.3 Family history of malignant neoplasm of breast (principal) | CPT/HCPCS: 97803; 99212 ==

== ENCOUNTER 2024-06-10 12:31 | Outpatient (AMB) | payer MEDICAID, SELFPAY ==
--- NOTE | 2024-06-10 12:36 | MHC.OFFVIS ---
Vital Signs 06/10/24 12:48 Height 5 ft 4 in Weight 201 lb BMI 34.5 BP 138/73 Blood Pressure Location Lt brachial Position Sitting Pulse 79 Intake Visit Reasons: 6 month breast exam Intake Note: Patient is seen in office for breast exam. 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 She has a previous patient of Dr. Sage evaluated due to her increased risk for breast cancer.? She denies any palpable mass, skin change, nipple discharge, but does report tenderness in the right breast especially in the upper outer quadrant. Her mother was diagnosed with breast cancer at the age of 65 as well as colon cancer in both the mother and father.? She was evaluated by Dr. Sage on 11/04/2019 at which time no dominant mass or suspicious changes were noted on breast examination.? Her last mammogram of 07/05/2020 revealed no suspicious changes (BI-RADS 2).? She is 8 para 7 with 1 spontaneous .? Her children are between the ages of 25 and 42. She reports a previous cyst excision in 2009 while in [place] which was benign. Genetic testing by blood on 09/09/2020 revealed no clinically significant mutations and no variance of uncertain significance identified. Her lifetime breast cancer risk was determined to be 15.4%. Based on her family history of colon cancer colonoscopy was recommended every 5 years beginning at the age of 40 or 10 years started than the earliest colorectal cancer diagnosis in the family. She is already undergoing colonoscopy read 5 years. Mammogram dated 07/31/2023 revealed benign findings (BI-RADS 2). [facility] remaining lifetime risk of breast cancer was calculated 11.9%. Routine annual screening mammography recommended. She denies any new breast symptoms. PFSH Medical History Vitamin D deficiency Elevated parathyroid hormone Asthma Abdominal pain Yeast infection Left hand pain Numbness and tingling in both hands Vaginal burning Potential exposure to STD Well woman exam with routine gynecological exam Pulmonary nodules Right knee pain Other and unspecified hyperlipidemia Essential hypertension Morbid obesity HELEN (obstructive sleep apnea) Precordial chest pain Heart palpitations Snoring Difficulty sleeping Panic attack PTSD (post-traumatic stress disorder) Cervical cancer screening Family history of breast cancer Potential exposure to STD Well woman exam with routine gynecological exam Low back pain Neck pain Depression Restless leg syndrome Peripheral neuropathy BMI 35.0-35.9,adult PVC (premature ventricular contraction) Mitral valve prolapse Hypertension Obesity (BMI 30-39.9) Potential exposure to STD Diabetes type 2, controlled Osteopenia determined by x-ray Hyperlipidemia Lower back pain Hypothalamic hypothyroidism Insomnia GERD (gastroesophageal reflux disease) Migraine headache Surgical History H/O eye surgery Hx of endoscopy Hx of colonoscopy Hx of left breast biopsy History of cervical cerclage Hx of hysterectomy Hx of tubal ligation Family History Father Diabetes Paced cardiac rhythm Colon cancer Mother HTN (hypertension) High cholesterol Skin cancer Breast cancer Colon cancer Sister Obese abdomen Brother Infarction of lung due to iatrogenic pulmonary embolism Son HTN (hypertension) High cholesterol Son HTN (hypertension) High cholesterol Son No problems noted. Son No problems noted. Son No problems noted. Sister No problems noted. Sister No problems noted. 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 Gender identity: Female Female Reproductive History Menstrual Age of Menarche: 10 Date of menopause: 06/20/13 Review of Systems Const Denies chills, Denies fever(s), Denies headache(s) and Denies poor appetite ENT Denies dizziness and Denies headache(s) Card Denies chest pain, Denies rapid heart rate, Denies palpitations and Denies slow heart rate Resp Denies chest congestion, Denies cough, Denies pain on inspiration and Denies wheezing GI Denies abdominal pain, Denies bloating, Denies change in stool character, Denies constipation, Denies diarrhea, Denies nausea, Denies vomiting and Denies hematemesis Denies nipple discharge Musc Denies back pain, Denies arthralgias, Denies joint swelling and Denies numbness Skin/Breast Denies breast swelling, Denies breast skin changes, Denies breast pain, Denies breast mass, Denies change in breast shape, Denies change in pigmentation, Denies nipple discharge, Denies erythema and Denies rash Neuro Denies dizziness, Denies headache(s) and Denies numbness Psych Denies anxiety and Denies depression Endo Denies palpitations Sundar/Lymph Denies easy bleeding, Denies easy bruising and Denies lymphadenopathy Aller/Immun Denies wheezing Physical Exam Const General: cooperative, comfortable and well developed Nutritional Appearance: well nourished Orientation/consciousness: patient oriented x3 Eyes Sclerae: sclerae normal EOM: EOMs intact bilaterally Neck Neck: Yes normal visual inspection Chest Other: Left breast: No skin change, no nipple retraction, no nipple discharge, no palpable mass, no enlarged lymph nodes. Right breast: No skin change, no nipple retraction, no nipple discharge, no palpable mass, no enlarged lymph nodes. Resp Effort & Inspection: normal respiratory effort, no cough, no respiratory distress and no stridor Cardio Jugular venous distension: no JVD GI Inspection: Yes normal to inspection Palpation (GI): Soft to palpation, nontender, no guarding and not rigid Skin General skin exam: dry skin Rashes: no rashes Neuro General: patient oriented x3 and no focal motor deficits Extrem General: Yes full ROM and Yes no clubbing, cyanosis or edema Psych Appearance: grossly normal Assessment & Plan Assessment & Plan (1) Family history of breast cancer: Comment: See detailed notes from Dr. Escalona; currently getting Q 6 month breast exams with him Code(s): Z80.3 - Family history of malignant neoplasm of breast Category: Medical Plan 63-year-old female patient with a known family history of breast and colon cancer, underwent genetic testing which revealed no clinically significant mutation identified and no variance of uncertain significance were identified. Based on her family history however every 5 year colonoscopy was recommended. Examination today revealed no suspicious findings in either breast and her most recent mammogram of 07/31/2023 revealed no significant changes from the prior study (BI-RADS 2). She will follow up in 6 months for a routine breast evaluation. She should call sooner for any concerns. Coding Level of Care Code Est Pt Level 3 (05205) Complex EM visit Add On G2211 Diagnoses Family history of breast cancer Z80.3
[2024-06-10 12:48] VITALS: BP 138/73; PULSE 79; BMI 34.5
== END 2024-06-10 13:00 | disposition home or self-care (01) ==
PROVIDERS: PCP Internal Medicine; Visit Provider Surgery
DX: Z80.3 Family history of malignant neoplasm of breast (principal)
CPT/HCPCS: 99213

== ENCOUNTER 2024-07-01 11:04 | Outpatient (AMB) | payer MEDICAID, SELFPAY ==
[2024-07-01 11:17] VITALS: BP 137/72; PULSE 88; BMI 34.8
--- NOTE | 2024-07-01 11:17 | A.OFFVIS_ITS ---
Vital Signs 07/01/24 11:17 Height 5 ft 4 in Weight 203 lb BMI 34.8 BP 137/72 Blood Pressure Location Lt brachial Position Sitting Pulse 88 Intake Visit Reasons: s/p EGD Intake Note: Patient in office today in follow up s/p EGD. CC: Patient c/o difficulty swallowing, constipation, epigastric pain, and weight gain. She also c/o gas and bloating. Manager Public Required: No Accompanied by: Self / Same As Patient Allergies gentamicin [From GARAMYCIN] Allergy (Intermediate, Verified 07/01/24 11:20) RASH Penicillins [PENICILLINS] Allergy (Intermediate, Verified 07/01/24 11:20) RASH Seasonal Allergies Allergy (Intermediate, Verified 07/01/24 11:20) seasonal allergies vancomycin [VANCOMYCIN] Allergy (Intermediate, Verified 07/01/24 11:20) swelling/rash/hives HPI HPI s/p EGD: Details: Assessment & Plan (1) Gallstones: Comment: 10/2019 3-HIDA scan Code(s): K80.20 - Calculus of gallbladder without cholecystitis without obstruction Category: Medical (2) Abdominal pain: Code(s): R10.9 - Unspecified abdominal pain Category: Medical Qualifiers: Abdominal location: right upper quadrant Qualified Code(s): R10.11 - Right upper quadrant pain (3) GERD (gastroesophageal reflux disease): Code(s): K21.9 - Gastro-esophageal reflux disease without esophagitis Category: Medical (4) Chronic idiopathic constipation: Code(s): K59.04 - Chronic idiopathic constipation Category: Medical (5) Oropharyngeal dysphagia: Code(s): R13.12 - Dysphagia, oropharyngeal phase Category: Medical (6) Obesity (BMI 30.0-34.9): Code(s): E66.9 - Obesity, unspecified Category: Medical Plan [place] #declines She is aware of the upcoming EGD. So far, labs and HIDA do not uncover a reason for her pain. (She still has epigastric pain and it is keeping her up at night. She has been taking the o2o and the famotidine. The pain radiates to her back now as well and she describes it as pushing. The pain is 7/10 and is all day w/o any exacerbating or remitting factors and it is not effected by eating or BM's. She also has associated nausea. She is also having dysphagia. In 2020 she had the same problem that resolved with dilation.) She never received the carafate, calling pharmacy. ROV after EGD 10/31 Medications: Refilled sucralfate (Carafate) 20 mL PO QNOON 1,000 mL 3RF R10.9 - Unspecified abdominal pain, K80.20 - Calculus of gallbladder without cholecystitis without obstruction EGD 03/20/24 Findings: Larynx:normal Esophagus: GE junction at 36 cm, diaphragm hiatus at 38 cm, consistent with 2 cm hiatal hernia, schatzki ring noted. Balloon dialtion to 20 mm at UES, mid esophagus and LES, superficial tear noted at UES. Bx also taken from GEJ, distal and proximal areas. LES slightly patulous Stomach: mild erythema . Biopsies were obtained. Grade 2 flap valve on retroflexed examination of the cardia. Pylorus was tight and stretched with baloon to 20 mm with heme noted Duodenum: Normal bulb and descending duodenum, bx taken Intervention: Biopsies as noted above, balloon dilation Impression/Findings: gastritis schatzki ring hiatal hernia tight pylorus patulous GEJ PLAN: await Bx result, cont with PPI GERD precautions BIOPSY Received: 03/20/24 Diagnosis A. Duodenum, biopsy: Duodenal mucosa within normal limits. B. Stomach, biopsy: Oxyntic mucosa with mild chronic inactive inflammation; no Helicobacter organisms seen. C. GE junction, biopsy: - Squamous mucosa/submucosa with reactive lymphoid aggregate and benign adipose tissue. - No glandular epithelium present. See comment. D. Esophagus, distal, biopsy: Squamous epithelium within normal limits; no inflammation seen. E. Esophagus, proximal, biopsy: Squamous epithelium within normal limits; no inflammation seen. Comment (C): The presence of fat in the GE junction sample raises the risk of perforation. Please correlate with clinical and endoscopic findings LUCIANAA ELA N 08/10/23 MPRESSION: Visualization of the gallbladder is evidence of a patent cystic duct and strong evidence against the diagnosis of acute cholecystitis. The common bile duct is patent. Gallbladder emptying and ejection fraction are abnormal. Liver function appears normal. TODAYS VISIT Pt edcucation printed re: pyloric stenosis, Schatskis ring and esophageal stricture in [place] also biliarty dyskinesia. She is having worsening trouble with gas and bloating and I think this may be related to the gallstones which are causing some biliary dyskinesia even though the HIDA scan does not show acute cholecystitis. We are going to start her on Creon since we have never done that and depending on how she responds we may need to consider an elective cholecystectomy going forward. She says that her swallowing did not improve with dilation however stretching the pylorus helped her pain a little bit. It is hard to say whether the pain is more due to pyloric stenosis or the gallbladder issue. She asks if we should be repeating the EGD to stretch more to improve the swallowing but I think we need to do a wait and see approach on this especially since there was some suggestion of perforation on the biopsy. She has been on sucralfate for 3 months and because of her worsening constipation I think will stop it since this is adequate time to promote healing. She will continue on her bisacodyl which she feels controls her c onstipation well. She of course will also continue on her omeprazole in the morning and famotidine at night since she has distal esophagitis as part of the swallowing problem. Return office visit at my next available appointment to assess her response to Creon and we are also going to order a barium swallow to see if there is any trouble with the mechanics of swallowing. [facility] Medical History (Updated 07/01/24 @ 11:33 by LEANDER Bedolla) Perimenopause De Quervain's tenosynovitis, left Potential exposure to STD Urinary incontinence Sinusitis Asymptomatic postsurgical menopause Pre-op chest exam Fungal skin infection Well woman exam with routine gynecological exam Vitamin D deficiency Elevated parathyroid hormone Asthma Abdominal pain Yeast infection Left hand pain Numbness and tingling in both hands Vaginal burning Pulmonary nodules Right knee pain Other and unspecified hyperlipidemia Essential hypertension Morbid obesity HELEN (obstructive sleep apnea) Precordial chest pain Heart palpitations Snoring Difficulty sleeping Panic attack PTSD (post-traumatic stress disorder) Cervical cancer screening Family history of breast cancer Low back pain Neck pain Depression Restless leg syndrome Peripheral neuropathy BMI 35.0-35.9,adult PVC (premature ventricular contraction) Mitral valve prolapse Hypertension Obesity (BMI 30-39.9) Diabetes type 2, controlled Osteopenia determined by x-ray Hyperlipidemia Lower back pain Hypothalamic hypothyroidism Insomnia GERD (gastroesophageal reflux disease) Migraine headache Surgical History H/O eye surgery Hx of endoscopy Hx of colonoscopy Hx of left breast biopsy History of cervical cerclage Hx of hysterectomy Hx of tubal ligation Family History Father Diabetes Paced cardiac rhythm Colon cancer Mother HTN (hypertension) High cholesterol Skin cancer Breast cancer Colon cancer Sister Obese abdomen Brother Infarction of lung due to iatrogenic pulmonary embolism Son HTN (hypertension) High cholesterol Son HTN (hypertension) High cholesterol Son No problems noted. Son No problems noted. Son No problems noted. Sister No problems noted. Sister No problems noted. 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 Gender identity: Female Female Reproductive History Menstrual Age of Menarche: 10 Date of menopause: 06/20/13 Review of Systems Const Denies fatigue, Denies fever(s), Denies night sweats, Denies poor appetite, Reports weight gain and Denies weight loss Eyes Details: glasses Reports requires corrective lenses ENT Reports Normal hearing present, Denies dental pain, Denies dysphagia, Denies hearing loss, Denies mouth pain, Denies odynophagia, Denies throat swelling, Denies tongue swelling and Reports other (Dentition adequate) Card Reports no additional complaints Resp Reports no additional complaints GI Details: Reports abdominal pain, Denies melena, Reports bloating, Denies hematochezia, Reports constipation, Denies GI cramping, Denies dysphagia, Denies excessive flatus, Denies early satiety, Reports heartburn, Denies diarrhea, Denies nausea, Denies odynophagia, Denies vomiting and Denies hematemesis Skin/Breast Denies pruritus, Denies lesions, Denies rash and Denies jaundice Neuro Reports Normal hearing present and Denies Abnormal speech present Endo Denies fatigue Aller/Immun Denies throat swelling and Denies tongue swelling Physical Exam Vital Signs: Last Vital Signs Pulse 88 07/01/24 11:17 BP 137/72 07/01/24 11:17 BMI result Body Mass Index 34.8 Const General: cooperative, no acute distress, well developed and well groomed Nutritional Appearance: well nourished and obese Orientation/consciousness: oriented to person, oriented to place and oriented to time Limitations: No language barrier HEENT Head: Yes normocephalic and Yes atraumatic Eyes General: appearance normal, both eyes and all related structures Pupils: Equal, round and reactive pupils present Neck Neck: Yes normal visual inspection and Yes no lymphadenopathy Thyroid: Thyroid normal Resp Effort & Inspection: normal respiratory effort and able to speak in complete sentences Auscultation: clear to auscultation bilaterally Cardio Rate: regular rate Rhythm: regular rhythm Heart sounds: Normal, physiologic split S2 sound present Peripheral pulses: radial pulses present and posterior tibial pulses present GI Inspection: No distended, No Abdominal panniculus present and Yes obesity Palpation (GI): Soft to palpation, nontender, no guarding, not rigid and No hepatosplenomegaly present Percussion: Yes normal to percussion Auscultation: normal bowel sounds Rectal Exam - Female: deferred Skin General skin exam: no rashes or lesions noted, turgor normal, skin not dry, no jaundice, No spider nevi and no striae Rashes: no rashes Nails: normal Neuro General: oriented to person, oriented to place and oriented to time Cranial nerves: Yes Equal, round and reactive pupils present and Yes Normal hearing present Speech: No Abnormal speech present Extrem General: Yes normal to inspection, No clubbing, No cyanosis and No edema Psych Appearance: grossly normal and well kempt Mental Status: mental status grossly normal Speech and movement: Normal speech and movement present Affect: normal affect Attitude: cooperative Thought process: Normal thought process present and not confabulating Thought content: Normal thought content present Insight: Fair insight present (Psych) Judgement: Fair judgement present (Psych) Results Reviewed Results Reviewed: EGD 03/20/24 Findings: Larynx:normal Esophagus: GE junction at 36 cm, diaphragm hiatus at 38 cm, consistent with 2 cm hiatal hernia, schatzki ring noted. Balloon dialtion to 20 mm at UES, mid esophagus and LES, superficial tear noted at UES. Bx also taken from GEJ, distal and proximal areas. LES slightly patulous Stomach: mild erythema . Biopsies were obtained. Grade 2 flap valve on retroflexed examination of the cardia. Pylorus was tight and stretched with baloon to 20 mm with heme noted Duodenum: Normal bulb and descending duodenum, bx taken Intervention: Biopsies as noted above, balloon dilation Impression/Findings: gastritis schatzki ring hiatal hernia tight pylorus patulous GEJ PLAN: await Bx result, cont with PPI GERD precautions BIOPSY Received: 03/20/24 Diagnosis A. Duodenum, biopsy: Duodenal mucosa within normal limits. B. Stomach, biopsy: Oxyntic mucosa with mild chronic inactive inflammation; no Helicobacter organisms seen. C. GE junction, biopsy: - Squamous mucosa/submucosa with reactive lymphoid aggregate and benign adipose tissue. - No glandular epithelium present. See comment. D. Esophagus, distal, biopsy: Squamous epithelium within normal limits; no inflammation seen. E. Esophagus, proximal, biopsy: Squamous epithelium within normal limits; no inflammation seen. Comment (C): The presence of fat in the GE junction sample raises the risk of p erforation. Please correlate with clinical and endoscopic findings LUCIANAA SCA N 08/10/23 MPRESSION: Visualization of the gallbladder is evidence of a patent cystic duct and strong evidence against the diagnosis of acute cholecystitis. The common bile duct is patent. Gallbladder emptying and ejection fraction are abnormal. Liver function appears normal. Assessment & Plan Assessment & Plan (1) Biliary dyskinesia: Code(s): K82.8 - Other specified diseases of gallbladder Category: Medical (2) Gallstones: Comment: 10/2019 3-HIDA scan Code(s): K80.20 - Calculus of gallbladder without cholecystitis without obstruction Category: Medical (3) Chronic idiopathic constipation: Code(s): K59.04 - Chronic idiopathic constipation Category: Medical (4) GERD (gastroesophageal reflux disease): Code(s): K21.9 - Gastro-esophageal reflux disease without esophagitis Category: Medical (5) Oropharyngeal dysphagia: Code(s): R13.12 - Dysphagia, oropharyngeal phase Category: Medical (6) Abdominal pain: Code(s): R10.9 - Unspecified abdominal pain Category: Medical Qualifiers: Abdominal location: right upper quadrant Qualified Code(s): R10.11 - Right upper quadrant pain Plan Pt edcucation printed re: pyloric stenosis, Schatskis ring and esophageal stricture in [place] also biliarty dyskinesia. She is having worsening trouble with gas and bloating and I think this may be related to the gallstones which are causing some biliary dyskinesia even though the HIDA scan does not show acute cholecystitis. We are going to start her on Creon since we have never done that and depending on how she responds we may need to consider an elective cholecystectomy going forward. She says that her swallowing did not improve with dilation however stretching the pylorus helped her pain a little bit. It is hard to say whether the pain is more due to pyloric stenosis or the gallbladder issue. She asks if we should be repeating the EGD to stretch more to improve the swallowing but I think we need to do a wait and see approach on this especially since there was some suggestion of perforation on the biopsy. She has been on sucralfate for 3 months and because of her worsening constipation I think will stop it since this is adequate time to promote healing. She will continue on her bisacodyl which she feels controls her constipation well. She of course will also continue on her omeprazole in the m orning and famotidine at night since she has distal esophagitis as part of the swallowing problem. Return office visit at my next available appointment to assess her response to Creon and we are also going to order a barium swallow to see if there is any trouble with the mechanics of swallowing. Orders: Orders FL upper GI small bowel Today R13.12 - Dysphagia, oropharyngeal phase Medications: New [id number] 36,000-114,000- 180,000 unit (Creon) administer with meals and/or snacks 2 caps PO BID 120 caps 6RF K82.8 - Other specified diseases of gallbladder Discontinued sucralfate Discontinued Reason: Doctor's Order 10 mL PO QID 946 mL 1RF Coding Level of Care Code Est Pt Level 4 (19156) Diagnoses Biliary dyskinesia K82.8 Gallstones K80.20 Chronic idiopathic constipation K59.04 GERD (gastroesophageal reflux disease) K21.9 Oropharyngeal dysphagia R13.12 Right upper quadrant abdominal pain R10.11 Abdominal location: right upper quadrant Time Spent (min) 33
--- OUTSIDE RECORDS SUMMARY | 2024-07-01 13:39 | XMS_ITS | Clinical Summary ---
Author Organization [employer] [facility] Address [address] [place] [address] Care Team Providers Care Claims Administrator Name Role Phone Matilda Yo MD Primary Care Provider [phone] Surgical History Surgery Date Site/Laterality Comments TUBAL LIGATION PROCEDURE: HISTORICAL TUBAL LIGATION HYSTERECTOMY PROCEDURE: HISTORICAL HYSTERECTOMY OTHER SURGICAL HISTORY PROCEDURE: HISTORICAL CERCLAGE SURGERY; COMMENT: x 4, she has 7 children Medical History Medical History Date Comments Hypothyroidism DX:Hypothyroidis m Hypertension DX:Hypertension Type 2 diabetes mellitus wit hout complications DX:Type 2 diabetes mellitus without complications (HCC) [...] age to complete this topic Care Teams Claims Administrator Relationship Specialty Start Date End Date Matilda Yo MD [address] [place] [address] PCP - General Internal Medicine 09/25/19
== END 2024-07-01 15:22 | disposition home or self-care (01) ==
LOC: HO.HGI 11:05
PROVIDERS: PCP Internal Medicine; Visit Provider Nurse Practitioner
DX: K82.8 Other specified diseases of gallbladder (principal); K80.20 Calculus of gallbladder without cholecystitis without obstruction; K59.04 Chronic idiopathic constipation; K21.9 Gastro-esophageal reflux disease without esophagitis; R13.12 Dysphagia, oropharyngeal phase; R10.11 Right upper quadrant pain
CPT/HCPCS: 99214

== ENCOUNTER → 2024-07-01 11:04 | Outpatient (BNVA) | payer MEDICAID, SELFPAY | PROVIDERS: PCP Internal Medicine; Visit Provider Nurse Practitioner | DX: K21.9 Gastro-esophageal reflux disease without esophagitis (principal); K59.04 Chronic idiopathic constipation; K80.20 Calculus of gallbladder without cholecystitis without obstruction; K82.8 Other specified diseases of gallbladder; R13.12 Dysphagia, oropharyngeal phase; E66.9 Obesity, unspecified; R10.11 Right upper quadrant pain; Z68.34 Body mass index [BMI] 34.0-34.9, adult | CPT/HCPCS: 99212 ==

== ENCOUNTER 2024-07-14 07:27 | Outpatient (REF) | payer MEDICAID, SELFPAY ==
--- OUTSIDE RECORDS SUMMARY | 2024-07-14 07:30 | XMS_ITS | Clinical Summary ---
Author Organization [employer] [place] [facility] Address [address] [place] [address] Care Team Providers Care Airline Ticket Agent Name Role Phone Matilda Yo MD Primary Care Provider [phone] Surgical History Surgery Date Site/Laterality Comments TUBAL [...] Influenza Vaccine (#1) 2023 03/17/2020 RSV Immunization Adult Patie nts (1 - 1-dose 75+ series) 12/25/2034 HIB [...] age to complete this topic Care Teams Airline Ticket Agent Relationship Specialty Start Date End Date Matilda Yo MD [address] [place] [address] PCP - General Internal Medicine 09/25/19
[2024-07-14 08:50] LABS: Creatinine, mg/dL 45.12
[2024-07-14 09:23] LABS: Creatinine, 24Hr Urine 1.4 G/Day (1.0-2.0); Total Volume 24 Hour Urine 3130 mL
[2024-07-14 10:12] LABS: Albumin Level 4.2 g/dL (3.5-5.0); Anion Gap 10 (12-20); Blood Urea Nitrogen 15 mg/dL (9-16); Carbon Dioxide 27 mmol/L (22-29); Chloride 109 mmol/L (96-108); Estimated Glomerular Filt Rate > 60; Glucose Random 138 mg/dL (60-115); Magnesium 2.2 mg/dL (1.6-2.6); Phosphorus 2.6 mg/dL (2.7-4.5); Potassium 4.1 mmol/L (3.3-5.1); Sodium 142 mmol/L (135-145)
[2024-07-14 10:29] LABS: Vitamin D 25-OH Total 35.1 ng/mL (>30)
[2024-07-15 18:47] LABS: Calcium, 24 Hr Urine 166 mg/24 h; Calcium/Creatinine Ratio 115 mg/g creat (30-275); Creatinine 24Hr Urine 1.44 g/24 h (0.50-2.15)
== END 2024-07-14 07:28 | disposition home or self-care (01) ==
LOC: HO.LAB 07:27
PROVIDERS: PCP Internal Medicine; Visit Provider Student in an Organized Health Care Education/Training Program
DX: R79.89 Other specified abnormal findings of blood chemistry (principal); E55.9 Vitamin D deficiency, unspecified
CPT/HCPCS: 36415; 80048; 82040; 82306; 82330; 82340; 82570; 83735; 83970; 84100; 84443

== ENCOUNTER 2024-07-21 14:09 | Outpatient (AMB) | payer MEDICAID, SELFPAY ==
[2024-07-21 14:10] VITALS: BP 108/78; PULSE 77; O2SAT 96; BMI 35.0
--- NOTE | 2024-07-21 14:10 | A.OFFVIS_ITS ---
Vital Signs 07/21/24 14:10 Height 5 ft 4 in Weight 204 lb 2.369 oz BMI 35.0 BP 108/78 Blood Pressure Location Lt brachial Position Sitting Pulse 77 Pulse Source Pulse Oximeter Pulse Oximetry (%) 96 Oxygen Delivery Method Room Air Intake Visit Reasons: Hyperparathyroidism Intake Note: Patient present today for Hyperparathyroidism office visit. Counter Roller Required: No Accompanied by: Self / Same As Patient Allergies gentamicin [From GARAMYCIN] Allergy (Intermediate, Verified 07/21/24 14:13) RASH Penicillins [PENICILLINS] Allergy (Intermediate, Verified 07/21/24 14:13) RASH Seasonal Allergies Allergy (Intermediate, Verified 07/21/24 14:13) seasonal allergies vancomycin [VANCOMYCIN] Allergy (Intermediate, Verified 07/21/24 14:13) swelling/rash/hives HPI Comments Details: 63-year-old female here for follow up of elevated PTH levels. HPI from initial visit Most recent labs from 04/24/2024 show PTH level of 95.6, calcium of 9.7 with albumin of 4.3, corrected calcium would be 9.4, phosphorus normal at 3.7, GFR greater than 60, vitamin-D level of 29.7. Chart review also shows elevated PTH levels back from June 2021 when PTH was 93, no calcium from that time, another elevated PTH level from January 2021 at 66 with vitamin-D of 29, again no calcium level. Chart review also shows mostly normal calcium levels apart from once in January 2024 when calcium was noted to be elevated at 10.6 with an albumin of 4.4, corrected calcium would be 10.2. This is high normal. Reports muscle aches, constipation, abd pain due to gastritis, reports memory issues. No fractures Bone density scan 07/26/2022 showed osteopenia with lowest T-score in the femoral neck of-1.2, FRAX not meeting criteria for treatment. No kidney stones CT abdomen April 2021 did not show any kidney stones. Vitamin D: no supplements Biotin yes No calcium supplements Calcium : 3 cups of milk, 1 cup of yogurt, 2-3 cheeses , and sometimes icecream daily No exercise, walks in summer Family history : son has kidney stones No history of bariatric surgery Not on HCTZ anymore, used it for a month due to elevated BP , now well controlled without meds Interval history Labs done 07/14/2024 showed calcium of 9, albumin of 4.2, corrected calcium would be 8.8, ionized calcium normal at 5, phosphorus mildly low at 2.6, magnesium normal at 2.2, vitamin-D normal at 35.1, TSH of 3, PTH elevated at 116, 24 hour urine calcium normal at 166 with a normal calcium and creatinine ratio, fractional excretion of calcium calculated 0.01 which is equivocal Vitamin D 1000 units daily Calcium : 2- 3 cups of milk daily , 1 cup of yogurt, 2-3 cheeses , and sometimes icecream daily PCP ordered NM parathyroid scan done 06/05/24 [facility] didnt show adenoma Physical exam General: sitting comfortably in no acute distress HEENT: normocephalic/atraumatic, moist oral mucosa Neck: supple, symmetrical, no thyromegaly Cardiac: normal heart sounds Pulm: normal breath sounds B/L, no added breath sounds Abd: not distended, no tenderness Extremities: no edema, no signs of myxedema Neuro: AAO x3, Speech: normal, no facial droop, moving all 4 extremities Laboratory Tests 03/11/20 06/14/20 09/14/20 09:35 10:00 07:56 Creatinine Estimated GFR Calcium Phosphorus Albumin 4.2 4.4 4.4 25-OH Vitamin D Total TSH PTH Intact 01/12/21 04/09/21 06/20/21 09:08 13:51 08:39 Creatinine Estimated GFR Calcium Phosphorus Albumin 4.4 4.4 4.1 25-OH Vitamin D Total 29.0 TSH PTH Intact 66 H 93 H 08/24/21 01/04/22 04/28/22 07:38 08:31 08:38 Creatinine Estimated GFR Calcium 9.6 Phosphorus Albumin 4.0 4.4 4.2 25-OH Vitamin D Total TSH PTH Intact 07/26/22 10/23/22 01/23/23 08:50 09:08 09:00 Creatinine Estimated GFR Calcium 9.8 9.2 D 9.9 D Phosphorus Albumin 4.4 4.0 4.4 25-OH Vitamin D Total TSH PTH Intact 05/14/23 06/18/23 10/23/23 08:52 11:09 07:34 Creatinine Estimated GFR Calcium 9.2 D 9.5 9.7 Phosphorus Albumin 4.2 4.3 4.4 25-OH Vitamin D Total TSH PTH Intact 01/24/24 04/24/24 07:49 08:40 Creatinine 0.73 Estimated GFR > 60 Calcium 10.6 H D 9.7 D Phosphorus 3.7 Albumin 4.4 4.3 25-OH Vitamin D Total 29.7 L TSH 2.10 PTH Intact 95.6 H Laboratory Tests 07/14/24 07/14/24 05:30 07:55 Creatinine 0.77 Estimated GFR > 60 Calcium 9.0 D Ionized Calcium 5.0 Phosphorus 2.6 L Magnesium 2.2 Albumin 4.2 25-OH Vitamin D Total 35.1 TSH 3.00 PTH Intact 116.0 H Ur 24 Hour Volume 3130 Ur Creatinine mg/dL 45.12 Ur Creatinine 24 Hour 1.4 Ur Calcium 24 Hr 166 Calcium/Creat 24 Hr 115 EXAMINATION: Nuclear medicine parathyroid SPECT study. 06/05/24 CLINICAL INDICATION: Hyperparathyroidism. COMPARISON: CT chest 05/24/2023 TECHNIQUE: Following intravenous administration of 29.0 mCi of Cardiolite, planar imaging over the neck was obtained at 20 minutes. At 2 hours planar and SPECT images were obtained. FINDINGS: On 20 minutes later imaging there is normal activity seen in bilateral thyroid lobes with a slight bulbous appearance of the lower pole left thyroid lobe. At 20 minutes planar and SPECT imaging there is good washout of activity through the thyroid gland with no residual activity seen in the thyroid bed or in the upper and lower poles of thyroid lobe to suspect parathyroid adenoma. NM/NM parathyroid SPECT IMPRESSION: There is no suspicion for parathyroid adenoma. The thyroid lobes are symmetrical and normal. Electronically signed by: Vikram Moreira MD 06/05/2024 04:17 PM [facility] 07/26/22 CLINICAL INDICATION: Osteopenia. COMPARISON: Baseline BD dated 08/04/2016. TECHNIQUE: Using a [employer] DXA System (software version: 13.1) manufactured by [employer], dual-energy x-ray absorptiometry was performed of the lumbar spine and left hip. The images are of good technical quality. Summary results are attached. FINDINGS: AP SPINE L1-L4: Current: BMD 1.067 g/cm2, Z-score 0.0, T-score -0.9, normal, 7.8% increase from baseline (<5% change is not significant). Baseline: BMD 0.990 g/cm2. LEFT FEMUR, NECK: Current: BMD 0.876 g/cm2, Z-score -0.1, T-score -1.2, osteopenia. Baseline: BMD 0.907 g/cm2. LEFT FEMUR, TOTAL: Current: BMD 1.026 g/cm2, Z-score 0.9, T-score 0.1, normal, 3.6% increase from baseline (<5% change is not significant). Baseline: BMD 0.990 g/cm2. IDENTIFIED RISK FACTORS: Menopause, hysterectomy, bilateral oophorectomy, height loss, low calcium intake, recurrent falls. HISTORY OF FRACTURE: None listed. MEDICATIONS: None listed. MM/XR DEXA axial skeleton IMPRESSION: 1. DIAGNOSIS: Osteopenia based on the lowest T-score value of -1.2 in the femoral neck applying World Health Organization criteria. 2. 10-YEAR FRACTURE RISK PREDICTION, FRAX: Major osteoporotic fracture (clinical spine, forearm, hip or shoulder) 4.2%. Hip fracture 0.3%. [facility] Medical History (Updated 07/01/24 @ 11:33 by LEANDER Bedolla) Perimenopause De Quervain's tenosynovitis, left Potential exposure to STD Urinary incontinence Sinusitis Asymptomatic postsurgical menopause Pre-op chest exam Fungal skin infection Well woman exam with routine gynecological exam Vitamin D deficiency Elevated parathyroid hormone Asthma Abdominal pain Yeast infection Left hand pain Numbness and tingling in both hands Vaginal burning Pulmonary nodules Right knee pain Other and unspecified hyperlipidemia Essential hypertension Morbid obesity HELEN (obstructive sleep apnea) Precordial chest pain Heart palpitations Snoring Difficulty sleeping Panic attack PTSD (post-traumatic stress disorder) Cervical cancer screening Family history of breast cancer Low back pain Neck pain Depression Restless leg syndrome Peripheral neuropathy BMI 35.0-35.9,adult PVC (premature ventricular contraction) Mitral valve prolapse Hypertension Obesity (BMI 30-39.9) Diabetes type 2, controlled Osteopenia determined by x-ray Hyperlipidemia Lower back pain Hypothalamic hypothyroidism Insomnia GERD (gastroesophageal reflux disease) Migraine headache Surgical History H/O eye surgery Hx of endoscopy Hx of colonoscopy Hx of left breast biopsy History of cervical cerclage Hx of hysterectomy Hx of tubal ligation Family History Father Diabetes Paced cardiac rhythm Colon cancer Mother HTN (hypertension) High cholesterol Skin cancer Breast cancer Colon cancer Sister Obese abdomen Brother Infarction of lung due to iatrogenic pulmonary embolism Son HTN (hypertension) High cholesterol Son HTN (hypertension) High cholesterol Son No problems noted. Son No problems noted. Son No problems noted. Sister No problems noted. Sister No problems noted. 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 Most recent labs from 04/24/2024 show PTH level of 95.6, calcium of 9.7 with albumin of 4.3, corrected calcium would be 9.4, phosphorus normal at 3.7, GFR greater than 60, vitamin-D level of 29.7. Chart review also shows elevated PTH levels back from June 2021 when PTH was 93, no calcium from that time, another elevated PTH level from January 2021 at 66 with vitamin-D of 29, again no calcium level. Chart review also shows mostly normal calcium levels apart from once in January 2024 when calcium was noted to be elevated at 10.6 with an albumin of 4.4, corrected calcium would be 10.2. This is high normal. Labs done 07/14/2024 showed calcium of 9, albumin of 4.2, corrected calcium would be 8.8, ionized calcium normal at 5, phosphorus mildly low at 2.6, magnesium normal at 2.2, vitamin-D normal at 35.1, TSH of 3, PTH elevated at 116, 24 hour urine calcium normal at 166 with a normal calcium and creatinine ratio, fractional excretion of calcium calculated 0.01 which is equivocal Unlikely secondary hyperparathyroidism due to vitamin-D deficiency since labs repeated with sufficient vitamin-D still show PTH elevation. differentials could be primary hyperparathyroidism though calcium was only elevated once back in January 2024 otherwise she has had normal calcium levels, could possibly have normocalcemic hyperparathyroidism.. She has osteopenia on bone density done in July 2022, FRAX does not meet criteria for treatment, lowest T-score of-1.2 at the left femoral neck. No history of kidney stones, CT of the abdomen from April 2021 did not show any kidney stones either. Her son has kidney stones, we should keep this in mind if we start thinking about [facility]. No hypercalciuria. She does not meet any surgical criteria. At this time we will continue to monitor. Also have had some concerns about the PTH assay at our lab. We will repeat labs at [facility]. Plan: -continue vitamin-D 1000 units daily -no calcium supplements, but continue 1000 mg of calcium intake through diet, she is on adequate amounts of calcium in her diet -repeat labs with PTH, vitamin-D, calcium, albumin, ionized calcium, ccreatinine, phosphorus, prior to next appointment in 4 months -f follow up in 4 months to discuss results (2) Vitamin D deficiency: Code(s): E55.9 - Vitamin D deficiency, unspecified Category: Medical Plan: See above Plan See above Orders: Orders Calcium 14 Weeks R7 - Other specified abnormal findings of blood chemistry Calcium, Ionized 14 Weeks R7 - Other specified abnormal findings of blood chemistry Parathyroid Hormone Intact 14 Weeks R7. - Other specified abnormal findings of blood chemistry Vitamin D 25-OH Total 14 Weeks R7. - Other specified abnormal findings of blood chemistry Albumin Level 14 Weeks R7. - Other specified abnormal findings of blood chemistry Phosphorus 14 Weeks - Other specified abnormal findings of blood chemistry Creatinine 14 Weeks R7. - Other specified abnormal findings of blood chemistry Patient Instructions: Continue vitamin D 1000 units daily Continue to maintain good calcium intake in diet Do blood work in around 3.5 months a week before your next appointment with me Do these labs at [facility] at [address] [place] [address] in [facility] and make sure they fax the results to me Walk 30 mins 5 days a week Coding Level of Care Code Est Pt Level 3 (55423) Diagnoses Elevated parathyroid hormone R79.89 Vitamin D deficiency E55.9
--- OUTSIDE RECORDS SUMMARY | 2024-07-21 16:29 | XMS_ITS | Clinical Summary ---
Author Organization [employer] [facility] Address [address] [place] [address] Care Team Providers Care Baseball Coach Name Role Phone Matilda Yo MD Primary Care Provider [phone] Surgical History Surgery Date Site/Laterality Comments TUBAL LIGATION PROCEDURE: HISTORICAL TUBAL LIGATION HYSTERECTOMY PROCEDURE: HISTORICAL HYSTERECTOMY OTHER SURGICAL HISTORY PROCEDURE: HISTORICAL CERCLAGE SURGERY; COMMENT: x 4, she has 7 children Medical History Medical History Date Comments Hypothyroidism DX:Hypothyroidis m Hypertension DX:Hypertension Type 2 diabetes mellitus wit hout complications (CMS/HCC V24, CMS/HCC V28) DX:Type 2 jackie betes mellitus without complications ([facility]) Mild intermittent asthma, uncomplicated DX:Mild intermittent asthma, [...] [employer] of Health Screening 03/07/2022 COVID-19 Vaccine ( - 2023-2 5 season) 2023 Influenza Vaccine (Season Ended) 2024 03/17/20 20 RSV Immunization Adult Patie nts (1 - [...] age to complete this topic Meningococcal B Vaccine Aged Out No l onger eligible based on patient's age to complete [...] age to complete this topic Care Teams Baseball Coach Relationship Specialty Start Date End Date Matilda Yo MD [facility] [address] PCP - General Internal Medicine 09/25/19
== END 2024-07-21 14:36 | disposition home or self-care (01) ==
PROVIDERS: PCP Internal Medicine; Visit Provider Student in an Organized Health Care Education/Training Program
DX: R79.89 Other specified abnormal findings of blood chemistry (principal); E55.9 Vitamin D deficiency, unspecified
CPT/HCPCS: 99213

== ENCOUNTER → 2024-07-21 14:09 | Outpatient (BNVA) | payer MEDICAID, SELFPAY | PROVIDERS: PCP Internal Medicine; Visit Provider Student in an Organized Health Care Education/Training Program | DX: R79.89 Other specified abnormal findings of blood chemistry (principal); E55.9 Vitamin D deficiency, unspecified | CPT/HCPCS: 99212 ==

== ENCOUNTER 2024-07-22 07:41 | Outpatient (REF) | payer MEDICAID, SELFPAY ==
--- OUTSIDE RECORDS SUMMARY | 2024-07-22 07:45 | XMS_ITS | Clinical Summary ---
Author Organization [employer] [facility] Address [address] [place] [address] Care Team Providers Care Movie Operator Name Role Phone Matilda Yo MD Primary Care Provider [phone] Surgical History Surgery Date Site/Laterality Comments TUBAL LIGATION PROCEDURE: HISTORICAL TUBAL LIGATION HYSTERECTOMY PROCEDURE: HISTORICAL HYSTERECTOMY OTHER SURGICAL HISTORY PROCEDURE: HISTORICAL CERCLAGE SURGERY; COMMENT: x 4, she has 7 children Medical History Medical History Date Comments Hypothyroidism DX:Hypothyroidis m Hypertension DX:Hypertension Type 2 diabetes mellitus wit hout complications (CMS/HCC V24, CMS/HCC V28) DX:Type 2 jackie betes mellitus without complications ([facility]) Mild intermittent asthma, uncomplicated DX:Mild [...] age to complete this topic Care Teams Movie Operator Relationship Specialty Start Date End Date Matilda Yo MD [facility] [address] PCP - General Internal Medicine 09/25/19
[2024-07-22 08:28] LABS: Estimated Average Glucose 146 mg/dL; Hemoglobin A1C 166.6968 umol/L; Hemoglobin A1c % 6.7 % (<6.0); Total Hemoglobin (HGBA1C) 3345.9919 umol/L
[2024-07-22 08:48] LABS: Alanine Aminotransferase 35 U/L (0-31); Albumin Level 4.1 g/dL (3.5-5.0); Alkaline Phosphatase 86 U/L (39-117); Anion Gap 9 (12-20); Aspartate Amino Transferase 30 U/L (5-31); Bilirubin Total 0.7 mg/dL (0.0-1.0); Blood Urea Nitrogen 12 mg/dL (9-16); Calcium 9.2 mg/dL (8.4-10.2); Carbon Dioxide 28 mmol/L (22-29); Chloride 108 mmol/L (96-108); Estimated Glomerular Filt Rate > 60; Glucose Random 150 mg/dL (60-115); Potassium 4.3 mmol/L (3.3-5.1); Sodium 141 mmol/L (135-145); Total Protein 6.6 g/dL (6.5-8.0)
[2024-07-22 09:05] LABS: Thyroid Stimulating Hormone 2.95 uIU/mL (0.32-4.0)
== END 2024-07-22 07:42 | disposition home or self-care (01) ==
LOC: HO.LAB 07:41
PROVIDERS: PCP Internal Medicine; Visit Provider Internal Medicine
DX: E03.8 Other specified hypothyroidism (principal); E11.9 Type 2 diabetes mellitus without complications; E21.0 Primary hyperparathyroidism; I10 Essential (primary) hypertension; M51.16 Intervertebral disc disorders with radiculopathy, lumbar region
CPT/HCPCS: 36415; 80053; 83036; 84443

== ENCOUNTER 2024-08-04 08:31 | Outpatient (REF) | payer MEDICAID, SELFPAY ==
--- OUTSIDE RECORDS SUMMARY | 2024-08-04 08:56 | XMS_ITS | Clinical Summary ---
Author Organization [employer] [facility] Address [address] [place] [address] Care Team Providers Care Cabana Attendant Name Role Phone Matilda Yo MD Primary Care Provider [phone] Surgical History Surgery Date Site/Laterality Comments TUBAL LIGATION PROCEDURE: HISTORICAL TUBAL LIGATION HYSTERECTOMY PROCEDURE: HISTORICAL HYSTERECTOMY OTHER SURGICAL HISTORY PROCEDURE: HISTORICAL CERCLAGE SURGERY; COMMENT: x 4, she has 7 children Medical History Medical History Date Comments Hypothyroidism DX:Hypothyroidis m Hypertension DX:Hypertension Type 2 diabetes mellitus wit hout complications (CMS/HCC V24, CMS/HCC V28) DX:Type 2 jackei betes mellitus without complications ([facility]) Mild intermittent asthma, uncomplicated DX:Mild intermittent asthma, [...] age to complete this topic Care Teams Cabana Attendant Relationship Specialty Start Date End Date Matilda Yo MD [facility] [address] PCP - General Internal Medicine 09/25/19
== END 2024-08-04 08:32 | disposition home or self-care (01) ==
LOC: HO.MAMMO 08:31
PROVIDERS: PCP Internal Medicine; Visit Provider Internal Medicine
DX: Z12.31 Encounter for screening mammogram for malignant neoplasm of breast (principal)
CPT/HCPCS: 77063; 77067

== ENCOUNTER → 2024-08-04 09:00 | Outpatient (BNV) | payer MEDICAID, SELFPAY | PROVIDERS: PCP Internal Medicine; Visit Provider Internal Medicine | DX: Z12.31 Encounter for screening mammogram for malignant neoplasm of breast (principal) | CPT/HCPCS: 77063; 77067 ==

== ENCOUNTER 2024-09-23 10:18 | Outpatient (AMB) | payer MEDICAID, SELFPAY ==
--- NOTE | 2024-09-23 10:21 | A.OFFVIS_ITS ---
Vital Signs 09/23/24 10:31 Height 5 ft 4 in Weight 201 lb BMI 34.5 BP 138/76 Blood Pressure Location Rt brachial Position Sitting Pulse 74 Pulse Source Pulse Oximeter Pulse Oximetry (%) 98 Oxygen Delivery Method Room Air Intake Visit Reasons: 2/3 months f/u dysphagia, biliary dys Intake Note: Established pt for mgmt of dysphagia, biliary dys. Active order BA [place]. [facility] 10/03. CC; Pt denies any GI sx or concerns at this time. Confirms that her Rx are controlling her sx well. Children'S Counselor Required: No Allergies gentamicin [From GARAMYCIN] Allergy (Intermediate, Verified 09/23/24 10:22) RASH Penicillins [PENICILLINS] Allergy (Intermediate, Verified 09/23/24 10:22) RASH Seasonal Allergies Allergy (Intermediate, Verified 09/23/24 10:22) seasonal allergies vancomycin [VANCOMYCIN] Allergy (Intermediate, Verified 09/23/24 10:22) swelling/rash/hives HPI HPI 2/3 months f/u dysphagia, biliary dys: Details: Assessment & Plan (1) Biliary dyskinesia: Code(s): K82.8 - Other specified diseases of gallbladder Category: Medical (2) Gallstones: Comment: 10/2019 3-HIDA scan Code(s): K80.20 - Calculus of gallbladder without cholecystitis without obstruction Category: Medical (3) Chronic idiopathic constipation: Code(s): K59.04 - Chronic idiopathic constipation Category: Medical (4) GERD (gastroesophageal reflux disease): Code(s): K21.9 - Gastro-esophageal reflux disease without esophagitis Category: Medical (5) Oropharyngeal dysphagia: Code(s): R13.12 - Dysphagia, oropharyngeal phase Category: Medical (6) Abdominal pain: Code(s): R10.9 - Unspecified abdominal pain Category: Medical Qualifiers: Abdominal location: right upper quadrant Qualified Code(s): R10.11 - Right upper quadrant pain Plan Pt education printed re: pyloric stenosis, Schatskis ring and esophageal stricture in Hungarian also biliary dyskinesia. She is having worsening trouble with gas and bloating and I think this may be related to the gallstones which are causing some biliary dyskinesia even though the HIDA scan does not show acute cholecystitis. We are going to start her on Creon since we have never done that and depending on how she responds we may need to consider an elective cholecystectomy going forward. She says that her swallowing did not improve with dilation however stretching the pylorus helped her pain a little bit. It is hard to say whether the pain is more due to pyloric stenosis or the gallbladder issue. She asks if we should be repeating the EGD to stretch more to improve the swallowing but I think we need to do a wait and see approach on this especially since there was some suggestion of perforation on the biopsy. She has been on sucralfate for 3 months and because of her worsening constipation I think will stop it since this is adequate time to promote healing. She will continue on her bisacodyl which she feels controls her constipation well. She of course will also continue on her omeprazole in the morning and famotidine at night since she has distal esophagitis as part of the swallowing problem. Return office visit at my next available appointment to assess her response to Creon and we are also going to order a barium swallow to see if there is any trouble with the mechanics of swallowing. Orders: Orders FL upper GI small bowel Today R13.12 - Dysphagia, oropharyngeal phase Medications: New [id number] 36,000-114,000- 180,000 unit (Creon) administer with meals and/or snacks 2 caps PO BID 120 caps 6RF K82.8 - Other specified diseases of gallbladder Discontinued sucralfate Discontinued Reason: Doctor's Order 10 mL PO QID 946 mL 1RF BARIUM SWALLOW 10/03/2024 TODAY'S VISIT She continues on bisacodyl, creon, omeprazole in the morning and famotidine at night. We had discontinued the sucralfate. We are still trying to discern what is causing her pain whether it is related to pyloric stenosis, gallbladder disease or constipation. The creon largely resolved her abdominal pain 60% less, happening only 2 times a week and for the past 2 years I was always in pain. She continues to have dyphagia that did not respond to dilation, likely presbyesophagus. CIC well controlled on bisacodyl. she is struggling with neuopathy but she was just started on gabapentin, she also was given a seated walker from her PCP to encourage her to exercise and lose weight. ROV 6 mos. [facility] Medical History (Updated 09/23/24 @ 10:49 by LEANDER Bedolla) Hx of abnormal cervical Pap smear Perimenopause De Quervain's tenosynovitis, left Potential exposure to STD Urinary incontinence Sinusitis Asymptomatic postsurgical menopause Pre-op chest exam Fungal skin infection Well woman exam with routine gynecological exam Vitamin D deficiency Elevated parathyroid hormone Asthma Abdominal pain Yeast infection Left hand pain Numbness and tingling in both hands Vaginal burning Pulmonary nodules Right knee pain Other and unspecified hyperlipidemia Essential hypertension Morbid obesity HELEN (obstructive sleep apnea) Precordial chest pain Heart palpitations Snoring Difficulty sleeping Panic attack PTSD (post-traumatic stress disorder) Cervical cancer screening Family history of breast cancer Low back pain Neck pain Depression Restless leg syndrome Peripheral neuropathy BMI 35.0-35.9,adult PVC (premature ventricular contraction) Mitral valve prolapse Hypertension Obesity (BMI 30-39.9) Diabetes type 2, controlled Osteopenia determined by x-ray Hyperlipidemia Lower back pain Hypothalamic hypothyroidism Insomnia GERD (gastroesophageal reflux disease) Migraine headache Surgical History H/O eye surgery Hx of endoscopy Hx of colonoscopy Hx of left breast biopsy History of cervical cerclage Hx of hysterectomy Hx of tubal ligation Family History Father Diabetes Paced cardiac rhythm Colon cancer Mother HTN (hypertension) High cholesterol Skin cancer Breast cancer Colon cancer Sister Obese abdomen Brother Infarction of lung due to iatrogenic pulmonary embolism Son HTN (hypertension) High cholesterol Son HTN (hypertension) High cholesterol Son No problems noted. Son No problems noted. Son No problems noted. Sister No problems noted. Sister No problems noted. 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 Gender identity: Female Female Reproductive History Menstrual Age of Menarche: 10 Date of menopause: 06/20/13 Review of Systems Const Denies fatigue, Denies fever(s), Denies night sweats, Denies poor appetite and Denies weight loss Eyes Details: GLASSES Reports requires corrective lenses ENT Reports Normal hearing present, Denies dental pain, Denies dysphagia, Denies hearing loss, Denies mouth pain, Denies odynophagia, Denies throat swelling, Denies tongue swelling and Reports other (Dentition adequate) Card Reports no additional complaints Resp Reports no additional complaints GI Details: Reports abdominal pain, Denies melena, Denies bloating, Denies hematochezia, Reports constipation, Denies GI cramping, Denies dysphagia, Denies excessive flatus, Denies early satiety, Reports heartburn, Denies diarrhea, Denies nausea, Denies odynophagia, Denies vomiting and Denies hematemesis Musc Reports abnormal gait, Reports back pain, Reports myalgias and Reports stiffness Skin/Breast Denies pruritus, Denies lesions, Denies rash and Denies jaundice Neuro Reports Normal hearing present, Denies Abnormal speech present, Reports abnormal gait and Reports paresthesias Endo Denies fatigue Aller/Immun Denies throat swelling and Denies tongue swelling Physical Exam Const General: cooperative, no acute distress, well developed and well groomed Nutritional Appearance: well nourished and overweight Orientation/consciousness: oriented to person, oriented to place and oriented to time Limitations: language barrier and ambulation with walker HEENT Head: Yes normocephalic and Yes atraumatic Eyes General: appearance normal, both eyes and all related structures Pupils: Equal, round and reactive pupils present Neck Neck: Yes normal visual inspection and Yes no lymphadenopathy Thyroid: Thyroid normal Resp Effort & Inspection: normal respiratory effort and able to speak in complete sentences Auscultation: clear to auscultation bilaterally Cardio Rate: regular rate Rhythm: regular rhythm Heart sounds: Normal, physiologic split S2 sound present Peripheral pulses: radial pulses present and posterior tibial pulses present GI Inspection: No distended, No Abdominal panniculus present and Yes obesity Palpation (GI): Soft to palpation, nontender, no guarding, not rigid and No hepatosplenomegaly present Percussion: Yes normal to percussion Auscultation: normal bowel sounds Rectal Exam - Female: deferred Skin General skin exam: no rashes or lesions noted, turgor normal, skin not dry, no jaundice, No spider nevi and no striae Rashes: no rashes Nails: normal Neuro General: oriented to person, oriented to place and oriented to time Cranial nerves: Yes Equal, round and reactive pupils present and Yes Normal hearing present Speech: No Abnormal speech present Extrem General: Yes normal to inspection, No clubbing, No cyanosis and No edema Psych Appearance: grossly normal and well kempt Mental Status: mental status grossly normal Speech and movement: Normal speech and movement present Affect: normal affect Attitude: cooperative Thought process: Normal thought process present and not confabulating Thought content: Normal thought content present Insight: Fair insight present (Psych) Judgement: Fair judgement present (Psych) Assessment & Plan Assessment & Plan (1) Biliary dyskinesia: Code(s): K82.8 - Other specified diseases of gallbladder Category: Medical (2) Gallstones: Comment: 10/2019 3-HIDA scan Code(s): K80.20 - Calculus of gallbladder without cholecystitis without obstruction Category: Medical (3) Chronic idiopathic constipation: Code(s): K59.04 - Chronic idiopathic constipation Category: Medical (4) GERD (gastroesophageal reflux disease): Code(s): K21.9 - Gastro-esophageal reflux disease without esophagitis Category: Medical (5) Oropharyngeal dysphagia: Code(s): R13.12 - Dysphagia, oropharyngeal phase Category: Medical (6) Abdominal pain: Comment: largely resolved with creon Code(s): R10.9 - Unspecified abdominal pain Category: Medical Qualifiers: Abdominal location: right upper quadrant Qualified Code(s): R10.11 - Right upper quadrant pain Plan She continues on bisacodyl, creon, omeprazole in the morning and famotidine at night. We had discontinued the sucralfate. We are still trying to discern what is causing her pain whether it is related to pyloric stenosis, gallbladder disease or constipation. The creon largely resolved her abdominal pain 60% less, happening only 2 times a week and for the past 2 years I was always in pain. She continues to have dyphagia that did not respond to dilation, likely presbyesophagus. CIC well controlled on bisacodyl. she is struggling with neuopathy but she was just started on gabapentin, she also was given a seated walker from her PCP to encourage her to exercise and lose weight. ROV 6 mos. Medications: Changed From omeprazole 40 mg PO DAILY 30 days 30 caps 6RF K21.9 - Gastro-esophageal reflux disease without esophagitis To omeprazole 40 mg PO DAILY 90 days 90 caps 1RF K21.9 - Gastro-esophageal reflux disease without esophagitis Refilled [id number] 36,000-114,000- 180,000 unit (Creon) administer with meals and/or snacks 2 caps PO BID 360 caps 1RF K82.8 - Other specified diseases of gallbladder bisacodyl (Dulcolax (bisacodyl)) take orally as directed prior to colonoscopy 15 mg (3 x 5 mg) PO BEDTIME 30 days 90 tabs 6RF K59.04 - Chronic idiopathic constipation famotidine 20 mg PO BEDTIME 90 tabs 2RF K21.9 - Gastro-esophageal reflux disease without esophagitis Coding Level of Care Code Est Pt Level 3 (06774) Diagnoses Biliary dyskinesia K82.8 Gallstones K80.20 Chronic idiopathic constipation K59.04 GERD (gastroesophageal reflux disease) K21.9 Oropharyngeal dysphagia R13.12 Right upper quadrant abdominal pain R10.11 Abdominal location: right upper quadrant
[2024-09-23 10:31] VITALS: BP 138/76; PULSE 74; O2SAT 98; BMI 34.5
--- OUTSIDE RECORDS SUMMARY | 2024-09-23 11:49 | XMS_ITS | Clinical Summary ---
Author Organization [employer] [facility] Address [address] [place] [address] Care Team Providers Care Sales And Service Specialist Name Role Phone Matilda Yo MD Primary Care Provider [phone] Surgical History Surgery Date Site/Laterality Comments TUBAL LIGATION PROCEDURE: HISTORICAL TUBAL LIGATION HYSTERECTOMY PROCEDURE: HISTORICAL HYSTERECTOMY OTHER SURGICAL HISTORY PROCEDURE: HISTORICAL CERCLAGE SURGERY; COMMENT: x 4, she has 7 children Medical History Medical History Date Comments Hypothyroidism DX:Hypothyroidis m Hypertension DX:Hypertension Type 2 diabetes mellitus wit hout complications (CMS/HCC V24, CMS/HCC V28) DX:Type 2 jackie betes mellitus without complications ([facility]) Mild intermittent asthma, uncomplicated DX:Mild intermittent asthma, [...] age to complete this topic Care Teams Sales And Service Specialist Relationship Specialty Start Date End Date Matilda Yo MD [facility] [address] PCP - General Internal Medicine 09/25/19
== END 2024-09-23 10:59 | disposition home or self-care (01) ==
LOC: HO.HGI 10:19
PROVIDERS: PCP Internal Medicine; Visit Provider Nurse Practitioner
DX: K82.8 Other specified diseases of gallbladder (principal); K80.20 Calculus of gallbladder without cholecystitis without obstruction; K59.04 Chronic idiopathic constipation; K21.9 Gastro-esophageal reflux disease without esophagitis; R13.12 Dysphagia, oropharyngeal phase; R10.11 Right upper quadrant pain
CPT/HCPCS: 99213

== ENCOUNTER → 2024-09-23 10:18 | Outpatient (BNVA) | payer MEDICAID, SELFPAY | PROVIDERS: PCP Internal Medicine; Visit Provider Nurse Practitioner | DX: K59.04 Chronic idiopathic constipation (principal); K82.8 Other specified diseases of gallbladder; K80.20 Calculus of gallbladder without cholecystitis without obstruction; K21.9 Gastro-esophageal reflux disease without esophagitis; R13.12 Dysphagia, oropharyngeal phase; R10.11 Right upper quadrant pain | CPT/HCPCS: 99212 ==

== ENCOUNTER 2024-09-26 10:12 | Outpatient (AMB) | payer MEDICAID, SELFPAY ==
--- NOTE | 2024-09-26 10:25 | MHC.OFFVIS ---
Vital Signs 09/26/24 10:26 Height 5 ft 4 in Weight 202 lb 13.204 oz BMI 34.8 BP 120/76 Blood Pressure Location Lt brachial Position Sitting Pulse 83 Pulse Source Pulse Oximeter Pulse Oximetry (%) 96 Oxygen Delivery Method Room Air Intake Visit Reasons: Obstructive sleep apnea Allergies gentamicin (From GARAMYCIN) Allergy (Intermediate, Verified 09/26/24 10:28) RASH Penicillins (PENICILLINS) Allergy (Intermediate, Verified 09/26/24 10:28) RASH Seasonal Allergies Allergy (Intermediate, Verified 09/26/24 10:28) seasonal allergies vancomycin (VANCOMYCIN) Allergy (Intermediate, Verified 09/26/24 10:28) swelling/rash/hives HPI Comments Details: In The patient is a 63year-old woman with a known history of asthma in addition to allergic rhinitis. The patient has been having increasing shortness of breath symptoms and chest tightness. she noticed that her symptoms were worse specially when she was living in [place] in an apartment that she felt had significant allergens and does. Once she left that environment her symptoms have been improving somewhat. She continues to have chest tightness. She also has shortness of breath and cough. She tends to use her rescue inhaler but a couple times a week. She is also inhaled budesonide. The patient was started to be evaluated at the bariatric program. There she did complaint of daytime drowsiness with an elevated [place] score of 10/24. The patient underwent a home sleep study demonstrating positive sleep apnea. Patient does benefit from starting PAP therapy in view of her increased cardiovascular risk factors And her ongoing daytime drowsiness. The patient is agreeable to start CPAP therapy at this time. I will make arrangements with local [employer] for her to do so. In the meantime will optimize her respiratory therapy switching her from budesonide to Symbicort twice a day. The patient also will undergo allergy testing. 05/02/2022 the patient is here for a pulmonary follow-up visit. The patient has been doing better from a respiratory status. Unfortunately she still has elevated dyspnea with activity. She also has an elevated [place] score because of daytime drowsiness. Her [place] score is still 10/24. She did get her CPAP machine. She has had at home now for several months and she has not started using it as of yet. She has been having difficulty sitting up. I did covid the initial set up in the machine so therefore she can start using at home once she is able to started. The patient is aware that if he does not use the machine the [employer] will take it away. As far as her asthma symptoms she continues with respiratory therapy. She has not had to use her rescue inhaler. She has not had to use any prednisone for any flare-ups. Otherwise the patient is in good control. We did review her last CT scan of the chest back in February 2022 demonstrating stable pulmonary nodules which is reassuring. Will plan to repeat the CT scan in a year's time. 10/02/2022 the patient is here for a pulmonary follow-up visit. The patient having hard time with the CPAP. She did not tolerate the nasal pillows. The wrong comfortable for her. She had restart to the office and we did send a new prescription to the [facility] for fullface mask. However, she has not gotten 1 as of yet. Therefore she has been able to use the machine. I did have an F20 available in the office size medium and hopefully now she can start using it more regularly. When she starts using it the patient will be able to bring the machine and we can download the machine in order to see the efficacy of the machine. Right now he does not have any data to review. The patient also has been using her inhalers. No significant wheezing or chest tightness. She seems to be well controlled on current regimen. Regarding her CT scan the last CT scan was back in February 2022 and was recommended getting a CT scan in 18 months after so therefore will plan to follow-up sometime in the spring with a CT scan of the chest. For now although will follow-up sooner if just to make sure that she is compliant with her CPAP and she is tolerating the therapy. 03/06/2023 the patient is here for a pulmonary follow-up visit. She is doing well from an asthma standpoint. She has been using the Symbicort and also has a rescue inhaler which she has not required. She continues on the singular at nighttime that is also helping. She denies any recent exacerbations. The patient did return the CPAP as she could not tolerated. She is doing well without it. She will continue with positional therapy. If her symptoms were to worsen or she develops any increased cardiovascular risk factors then will consider repeating the sleep study at that point. We also following pulmonary nodules. Her last CT scan was back in February 2022. She is scheduled for the CT scan although she is going to go on a trip and she is going to have to postpone that to the winter time. Therefore I will change the date to May to make sure she has enough time to be able to get that done. At which point she will follow-up with me and will review the CT scan together. 05/21/2023 the patient is here for a pulmonary follow-up visit. She is got back from [place]. While she was there the patient underwent evaluation in the ER because of severe right-sided abdominal discomfort. She also had significant nausea and felt that she was having a gallbladder attack. She does have an appointment with GI coming up. The meantime she will need an abdominal ultrasound to further address the possibility of cholecystitis. If her symptoms worsen she needs to go to the ER for further evaluation. She does continue to use respiratory inhalers with good effect. As far as sleep the patient is no longer using the CPAP. She is trying positional therapy. She would like not to go back on CPAP at this time. The patient also has underlying pulmonary nodules. The last time she had a CT scan was back in 2021. She does have a scheduled CT scan coming up that I will review once available. Otherwise patient is doing well she will follow-up in 6 months. 11/26/2023 the patient is here for a pulmonary follow-up visit. Overall the patient has been doing well from a respiratory status. She is having issues with her she I system. She was scheduled to undergo a endoscopy and that was on hold because of her ongoing respiratory issues. At this point she is doing a lot better and she is able to proceed with anesthesia endoscopy at this time. In addition to that we did review her last CT scan of the chest was back in 06/27/2023 demonstrating pulmonary nodules. The patient at this point will need a repeat CT scan 06/26/2024. She does continue to use her respiratory therapy as prescribed. Seems to be affecting beneficial no additional changes at this time. 05/30/2024 the patient is here for a pulmonary follow-up visit. Overall the patient has been doing okay. She has had flu-like symptoms now for more than a month. She has had a cough that has been bothersome moderate severity. Not always productive. Has had some chest tightness. Her chills and fevers have subsided but she still does not feel well. Has been noticing some bleeding from the nose. [id number] severity. She did have a recent CT scan of the chest that we did as far as her pulmonary nodule follow-up. No evidence of any worsening nodules and no evidence of any airspace disease. Her exam is also consistent with bilateral breath sounds with no evidence of any rhonchi wheezing or crackles. Therefore, appears to be more of a sinusitis issue. Will go ahead and treated for sinusitis at this time also complaining of some pharyngitis. 09/26/2024 the patient is here for pulmonary follow-up visit. The patient has multiple complaints but a lot of them are not pulmonary. Respiratory mckeon she is doing okay on her current respiratory regimen. She does get short of breath with minimal activity. Likely multifactorial. She is also having hard time in her apartment. She has a hard time because the EAC is off and she gets very short of breath and has worsening asthma symptoms without the IC. I did provide her a letter in order to have an AC available. She had also works better without carpets because of a respiratory issue and also because she has been having to use a walker now and it is difficult to use with the carpet. Will go ahead and request allergy testing to see if she has any dust mite or mold allergies that could be aggravated by carpus. She will continue with the current respiratory therapy the patient will follow-up with her neurologist regarding her neuro the inner vertigo. Will see her in 6 months. [facility] Medical History (Updated 09/26/24 @ 10:48 by Stephon Mosley MD) Allergies Hx of abnormal cervical Pap smear Perimenopause De Quervain's tenosynovitis, left Potential exposure to STD Urinary incontinence Sinusitis Asymptomatic postsurgical menopause Pre-op chest exam Fungal skin infection Well woman exam with routine gynecological exam Vitamin D deficiency Elevated parathyroid hormone Asthma Abdominal pain Yeast infection Left hand pain Numbness and tingling in both hands Vaginal burning Pulmonary nodules Right knee pain Other and unspecified hyperlipidemia Essential hypertension Morbid obesity HELEN (obstructive sleep apnea) Precordial chest pain Heart palpitations Snoring Difficulty sleeping Panic attack PTSD (post-traumatic stress disorder) Cervical cancer screening Family history of breast cancer Low back pain Neck pain Depression Restless leg syndrome Peripheral neuropathy BMI 35.0-35.9,adult PVC (premature ventricular contraction) Mitral valve prolapse Hypertension Obesity (BMI 30-39.9) Diabetes type 2, controlled Osteopenia determined by x-ray Hyperlipidemia Lower back pain Hypothalamic hypothyroidism Insomnia GERD (gastroesophageal reflux disease) Migraine headache Surgical History H/O eye surgery Hx of endoscopy Hx of colonoscopy Hx of left breast biopsy History of cervical cerclage Hx of hysterectomy Hx of tubal ligation Family History Father Diabetes Paced cardiac rhythm Colon cancer Mother HTN (hypertension) High cholesterol Skin cancer Breast cancer Colon cancer Sister Obese abdomen Brother Infarction of lung due to iatrogenic pulmonary embolism Son HTN (hypertension) High cholesterol Son HTN (hypertension) High cholesterol Son No problems noted. Son No problems noted. Son No problems noted. Sister No problems noted. Sister No problems noted. 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 Gender identity: Female Female Reproductive History Menstrual Age of Menarche: 10 Date of menopause: 06/20/13 Review of Systems Const Reports daytime sleepiness, Reports difficulty sleeping, Denies night sweats and Reports snoring ENT Denies change in voice, Denies lip swelling, Denies mouth pain, Reports nasal congestion, Reports nasal discharge and Denies tongue swelling Card Denies chest pain Resp Reports cough, Reports snoring and Denies wheezing GI Reports abdominal pain Musc Reports as per HPI, Reports myalgias and Reports arthralgias Neuro Denies Neuro-related abnormal movements and Reports paresthesias Psych Denies no additional complaints Sundar/Lymph Denies easy bleeding and Denies lymphadenopathy Aller/Immun Denies lip swelling, Denies tongue swelling and Denies wheezing Physical Exam Vital Signs: Last Vital Signs Pulse 83 09/26/24 10:26 BP 120/76 09/26/24 10:26 Pulse Ox 96 09/26/24 10:26 Oxygen Delivery Method Room Air 09/26/24 10:26 BMI result Body Mass Index 34.8 Const General: alert Eyes General: appearance normal, both eyes and all related structures Neck Neck: Yes normal visual inspection, Yes full ROM and Yes no lymphadenopathy Chest Chest palpation & inspection: normal inspection of the chest Resp Effort & Inspection: normal respiratory effort Auscultation: clear to auscultation bilaterally, no rales, no rhonchi and no wheezes Cardio Rate: regular rate Rhythm: regular rhythm Heart sounds: S1 normal heart sound present and S2 normal heart sound present GI Palpation (GI): Soft to palpation and nontender Auscultation: normal bowel sounds Skin General skin exam: rashes and/or lesions noted Assessment & Plan Assessment & Plan (1) Asthma: Code(s): J45.909 - Unspecified asthma, uncomplicated Category: Surgical Qualifiers: Asthma complication type: uncomplicated Asthma persistence: persistent Asthma severity: moderate Qualified Code(s): J45.40 - Moderate persistent asthma, uncomplicated (2) HELEN (obstructive sleep apnea): Code(s): G47.33 - Obstructive sleep apnea (adult) (pediatric) Category: Medical (3) Pulmonary nodules: Code(s): R91.8 - Other nonspecific abnormal finding of lung field Category: Medical Plan Norm andrews Symbicort short-acting beta agonist as needed Continue Singulair and claritin Fluticasone continue positional sleep therapy Bloodwork, Allergy testing follow-up in 6 months Orders: Orders Resp Allergy Profile Region I 09/26/24 R91.1 - Solitary pulmonary nodule, T78.40XA - Allergy, unspecified, initial encounter Complete Blood Count Auto Diff 09/26/24 T78.40XA - Allergy, unspecified, initial encounter Immunoglobulin E 09/26/24 T78.40XA - Allergy, unspecified, initial encounter Erythrocyte Sedimentation Rate 09/26/24 T78.40XA - Allergy, unspecified, initial encounter Coding Level of Care Code Est Pt Level 4 (26587) Diagnoses Moderate persistent asthma without complication J45.40 Asthma complication type: uncomplicated Asthma persistence: persistent Asthma severity: moderate HELEN (obstructive sleep apnea) G47.33 Pulmonary nodules R91.8 Time Spent (min) 16
[2024-09-26 10:26] VITALS: BP 120/76; PULSE 83; O2SAT 96; BMI 34.8
--- OUTSIDE RECORDS SUMMARY | 2024-09-26 10:30 | XMS_ITS | Clinical Summary ---
Author Organization [employer] [facility] Address [address] [place] [address] Care Team Providers Care Toolmaker Name Role Phone Matilda Yo MD Primary Care Provider [phone] Surgical History Surgery Date Site/Laterality Comments TUBAL LIGATION PROCEDURE: HISTORICAL TUBAL LIGATION HYSTERECTOMY PROCEDURE: HISTORICAL HYSTERECTOMY OTHER SURGICAL HISTORY PROCEDURE: HISTORICAL CERCLAGE SURGERY; COMMENT: x 4, she has 7 children Medical History Medical History Date Comments Hypothyroidism DX:Hypothyroidis m Hypertension DX:Hypertension Type 2 diabetes mellitus wit hout complications (CMS/HCC V24, CMS/HCC V28) DX:Type 2 jackie betes mellitus without complications ([facility]) Mild intermittent asthma, uncomplicated DX:Mild intermittent [...] age to complete this topic Care Teams Toolmaker Relationship Specialty Start Date End Date Matilda Yo MD [facility] [address] PCP - General Internal Medicine 09/25/19
== END 2024-09-26 10:56 | disposition home or self-care (01) ==
LOC: HO.HPS 10:13
PROVIDERS: PCP Internal Medicine; Visit Provider Hospitalist
DX: J45.40 Moderate persistent asthma, uncomplicated (principal); G47.33 Obstructive sleep apnea (adult) (pediatric); R91.8 Other nonspecific abnormal finding of lung field
CPT/HCPCS: 99213

== ENCOUNTER → 2024-09-26 10:12 | Outpatient (BNVA) | payer MEDICAID, SELFPAY | PROVIDERS: PCP Internal Medicine; Visit Provider Hospitalist | DX: J45.40 Moderate persistent asthma, uncomplicated (principal); G47.33 Obstructive sleep apnea (adult) (pediatric); R91.8 Other nonspecific abnormal finding of lung field | CPT/HCPCS: 99212 ==

== ENCOUNTER 2024-09-30 09:16 | Outpatient (AMB) | payer MEDICAID, SELFPAY ==
--- OUTSIDE RECORDS SUMMARY | 2024-09-30 09:54 | XMS_ITS | Clinical Summary ---
Author Organization [facility] [facility] Address [address] [place] [address] Care Team Providers Care Archeologist Name Role Phone Matilda Yo MD Primary Care Provider [phone] Surgical History Surgery Date Site/Laterality Comments TUBAL LIGATION PROCEDURE: HISTORICAL TUBAL LIGATION HYSTERECTOMY PROCEDURE: HISTORICAL HYSTERECTOMY OTHER SURGICAL HISTORY PROCEDURE: HISTORICAL CERCLAGE SURGERY; COMMENT: x 4, she has 7 children Medical History Medical History Date Comments Hypothyroidism DX:Hypothyroidis m Hypertension DX:Hypertension Type 2 diabetes mellitus wit hout complications (CMS/HCC V24, CMS/HCC V28) DX:Type 2 jackie betes mellitus without complications ([facility]) Mild intermittent asthma, uncomplicated DX:Mild intermittent asthma, [...] age to complete this topic Care Teams Archeologist Relationship Specialty Start Date End Date Matilda Yo MD [facility] [address] PCP - General Internal Medicine 09/25/19
[2024-09-30 10:03] VITALS: BMI 35.2
--- NOTE | 2024-09-30 10:03 | A.OFFVIS_ITS ---
VS Expanded 09/30/24 10:03 10/09/24 11:54 Height 5 ft 4 in 5 ft 4 in Weight 205 lb 0.478 oz 205 lb BMI 35.2 35.2 Intake Visit Reasons: T2DM Allergies gentamicin (From GARAMYCIN) Allergy (Intermediate, Verified 09/26/24 10:28) RASH Penicillins (PENICILLINS) Allergy (Intermediate, Verified 09/26/24 10:28) RASH Seasonal Allergies Allergy (Intermediate, Verified 09/26/24 10:28) seasonal allergies vancomycin (VANCOMYCIN) Allergy (Intermediate, Verified 09/26/24 10:28) swelling/rash/hives Nutrition Presentation Details: Pt presents for MNT 3 mf/u for T2DM Pt acknowledges weight gain , also decreased physical activity d/t pain in leg (has a walker) Pt reports increasing calcium sources of foods and may have increased on fat intake as well , choosing higher fat sources of calcium Pt reports lacking meal routine and increased intake of foods/snacks after 7 pm Participates in vcare program once every 2 weeks food frequency dairy: 6 cups/day fish : 0-1/wk fruits: 1-2/d ve-2/d denies etoh/smoking BS Monitoring Most Recent Diabetes Results: Creatinine, (0.5-1.4) 0.72 mg/dL 07/22/24 BUN, (9-16) 12 mg/dL 07/22/24 Sodium, (135-145) 141 mmol/L 07/22/24 Potassium, (3.3-5.1) 4.3 mmol/L 07/22/24 Chloride, (96-108) 108 mmol/L 07/22/24 Carbon Dioxide, (22-29) 28 mmol/L 07/22/24 Calcium, (8.4-10.2) 9.2 mg/dL 07/22/24 AST, (5-31) 30 U/L 07/22/24 ALT, (0-31) 35 U/L H 07/22/24 Total Protein, (6.5-8.0) 6.6 g/dL 07/22/24 Albumin, (3.5-5.0) 4.1 g/dL 07/22/24 WIF-Wlfptfp-Un.Jeor Equation Height: 5 ft 4 in Weight: 205 lb Resting Metabolic Rate: 1469.05 Calculated Activity Level: Sedentary Calories Needed to Maintain Weight: 1762.86 Diagnosis Nutrition problem #1: excessive energy intake As related to (etiology) #1: diagnosis (t2d, A1c 6.7% (08/01), BMI 35.2 (10/01)) [facility] Medical History (Updated 09/26/24 @ 10:48 by Stephon Mosley MD) Allergies Hx of abnormal cervical Pap smear Perimenopause De Quervain's tenosynovitis, left Potential exposure to STD Urinary incontinence Sinusitis Asymptomatic postsurgical menopause Pre-op chest exam Fungal skin infection Well woman exam with routine gynecological exam Vitamin D deficiency Elevated parathyroid hormone Asthma Abdominal pain Yeast infection Left hand pain Numbness and tingling in both hands Vaginal burning Pulmonary nodules Right knee pain Other and unspecified hyperlipidemia Essential hypertension Morbid obesity HELEN (obstructive sleep apnea) Precordial chest pain Heart palpitations Snoring Difficulty sleeping Panic attack PTSD (post-traumatic stress disorder) Cervical cancer screening Family history of breast cancer Low back pain Neck pain Depression Restless leg syndrome Peripheral neuropathy BMI 35.0-35.9,adult PVC (premature ventricular contraction) Mitral valve prolapse Hypertension Obesity (BMI 30-39.9) Diabetes type 2, controlled Osteopenia determined by x-ray Hyperlipidemia Lower back pain Hypothalamic hypothyroidism Insomnia GERD (gastroesophageal reflux disease) Migraine headache Surgical History H/O eye surgery Hx of endoscopy Hx of colonoscopy Hx of left breast biopsy History of cervical cerclage Hx of hysterectomy Hx of tubal ligation Family History Father Diabetes Paced cardiac rhythm Colon cancer Mother HTN (hypertension) High cholesterol Skin cancer Breast cancer Colon cancer Sister Obese abdomen Brother Infarction of lung due to iatrogenic pulmonary embolism Son HTN (hypertension) High cholesterol Son HTN (hypertension) High cholesterol Son No problems noted. Son No problems noted. Son No problems noted. Sister No problems noted. Sister No problems noted. 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 Used wt : 90 kg (01/2023), 84.5 kg (06/2023), 88kg (11/2023), 01/30, 90 kg (06/30), 07/01, 93kg (10/31) Est kcal as per MSJ: 891279 (40% carb, 30% fat/prot) Est fluid needs: 7137-9916 ml/d (25-30 ml/kg bw) Rec fiber: increase to 8-10 g per day and gradually increase to 25 g/d or as tolerated Rec Na: < 2000 mg /d Educate patient on: (R= Reviewed, V = verbalizes understanding N/R= Needs review N/A= not applicable) * Food sources of carbohydrates and serving adequate serving sizes : R V * Difference between complex carbohydrates and simple carbohydrates, role of fiber: R V * Differences between fats (MUFA/PUFA/saturated fats, trans fats) and food sources of various fats: R * Food sources of sodium and salt and healthy modifications for heart health and kidney health: R,V * Vitamins and minerals: R, V discussed calcium intake via foods 1200 mg/day, naturally low fat options * How to interpret food labels: R * Healthy Plate method concept: R V * Physical activity: benefits and precaution: R V Patient Instructions: Work on having 3 scheduled meals per day appr 45 g carb per meal and 20-30 g protein, choose complex carbs example B: 1 whole wheat bread, 1 egg, 1 cheese, 1 cup of milk , 1/2 banana L: 1 1/2 cup of chickpea salad with olive oil vinegar, spinach can add tuna as option or have a meal replacement snack: yogurt and nuts , water or milk dinner: 1 cup of starchy vegetable of choice, 2-3 oz of poultry baked, 2 c of salad ,water snack yogurt with nuts or smoothie: 1 cup of milk with 1/2 cup of fruit and spinach or green of choice see meal ideas, working on reducing portions for weight loss, blood sugar control and continue including calcium rich foods in your diet Coding Level of Care Code Nutr Indiv Subseq ([id number]) Diagnoses Type 2 diabetes mellitus with unspecified complications E11.8 Time Spent (min) 30
[2024-10-09 11:54] VITALS: BMI 35.2
== END 2024-09-30 10:46 | disposition home or self-care (01) ==
LOC: HO.ENCR 09:16
PROVIDERS: PCP Internal Medicine; Visit Provider Dietitian, Registered
DX: E11.8 Type 2 diabetes mellitus with unspecified complications (principal)

== ENCOUNTER → 2024-09-30 09:16 | Outpatient (BNVA) | payer MEDICAID, SELFPAY | PROVIDERS: PCP Internal Medicine; Visit Provider Dietitian, Registered | DX: E11.9 Type 2 diabetes mellitus without complications (principal); Z71.3 Dietary counseling and surveillance | CPT/HCPCS: 97803 ==

== ENCOUNTER 2024-10-03 08:11 | Outpatient (REF) | payer MEDICAID, SELFPAY ==
--- NOTE | ~2024-10-03 | FL_ITS ---
EXAMINATION: XR UPPER GI SERIES WITH SMALL BOWEL CLINICAL INFORMATION: Oropharyngeal dysphagia. Abdominal pain. COMPARISON: Barium swallow 05/08/2019 TECHNIQUE: A KUB was obtained. Subsequently routine upper GI contrast study was performed. 2 cups of barium was administered after the upper GI exam and sequential images over the abdomen were obtained as part of small bowel follow-through FINDINGS: On KUB there is moderate stool in the right colon. Following oral administration of thick barium and effervescent granules is normal propagation bolus from the oral cavity through the pharynx, esophagus into stomach. On placing patient supine and prone lying the course, caliber and peristalsis of the stomach, duodenal bulb and sweep is normal. The mucosal pattern of the stomach, duodenal bulb is normal. There is mild gastroesophageal reflux without hiatal hernia. Sequential images over the abdomen reveals normal course, caliber and peristalsis of the small bowel loops. The small bowel transit time is 45 minutes. Spot images of the abdomen reveals patent IC junction. Appendix is not seen. FLUOROSCOPY TIME: 2 minutes and 52 seconds DOSE AREA PRODUCT: 90.72 uGy-m2 (microgray-meter squared) FL/FL upper GI small bowel IMPRESSION: Mild gastroesophageal reflux without hiatal hernia. The esophagus, stomach and the small bowel loops are normal. Appendix is not visualized. The IC junction is normal. Electronically signed by: Vikram Moreira MD 10/03/2024 01:54 PM EDT
--- OUTSIDE RECORDS SUMMARY | 2024-10-03 08:15 | XMS_ITS | Clinical Summary ---
Author Organization [employer] [facility] Address [address] [place] [address] Care Team Providers Care Cigarette Machine Operator Name Role Phone Matilda Yo MD Primary Care Provider Surgical History Surgery Date Site/Laterality Comments TUBAL LIGATION PROCEDURE: HISTORICAL TUBAL LIGATION HYSTERECTOMY PROCEDURE: HISTORICAL HYSTERECTOMY OTHER SURGICAL HISTORY PROCEDURE: HISTORICAL CERCLAGE SURGERY; COMMENT: x 4, she has 7 children Medical History Medical History Date Comments Hypothyroidism DX:Hypothyroidis m Hypertension DX:Hypertension Type 2 diabetes mellitus wit hout complications (CMS/HCC V24, CMS/HCC V28) DX:Type 2 jackie betes mellitus without complications ([facility]) Mild intermittent asthma, uncomplicated DX:Mild intermittent asthma, [...] age to complete this topic Care Teams Cigarette Machine Operator Relationship Specialty Start Date End Date Matilda Yo MD [facility] [address] PCP - General Internal Medicine 09/25/19
== END 2024-10-03 08:12 | disposition home or self-care (01) ==
LOC: HO.XRAY 08:11
PROVIDERS: PCP Internal Medicine; Visit Provider Nurse Practitioner
DX: R13.12 Dysphagia, oropharyngeal phase (principal); K21.9 Gastro-esophageal reflux disease without esophagitis
CPT/HCPCS: 74240; 74248

== ENCOUNTER → 2024-10-03 08:13 | Outpatient (BNV) | payer MEDICAID, SELFPAY | PROVIDERS: PCP Internal Medicine; Visit Provider Radiology Diagnostic Radiology | DX: R13.12 Dysphagia, oropharyngeal phase (principal); K21.9 Gastro-esophageal reflux disease without esophagitis | CPT/HCPCS: 74240 ==

== ENCOUNTER 2024-10-20 08:12 | Outpatient (REF) | payer MEDICAID, SELFPAY ==
--- OUTSIDE RECORDS SUMMARY | 2024-10-20 08:16 | XMS_ITS | Clinical Summary ---
Author Organization [facility] Address [address] [place] [address] Care Team Providers Care Beam Sealer Name Role Phone Matilda Yo MD Primary Care Provider [phone] Surgical History Surgery Date Site/Laterality Comments TUBAL LIGATION PROCEDURE: HISTORICAL TUBAL LIGATION HYSTERECTOMY PROCEDURE: HISTORICAL HYSTERECTOMY OTHER SURGICAL HISTORY PROCEDURE: HISTORICAL CERCLAGE SURGERY; COMMENT: x 4, she has 7 children Medical History Medical History Date Comments Hypothyroidism DX:Hypothyroidis m Hypertension DX:Hypertension Type 2 diabetes mellitus wit hout complications (CMS/HCC V24, CMS/HCC V28) DX:Type 2 jackie betes mellitus without complications ([facility]) Mild intermittent asthma, uncomplicated DX:Mild intermittent asthma, [...] 2023-2 5 season) 2023 Influenza Vaccine (#1) 2024 03/17/2020 RSV Immunization Adult Patie nts (1 [...] age to complete this topic Care Teams Beam Sealer Relationship Specialty Start Date End Date Matilda Yo MD [address] [place] PCP - General Internal Medicine 09/25/19
[2024-10-20 08:33] LABS: MANUAL DIFF FLAG NO
[2024-10-20 08:43] LABS: Hematocrit 38.4 % (37.0-47.0); Hemoglobin 12.7 g/dl (12.0-16.0); Imm Gran Abs Auto 0.01 X10*3/uL (0.00-0.03); Imm Gran Pct Auto 0.2 % (0.0-0.4); Lymphocytes Absolute Auto 1.8 X10*3/uL (1.2-4.9); Mean Corpuscular HGB Conc 33.1 g/dl (31.0-35.0); Mean Corpuscular Hemoglobin 29.3 pg (27.0-33.0); Mean Corpuscular Volume 88.7 fL (80.0-98.0); NRBC Abs Auto 0.000 X10*3/uL (0.0-0.012); NRBC Pct Auto 0.0 /100WBC (0.0-0.2); Platelet Count 256 X10*3/uL (160-400); Red Blood Count 4.33 X10*6/uL (4.20-5.50); White Blood Count 5.6 X10*3/uL (4.8-10.8)
[2024-10-20 08:50] LABS: Hemoglobin A1C 173.0953 umol/L; Total Hemoglobin (HGBA1C) 3305.8014 umol/L
[2024-10-20 09:21] LABS: Albumin Level 4.4 g/dL (3.5-5.0); Calcium 9.5 mg/dL (8.4-10.2)
[2024-10-20 09:26] LABS: Alanine Aminotransferase 42 U/L (0-31); Albumin Level 4.4 g/dL (3.5-5.0); Alkaline Phosphatase 84 U/L (39-117); Anion Gap 10 (12-20); Aspartate Amino Transferase 31 U/L (5-31); Blood Urea Nitrogen 15 mg/dL (9-16); Calcium 9.4 mg/dL (8.4-10.2); Carbon Dioxide 27 mmol/L (22-29); Chloride 109 mmol/L (96-108); Cholesterol 123 mg/dL (<200); Estimated Glomerular Filt Rate > 60; HDL Cholesterol 43 mg/dL (>40); Potassium 4.4 mmol/L (3.3-5.1); Sodium 142 mmol/L (135-145); Total Protein 6.9 g/dL (6.5-8.0); Triglycerides 126 mg/dL (<150)
[2024-10-20 09:41] LABS: Thyroid Stimulating Hormone 2.68 uIU/mL (0.32-4.0)
[2024-10-20 10:00] LABS: Parathyroid Hormone Intact 82.6 pg/mL (8.7-77.1)
[2024-10-20 11:29] LABS: Microalbum/Creatinine Ratio Ur 5.9 ug/mg cr (<30)
[2024-10-21 16:08] LABS: Calcium, Ionized 5.4 mg/dL (4.7-5.5)
[2024-10-22 20:53] LABS: Class Alternaria alternata 0; Class Aspergillus fumigatus 0; Class Bermuda Grass 0; Class Birch 0; Class Cat Dander 0; Class Cladosporium herbarum 0; Class Cockroach 0; Class Common Ragweed 0; Class Cottonwood 0; Class Derm. pterony 0; Class Dermatophagoides farinae 0; Class Dog Dander 0; Class Elm 0; Class Maple Box Elder 0; Class Mountain Cedar 0; Class Mouse Urine Protein 0; Class Mugwort 0; Class Oak 0; Class Penicillium crysogenum 0; Class Rough Pigweed 0; Class Sheep Sorrel 0; Class Sycamore 0; Class Timothy Grass 0; Class Walnut Tree 0; Class White Ash 0; Class White Mulberry 0; D002 - IgE D farinae <0.10 kU/L; E001 - IgE Cat Dander <0.10 kU/L; E005 - IgE Dog Dander <0.10 kU/L; G006 - IgE Timothy Grass <0.10 kU/L; I006-IgE Cockroach, German <0.10 kU/L; M002 - IgE Cladosporium herbar <0.10 kU/L; M003 - IgE Aspergillus fumigat <0.10 kU/L; M006 - IgE Alternaria alternat <0.10 kU/L; T001 IgE Maple/Box Elder <0.10 kU/L; T006 - IgE Cedar, Mountain <0.10 kU/L; T007 - IgE Oak, White <0.10 kU/L; T008 IgE Elm, American <0.10 kU/L; T010 - IgE Walnut <0.10 kU/L; T011 - IgE Maple Leaf Sycamore <0.10 kU/L; T014 - IgE Cottonwood <0.10 kU/L; T015 - IgE Ash, White <0.10 kU/L; T070 - IgE White Mulberry <0.10 kU/L; W001 - IgE Ragweed, Short <0.10 kU/L; W006 - IgE Mugwort <0.10 kU/L; W014 IgE Pigweed, Common <0.10 kU/L; W018 IgE Sheep Sorrel <0.10 kU/L
== END 2024-10-20 08:13 | disposition home or self-care (01) ==
LOC: HO.LAB 08:12
PROVIDERS: Student in an Organized Health Care Education/Training Program; Absent Provider Hospitalist; PCP Internal Medicine; Visit Provider Internal Medicine
DX: R79.89 Other specified abnormal findings of blood chemistry (principal); E55.9 Vitamin D deficiency, unspecified; E03.8 Other specified hypothyroidism; E11.9 Type 2 diabetes mellitus without complications; I10 Essential (primary) hypertension; M51.16 Intervertebral disc disorders with radiculopathy, lumbar region; Z79.899 Other long term (current) drug therapy; Z79.890 Hormone replacement therapy; Z79.69 Long term (current) use of other immunomodulators and immunosuppressants
CPT/HCPCS: 36415; 80053; 80061; 82040; 82043; 82306; 82310; 82330; 82570; 82785; 83036; 83970; 84100; 84443; 85025; 85652; 86003; 99212

== ENCOUNTER 2024-10-20 08:56 | Outpatient (AMB) | payer MEDICAID, SELFPAY ==
[2024-10-20 09:36] VITALS: BP 120/70; PULSE 61; O2SAT 96; BMI 35.3
--- NOTE | 2024-10-20 09:36 | A.OFFVIS_ITS ---
Vital Signs 3 10/20/24 09:36 Height 5 ft 4 in Weight 205 lb 7.533 oz BMI 35.3 BP 120/70 Blood Pressure Location Rt brachial Position Sitting Pulse 61 Pulse Source Pulse Oximeter Pulse Oximetry (%) 96 Oxygen Delivery Method Room Air Intake Visit Reasons: Hyperparathyroidism Intake Note: Patient present today for Hyperparathyroidism. Allergies gentamicin (From GARAMYCIN) Allergy (Intermediate, Verified 10/20/24 09:40) RASH Penicillins (PENICILLINS) Allergy (Intermediate, Verified 10/20/24 09:40) RASH Seasonal Allergies Allergy (Intermediate, Verified 10/20/24 09:40) seasonal allergies vancomycin (VANCOMYCIN) Allergy (Intermediate, Verified 10/20/24 09:40) swelling/rash/hives Medication List - Last Reconciled 10/20/24 by Olga Palacios MD albuterol sulfate 2.5 mg (3 mL) inhalation Q6H PRN 30 days albuterol sulfate 90 mcg/actuation (Ventolin HFA) 2 inhalations PO Q6H PRN ammonium lactate 12% appl topical BID bisacodyl (Dulcolax (bisacodyl)) 15 mg (3 x 5 mg) PO BEDTIME 30 days blood sugar diagnostic (FreeStyle Lite Strips) As directed budesonide-formoterol 160-4.5 mcg/actuation (Symbicort) 2 inhalations PO BID bupropion HCl XL 150 mg PO QAM cholecalciferol (vitamin D3) 25 mcg PO DAILY 3 months empagliflozin (Jardiance) 25 mg PO QAM ezetimibe 10 mg PO DAILY famotidine 20 mg PO BEDTIME fluticasone propionate 50 mcg/actuation 2 sprays intranasal DAILY gabapentin 100 mg PO BEDTIME lancets (FreeStyle Lancets) As directed levothyroxine (Synthroid) 25 mcg PO DAILY [id number]-[id number] 36,000-114,000- 180,000 unit (Creon) 2 caps PO BID loratadine (Claritin) 10 mg PO DAILY 30 days lorazepam 0.5 mg PO DAILY PRN losartan-hydrochlorothiazide 100-25 mg 1 tab PO DAILY meclizine 25 mg PO Q12H PRN melatonin 10 mg PO BEDTIME montelukast 10 mg PO BEDTIME nebulizers As directed omeprazole 40 mg PO DAILY 90 days rizatriptan 10 mg PO DAILY PRN ropinirole 0.25 mg PO BEDTIME rosuvastatin 40 mg PO DAILY sertraline 100 mg PO DAILY trazodone 50 mg PO DAILY HPI Comments Details: 63-year-old female here for follow up of elevated PTH levels. HPI from initial visit Most recent labs from 04/24/2024 show PTH level of 95.6, calcium of 9.7 with albumin of 4.3, corrected calcium would be 9.4, phosphorus normal at 3.7, GFR greater than 60, vitamin-D level of 29.7. Chart review also shows elevated PTH levels back from June 2021 when PTH was 93, no calcium from that time, another elevated PTH level from January 2021 at 66 with vitamin-D of 29, again no calcium level. Chart review also shows mostly normal calcium levels apart from once in January 2024 when calcium was noted to be elevated at 10.6 with an albumin of 4.4, corrected calcium would be 10.2. This is high normal. Reports muscle aches, constipation, abd pain due to gastritis, reports memory issues. No fractures Bone density scan 07/26/2022 showed osteopenia with lowest T-score in the femoral neck of-1.2, FRAX not meeting criteria for treatment. No kidney stones CT abdomen April 2021 did not show any kidney stones. Vitamin D: no supplements Biotin yes No calcium supplements Calcium : 3 cups of milk, 1 cup of yogurt, 2-3 cheeses , and sometimes icecream daily No exercise, walks in summer Family history : son has kidney stones No history of bariatric surgery Not on HCTZ anymore, used it for a month due to elevated BP , now well controlled without meds Labs done 07/14/2024 showed calcium of 9, albumin of 4.2, corrected calcium would be 8.8, ionized calcium normal at 5, phosphorus mildly low at 2.6, magnesium normal at 2.2, vitamin-D normal at 35.1, TSH of 3, PTH elevated at 116, 24 hour urine calcium normal at 166 with a normal calcium and creatinine ratio, fractional excretion of calcium calculated 0.01 which is equivocal PCP ordered NM parathyroid scan done 06/05/24 [facility] didnt show adenoma Interval history Labs at [facility] 10/06/2024 Creatinine 0.73 EGFR 92 PTH 67 Vitamin-D 47 Calcium 9.6 Albumin 4.4 Ionized calcium 5.3 Labs at [facility] 10/20/2024 Calcium 9.5 Albumin 4.4 Phosphorus 3.5 EGFR greater than 60 PTH intact 82.6 Vitamin D 1000 units daily Calcium : 2- 3 cups of milk daily , 1 cup of yogurt, 2-3 cheeses , and sometimes icecream daily Physical exam General: sitting comfortably in no acute distress HEENT: normocephalic/atraumatic, moist oral mucosa Neck: supple, symmetrical, no thyromegaly Cardiac: normal heart sounds Pulm: normal breath sounds B/L, no added breath sounds Abd: not distended, no tenderness Extremities: no edema, no signs of myxedema Neuro: AAO x3, Speech: normal, no facial droop, moving all 4 extremities Laboratory Tests 03/11/20 06/14/20 09/14/20 09:35 10:00 07:56 Creatinine Estimated GFR Calcium Phosphorus Albumin 4.2 4.4 4.4 25-OH Vitamin D Total TSH PTH Intact 01/12/21 04/09/21 06/20/21 09:08 13:51 08:39 Creatinine Estimated GFR Calcium Phosphorus Albumin 4.4 4.4 4.1 25-OH Vitamin D Total 29.0 TSH PTH Intact 66 H 93 H 08/24/21 01/04/22 04/28/22 07:38 08:31 08:38 Creatinine Estimated GFR Calcium 9.6 Phosphorus Albumin 4.0 4.4 4.2 25-OH Vitamin D Total TSH PTH Intact 07/26/22 10/23/22 01/23/23 08:50 09:08 09:00 Creatinine Estimated GFR Calcium 9.8 9.2 D 9.9 D Phosphorus Albumin 4.4 4.0 4.4 25-OH Vitamin D Total TSH PTH Intact 05/14/23 06/18/23 10/23/23 08:52 11:09 07:34 Creatinine Estimated GFR Calcium 9.2 D 9.5 9.7 Phosphorus Albumin 4.2 4.3 4.4 25-OH Vitamin D Total TSH PTH Intact 01/24/24 04/24/24 07:49 08:40 Creatinine 0.73 Estimated GFR > 60 Calcium 10.6 H D 9.7 D Phosphorus 3.7 Albumin 4.4 4.3 25-OH Vitamin D Total 29.7 L TSH 2.10 PTH Intact 95.6 H Laboratory Tests 07/14/24 07/14/24 05:30 07:55 Creatinine 0.77 Estimated GFR > 60 Calcium 9.0 D Ionized Calcium 5.0 Phosphorus 2.6 L Magnesium 2.2 Albumin 4.2 25-OH Vitamin D Total 35.1 TSH 3.00 PTH Intact 116.0 H Ur 24 Hour Volume 3130 Ur Creatinine mg/dL 45.12 Ur Creatinine 24 Hour 1.4 Ur Calcium 24 Hr 166 Calcium/Creat 24 Hr 115 Laboratory Tests 10/20/24 08:30 Creatinine 0.69 Estimated GFR > 60 Calcium 9.5 Phosphorus 3.5 Albumin 4.4 PTH Intact 82.6 H EXAMINATION: Nuclear medicine parathyroid SPECT study. 06/05/24 CLINICAL INDICATION: Hyperparathyroidism. COMPARISON: CT chest 05/24/2023 TECHNIQUE: Following intravenous administration of 29.0 mCi of Cardiolite, planar imaging over the neck was obtained at 20 minutes. At 2 hours planar and SPECT images were obtained. FINDINGS: On 20 minutes later imaging there is normal activity seen in bilateral thyroid lobes with a slight bulbous appearance of the lower pole left thyroid lobe. At 20 minutes planar and SPECT imaging there is good washout of activity through the thyroid gland with no residual activity seen in the thyroid bed or in the upper and lower poles of thyroid lobe to suspect parathyroid adenoma. NM/NM parathyroid SPECT IMPRESSION: There is no suspicion for parathyroid adenoma. The thyroid lobes are symmetrical and normal. Electronically signed by: Vikram Moreira MD 06/05/2024 04:[address] [facility] BONE DENSITOMETRY 07/26/22 CLINICAL INDICATION: Osteopenia. COMPARISON: Baseline BD dated 08/04/2016. TECHNIQUE: Using a [employer] DXA System (software version: 13.1) manufactured by [employer], dual-energy x-ray absorptiometry was performed of the lumbar spine and left hip. The images are of good technical quality. Summary results are attached. FINDINGS: AP SPINE L1-L4: Current: BMD 1.067 g/cm2, Z-score 0.0, T-score -0.9, normal, 7.8% increase from baseline (<5% change is not significant). Baseline: BMD 0.990 g/cm2. LEFT FEMUR, NECK: Current: BMD 0.876 g/cm2, Z-score -0.1, T-score -1.2, osteopenia. Baseline: BMD 0.907 g/cm2. LEFT FEMUR, TOTAL: Current: BMD 1.026 g/cm2, Z-score 0.9, T-score 0.1, normal, 3.6% increase from baseline (<5% change is not significant). Baseline: BMD 0.990 g/cm2. IDENTIFIED RISK FACTORS: Menopause, hysterectomy, bilateral oophorectomy, height loss, low calcium intake, recurrent falls. HISTORY OF FRACTURE: None listed. MEDICATIONS: None listed. MM/XR DEXA axial skeleton IMPRESSION: 1. DIAGNOSIS: Osteopenia based on the lowest T-score value of -1.2 in the femoral neck applying World Health Organization criteria. 2. 10-YEAR FRACTURE RISK PREDICTION, FRAX: Major osteoporotic fracture (clinical spine, forearm, hip or shoulder) 4.2%. Hip fracture 0.3%. [facility] Medical History (Updated 09/26/24 @ 10:48 by Stephon Mosley MD) Allergies Hx of abnormal cervical Pap smear Perimenopause De Quervain's tenosynovitis, left Potential exposure to STD Urinary incontinence Sinusitis Asymptomatic postsurgical menopause Pre-op chest exam Fungal skin infection Well woman exam with routine gynecological exam Vitamin D deficiency Elevated parathyroid hormone Asthma Abdominal pain Yeast infection Left hand pain Numbness and tingling in both hands Vaginal burning Pulmonary nodules Right knee pain Other and unspecified hyperlipidemia Essential hypertension Morbid obesity HELEN (obstructive sleep apnea) Precordial chest pain Heart palpitations Snoring Difficulty sleeping Panic attack PTSD (post-traumatic stress disorder) Cervical cancer screening Family history of breast cancer Low back pain Neck pain Depression Restless leg syndrome Peripheral neuropathy BMI 35.0-35.9,adult PVC (premature ventricular contraction) Mitral valve prolapse Hypertension Obesity (BMI 30-39.9) Diabetes type 2, controlled Osteopenia determined by x-ray Hyperlipidemia Lower back pain Hypothalamic hypothyroidism Insomnia GERD (gastroesophageal reflux disease) Migraine headache Surgical History H/O eye surgery Hx of endoscopy Hx of colonoscopy Hx of left breast biopsy History of cervical cerclage Hx of hysterectomy Hx of tubal ligation Family History Father Diabetes Paced cardiac rhythm Colon cancer Mother HTN (hypertension) High cholesterol Skin cancer Breast cancer Colon cancer Sister Obese abdomen Brother Infarction of lung due to iatrogenic pulmonary embolism Son HTN (hypertension) High cholesterol Son HTN (hypertension) High cholesterol Son No problems noted. Son No problems noted. Son No problems noted. Sister No problems noted. Sister No problems noted. 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 labs from 04/24/2024 show PTH level of 95.6, calcium of 9.7 with albumin of 4.3, corrected calcium would be 9.4, phosphorus normal at 3.7, GFR greater than 60, vitamin-D level of 29.7. Chart review also shows elevated PTH levels back from June 2021 when PTH was 93, no calcium from that time, another elevated PTH level from January 2021 at 66 with vitamin-D of 29, again no calcium level. Chart review also shows mostly normal calcium levels apart from once in January 2024 when calcium was noted to be elevated at 10.6 with an albumin of 4.4, corrected calcium would be 10.2. This is high normal. Labs done 07/14/2024 showed calcium of 9, albumin of 4.2, corrected calcium would be 8.8, ionized calcium normal at 5, phosphorus mildly low at 2.6, magnesium normal at 2.2, vitamin-D normal at 35.1, TSH of 3, PTH elevated at 116, 24 hour urine calcium normal at 166 with a normal calcium and creatinine ratio, fractional excretion of calcium calculated 0.01 which is equivocal Unlikely secondary hyperparathyroidism due to vitamin-D deficiency since labs repeated with sufficient vitamin-D still show PTH elevation. differentials could be primary hyperparathyroidism though calcium was only elevated once back in January 2024 otherwise she has had normal calcium levels, could possibly have normocalcemic hyperparathyroidism.. She has osteopenia on bone density done in July 2022, FRAX does not meet criteria for treatment, lowest T-score of-1.2 at the left femoral neck. No history of kidney stones, CT of the abdomen from April 2021 did not show any kidney stones either. Her son has kidney stones, we should keep this in mind if we start thinking about FH. No hypercalciuria. She does not meet any surgical criteria. I have had some concerns about the variation in PTH assay at [facility]. I had her repeat blood work at [facility] at [facility] 10/06/2024 Creatinine 0.73 EGFR 92 PTH 67 Vitamin-D 47 Calcium 9.6 Albumin 4.4 Ionized calcium 5.3 Everything came back normal. At this time I will plan to see her once more in about 8 months or so with repeat labs done at [facility]. I have asked her to continue vitamin-D supplementation and maintain nutritional intake of calcium. Also have had some concerns about the PTH assay at our lab. We will repeat labs at [facility]. Plan: -continue vitamin-D 1000 units daily -no calcium supplements, but continue 1000 mg of calcium intake through diet, she is on adequate amounts of calcium in her diet -repeat labs with PTH, vitamin-D, calcium, albumin, ionized calcium, ccreatinine, phosphorus, prior to next appointment in 8 months' -f follow up in 8 months to discuss results (2) Vitamin D deficiency: Code(s): E55.9 - Vitamin D deficiency, unspecified Category: Medical Plan: See above Plan See above Orders: Orders 2 Calcium 05/11/25 E55.9 - Vitamin D deficiency, unspecified, R79.89 - Other specified abnormal findings of blood chemistry Parathyroid Hormone Intact 05/11/25 E55.9 - Vitamin D deficiency, unspecified, R79.89 - Other specified abnormal findings of blood chemistry Vitamin D 25-OH Total 05/11/25 E55.9 - Vitamin D deficiency, unspecified, R79.89 - Other specified abnormal findings of blood chemistry Albumin Level 05/11/25 E55.9 - Vitamin D deficiency, unspecified, R79.89 - Other specified abnormal findings of blood chemistry Calcium, Ionized 05/11/25 E55.9 - Vitamin D deficiency, unspecified, R79.89 - Other specified abnormal findings of blood chemistry Phosphorus 05/11/25 E55.9 - Vitamin D deficiency, unspecified, R79.89 - Other specified abnormal findings of blood chemistry Creatinine 05/11/25 E55.9 - Vitamin D deficiency, unspecified, R79.89 - Other specified abnormal findings of blood chemistry Patient Instructions: Do blood work at [facility] [address] [place] [address] 2025, please make sure you tell them the fax results to me Follow up in June 2025 to discuss results Coding Level of Care Code Est Pt Level 3 (89481) Diagnoses Elevated parathyroid hormone R79.89 Vitamin D deficiency E55.9
== END 2024-10-20 10:18 | disposition home or self-care (01) ==
LOC: HO.ENCR 08:57
PROVIDERS: PCP Internal Medicine; Visit Provider Student in an Organized Health Care Education/Training Program
DX: R79.89 Other specified abnormal findings of blood chemistry (principal); E55.9 Vitamin D deficiency, unspecified
CPT/HCPCS: 99213

== ENCOUNTER 2024-10-30 10:23 | Outpatient (AMB) | payer MEDICAID, SELFPAY ==
--- NOTE | 2024-10-30 10:25 | MHC.OFFVIS ---
Vital Signs 10/30/24 10:25 Height 5 ft 4 in Intake Visit Reasons: 4 mnts Allergies gentamicin (From GARAMYCIN) Allergy (Intermediate, Verified 10/30/24 10:26) RASH Penicillins (PENICILLINS) Allergy (Intermediate, Verified 10/30/24 10:26) RASH Seasonal Allergies Allergy (Intermediate, Verified 10/30/24 10:26) seasonal allergies vancomycin (VANCOMYCIN) Allergy (Intermediate, Verified 10/30/24 10:26) swelling/rash/hives Medication List - Last Reconciled 10/30/24 by Maritza Lennon CNP albuterol sulfate 2.5 mg (3 mL) inhalation Q6H PRN 30 days albuterol sulfate 90 mcg/actuation (Ventolin HFA) 2 inhalations PO Q6H PRN ammonium lactate 12% appl topical BID bisacodyl (Dulcolax (bisacodyl)) 15 mg (3 x 5 mg) PO BEDTIME 30 days blood sugar diagnostic (FreeStyle Lite Strips) As directed budesonide-formoterol 160-4.5 mcg/actuation (Symbicort) 2 inhalations PO BID bupropion HCl XL 150 mg PO QAM cholecalciferol (vitamin D3) 25 mcg PO DAILY 3 months divalproex 250 mg PO BEDTIME empagliflozin (Jardiance) 25 mg PO QAM ezetimibe 10 mg PO DAILY famotidine 20 mg PO BEDTIME fluticasone propionate 50 mcg/actuation 2 sprays intranasal DAILY gabapentin 100 mg PO BEDTIME lancets (FreeStyle Lancets) As directed levothyroxine (Synthroid) 25 mcg PO DAILY [id number] 36,000-114,000- 180,000 unit (Creon) 2 caps PO BID loratadine (Claritin) 10 mg PO DAILY 30 days lorazepam 0.5 mg PO DAILY PRN losartan-hydrochlorothiazide 100-25 mg 1 tab PO DAILY meclizine 25 mg PO Q12H PRN melatonin 10 mg PO BEDTIME montelukast 10 mg PO BEDTIME nebulizers As directed omeprazole 40 mg PO DAILY 90 days rizatriptan 10 mg PO DAILY PRN ropinirole 0.25 mg PO BEDTIME rosuvastatin 40 mg PO DAILY sertraline 100 mg PO DAILY trazodone 50 mg PO DAILY HPI Comments Details: 63-year-old woman with asthma, glaucoma, depression, anxiety, RLS, and migraine. She was doing okay. She was having few more headaches, but rizatriptan as needed helped and she was very happy with this medication. She did not realize she could also continue Depakote and stopped taking this medication a few months ago. She was under a lot of stress recently. She was thinking about moving back to [place] to be closer to her family. Dizziness was still there at times, worse with headaches. Meclizine as needed helped. Restless leg symptoms were controlled with medication. She has been taking gabapentin 100mg at bedtime and it did not seem to be helping. She was still having burning pain in feet, along with some sharp pains to bottom and sides of feet. Numbness and tingling in feet was unchanged. Balance was off at times, but no falls. She was occasionally using walker. [facility] Medical History (Updated 10/30/24 @ 10:31 by Maritza Lennon CNP) Lumbar disc disease Extrapyramidal and movement disorder, unspecified Allergies Hx of abnormal cervical Pap smear Perimenopause De Quervain's tenosynovitis, left Potential exposure to STD Urinary incontinence Sinusitis Asymptomatic postsurgical menopause Pre-op chest exam Fungal skin infection Well woman exam with routine gynecological exam Vitamin D deficiency Elevated parathyroid hormone Asthma Abdominal pain Yeast infection Left hand pain Numbness and tingling in both hands Vaginal burning Pulmonary nodules Right knee pain Other and unspecified hyperlipidemia Essential hypertension Morbid obesity HELEN (obstructive sleep apnea) Precordial chest pain Heart palpitations Snoring Difficulty sleeping Panic attack PTSD (post-traumatic stress disorder) Cervical cancer screening Family history of breast cancer Low back pain Neck pain Depression Restless leg syndrome Peripheral neuropathy BMI 35.0-35.9,adult PVC (premature ventricular contraction) Mitral valve prolapse Hypertension Obesity (BMI 30-39.9) Diabetes type 2, controlled Osteopenia determined by x-ray Hyperlipidemia Lower back pain Hypothalamic hypothyroidism Insomnia GERD (gastroesophageal reflux disease) Migraine headache Surgical History H/O eye surgery Hx of endoscopy Hx of colonoscopy Hx of left breast biopsy History of cervical cerclage Hx of hysterectomy Hx of tubal ligation Family History Father Diabetes Paced cardiac rhythm Colon cancer Mother HTN (hypertension) High cholesterol Skin cancer Breast cancer Colon cancer Sister Obese abdomen Brother Infarction of lung due to iatrogenic pulmonary embolism Son HTN (hypertension) High cholesterol Son HTN (hypertension) High cholesterol Son No problems noted. Son No problems noted. Son No problems noted. Sister No problems noted. Sister No problems noted. 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 Gender identity: Female Female Reproductive History Menstrual Age of Menarche: 10 Date of menopause: 06/20/13 Review of Systems Const Denies chills, Denies daytime sleepiness, Reports difficulty sleeping, Denies fatigue, Denies fever(s), Denies frequent falls, Reports headache(s), Denies increased appetite, Denies poor appetite, Denies snoring, Denies weakness, Denies weight gain and Denies weight loss Eyes Denies loss of vision ENT Denies vertigo, Reports dizziness and Reports headache(s) Card Denies chest pain at rest, Denies chest pain with activity, Denies syncope, Denies leg edema and Denies palpitations Resp Denies snoring GI Denies constipation, Denies heartburn, Denies diarrhea and Denies nausea Denies urinary frequency, Denies urinary incontinence and Denies urinary urgency Musc Denies abnormal gait, Reports numbness and Reports tingling Skin/Breast Denies dry skin and Denies rash Neuro Denies abnormal gait, Denies vertigo, Reports dizziness, Denies syncope, Denies frequent falls, Reports headache(s), Denies lack of coordination, Denies loss of vision, Denies memory loss, Reports numbness, Reports restless legs, Denies seizure-like activity, Reports tingling, Denies paresthesias, Denies tremor(s) and Denies weakness Psych Reports anxiety, Reports depression, Denies auditory hallucinations, Denies memory loss, Denies visual hallucinations and Denies suicidal ideation Endo Denies fatigue and Denies palpitations Physical Exam Const Other: General Appearance:? normal, in no acute distress. Skin:? no rashes, no significant birthmarks. Heart:? S1, S2 normal, no murmurs. Lungs:? clear anteriorly and posteriorly. Extremities:? no edema. Psych:? alert, oriented, cognitive function intact, cooperative with exam. Neuro Other: Mental Status:?Normal attention, orientation, memory and affect.? Cranial Nerves:?Pupils are equal, round and reactive to light. External occular muscles are intact. Visual gleason are full. Face is symmetrical. Facial sensations are normal. Tongue is midline. Palate elevates symmetrically. Shoulder shrugging is normal. Hearing to bedside conversation is normal. Sensory Exam:?....? Coordination:?No ataxia,?no titubation.? Gait Exam: Within normal limits. Cerebellar Signs:?Ytlviv-[id number]-buwe and bmsl-zq-ybmq is normal.? Extrapyramidal System:?No tremor, rigidity with normal facial expressions.? Pronator Drift:?Not present.? Involuntary Movements:?No tremors seen.? Speech:?Normal.? Results Reviewed Results Reviewed: 02/04/20 NCV/EMG RTLE A: Chronic right lower lumbar radiculopathy. b: Underlying axonal sensory and motor peripheral neuropathy 04/24/24 NCV/EMG LE (in office): Mild to moderate axonal sensory and motor peripheral neuropathy MRI Lumbar Spine 04/2021: L4-5 grade 1 degenerative anterolisthesis in the setting of severe bilateral hypertrophic facet arthropathy with uncovered disc osteophyte resulting in right subarticular zone stenosis and mass effect on traversing right L5 nerve root. There is also a far right lateral disc osteophyte protrusion at L4-5 contacting the extraforminal right L4 nerve root. Left dorsal annular fissure at L4-5. L5-S1 shallow central disc protrusion associated with an annular fissure contacts the traversing S1 nerve roots within the subarticular zones bilaterally without compression MRI LS Spine 06/03/2024 at [facility] (reported): Multilevel degenerative changes of the lumbar spine as described, interval slightly progressed since prior MRI of 2021. Assessment & Plan Assessment & Plan (1) Migraine without aura: Code(s): G43.009 - Migraine without aura, not intractable, without status migrainosus Category: Medical Qualifiers: Status migrainosus presence: without status migrainosus Intractability: not intractable Qualified Code(s): G43.009 - Migraine without aura, not intractable, without status migrainosus Plan: Restart Depakote 250mg 1 tablet at bedtime. She was educated on the purpose of this medication as a migraine prophylactic and the purpose of rizatriptan as an abortive therapy. Continue rizatriptan benzoate tablet disintegrating 10mg 1 tablet as needed for migraine. (2) Restless leg syndrome: Code(s): G25.81 - Restless legs syndrome Category: Medical Plan: Continue ropinirole 0.25mg 1 tablet at bedtime (3) Vertigo: Code(s): R42 - Dizziness and giddiness Category: Medical Plan: Continue meclizine 25mg 1 tablet as needed for dizziness q12h (4) Peripheral neuropathy: Code(s): G62.9 - Polyneuropathy, unspecified Category: Medical Qualifiers: Peripheral neuropathy type: polyneuropathy, unspecified Qualified Code(s): G62.9 - Polyneuropathy, unspecified Plan: Increase gabapentin 300mg at bedtime x1 week, then gabapentin 300mg twice a day x1 week, then gabapentin 300mg three times a day as tolerated. Continue to stay physically active. Plan Meds tried: topiramate, verapamil, depakote Medications: New divalproex (Depakote) 250 mg PO BEDTIME 90 tabs 1RF 90 days gabapentin 300 mg orally 1 cap at bedtime x1 week, then 1 cap BID x1 week, then 1 cap TID; 90 caps 5RF 30 days rizatriptan take 1 tab at onset of headache; if no relief may repeat 1 tab after at least 4 hrs; max = 2 tabs/24 hr PO 10 tabs 5RF 30 days Discontinued rizatriptan Discontinued Reason: Order 10 mg PO DAILY PRN gabapentin Discontinued Reason: Order 100 mg PO BEDTIME Coding Level of Care Code Est Pt Level 4 (99169) Diagnoses Migraine without aura and without status migrainosus, not intractable G43.009 Status migrainosus presence: without status migrainosus Intractability: not intractable Restless leg syndrome G25.81 Vertigo R42 Peripheral polyneuropathy G62.9 Peripheral neuropathy type: polyneuropathy, unspecified
--- OUTSIDE RECORDS SUMMARY | 2024-10-30 11:10 | XMS_ITS | Clinical Summary ---
Author Organization [facility] Address [address] [place] [address] Care Team Providers Care Senior Program Planner Name Role Phone Matilda Yo MD Primary Care Provider [phone] Surgical History Surgery Date Site/Laterality Comments TUBAL LIGATION PROCEDURE: HISTORICAL TUBAL LIGATION HYSTERECTOMY PROCEDURE: HISTORICAL HYSTERECTOMY OTHER SURGICAL HISTORY PROCEDURE: HISTORICAL CERCLAGE SURGERY; COMMENT: x 4, she has 7 children Medical History Medical History Date Comments Hypothyroidism DX:Hypothyroidis m Hypertension DX:Hypertension Type 2 diabetes mellitus wit hout complications (CMS/HCC V24, CMS/HCC V28) DX:Type 2 jackie betes mellitus without complications ([facility]) Mild intermittent asthma, uncomplicated DX:Mild intermittent asthma, [...] 2) 12/25/2009 Colorectal Cancer Screening: Colonoscopy 03/07/2022 HIV Screening 03/07/2022 Hepatitis C Screening 03/07/2022 Social Influencers of Health Screening 03/07/2022 COVID-19 Vaccine (1 - 2023-2 5 season) 2023 Depression Screening 04/09/2024 Influenza Vaccine (#1) 2024 03/17/2020 RSV Immunization [...] age to complete this topic Care Teams Senior Program Planner Relationship Specialty Start Date End Date Matilda Yo MD [address] [place] PCP - General Internal Medicine 09/25/19
== END 2024-10-30 10:52 | disposition home or self-care (01) ==
LOC: HO.HSM 10:23
PROVIDERS: PCP Internal Medicine; Visit Provider Registered Nurse
DX: G43.009 Migraine without aura, not intractable, without status migrainosus (principal); G25.81 Restless legs syndrome; R42 Dizziness and giddiness; G62.9 Polyneuropathy, unspecified
CPT/HCPCS: 99214

== ENCOUNTER → 2024-10-30 10:23 | Outpatient (BNVA) | payer MEDICAID, SELFPAY | PROVIDERS: PCP Internal Medicine; Visit Provider Registered Nurse | DX: G43.009 Migraine without aura, not intractable, without status migrainosus (principal); G25.81 Restless legs syndrome; R42 Dizziness and giddiness; G62.9 Polyneuropathy, unspecified | CPT/HCPCS: 99212 ==

== ENCOUNTER 2024-11-06 13:20 | Outpatient (AMB) | payer MEDICAID, SELFPAY ==
--- NOTE | 2024-11-06 13:21 | MHC.OFFVIS ---
Vital Signs 11/06/24 13:24 Height 5 ft 4 in Weight 207 lb 3.752 oz BMI 35.6 BP 112/58 L Blood Pressure Location Lt brachial Position Sitting Pulse 83 Pulse Oximetry (%) 98 Intake Visit Reasons: Discuss FL Bowel series Intake Note: Stefany presents in the office as a follow up for her bowel series. CC: States she has issues with constipation and reflux. Pains in the epigastric region. Reflux at night. Allergies gentamicin (From GARAMYCIN) Allergy (Intermediate, Verified 11/06/24 13:24) RASH Penicillins (PENICILLINS) Allergy (Intermediate, Verified 11/06/24 13:24) RASH Seasonal Allergies Allergy (Intermediate, Verified 11/06/24 13:24) seasonal allergies vancomycin (VANCOMYCIN) Allergy (Intermediate, Verified 11/06/24 13:24) swelling/rash/hives HPI HPI Discuss FL Bowel series: Details: Assessment & Plan (1) Biliary dyskinesia: Code(s): K82.8 - Other specified diseases of gallbladder Category: Medical (2) Gallstones: Comment: 10/2019 3-HIDA scan Code(s): K80.20 - Calculus of gallbladder without cholecystitis without obstruction Category: Medical (3) Chronic idiopathic constipation: Code(s): K59.04 - Chronic idiopathic constipation Category: Medical (4) GERD (gastroesophageal reflux disease): Code(s): K21.9 - Gastro-esophageal reflux disease without esophagitis Category: Medical (5) Oropharyngeal dysphagia: Code(s): R13.12 - Dysphagia, oropharyngeal phase Category: Medical (6) Abdominal pain: Comment: largely resolved with creon Code(s): R10.9 - Unspecified abdominal pain Category: Medical Qualifiers: Abdominal location: right upper quadrant Qualified Code(s): R10.11 - Right upper quadrant pain Plan She continues on bisacodyl, creon, omeprazole in the morning and famotidine at night. We had discontinued the sucralfate. We are still trying to discern what is causing her pain whether it is related to pyloric stenosis, gallbladder disease or constipation. The creon largely resolved her abdominal pain 60% less, happening only 2 times a week and for the past 2 years I was always in pain. She continues to have dyphagia that did not respond to dilation, likely presbyesophagus. CIC well controlled on bisacodyl. she is struggling with neuropathy but she was just started on gabapentin, she also was given a seated walker from her PCP to encourage her to exercise and lose weight. ROV 6 mos. Medications: Changed From omeprazole 40 mg PO DAILY 30 days 30 caps 6RF K21.9 - Gastro-esophageal reflux disease without esophagitis To omeprazole 40 mg PO DAILY 90 days 90 caps 1RF K21.9 - Gastro-esophageal reflux disease without esophagitis Refilled [id number]-[id number] 36,000-114,000- 180,000 unit (Creon) administer with meals and/or snacks 2 caps PO BID 360 caps 1RF K82.8 - Other specified diseases of gallbladder bisacodyl (Dulcolax (bisacodyl)) take orally as directed prior to colonoscopy 15 mg (3 x 5 mg) PO BEDTIME 30 days 90 tabs 6RF K59.04 - Chronic idiopathic constipation famotidine 20 mg PO BEDTIME 90 tabs 2RF K21.9 - Gastro-esophageal reflux disease without esophagitis UPPER GI WITH SMALL-BOWEL FOLLOW-THROUGH 10/03/2024 FINDINGS: On KUB there is moderate stool in the right colon. Following oral administration of thick barium and effervescent granules is normal propagation bolus from the oral cavity through the pharynx, esophagus into stomach. On placing patient supine and prone lying the course, caliber and peristalsis of the stomach, duodenal bulb and sweep is normal. The mucosal pattern of the stomach, duodenal bulb is normal. There is mild gastroesophageal reflux without hiatal hernia. Sequential images over the abdomen reveals normal course, caliber and peristalsis of the small bowel loops. The small bowel transit time is 45 minutes. Spot images of the abdomen reveals patent IC junction. Appendix is not seen. FLUOROSCOPY TIME: 2 minutes and 52 seconds DOSE AREA PRODUCT: 90.72 uGy-m2 (microgray-meter squared) FL/FL upper GI small bowel IMPRESSION: Mild gastroesophageal reflux without hiatal hernia. The esophagus, stomach and the small bowel loops are normal. Appendix is not visualized. The IC junction is normal. TODAY'S VISIT She continues on bisacodyl, creon, omeprazole in the morning and famotidine at night. SHE SAYS THAT, contrary to what I understood in the past, that when we have dilated her esophagus it has actually helped her swallowing improved by about 70%. I must have misunderstood her when she reported on this. She is requesting an endoscopy be performed again when she has a colonoscopy because she is starting to have some more trouble swallowing over the past few weeks. We will do this. We review the upper GI with small-bowel follow-through and it appears to be relatively normal except for GERD. She has asthma and sleep apnea that are well controlled and denies any cardiac problems. There are no prior problems with anesthesia or sedation. There are no infectious disease problems. rov 6 MOS. PFSH Medical History Lumbar disc disease Extrapyramidal and movement disorder, unspecified Allergies Hx of abnormal cervical Pap smear Perimenopause De Quervain's tenosynovitis, left Potential exposure to STD Urinary incontinence Sinusitis Asymptomatic postsurgical menopause Pre-op chest exam Fungal skin infection Well woman exam with routine gynecological exam Vitamin D deficiency Elevated parathyroid hormone Asthma Abdominal pain Yeast infection Left hand pain Numbness and tingling in both hands Vaginal burning Pulmonary nodules Right knee pain Other and unspecified hyperlipidemia Essential hypertension Morbid obesity HELEN (obstructive sleep apnea) Precordial chest pain Heart palpitations Snoring Difficulty sleeping Panic attack PTSD (post-traumatic stress disorder) Cervical cancer screening Family history of breast cancer Low back pain Neck pain Depression Restless leg syndrome Peripheral neuropathy BMI 35.0-35.9,adult PVC (premature ventricular contraction) Mitral valve prolapse Hypertension Obesity (BMI 30-39.9) Diabetes type 2, controlled Osteopenia determined by x-ray Hyperlipidemia Lower back pain Hypothalamic hypothyroidism Insomnia GERD (gastroesophageal reflux disease) Migraine headache Surgical History H/O eye surgery Hx of endoscopy Hx of colonoscopy Hx of left breast biopsy History of cervical cerclage Hx of hysterectomy Hx of tubal ligation Family History Father Diabetes Paced cardiac rhythm Colon cancer Mother HTN (hypertension) High cholesterol Skin cancer Breast cancer Colon cancer Sister Obese abdomen Brother Infarction of lung due to iatrogenic pulmonary embolism Son HTN (hypertension) High cholesterol Son HTN (hypertension) High cholesterol Son No problems noted. Son No problems noted. Son No problems noted. Sister No problems noted. Sister No problems noted. 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 Gender identity: Female Female Reproductive History Menstrual Age of Menarche: 10 Date of menopause: 06/20/13 Review of Systems Const Denies fatigue, Denies fever(s), Denies night sweats, Denies poor appetite and Denies weight loss ENT Reports Normal hearing present, Denies dental pain, Reports dysphagia, Denies hearing loss, Denies mouth pain, Denies odynophagia, Denies throat swelling, Denies tongue swelling and Reports other (Dentition adequate) Card Reports no additional complaints Resp Reports no additional complaints GI Details: Denies abdominal pain, Denies melena, Reports bloating, Denies hematochezia, Reports constipation, Denies GI cramping, Reports dysphagia, Denies excessive flatus, Denies early satiety, Reports heartburn, Denies diarrhea, Denies nausea, Denies odynophagia, Denies vomiting and Denies hematemesis Skin/Breast Denies pruritus, Denies lesions, Denies rash and Denies jaundice Neuro Reports Normal hearing present and Denies Abnormal speech present Endo Denies fatigue Aller/Immun Denies throat swelling and Denies tongue swelling Physical Exam Vital Signs: Last Vital Signs Pulse 83 11/06/24 13:24 BP 112/58 L 11/06/24 13:24 Pulse Ox 98 11/06/24 13:24 BMI result Body Mass Index 35.6 Const General: cooperative, no acute distress, well developed and well groomed Nutritional Appearance: well nourished and obese Orientation/consciousness: oriented to person, oriented to place and oriented to time Limitations: No language barrier HEENT Head: Yes normocephalic and Yes atraumatic Eyes General: appearance normal, both eyes and all related structures Pupils: Equal, round and reactive pupils present Neck Neck: Yes normal visual inspection and Yes no lymphadenopathy Thyroid: Thyroid normal Resp Effort & Inspection: normal respiratory effort and able to speak in complete sentences Auscultation: clear to auscultation bilaterally Cardio Rate: regular rate Rhythm: regular rhythm Heart sounds: Normal, physiologic split S2 sound present Peripheral pulses: radial pulses present and posterior tibial pulses present GI Inspection: No distended, Yes Abdominal panniculus present and Yes obesity Palpation (GI): Soft to palpation, nontender, no guarding, not rigid and No hepatosplenomegaly present Percussion: Yes normal to percussion Auscultation: normal bowel sounds Rectal Exam - Female: deferred Skin General skin exam: no rashes or lesions noted, turgor normal, skin not dry, no jaundice, No spider nevi and no striae Rashes: no rashes Nails: normal Neuro General: oriented to person, oriented to place and oriented to time Cranial nerves: Yes Equal, round and reactive pupils present and Yes Normal hearing present Speech: No Abnormal speech present Extrem General: Yes normal to inspection, No clubbing, No cyanosis and No edema Psych Appearance: grossly normal and well kempt Mental Status: mental status grossly normal Speech and movement: Normal speech and movement present Affect: normal affect Attitude: cooperative Thought process: Normal thought process present and not confabulating Thought content: Normal thought content present Insight: Fair insight present (Psych) Judgement: Fair judgement present (Psych) Results Reviewed Results Reviewed: UPPER GI WITH SMALL-BOWEL FOLLOW-THROUGH 10/03/2024 FINDINGS: On KUB there is moderate stool in the right colon. Following oral administration of thick barium and effervescent granules is normal propagation bolus from the oral cavity through the pharynx, esophagus into stomach. On placing patient supine and prone lying the course, caliber and peristalsis of the stomach, duodenal bulb and sweep is normal. The mucosal pattern of the stomach, duodenal bulb is normal. There is mild gastroesophageal reflux without hiatal hernia. Sequential images over the abdomen reveals normal course, caliber and peristalsis of the small bowel loops. The small bowel transit time is 45 minutes. Spot images of the abdomen reveals patent IC junction. Appendix is not seen. FLUOROSCOPY TIME: 2 minutes and 52 seconds DOSE AREA PRODUCT: 90.72 uGy-m2 (microgray-meter squared) FL/FL upper GI small bowel IMPRESSION: Mild gastroesophageal reflux without hiatal hernia. The esophagus, stomach and the small bowel loops are normal. Appendix is not visualized. The IC junction is normal. Assessment & Plan Assessment & Plan (1) Chronic idiopathic constipation: Code(s): K59.04 - Chronic idiopathic constipation Category: Medical (2) Biliary dyskinesia: Code(s): K82.8 - Other specified diseases of gallbladder Category: Medical (3) GERD (gastroesophageal reflux disease): Code(s): K21.9 - Gastro-esophageal reflux disease without esophagitis Category: Medical (4) Oropharyngeal dysphagia: Code(s): R13.12 - Dysphagia, oropharyngeal phase Category: Medical (5) Pre-op examination: Code(s): Z01.818 - Encounter for other preprocedural examination Category: Medical Plan She continues on bisacodyl, creon, omeprazole in the morning and famotidine at night. SHE SAYS THAT, contrary to what I understood in the past, that when we have dilated her esophagus it has actually helped her swallowing improved by about 70%. I must have misunderstood her when she reported on this. She is requesting an endoscopy be performed again when she has a colonoscopy because she is starting to have some more trouble swallowing over the past few weeks. We will do this. We review the upper GI with small-bowel follow-through and it appears to be relatively normal except for GERD. She has asthma and sleep apnea that are well controlled and denies any cardiac problems. There are no prior problems with anesthesia or sedation. There are no infectious disease problems. rov 6 MOS. Orders: Orders EGD/[place] Combo - GI Use Only Today R13.12 - Dysphagia, oropharyngeal phase Medications: New peg 3350-electrolytes 236-22.74-6.74 -5.86 gram (Golytely) until fecal effluent is clear; do not exceed a total volume of 2,000 mL 240 mL PO Q10M 4,000 mL 0RF 1 day Z12.11 - Encounter for screening for malignant neoplasm of colon bisacodyl (Dulcolax (bisacodyl)) 10 mg (2 x 5 mg) PO BEDTIME 4 tabs 0RF 2 days Coding Level of Care Code Est Pt Level 4 (08567) Diagnoses Chronic idiopathic constipation K59.04 Biliary dyskinesia K82.8 GERD (gastroesophageal reflux disease) K21.9 Oropharyngeal dysphagia R13.12 Pre-op examination Z01.818 Time Spent (min) 34
[2024-11-06 13:24] VITALS: BP 112/58; PULSE 83; O2SAT 98; BMI 35.6
--- OUTSIDE RECORDS SUMMARY | 2024-11-06 13:34 | XMS_ITS | Clinical Summary ---
Author Organization [employer] [facility] Address [address] [place] [address] Care Team Providers Care Assigner Name Role Phone Matilda Yo MD Primary Care Provider [phone] Surgical History Surgery Date Site/Laterality Comments TUBAL LIGATION PROCEDURE: HISTORICAL TUBAL LIGATION HYSTERECTOMY PROCEDURE: HISTORICAL HYSTERECTOMY OTHER SURGICAL HISTORY PROCEDURE: HISTORICAL CERCLAGE SURGERY; COMMENT: x 4, she has 7 children Medical History Medical History Date Comments Hypothyroidism DX:Hypothyroidis m Hypertension DX:Hypertension Type 2 diabetes mellitus wit hout complications (CMS/HCC V24, CMS/HCC V28) DX:Type 2 jackie betes mellitus without complications ([facility]) Mild intermittent asthma, uncomplicated DX:Mild intermittent asthma, [...] age to complete this topic Care Teams Assigner Relationship Specialty Start Date End Date Matilda Yo MD [address] [place] PCP - General Internal Medicine 09/25/19
== END 2024-11-06 13:57 | disposition home or self-care (01) ==
LOC: HO.HGI 13:21
PROVIDERS: PCP Internal Medicine; Visit Provider Nurse Practitioner
DX: K59.04 Chronic idiopathic constipation (principal); K82.8 Other specified diseases of gallbladder; K21.9 Gastro-esophageal reflux disease without esophagitis; R13.12 Dysphagia, oropharyngeal phase
CPT/HCPCS: 99214

== ENCOUNTER → 2024-11-06 13:20 | Outpatient (BNVA) | payer MEDICAID, SELFPAY | PROVIDERS: PCP Internal Medicine; Visit Provider Nurse Practitioner | DX: Z01.818 Encounter for other preprocedural examination (principal); R13.12 Dysphagia, oropharyngeal phase; K21.9 Gastro-esophageal reflux disease without esophagitis; K82.8 Other specified diseases of gallbladder; K59.04 Chronic idiopathic constipation | CPT/HCPCS: 99212 ==

== ENCOUNTER 2024-12-23 09:45 | Outpatient (AMB) | payer MEDICAID, SELFPAY ==
--- NOTE | 2024-12-23 10:03 | A.OFFVIS_ITS ---
Vital Signs 12/23/24 10:07 Height 5 ft 4 in Weight 138 lb BMI 23.7 BP 132/60 Blood Pressure Location Lt brachial Position Sitting Pulse 63 Intake Visit Reasons: 6 month breast exam Intake Note: Patient is seen in office for 6 month follow up visit, breast exam. 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 Present Accompanied by: Self / Same As Patient Allergies gentamicin (From GARAMYCIN) Allergy (Intermediate, Verified 12/23/24 10:07) RASH Penicillins (PENICILLINS) Allergy (Intermediate, Verified 12/23/24 10:07) RASH Seasonal Allergies Allergy (Intermediate, Verified 12/23/24 10:07) seasonal allergies vancomycin (VANCOMYCIN) Allergy (Intermediate, Verified 12/23/24 10:07) swelling/rash/hives Medication List - Last Reconciled 12/23/24 by Dereje Escalona MD albuterol sulfate 2.5 mg (3 mL) inhalation Q6H PRN 30 days albuterol sulfate 90 mcg/actuation (Ventolin HFA) 2 inhalations PO Q6H PRN ammonium lactate 12% appl topical BID bisacodyl (Dulcolax (bisacodyl)) 10 mg (2 x 5 mg) PO BEDTIME 2 days bisacodyl (Dulcolax (bisacodyl)) 15 mg (3 x 5 mg) PO BEDTIME 30 days blood sugar diagnostic (FreeStyle Lite Strips) As directed budesonide-formoterol 160-4.5 mcg/actuation (Symbicort) 2 inhalations PO BID bupropion HCl XL 150 mg PO QAM cholecalciferol (vitamin D3) 25 mcg PO DAILY 3 months divalproex (Depakote) 250 mg PO BEDTIME 90 days empagliflozin (Jardiance) 25 mg PO QAM ezetimibe 10 mg PO DAILY famotidine 20 mg PO BEDTIME fluticasone propionate 50 mcg/actuation 2 sprays intranasal DAILY gabapentin 300 mg orally 1 cap at bedtime x1 week, then 1 cap BID x1 week, then 1 cap TID; 30 days lancets (FreeStyle Lancets) As directed levothyroxine (Synthroid) 25 mcg PO DAILY bszzpf-kzbybwkj-rfgbunl 36,000-114,000- 180,000 unit (Creon) 2 caps PO BID loratadine (Claritin) 10 mg PO DAILY 30 days lorazepam 0.5 mg PO DAILY PRN losartan-hydrochlorothiazide 100-25 mg 1 tab PO DAILY meclizine 25 mg PO Q12H PRN melatonin 10 mg PO BEDTIME montelukast 10 mg PO BEDTIME nebulizers As directed omeprazole 40 mg PO DAILY 90 days peg 3350-electrolytes 236-22.74-6.74 -5.86 gram (Golytely) 240 mL PO Q10M 1 day rizatriptan take 1 tab at onset of headache; if no relief may repeat 1 tab after at least 4 hrs; max = 2 tabs/24 hr PO 30 days ropinirole 0.25 mg PO BEDTIME 90 days rosuvastatin 40 mg PO DAILY sertraline 100 mg PO DAILY terconazole 0.8% 1 appful vaginal BEDTIME 3 days trazodone 50 mg PO DAILY HPI Comments Details: Stefany Bourgeois is a 63-year-old female patient presenting for a follow-up breast examination.? She has a previous patient of Dr. Sage evaluated due to her increased risk for breast cancer.? She denies any palpable mass, skin change, nipple discharge, but does report tenderness in the right breast especially in the upper outer quadrant. Her mother was diagnosed with breast cancer at the age of 65 as well as colon cancer in both the mother and father.? She was evaluated by Dr. Sage on 11/04/2019 at which time no dominant mass or suspicious changes were noted on breast examination.? Her last mammogram of 07/05/2020 revealed no suspicious changes (BI-RADS 2).? She is 8 para 7 with 1 spontaneous .? Her children are between the ages of 25 and 42. She reports a previous cyst excision in 2009 while in [place] which was benign. Genetic testing by blood on 09/09/2020 revealed no clinically significant mutations and no variance of uncertain significance identified. Her lifetime breast cancer risk was determined to be 15.4%. Based on her family history of colon cancer colonoscopy was recommended every 5 years beginning at the age of 40 or 10 years started than the earliest colorectal cancer diagnosis in the family. She is already undergoing colonoscopy read 5 years. Mammogram obtained on 08/04/2024 revealed no mammographic evidence of malignancy (BI-RADS 2). [facility] lifetime risk of breast cancer was calculated 11.9%. Routine annual screening mammography recommended. She denies any new breast symptoms but does report some left shoulder pain. [facility] Medical History Lumbar disc disease Extrapyramidal and movement disorder, unspecified Allergies Hx of abnormal cervical Pap smear Perimenopause De Quervain's tenosynovitis, left Potential exposure to STD Urinary incontinence Sinusitis Asymptomatic postsurgical menopause Pre-op chest exam Fungal skin infection Well woman exam with routine gynecological exam Vitamin D deficiency Elevated parathyroid hormone Asthma Abdominal pain Yeast infection Left hand pain Numbness and tingling in both hands Vaginal burning Pulmonary nodules Right knee pain Other and unspecified hyperlipidemia Essential hypertension Morbid obesity HELEN (obstructive sleep apnea) Precordial chest pain Heart palpitations Snoring Difficulty sleeping Panic attack PTSD (post-traumatic stress disorder) Cervical cancer screening Family history of breast cancer Low back pain Neck pain Depression Restless leg syndrome Peripheral neuropathy BMI 35.0-35.9,adult PVC (premature ventricular contraction) Mitral valve prolapse Hypertension Obesity (BMI 30-39.9) Diabetes type 2, controlled Osteopenia determined by x-ray Hyperlipidemia Lower back pain Hypothalamic hypothyroidism Insomnia GERD (gastroesophageal reflux disease) Migraine headache Surgical History H/O eye surgery Hx of endoscopy Hx of colonoscopy Hx of left breast biopsy History of cervical cerclage Hx of hysterectomy Hx of tubal ligation Family History Father Diabetes Paced cardiac rhythm Colon cancer Mother HTN (hypertension) High cholesterol Skin cancer Breast cancer Colon cancer Sister Obese abdomen Brother Infarction of lung due to iatrogenic pulmonary embolism Son HTN (hypertension) High cholesterol Son HTN (hypertension) High cholesterol Son No problems noted. Son No problems noted. Son No problems noted. Sister No problems noted. Sister No problems noted. 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 Gender identity: Female Female Reproductive History Menstrual Age of Menarche: 10 Date of menopause: 06/20/13 Review of Systems Const All systems reviewed & are unremarkable except as noted in HPI and below Physical Exam Vital Signs: Last Vital Signs Pulse 63 12/23/24 10:07 BP 132/60 12/23/24 10:07 BMI result Body Mass Index 23.7 Const General: cooperative, comfortable and well developed Nutritional Appearance: well nourished Orientation/consciousness: patient oriented x3 Eyes Sclerae: sclerae normal EOM: EOMs intact bilaterally Neck Neck: Yes normal visual inspection Chest Other: Left breast: No skin change, no nipple retraction, no nipple discharge, no palp able mass, no enlarged lymph nodes. Right breast: No skin change, no nipple retraction, no nipple discharge, no palpable mass, no enlarged lymph nodes. Resp Effort & Inspection: normal respiratory effort, no cough, no respiratory distress and no stridor Cardio Jugular venous distension: no JVD GI Inspection: Yes normal to inspection Palpation (GI): Soft to palpation, nontender, no guarding and not rigid Skin General skin exam: dry skin Rashes: no rashes Neuro General: patient oriented x3 and no focal motor deficits Extrem General: Yes full ROM and Yes no clubbing, cyanosis or edema Psych Appearance: grossly normal Assessment & Plan Assessment & Plan (1) Family history of breast cancer: Comment: See detailed notes from Dr. Escalona; currently getting Q 6 month breast exams with him Code(s): Z80.3 - Family history of malignant neoplasm of breast Category: Medical Plan 63-year-old female patient with a known family history of breast and colon cancer, underwent genetic testing which revealed no clinically significant mutation identified and no variance of uncertain significance were identified. Based on her family history however every 5 year colonoscopy was recommended. Breast examination today revealed no suspicious findings in either breast and her most recent mammogram of 08/04/2024 revealed no mammographic evidence of malignancy in either breast (BI-RADS 2). She will follow up in 6 months for a routine breast evaluation. She should call sooner for any concerns. Coding Level of Care Code Est Pt Level 3 (89005) Complex EM visit Add On G2211 Diagnoses Family history of breast cancer Z80.3
[2024-12-23 10:07] VITALS: BP 132/60; PULSE 63; BMI 23.7
--- OUTSIDE RECORDS SUMMARY | 2024-12-23 12:29 | XMS_ITS | Clinical Summary ---
Author Organization [facility] Address [address] [place] [address] Care Team Providers Care Accounts Receivable Clerk Name Role Phone Matilda Yo MD Primary Care Provider [phone] Surgical History Surgery Date Site/Laterality Comments TUBAL LIGATION PROCEDURE: HISTORICAL TUBAL LIGATION HYSTERECTOMY PROCEDURE: HISTORICAL HYSTERECTOMY OTHER SURGICAL HISTORY PROCEDURE: HISTORICAL CERCLAGE SURGERY; COMMENT: x 4, she has 7 children Medical History Medical History Date Comments Hypothyroidism DX:Hypothyroidis m Hypertension DX:Hypertension Type 2 diabetes mellitus wit hout complications (CMS/HCC V24, CMS/HCC V28) DX:Type 2 jackie betes mellitus without complications ([facility]) Mild intermittent asthma, uncomplicated DX:Mild intermittent [...] 03/07/2022 Social Influencers of Health Screening 03/07/2022 Depression Screening 04/09/2024 COVID-19 Vaccine (1 - 2023-2 5 season) 2024 Influenza Vaccine (#1) 2024 03/17/2020 RSV Immunization [...] age to complete this topic Care Teams Accounts Receivable Clerk Relationship Specialty Start Date End Date Matilda Yo MD [address] [place] PCP - General Internal Medicine 09/25/19
== END 2024-12-23 10:34 | disposition home or self-care (01) ==
LOC: HO.HGS 09:46
PROVIDERS: PCP Internal Medicine; Visit Provider Surgery
DX: Z80.3 Family history of malignant neoplasm of breast (principal)
CPT/HCPCS: 99213

== ENCOUNTER → 2024-12-23 09:45 | Outpatient (BNVA) | payer MEDICAID, SELFPAY | PROVIDERS: PCP Internal Medicine; Visit Provider Surgery | DX: Z80.3 Family history of malignant neoplasm of breast (principal); Z80.0 Family history of malignant neoplasm of digestive organs | CPT/HCPCS: 99212 ==

== ENCOUNTER 2025-01-05 09:34 | Emergency (ER) | payer OTHER, SELFPAY ==
--- NOTE | ~2025-01-05 | CT_ITS ---
EXAMINATION: CT ABDOMEN AND PELVIS WITHOUT CONTRAST CLINICAL INFORMATION: suprapubic pain, hematuria, right kidney stone? COMPARISON: None available. TECHNIQUE: Multidetector volumetric imaging was performed from the superior aspect of the liver through the pubic symphysis. Sagittal and coronal reformatted images were obtained on the technologist's workstation. This CT examination was performed using dose optimization techniques as appropriate, variously including the following: *Automated exposure control *Adjustment of mA and/or kV according to patient size (this includes techniques or standardized protocols for targeted exams where dose is matched to indication/reason for exam; i.e. extremities or head) *Use of iterative reconstruction technique FINDINGS: LUNG BASES: The visualized lung bases are unremarkable. LIVER, GALLBLADDER, AND BILIARY TREE: There is mildly decreased density of the liver. There are calcified stones layering in the dependent portion of the gallbladder that were less apparent on the prior. There is no biliary ductal dilation. PANCREAS: Unremarkable. SPLEEN: Unremarkable. ADRENAL GLANDS: Unremarkable. KIDNEYS AND URETERS: There is malrotation of the right kidney. The long axis is anterior posterior. There are bilateral parapelvic cysts and simple renal cyst in the mid right kidney. There is no hydronephrosis. There are no stones in the ureters. BLADDER: Unremarkable. GASTROINTESTINAL TRACT: The small and large bowel are unremarkable. The appendix is unremarkable. ABDOMINAL WALL: There is a small umbilical containing normal density adipose tissue. LYMPH NODES: Normal. VASCULAR: Mild multifocal vascular opacifications are present. PELVIC VISCERA: Uterus is surgically absent. OSSEOUS STRUCTURES: Moderate facet arthropathy is present in the lower lumbar spine. There is vacuum phenomenon at L5-S1 with sclerosis and superior sacrum. CT/CT abdomen pelvis wo IV con IMPRESSION: Cholelithiasis No kidney stones. Normal appendix. Fleischner guidelines were followed. Electronically signed by: Steven Hernandez MD 01/05/2025 11:02 AM EDT
[2025-01-05 09:38] VITALS: BP 124/59; PULSE 70; RESP 16; TEMP 36.3; O2SAT 95; BMI 35.5
[2025-01-05 09:55] LABS: MANUAL DIFF FLAG NO
[2025-01-05 09:56] LABS: Hematocrit 35.2 % (37.0-47.0); Hemoglobin 11.6 g/dl (12.0-16.0); Imm Gran Abs Auto 0.01 X10*3/uL (0.00-0.03); Imm Gran Pct Auto 0.2 % (0.0-0.4); Lymphocytes Absolute Auto 1.6 X10*3/uL (1.2-4.9); Mean Corpuscular HGB Conc 33.0 g/dl (31.0-35.0); Mean Corpuscular Hemoglobin 29.9 pg (27.0-33.0); Mean Corpuscular Volume 90.7 fL (80.0-98.0); NRBC Abs Auto 0.000 X10*3/uL (0.0-0.012); NRBC Pct Auto 0.0 /100WBC (0.0-0.2); Platelet Count 246 X10*3/uL (160-400); Red Blood Count 3.88 X10*6/uL (4.20-5.50); White Blood Count 5.3 X10*3/uL (4.8-10.8)
--- NOTE | 2025-01-05 10:14 | ED.ABDPAIN ---
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 Razo HPI narrative: 64-year-old female came in for evaluation of suprapubic pain, radiating to the right groin and right upper back area for 2 weeks, patient noticed dark urine today no manuel hematuria. No fever, no chills. Intra-abdominal surgical history significant for hysterectomy, last bowel movement was this morning and was normal, +passing flatus, no chest pain, no SOB. Otherwise no dysuria, no frequency urination. Related Data Home Medications ?Medication ?Instructions ?Recorded ?Confirmed levothyroxine 25 mcg tablet 25 mcg PO DAILY 01/05/20 12/23/24 (Synthroid) bupropion HCl 150 mg 24 hr tablet, 150 mg PO QAM 04/22/20 12/23/24 extended release blood sugar diagnostic (FreeStyle #10 ea 05/03/22 12/23/24 Lite Strips) lancets 28 gauge (FreeStyle #100 ea 05/03/22 12/23/24 Lancets) lorazepam 0.5 mg tablet 0.5 mg PO DAILY PRN anxiety 05/03/22 12/23/24 melatonin 5 mg disintegrating 10 mg PO BEDTIME 05/03/22 12/23/24 tablet rosuvastatin 40 mg tablet 40 mg PO DAILY 05/03/22 12/23/24 trazodone 50 mg tablet 50 mg PO DAILY 05/03/22 12/23/24 ezetimibe 10 mg tablet 10 mg PO DAILY 05/25/23 12/23/24 nebulizers 11/26/23 12/23/24 losartan 100 1 tab PO DAILY 07/01/24 12/23/24 mg-hydrochlorothiazide 25 mg tablet meclizine 25 mg tablet 25 mg PO Q12H PRN 07/01/24 12/23/24 sertraline 100 mg tablet 100 mg PO DAILY 07/01/24 12/23/24 ammonium lactate 12 % topical cream appl topical BID 09/23/24 12/23/24 empagliflozin 25 mg tablet 25 mg PO QAM 09/23/24 12/23/24 (Jardiance) Previous Rx's ?Medication ?Instructions ?Recorded albuterol sulfate 2.5 mg/3 mL 2.5 mg (3 mL) inhalation Q6H PRN 05/21/23 (0.083 %) solution for nebulization shortness of breath or wheezing 30 days #180 mL cholecalciferol (vitamin D3) 25 25 mcg PO DAILY 3 months #90 caps 05/12/24 mcg (1,000 unit) capsule albuterol sulfate 90 mcg/actuation 2 inh PO Q6H PRN shortness of 06/12/24 aerosol inhaler (Ventolin HFA) breath or wheezing #54 ea budesonide-formoterol HFA 160 2 inh PO BID #30.6 ea 06/12/24 mcg-4.5 mcg/actuation aerosol inhaler (Symbicort) fluticasone propionate 50 2 spray intranasal DAILY #48 mL 06/12/24 mcg/actuation nasal spray,suspension montelukast 10 mg tablet 10 mg PO BEDTIME #90 tabs 06/12/24 loratadine 10 mg tablet (Claritin) 10 mg PO DAILY 30 days #30 tabs 07/22/24 bisacodyl 5 mg tablet,delayed 15 mg (3 x 5 mg) PO BEDTIME 30 09/23/24 release (Dulcolax (bisacodyl)) days #90 tabs famotidine 20 mg tablet 20 mg PO BEDTIME #90 tabs 09/23/24 oclcos-nkzrozey-dziwxpg 2 cap PO BID #360 caps 09/23/24 36,000-114,000-180,000 unit capsule,delay rel (Creon) omeprazole 40 mg capsule,delayed 40 mg PO DAILY 90 days #90 caps 09/23/24 release divalproex 250 mg tablet,delayed 250 mg PO BEDTIME 90 days #90 tabs 10/30/24 release (Depakote) gabapentin 300 mg capsule 300 mg PO .COMPLEX 30 days #90 caps 10/30/24 rizatriptan 10 mg disintegrating See Rx Instructions PO .COMPLEX 30 10/30/24 tablet days #10 tabs bisacodyl 5 mg tablet,delayed 10 mg (2 x 5 mg) PO BEDTIME 2 days 11/06/24 release (Dulcolax (bisacodyl)) #4 tabs peg 3350-electrolytes 236 240 ml PO Q10M 1 day #4,000 mL 11/06/24 gram-22.74 gram-6.74 gram-5.86 gram solution (Golytely) ropinirole 0.25 mg tablet 0.25 mg PO BEDTIME 90 days #90 tabs 11/07/24 terconazole 0.8 % vaginal cream 1 appful vaginal BEDTIME 3 days 11/14/24 #20 grams nitrofurantoin 100 mg PO Q12H 7 days #14 caps 01/05/25 monohydrate/macrocrystals 100 mg capsule (Macrobid) Allergies Allergy/AdvReac Type Severity Reaction Status Date / Time gentamicin (From GARAMYCIN) Allergy Intermediate RASH Verified 01/05/25 09:40 Penicillins (PENICILLINS) Allergy Intermediate RASH Verified 01/05/25 09:40 Seasonal Allergies Allergy Intermediate seasonal Verified 01/05/25 09:40 allergies vancomycin (VANCOMYCIN) Allergy Intermediate swelling/ra Verified 01/05/25 09:40 sh/hives Review of Systems Review of Systems All other systems are reviewed and are negative Constitutional: Reports as per HPI and Reports no additional constitutional complaints Eyes: Reports as per HPI and Reports no additional eye complaints Reports system reviewed and no additional complaints, except as documented Cardiovascular: Reports as per HPI and Reports no additional cardiovascular complaints Respiratory: Reports as per HPI and Reports no additional respiratory complaints Gastrointestinal: Reports as per HPI and Reports no additional gastrointestinal complaints Genitourinary: Reports no additional female genitourinary complaints Musculoskeletal: Reports no additional musculoskeletal complaints Skin/Breast: Reports system reviewed and no additional complaints, except as docu Psychiatric: Reports no additional psychiatric complaints Endocrine: Reports no additional endocrine complaints Hematologic/Lymphatic: Reports no additional hematologic/lymphatic complaints Allergic/Immunologic: Reports no additional allergic/immunologic complaints Reports system reviewed and no additional complaints, except as documented and Reports Abnormal speech present [facility] Past Medical History Medical History Lumbar disc disease Extrapyramidal and movement disorder, unspecified Allergies Hx of abnormal cervical Pap smear Perimenopause De Quervain's tenosynovitis, left Potential exposure to STD Urinary incontinence Sinusitis Asymptomatic postsurgical menopause Pre-op chest exam Fungal skin infection Well woman exam with routine gynecological exam Vitamin D deficiency Elevated parathyroid hormone Asthma Abdominal pain Yeast infection Left hand pain Numbness and tingling in both hands Vaginal burning Pulmonary nodules Right knee pain Other and unspecified hyperlipidemia Essential hypertension Morbid obesity HELEN (obstructive sleep apnea) Precordial chest pain Heart palpitations Snoring Difficulty sleeping Panic attack PTSD (post-traumatic stress disorder) Cervical cancer screening Family history of breast cancer Low back pain Neck pain Depression Restless leg syndrome Peripheral neuropathy BMI 35.0-35.9,adult PVC (premature ventricular contraction) Mitral valve prolapse Hypertension Obesity (BMI 30-39.9) Diabetes type 2, controlled Osteopenia determined by x-ray Hyperlipidemia Lower back pain Hypothalamic hypothyroidism Insomnia GERD (gastroesophageal reflux disease) Migraine headache Surgical History H/O eye surgery Hx of endoscopy Hx of colonoscopy Hx of left breast biopsy History of cervical cerclage Hx of hysterectomy Hx of tubal ligation Family History Family History Father Diabetes Paced cardiac rhythm Colon cancer Mother HTN (hypertension) High cholesterol Skin cancer Breast cancer Colon cancer Sister Obese abdomen Brother Infarction of lung due to iatrogenic pulmonary embolism Son HTN (hypertension) High cholesterol Son HTN (hypertension) High cholesterol Son No problems noted. Son No problems noted. Son No problems noted. Sister No problems noted. Sister No problems noted. 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 Blood pressure elevated. Heart rate normal. Respiratory rate normal. Temperature normal. Oxygen saturation normal. Appearance: Alert. Oriented X3. No acute distress. Head: Normal external exam. Normocephalic. Atraumatic. No Nuñez signs noted. No raccoon eyes noted Eyes: PERRLA. EOMI. Conjunctiva and sclera normal. Eyelids normal. ENT: TM's Normal. Pharynx normal. Uvula midline. Moist mucous membranes. No trismus noted. No drooling noted. No muffled voice noted. Neck: Normal inspection. Neck supple. FROM. No adenopathy. Thyroid Normal. No meningeal signs. No neck mass noted. CVS: Normal heart rate and rhythm. Heart sound normal. No murmurs noted. Pulses normal throughout. Respiratory: No respiratory distress. Painless inspiration. Breath sounds normal. No wheezes/rales/rhonchi noted. Chest nontender. No accessory muscle usage noted or decreased air movement noted. Abdomen: Soft and nontender. Bowel sounds normal in all 4 quadrants. No distention noted. No organomegaly noted. No visible injury noted. Back: No CVA tenderness. Full range of motion noted. Skin: Skin warm and dry. Normal skin color. Normal skin turgor. No rashes/lesions/lacerations noted. Extremities: No lower extremity edema. Extremities exhibit normal range of motion. Extremities nontender. Neuro: Oriented X 3. Cranial nerve exam: II-XII are grossly intact No motor deficit. No sensory deficit. Reflexes normal. Course Reevaluation(s) Reevaluation #1: hematuria, pressure suprapubic area, will start on Macrobid. CT abdomen and pelvis shows no acute obstructive uropathy. Time: 12:32 Medical Decision Making Differential Diagnosis Differential Diagnoses: The differential diagnosis associated with the presentation includes ( Kidney stone, UTI, pyelonephritis, hemorrhagic cystitis, electrolyte derangement, severe anemia, appendicitis, pancreatitis.) Admission/Observation Consideration of admission/observation: Escalation of care including admission/observation considered Lab Data MDM Lab Attestation statement: I reviewed the patient's lab results. 01/05/25 09:53 01/05/25 09:53 Labs: Lab Results 01/05/25 01/05/25 Range/Units 09:53 10:19 WBC 5.3 (4.8-10.8) X10*3/uL RBC 3.88 L (4.20-5.50) X10*6/uL Hgb 11.6 L (12.0-16.0) g/dl Hct 35.2 L (37.0-47.0) % MCV 90.7 (80.0-98.0) fL MCH 29.9 (27.0-33.0) pg MCHC 33.0 (31.0-35.0) g/dl RDW 13.5 (11.0-16.0) % Plt Count 246 (160-400) X10*3/uL MPV 10.5 (9.4-12.3) fL Immature Gran % (Auto) 0.2 (0.0-0.4) % Neut % (Auto) 58.9 (45-73) % Lymph % (Auto) 30.1 (20-40) % [place] % (Auto) 7.2 (2-11) % Eos % (Auto) 3.0 (0-4) % Baso % (Auto) 0.6 (0-2) % Lymph # (Auto) 1.6 (1.2-4.9) X10*3/uL [place] # (Auto) 0.4 (0.1-1.2) X10*3/uL Eos # (Auto) 0.2 (0.0-0.4) X10*3/uL Baso # (Auto) 0.0 (0.0-0.2) X10*3/uL Abs Immat Gran (auto) 0.01 (0.00-0.03) X10*3/uL Absolute Neuts (auto) 3.1 (2.0-8.3) x10*3/uL Absolute Nucleated RBC 0.000 (0.0-0.012) X10*3/uL Nucleated RBC % (auto) 0.0 (0.0-0.2) /100WBC Sodium 141 (135-145) mmol/L Potassium 4.0 (3.3-5.1) mmol/L Chloride 108 (96-108) mmol/L Carbon Dioxide 26 (22-29) mmol/L Anion Gap 11 L (12-20) BUN 13 (9-16) mg/dL Creatinine 0.67 (0.5-1.4) mg/dL Estim Creat Clear Calc 92.9 Estimated GFR > 60 Random Glucose 121 H (60-115) mg/dL Calcium 9.4 (8.4-10.2) mg/dL Total Bilirubin 0.8 (0.0-1.0) mg/dL Direct Bilirubin 0.3 (0.0-0.5) mg/dL AST 29 (5-31) U/L ALT 27 (0-31) U/L Alkaline Phosphatase 80 (39-117) U/L Total Protein 7.0 (6.5-8.0) g/dL Albumin 4.6 (3.5-5.0) g/dL Lipase 23 (8-78) U/L Urine Color Yellow Urine Appearance Clear Urine pH 6.0 (5.0-9.0) Ur Specific Vaughan 1.010 (1.005-1.025) Urine Protein Negative (Neg-Trace) mg/dL Urine Glucose (UA) Negative (Negative) mg/dL Urine Ketones Negative (Negative) mg/dL Urine Blood Negative (Negative) Urine Nitrite Negative (Negative) Ur Leukocyte Esterase Negative (Negative) Independent Interpretation I performed an independent interpretation of an: CT Scan ( Abdomen and pelvis:Cholelithiasis No kidney stones. Normal appendix. ) Radiology Impression Discussion of test interpretation with radiology: I have reviewed the radiologist's reading. Discharge Plan Discharge Clinical Impression: Hematuria, Acute UTI Patient Disposition: Home, Self-Care Instructions: Urinary Tract Infection in Women (ED) Prescriptions: New nitrofurantoin monohyd/m-cryst [Macrobid] 100 mg capsule 100 mg PO Q12H 7 Days Qty: 14 0RF Rx Instructions: must administer with a meal/food No Action albuterol sulfate [Ventolin HFA] 90 mcg/actuation HFA aerosol inhaler 2 inh PO Q6H PRN (Reason: shortness of breath or wheezing) Qty: 54 3RF budesonide-formoterol [Symbicort] 160-4.5 mcg/actuation HFA aerosol inhaler 2 inh PO BID Qty: 30.6 3RF montelukast 10 mg tablet 10 mg PO BEDTIME Qty: 90 3RF fluticasone propionate 50 mcg/actuation spray,suspension 2 spray intranasal DAILY Qty: 48 3RF loratadine [Claritin] 10 mg tablet 10 mg PO DAILY 30 Days Qty: 30 11RF ropinirole 0.25 mg tablet 0.25 mg PO BEDTIME 90 Days Qty: 90 1RF terconazole 0.8 % cream 1 appful vaginal BEDTIME 3 Days Qty: 20 0RF levothyroxine [Synthroid] 25 mcg tablet 25 mcg PO DAILY bupropion HCl 150 mg tablet extended release 24 hr 150 mg PO QAM trazodone 50 mg tablet 50 mg PO DAILY rosuvastatin 40 mg tablet 40 mg PO DAILY melatonin 5 mg tablet,disintegrating 10 mg PO BEDTIME lorazepam 0.5 mg tablet 0.5 mg PO DAILY PRN (Reason: anxiety) (DME) FreeStyle Lite Strips Strip See Rx Instructions .ROUTE BID Qty: 10 Rx Instructions: As directed (DME) lancets [FreeStyle Lancets] 28 gauge misc See Rx Instructions .ROUTE DAILY Qty: 100 Rx Instructions: As directed (DME) nebulizers Misc See Rx Instructions .Route Rx Instructions: As directed cholecalciferol (vitamin D3) 25 mcg (1,000 unit) capsule 25 mcg PO DAILY 90 Days Qty: 90 3RF ezetimibe 10 mg tablet 10 mg PO DAILY albuterol sulfate 2.5 mg /3 mL (0.083 %) solution for nebulization 2.5 mg inhalation Q6H PRN (Reason: shortness of breath or wheezing) 30 Days Qty: 180 11RF losartan-hydrochlorothiazide 100-25 mg tablet 1 tab PO DAILY meclizine 25 mg tablet 25 mg PO Q12H PRN sertraline 100 mg tablet 100 mg PO DAILY ammonium lactate 12 % cream topical BID Jardiance 25 mg tablet 25 mg PO QAM bisacodyl [Dulcolax (bisacodyl)] 5 mg tablet,delayed release (DR/EC) 15 mg PO BEDTIME 30 Days Qty: 90 6RF Rx Instructions: take orally as directed prior to colonoscopy famotidine 20 mg tablet 20 mg PO BEDTIME Qty: 90 2RF Creon 36,000-114,000- 180,000 unit capsule,delayed release(DR/EC) 2 cap PO BID Qty: 360 1RF Rx Instructions: administer with meals and/or snacks omeprazole 40 mg capsule,delayed release(DR/EC) 40 mg PO DAILY 90 Days Qty: 90 1RF bisacodyl [Dulcolax (bisacodyl)] 5 mg tablet,delayed release (DR/EC) 10 mg PO BEDTIME 2 Days Qty: 4 0RF peg 3350-electrolytes [Golytely] 236-22.74-6.74 -5.86 gram recon soln 240 ml PO Q10M 1 Days Qty: 4000 0RF Rx Instructions: until fecal effluent is clear; do not exceed a total volume of 2,000 mL divalproex [Depakote] 250 mg tablet,delayed release (DR/EC) 250 mg PO BEDTIME 90 Days Qty: 90 1RF rizatriptan 10 mg tablet,disintegrating See Rx Instructions PO .COMPLEX 30 Days Qty: 10 5RF Rx Instructions: take 1 tab at onset of headache; if no relief may repeat 1 tab after at least 4 hrs; max = 2 tabs/24 hr PO gabapentin 300 mg capsule 300 mg PO .COMPLEX 30 Days Qty: 90 5RF Rx Instructions: 300 mg orally 1 cap at bedtime x1 week, then 1 cap BID x1 week, then 1 cap TID; Referrals: Matilda Yo MD [Primary Care Provider, Internal Medicine] Herbert Mcclelland MD [Physician, Urology] Print Language: Sri Lankan
[2025-01-05 10:27] LABS: Appearance Urine Clear; Glucose Urine UA Negative (Negative); PH 6.0 (5.0-9.0); Specific Gravity - Urine 1.010 (1.005-1.025)
[2025-01-05 10:28] LABS: Anion Gap 11 (12-20); Blood Urea Nitrogen 13 mg/dL (9-16); Calcium 9.4 mg/dL (8.4-10.2); Carbon Dioxide 26 mmol/L (22-29); Chloride 108 mmol/L (96-108); Creatinine Clr Calc Pharmacy 92.9; Estimated Glomerular Filt Rate > 60; Potassium 4.0 mmol/L (3.3-5.1); Sodium 141 mmol/L (135-145)
[2025-01-05 10:43] LABS: Alanine Aminotransferase 27 U/L (0-31); Albumin Level 4.6 g/dL (3.5-5.0); Alkaline Phosphatase 80 U/L (39-117); Aspartate Amino Transferase 29 U/L (5-31); Lipase 23 U/L (8-78); Total Protein 7.0 g/dL (6.5-8.0)
--- OUTSIDE RECORDS SUMMARY | 2025-01-05 11:13 | XMS_ITS | Clinical Summary ---
Author Organization [facility] Address [address] [place] [address] Care Team Providers Care Visual Specialist Name Role Phone Matilda Yo MD Primary Care Provider [phone] Surgical History Surgery Date Site/Laterality Comments TUBAL LIGATION PROCEDURE: HISTORICAL TUBAL LIGATION HYSTERECTOMY PROCEDURE: HISTORICAL HYSTERECTOMY OTHER SURGICAL HISTORY PROCEDURE: HISTORICAL CERCLAGE SURGERY; COMMENT: x 4, she has 7 children Medical History Medical History Date Comments Hypothyroidism DX:Hypothyroidis m Hypertension DX:Hypertension Type 2 diabetes mellitus wit hout complications (CMS/HCC V24, CMS/HCC V28) DX:Type 2 jackie betes mellitus without complications ([facility]) Mild intermittent asthma, uncomplicated DX:Mild intermittent [...] Last Done Comments Breast Cancer Screening 1959 Colorectal Cancer Screening: Colonoscopy 1960 DTaP,Tdap,and Td Vaccines (1 - Tdap) 12/25/1978 Cervical Cancer Screening: P ap Smear 12/25/1980 Pneumococcal Vaccine: 50+ Ye ars (1 of 1 - PCV) 12/25/2009 Zoster Vaccines (1 of 2) 12/25/2009 Hepatitis C Screening 03/07/2022 Osteoporosis Screening (Bone Density Screening) 03/07/2022 Social Influencers of Health Screening 03/07/2022 Depression Screening 04/09/2024 COVID-19 Vaccine (1 - 2023-2 5 season) 2024 Influenza Vaccine (#1) 2024 03/17/2020 Falls Risk Assessment 12/25/2024 RSV Immunization Adult Patie nts (1 - [...] age to complete this topic Care Teams Visual Specialist Relationship Specialty Start Date End Date Matilda Yo MD [address] [place] [address] PCP - General Internal Medicine 09/25/19
[2025-01-05 12:46] VITALS: BP 146/75; PULSE 62; RESP 16; TEMP 36.3; O2SAT 95
== END 2025-01-05 12:47 | disposition home or self-care (01) ==
PROVIDERS: Emergency Provider Emergency Medicine; PCP Internal Medicine
DX: N39.0 Urinary tract infection, site not specified (principal); I10 Essential (primary) hypertension; E66.9 Obesity, unspecified; Z68.35 Body mass index [BMI] 35.0-35.9, adult; Z79.899 Other long term (current) drug therapy
CPT/HCPCS: 36415; 74176; 80048; 80076; 81003; 83690; 85025; 99284

== ENCOUNTER → 2025-01-05 10:13 | Outpatient (BNV) | payer MEDICARE, MEDICAID, SELFPAY | PROVIDERS: Emergency Provider Emergency Medicine; PCP Internal Medicine; Visit Provider Radiology Diagnostic Radiology | DX: K80.20 Calculus of gallbladder without cholecystitis without obstruction (principal) | CPT/HCPCS: 74176 ==

== ENCOUNTER 2025-01-20 12:29 | Outpatient (AMB) | payer MEDICAID, SELFPAY ==
--- NOTE | 2025-01-20 12:37 | MHC.AMNUTRGE ---
VS Expanded 01/20/25 12:38 Height 5 ft 4 in Weight 205 lb 14.588 oz BMI 35.3 Intake Visit Reasons: T2DM Allergies gentamicin (From GARAMYCIN) Allergy (Intermediate, Verified 01/05/25 09:40) RASH Penicillins (PENICILLINS) Allergy (Intermediate, Verified 01/05/25 09:40) RASH Seasonal Allergies Allergy (Intermediate, Verified 01/05/25 09:40) seasonal allergies vancomycin (VANCOMYCIN) Allergy (Intermediate, Verified 01/05/25 09:40) swelling/rash/hives Nutrition Presentation Details: Pt present for MNT f/u for T2DM Pt reports wt at home at 204 lbs , monitors weekly Pt acknowledges increased snacks when anxious , working on participating in residential activities ([employer] and similar) to relieve anxiety and reports this is helpful Food frequency: has 3 meals/day B: toasts with ham or cheese or peanut butter, coffee with almond milk and diet sugar L/d: soup with veggies, potato or noodles or sand varies on whole wheat bread (tuna or chicken with olive oil and lettuce tomato and almond milk (same for dinner) snack on 1 yogurt daily , and 1 fruit daily food frequency no juices/no sodas, has 36 oz of water/day fish : 2x/wk 160 at night, 130 in AM BS Monitoring Most Recent Diabetes Results: Microalb/Creat Ratio, (<30) 5.9 ug/mg cr 10/20/24 Cholesterol, (<200) 123 mg/dL 10/20/24 HDL Cholesterol, (>40) 43 mg/dL 10/20/24 Triglycerides, (<150) 126 mg/dL 10/20/24 Creatinine, (0.5-1.4) 0.67 mg/dL 01/05/25 BUN, (9-16) 13 mg/dL 01/05/25 Sodium, (135-145) 141 mmol/L 01/05/25 Potassium, (3.3-5.1) 4.0 mmol/L 01/05/25 Chloride, (96-108) 108 mmol/L 01/05/25 Carbon Dioxide, (22-29) 26 mmol/L 01/05/25 Calcium, (8.4-10.2) 9.4 mg/dL 01/05/25 AST, (5-31) 29 U/L 01/05/25 ALT, (0-31) 27 U/L 01/05/25 Total Protein, (6.5-8.0) 7.0 g/dL 01/05/25 Albumin, (3.5-5.0) 4.6 g/dL 01/05/25 [facility] Medical History Lumbar disc disease Extrapyramidal and movement disorder, unspecified Allergies Hx of abnormal cervical Pap smear Perimenopause De Quervain's tenosynovitis, left Potential exposure to STD Urinary incontinence Sinusitis Asymptomatic postsurgical menopause Pre-op chest exam Fungal skin infection Well woman exam with routine gynecological exam Vitamin D deficiency Elevated parathyroid hormone Asthma Abdominal pain Yeast infection Left hand pain Numbness and tingling in both hands Vaginal burning Pulmonary nodules Right knee pain Other and unspecified hyperlipidemia Essential hypertension Morbid obesity HELEN (obstructive sleep apnea) Precordial chest pain Heart palpitations Snoring Difficulty sleeping Panic attack PTSD (post-traumatic stress disorder) Cervical cancer screening Family history of breast cancer Low back pain Neck pain Depression Restless leg syndrome Peripheral neuropathy BMI 35.0-35.9,adult PVC (premature ventricular contraction) Mitral valve prolapse Hypertension Obesity (BMI 30-39.9) Diabetes type 2, controlled Osteopenia determined by x-ray Hyperlipidemia Lower back pain Hypothalamic hypothyroidism Insomnia GERD (gastroesophageal reflux disease) Migraine headache Surgical History H/O eye surgery Hx of endoscopy Hx of colonoscopy Hx of left breast biopsy History of cervical cerclage Hx of hysterectomy Hx of tubal ligation Family History Father Diabetes Paced cardiac rhythm Colon cancer Mother HTN (hypertension) High cholesterol Skin cancer Breast cancer Colon cancer Sister Obese abdomen Brother Infarction of lung due to iatrogenic pulmonary embolism Son HTN (hypertension) High cholesterol Son HTN (hypertension) High cholesterol Son No problems noted. Son No problems noted. Son No problems noted. Sister No problems noted. Sister No problems noted. 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 Used wt : 93.6 kg (01/31) Est kcal as per MSJ: 1800 (40% carb, 30% fat/prot) Est fluid needs: 7041-7758 ml/d (25-30 ml/kg bw) Rec fiber: increase to 8-10 g per day and gradually increase to 25 g/d or as tolerated Rec Na: < 2000 mg /d Educate patient on: (R= Reviewed, V = verbalizes understanding N/R= Needs review N/A= not applicable) Food sources of carbohydrates and serving adequate serving sizes : R V Difference between complex carbohydrates and simple carbohydrates, role of fiber: R V Differences between fats (MUFA/PUFA/saturated fats, trans fats) and food sources of various fats: R Food sources of sodium and salt and healthy modifications for heart health and kidney health: R,V Vitamins and minerals: R, V discussed calcium intake via foods 1200 mg/day, naturally low fat options How to interpret food labels: R Healthy Plate method concept: R V Physical activity: benefits and precaution: R V probiotics/prebiotic: R Reducing on simple sugar: R Patient Instructions: Resume having one meal replacement per day Coding Level of Care Code Nutr Indiv Subseq (18808) Diagnoses Type 2 diabetes mellitus with unspecified complications E11.8 Time Spent (min) 30
[2025-01-20 12:38] VITALS: BMI 35.3
--- OUTSIDE RECORDS SUMMARY | 2025-01-20 15:09 | XMS_ITS | Clinical Summary ---
Author Organization [facility] Address [address] [place] [address] Care Team Providers Care Pitch Filler Name Role Phone Matilda Yo MD Primary Care Provider [phone] Surgical History Surgery Date Site/Laterality Comments TUBAL [...] age to complete this topic Care Teams Pitch Filler Relationship Specialty Start Date End Date Matilda Yo MD [address] [place] [address] PCP - General Internal Medicine 09/25/19
== END 2025-01-20 13:15 | disposition home or self-care (01) ==
LOC: HO.ENCR 12:29
PROVIDERS: PCP Internal Medicine; Visit Provider Dietitian, Registered
DX: E11.8 Type 2 diabetes mellitus with unspecified complications (principal)

== ENCOUNTER → 2025-01-20 12:29 | Outpatient (BNVA) | payer MEDICAID, SELFPAY | PROVIDERS: PCP Internal Medicine; Visit Provider Dietitian, Registered | DX: E11.9 Type 2 diabetes mellitus without complications (principal) | CPT/HCPCS: 97803 ==

== ENCOUNTER 2025-02-12 07:29 | Outpatient (REF) | payer OTHER, SELFPAY ==
--- OUTSIDE RECORDS SUMMARY | 2025-02-12 07:32 | XMS_ITS | Clinical Summary ---
Author Organization [facility] Address [address] [place] [address] Care Team Providers Care Commercial Food Instructor Name Role Phone Matilda Yo MD Primary Care Provider [phone] Surgical History Surgery Date Site/Laterality Comments TUBAL LIGATION PROCEDURE: HISTORICAL TUBAL LIGATION HYSTERECTOMY PROCEDURE: HISTORICAL HYSTERECTOMY OTHER SURGICAL HISTORY PROCEDURE: HISTORICAL CERCLAGE SURGERY; COMMENT: x 4, she has 7 children Medical History Medical History Date Comments Hypothyroidism DX:Hypothyroidis m Hypertension DX:Hypertension Type 2 diabetes mellitus wit hout complications (CMS/HCC V24, CMS/HCC V28) DX:Type 2 jackie betes mellitus without complications ([facility]) Mild intermittent asthma, uncomplicated DX:Mild intermittent asthma, [...] 12/25/2009 Zoster Vaccines (1 of 2) 12/25/2009 Depression Screening 04/09/2024 COVID-19 Vaccine (1 - [...] age to complete this topic Care Teams Commercial Food Instructor Relationship Specialty Start Date End Date Matilda Yo MD [address] [place] [address] PCP - General Internal Medicine 09/25/19
[2025-02-12 08:45] LABS: Alanine Aminotransferase 25 U/L (0-31); Albumin Level 4.5 g/dL (3.5-5.0); Alkaline Phosphatase 80 U/L (39-117); Anion Gap 11 (12-20); Aspartate Amino Transferase 23 U/L (5-31); Blood Urea Nitrogen 11 mg/dL (9-16); Calcium 9.6 mg/dL (8.4-10.2); Carbon Dioxide 26 mmol/L (22-29); Chloride 109 mmol/L (96-108); Estimated Glomerular Filt Rate > 60; Potassium 4.6 mmol/L (3.3-5.1); Sodium 141 mmol/L (135-145); Total Protein 7.0 g/dL (6.5-8.0)
== END 2025-02-12 07:30 | disposition home or self-care (01) ==
LOC: HO.LAB 07:29
PROVIDERS: PCP Internal Medicine; Visit Provider Internal Medicine
DX: Z00.00 Encounter for general adult medical examination without abnormal findings (principal); I10 Essential (primary) hypertension; E11.9 Type 2 diabetes mellitus without complications; M79.672 Pain in left foot; E78.00 Pure hypercholesterolemia, unspecified
CPT/HCPCS: 36415; 80053; 83036